=== PATIENT | female | born 1955 | race American Indian/Alaskan Native ===

== ENCOUNTER 2017-07-29 22:38 | Inpatient (IN) | payer OTHER ==
[2017-07-29] MEDS ORDERED: LIDOCAINE VISCOUS 2% PO ONE (22:50)
[2017-07-29] MEDS ORDERED: ZOFRAN IV ONE (23:00)
--- NOTE | 2017-07-29 23:02 | Emergency Department Report ---
ED Abdominal Pain HPI - General Chief Complaint: Abdominal Pain Stated Complaint: BOWEL OBSTRUCTION/ABD PAIN Time Seen by Provider: 07/29/17 22:45 Source: patient, EMS, old records reviewed Mode of arrival: Stretcher Limitations: No Limitations - History of Present Illness Initial Comments: Patient is a 62 years old female transferred from his [facility] for a partial bowel obstruction. Patient had history of diverticulitis and with ileostomy. Patient presented to the ER this morning with his abdominal pain nausea and vomiting. Dr. Van was consulted and he advised to transfer patient to [facility] for further evaluation. She stated that she is still nauseated. [facility] tried NG was no success. MD Complaint: abdominal pain - Related Data Previous Rx's Medication Instructions Recorded Last Taken Type Ferrous Sulfate [Feosol 325 MG tab] 325 mg PO TID #90 tablet 05/25/17 Unknown Rx Levofloxacin [Levaquin] 750 mg PO QDAY #2 tablet 05/25/17 Unknown Rx Metformin HCl [Fortamet ER] 1,000 mg PO BID #60 tab.er.24 05/25/17 Unknown Rx Pantoprazole [Protonix TAB] 40 mg PO DAILY #30 tablet 05/25/17 Unknown Rx oxyCODONE /ACETAMINOPHEN [Percocet 1 tab PO Q6HR PRN #30 tablet 05/25/17 Unknown Rx 5/325] Allergies Allergy/AdvReac Type Severity Reaction Status Date / Time No Known Allergies Allergy Verified 07/29/17 22:43 ED Review of Systems ROS: Stated complaint: BOWEL OBSTRUCTION/ABD PAIN Other details as noted in HPI Comment: All other systems reviewed and negative Constitutional: denies: chills, fever Respiratory: denies: cough, shortness of breath, SOB with exertion, SOB at rest , wheezing Cardiovascular: denies: chest pain Gastrointestinal: abdominal pain, nausea, vomiting. denies: diarrhea, constipation, hematemesis Genitourinary: denies: urgency ED Past Medical Hx - Past Medical History Previous Medical History?: Yes Hx Hypertension: Yes Hx Congestive Heart Failure: No Hx Diabetes: Yes Hx Deep Vein Thrombosis: No Hx Asthma: No Hx COPD: No Hx HIV: Yes Additional medical history: Diverticulitis, - Surgical History Past Surgical History?: Yes Hx Pacemaker: No Hx Internal Defibrillator: No Hx Cholecystectomy: Yes Additional Surgical History: colectomy 05/2018 - Social History Smoking Status: Never Smoker Substance Use Type: None - Medications Home Medications: Home Medications Medication Instructions Recorded Confirmed Last Taken Type Ferrous Sulfate [Feosol 325 MG tab] 325 mg PO TID #90 tablet 05/25/17 Unknown Rx Levofloxacin [Levaquin] 750 mg PO QDAY #2 tablet 05/25/17 Unknown Rx Metformin HCl [Fortamet ER] 1,000 mg PO BID #60 tab.er.24 05/25/17 Unknown Rx Pantoprazole [Protonix TAB] 40 mg PO DAILY #30 tablet 05/25/17 Unknown Rx oxyCODONE /ACETAMINOPHEN [Percocet 1 tab PO Q6HR PRN #30 tablet 05/25/17 Unknown Rx 5/325] ED Physical Exam - General Limitations: No Limitations General appearance: alert, in no apparent distress - Head Head exam: Present: atraumatic, normocephalic - Eye Eye exam: Present: normal appearance, PERRL - ENT ENT exam: Present: normal exam, mucous membranes dry - Neck Neck exam: Present: normal inspection - Respiratory Respiratory exam: Present: normal lung sounds bilaterally. Absent: wheezes, rales, rhonchi - Cardiovascular Cardiovascular Exam: Present: regular rate, normal rhythm, normal heart sounds - GI/Abdominal GI/Abdominal exam: Present: soft, distended. Absent: tenderness, guarding, rebound, rigid, hyperactive bowel sounds, hypoactive bowel sounds, organomegaly , mass, bruit, pulsatile mass, hernia - Back Exam Back exam: Present: normal inspection. Absent: CVA tenderness (R), CVA tenderness (L) - Neurological Exam Neurological exam: Present: alert, oriented X3, CN II-XII intact, normal gait - Skin Skin exam: Present: warm, normal color. Absent: dry, intact ED Course - Reevaluation(s) Reevaluation #1: 07/30/17 00:30 NG tube inserted with no complication. Minimum amount of fluids was suctioned. By mouth contrast injected through the NG tube. ED Medical Decision Making - Lab Data Labs from [facility] is as follows: White blood cells is 6.1 hemoglobin is 12.9 hematocrit is 40.1, platelet is 182, neutrophil is 44.2%, sodium is 137 , potassium 3.9, chloride 104 CO2 is 25 BUN is [address] abdomen and pelvis impression #1 postsurgical changes from colectomy there are prominent fluid filled bowel loops right hemiabdomen with mesenteric inflammation and relative caliber change. This finding are concerning for at least partial obstruction. The bowel loops are located at the periphery of the abdomen and internal hernia is not excluded. #2 finding of omental infarction in the left hemiabdomen. - Medical Decision Making Discussed with Dr. Diaz, presented the patient to him. he accepted patient to be admitted to his service. CT abdomen and pelvis with by mouth and IV contrast still pending. Critical care attestation.: If time is entered above; I have spent that time in minutes in the direct care of this critically ill patient, excluding procedure time. ED Disposition Clinical Impression: Abdominal pain, Bowel obstruction Disposition: [id number] OP ADMIT IP TO THIS HOSP Is pt being admited?: Yes Condition: Stable Instructions: Abdominal Pain (ED)
[2017-07-29] MEDS ORDERED: ZOFRAN ONE (23:07)
[2017-07-29] MEDS ORDERED: NACL 0.9% 1000 ML 1,000 ML IV ONE (23:12)
[2017-07-29] MEDS ORDERED: REGLAN ONE (23:33)
[2017-07-29] MEDS ORDERED: ATIVAN ONE (23:33)
[2017-07-29] MEDS ORDERED: LIDOCAINE VISCOUS 2% ONE (23:33)
[2017-07-30] MEDS ORDERED: ATIVAN IV ONE (00:11)
[2017-07-30] MEDS ORDERED: REGLAN IV ONE (00:11)
[2017-07-30] MEDS ORDERED: DILAUDID IV ONE (01:02)
[2017-07-30] MEDS ORDERED: MILK OF MAGNESIA PO PRN (01:07)
[2017-07-30] MEDS ORDERED: TYLENOL PO PRN (01:07)
[2017-07-30] MEDS ORDERED: DULCOLAX PR PRN (01:07)
[2017-07-30] MEDS ORDERED: D50W (25GM) Vial IV PRN (01:12)
--- NOTE | 2017-07-30 01:14 | History and Physical Report ---
History of Present Illness Date of examination: 07/30/17 Chief complaint: Abdominal pain History of present illness: 62 year old -[place] female with past medical history significant for diverticulosis status post colectomy, hypertension, diabetes mellitus type 2, sleep apnea was transferred from [facility] for the diagnosis of intestinal obstruction. Patient is complaining severely of abdominal pain that started around the epigastric area and later involved the whole abdomen, crampy , 10 out of 10, associated with nausea and vomiting. Dr. Van the surgeon was consulted and ask the patient's transfer to our hospital. CT abdomen was done and showed obstruction but no ischemia. REVIEW OF SYSTEMS: GENERAL: no weight change, no fatigue, no fever HEAD: no head ache EYES: no blurry vision, no acute visual loss EARS: no hearing loss, no discharge, no earache NOSE: no stuffiness, no sneezing, no discharge MOUTH, THROAT AND NECK: no bleeding gums, no sore throat, no swollen neck CARDIAC: no palpitations, no dyspnea on exertion, no orthopnea, no PND, no edema , no chest pain RESPIRATORY: no shortness of breath, no wheeze, no cough, no sputum, no hemoptysis, no asthma GI: As stated in the HPI. URINARY: no change in frequency, no urgency, no polyuria, no hematuria, no incontinence MUSCULOSKELETAL: no muscle weakness, no pain, no joint stiffness NEUROLOGIC: no loss of sensation/numbness, no tingling, no tremors, no weakness/ paralysis HEMATOLOGIC: no anemia, no easy bruising SKIN: no rashes ENDOCRINE: no heat/cold intolerance, no polyuria, no polydipsia, no thyroid problems, no diabetes PSYCHIATRIC: no anxiety, no depression, no suicidal ideations Past History Past Medical History: diabetes, hypertension, other (diverticulosis, sleep apnea ) Past Surgical History: bowel surgery Social history: full code. denies: smoking, alcohol abuse, prescription drug abuse, IV drug use Family history: no significant family history Medications and Allergies Allergies Allergy/AdvReac Type Severity Reaction Status Date / Time No Known Allergies Allergy Verified 07/29/17 22:43 Home Medications Medication Instructions Recorded Confirmed Last Taken Type Ferrous Sulfate [Feosol 325 MG tab] 325 mg PO TID #90 tablet 05/25/17 Unknown Rx Levofloxacin [Levaquin] 750 mg PO QDAY #2 tablet 05/25/17 Unknown Rx Metformin HCl [Fortamet ER] 1,000 mg PO BID #60 tab.er.24 05/25/17 Unknown Rx Pantoprazole [Protonix TAB] 40 mg PO DAILY #30 tablet 05/25/17 Unknown Rx oxyCODONE /ACETAMINOPHEN [Percocet 1 tab PO Q6HR PRN #30 tablet 05/25/17 Unknown Rx 5/325] Active Meds: Active Medications Sodium Chloride (Nacl 0.9% 1000 Ml) 1,000 mls @ 250 mls/hr IV ONCE ONE Stop: 07/30/17 03:11 Exam - Physical Exam Narrative exam: Not in cardiopulmonary distress. The patient is obese. Vital signs as documented. Head exam is unremarkable. No scleral icterus . Neck is without jugular venous distension, thyromegaly, or carotid bruits. Lungs are clear to auscultation. Cardiac exam reveals regular rate and Rhythm. First and second heart sounds normal. No murmurs, rubs or gallops. Abdominal exam reveals tender abdomen but no guarding or rigidity, colostomy bag in place no bleeding. Extremities are nonedematous and both femoral and pedal pulses are normal. [employer]: Alert and oriented 3. No focal weakness. Results - Labs CBC & Chem 7: 07/30/17 01:25 07/30/17 01:25 - Imaging and Cardiology CT scan - abdomen: report reviewed Assessment and Plan Assessment and plan: Intestinal obstruction - Patient is on NG tube suction - IV fluids, pain control - Dr. Van notified Hypertension - On IV hydralazine when necessary Diabetes mellitus type 2 - Sliding-scale insulin Patient doesn't want blood transfusion for jewish reasons DVT prophylaxis - SCDs because patient may need surgery. Disposition - Admit to surgical floor Advance Directives: Yes VTE prophylaxis?: Mechanical Reason for no VTE Prophylaxis: Surgical contraindication
[2017-07-30] MEDS ORDERED: D5/0.45NS 1,000 ML IV SCH (02:00)
[2017-07-30 02:11] LABS: Basophils % (Auto) 0.1 % (0.0-1.8); Mean Corpuscular HGB Conc 32 % (30-34); Mean Corpuscular Hemoglobin 28 pg (28-32); Mean Corpuscular Volume 87 fl (79-97); Platelet Count 182 K/mm3 (140-440); Red Blood Count 4.71 M/mm3 (3.65-5.03); Red Cell Distribution Width 17.8 % (13.2-15.2); White Blood Count 11.9 K/mm3 (4.5-11.0)
[2017-07-30 02:18] LABS: Alanine Aminotransferase 15 units/L (7-56); Albumin 4.3 g/dL (3.9-5); Albumin/Globulin Ratio 1.2 %; Alkaline Phosphatase 74 units/L (35-129); Anion Gap 25 mmol/L; BUN/Creatinine Ratio 14; Blood Urea Nitrogen 11 mg/dL (7-17); Calcium 9.1 mg/dL (8.4-10.2); Carbon Dioxide 19 mmol/L (22-30); Chloride 95.2 mmol/L (98-107); Glucose 262 mg/dL (65-100); Potassium 3.4 mmol/L (3.6-5.0); Sodium 136 mmol/L (137-145)
--- NOTE | 2017-07-30 03:08 | Cat Scan Report ---
FINAL REPORT PROCEDURE: CT ABDOMEN PELVIS W CON TECHNIQUE: Computerized axial tomography of the abdomen and pelvis was performed after the IV injection of iodinated nonionic contrast. HISTORY: abdominal pain COMPARISON: No prior studies are available for comparison. FINDINGS: Visualized lower thorax: No significant abnormality. Liver: Normal size and attenuation. Spleen: Normal size and attenuation. Gallbladder and biliary system: There has been a cholecystectomy.. Pancreas: Normal. Adrenals: Normal. Kidneys: There is a 5 millimeter stone in the midpole of the right kidney. There are no ureteral stones. There is no hydronephrosis. There is an 11 millimeter cyst in the left kidney.. GI tract: There has been a colectomy. There is a right lower quadrant ileostomy. There are dilated and distorted loops of small bowel in the right side of the abdomen suggesting enteritis with possible obstruction and adhesions. There is no ischemic bowel injury or perforation. Lymph nodes and mesentery: There is induration of the mesentery. There is a 3 centimeter fatty mass in the left upper quadrant of the abdomen which could be evidence of old mesenteric or omental infarct.. Vasculature: Normal. Bladder: The urinary bladder is distended.. Reproductive organs: Uterus is unremarkable.. Peritoneum: There is moderate ascites around the liver. There is no free air. There is no abscess.. Musculoskeletal structures: No significant abnormality. Other: None. IMPRESSION: There has been a cholecystectomy.. There is a 5 millimeter stone in the midpole of the right kidney. There are no ureteral stones. There is no hydronephrosis. There is an 11 millimeter cyst in the left kidney.. There has been a colectomy. There is a right lower quadrant ileostomy. There are dilated and distorted loops of small bowel in the right side of the abdomen suggesting enteritis with possible obstruction and adhesions. There is no ischemic bowel injury or perforation. There is induration of the mesentery. There is a 3 centimeter fatty mass in the left upper quadrant of the abdomen which could be evidence of old mesenteric or omental infarct.. There is moderate ascites around the liver. There is no free air. There is no abscess..
[2017-07-30] MEDS ORDERED: APRESOLINE IV PRN (03:26)
[2017-07-30] MEDS ORDERED: APRESOLINE ONE (03:27)
--- NOTE | 2017-07-30 04:41 | Emergency Department Report ---
Blank Doc - Documentation Documentation: I was asked by Dr. Bonilla to follow up with the CT results to make sure there was nothing that needed to be done as a surgical emergency. The CT results show: PROCEDURE: CT ABDOMEN PELVIS W CON TECHNIQUE: Computerized axial tomography of the abdomen and pelvis was performed after the IV injection of iodinated nonionic contrast. HISTORY: abdominal pain COMPARISON: No prior studies are available for comparison. FINDINGS: Visualized lower thorax: No significant abnormality. Liver: Normal size and attenuation. Spleen: Normal size and attenuation. Gallbladder and biliary system: There has been a cholecystectomy.. Pancreas: Normal. Adrenals: Normal. Kidneys: There is a 5 millimeter stone in the midpole of the right kidney. There are no ureteral stones. There is no hydronephrosis. There is an 11 millimeter cyst in the left kidney.. GI tract: There has been a colectomy. There is a right lower quadrant ileostomy. There are dilated and distorted loops of small bowel in the right side of the abdomen suggesting enteritis with possible obstruction and adhesions. There is no ischemic bowel injury or perforation. Lymph nodes and mesentery: There is induration of the mesentery. There is a 3 centimeter fatty mass in the left upper quadrant of the abdomen which could be evidence of old mesenteric or omental infarct.. Vasculature: Normal. Bladder: The urinary bladder is distended.. Reproductive organs: Uterus is unremarkable.. Peritoneum: There is moderate ascites around the liver. There is no free air. There is no abscess.. Musculoskeletal structures: No significant abnormality. Other: None. IMPRESSION: There has been a cholecystectomy.. There is a 5 millimeter stone in the midpole of the right kidney. There are no ureteral stones. There is no hydronephrosis. There is an 11 millimeter cyst in the left kidney.. There has been a colectomy. There is a right lower quadrant ileostomy. There are dilated and distorted loops of small bowel in the right side of the abdomen suggesting enteritis with possible obstruction and adhesions. There is no ischemic bowel injury or perforation. There is induration of the mesentery. There is a 3 centimeter fatty mass in the left upper quadrant of the abdomen which could be evidence of old mesenteric or omental infarct.. There is moderate ascites around the liver. There is no free air. There is no abscess.. Transcribed By: CO Dictated By: KIRSTEN TERAN MD Electronically Authenticated By: KIRSTEN TERAN MD Signed Date/Time: 07/29/17 7619 I spoke with the surgeon, Dr. Van, who says that the only recommendation would be a nasogastric tube if the patient is having continuous nausea and vomiting. Since the patient does not appear to have intractable vomiting, a nasogastric tube does not appear to be recommended at this time. The patient will be admitted to the hospitalist service and a consult has been placed for Dr. Van.
[2017-07-30] MEDS: DILAUDID IV PRN ×5 (05:44→23:00)
[2017-07-30] MEDS: NOVOLOG SUB-Q SCH ×3 (09:19→19:11)
[2017-07-30] MEDS: PEPCID IV SCH (09:44)
--- NOTE | 2017-07-30 09:49 | Consultation ---
History of Present Illness Consult date: 07/30/17 Reason for consult: abdominal pain Chief complaint: Abdominal pain since yesterday - History of present illness History of present illness: 62 y/o female patient, Jehova's witness, presenting 2 months after total colectomy and end ileostomy for bleeding. Patient reports she started feeling ill yesterday and pain got worse over the course of the day with no ostomy function and nausea/vomiting. She presented to an outside hospital and from there was transferred here. A CT abdomen done here is equivocal for enteritis vs partial obstruction. She reports she continues to have abdominal pain. Past History Past Medical History: diabetes, hypertension, other (diverticulosis, sleep apnea ) Past Surgical History: bowel surgery, Other (Total abdominal colectomy and end ileostomy) Social history: full code. denies: smoking, alcohol abuse, prescription drug abuse, IV drug use Family history: no significant family history Medications and Allergies Allergies Allergy/AdvReac Type Severity Reaction Status Date / Time No Known Allergies Allergy Verified 07/29/17 22:43 Home Medications Medication Instructions Recorded Confirmed Last Taken Type Ferrous Sulfate [Feosol 325 MG tab] 325 mg PO TID #90 tablet 05/25/17 Unknown Rx Levofloxacin [Levaquin] 750 mg PO QDAY #2 tablet 05/25/17 Unknown Rx Metformin HCl [Fortamet ER] 1,000 mg PO BID #60 tab.er.24 05/25/17 Unknown Rx Pantoprazole [Protonix TAB] 40 mg PO DAILY #30 tablet 05/25/17 Unknown Rx oxyCODONE /ACETAMINOPHEN [Percocet 1 tab PO Q6HR PRN #30 tablet 05/25/17 Unknown Rx 5/325] Active Meds: Active Medications Acetaminophen (Tylenol) 650 mg PO Q4H PRN PRN Reason: Pain MILD(1-3)/Fever >100.5/JAUREGUI Bisacodyl (Dulcolax) 10 mg OH QDAY PRN PRN Reason: Constipation unrelieved by MOM Dextrose (D50w (25gm) Vial) 25 gm IV PRN PRN PRN Reason: Hypoglycemia Famotidine (Pepcid) 20 mg IV BID DIMITRY Hydralazine HCl (Apresoline) 10 mg IV Q4HR PRN PRN Reason: Blood Pressure Last Admin: 07/30/17 03:36 Dose: 10 mg Hydromorphone HCl (Dilaudid) 1 mg IV Q3H PRN PRN Reason: Pain, Moderate (4-6) Last Admin: 07/30/17 05:44 Dose: 1 mg Dextrose/Sodium Chloride (D5/0.45ns) 1,000 mls @ 100 mls/hr IV DIRECT DIMITRY Last Admin: 07/30/17 07:45 Dose: 100 mls/hr Insulin Aspart (Novolog) 0 units SUB-Q ACHS DIMITRY PRN Reason: Protocol Last Admin: 07/30/17 09:19 Dose: Not Given Magnesium Hydroxide (Milk Of Magnesia) 30 ml PO Q4H PRN PRN Reason: Constipation Ondansetron HCl (Zofran) 4 mg IV Q8H PRN PRN Reason: N/V unrelieved by Reglan Review of Systems - Constitutional fever, weakness - Respiratory no cough, no cough with sputum - Gastrointestinal abdominal pain, nausea, vomiting, constipation, change in bowel habits, no BRBPR Exam Vital Signs Pulse Resp 108 H 17 07/29/17 23:19 07/29/17 23:19 - General physical appearance Positive: well developed, well nourished, moderate distress - Eyes Positive: PERRL, normal occular movement - ENT Positive: other (NGT in place) - Respiratory Positive: normal expansion, normal respiratory effort, clear to auscultation - Cardiovascular Rhythm: regular Heart Sounds: Present: S1 & S2. Absent: gallop, systolic murmur, diastolic murmur - Abdomen Abdomen: Present: soft, tender (epigastric region), bowel sounds hypoactive, other (RLQ ostomy with stool in bag). Absent: distended, rebound, rigid Results - Labs 07/30/17 01:25 07/30/17 01:25 Abnormal lab results 07/30/17 07/30/17 Range/Units 01:25 01:25 WBC 11.9 H (4.5-11.0) K/mm3 RDW 17.8 H (13.2-15.2) % Lymph % (Auto) 7.1 L (13.4-35.0) % Lymph # 0.8 L (1.2-5.4) K/mm3 Seg Neutrophils % 87.5 H (40.0-70.0) % Seg Neutrophils # 10.4 H (1.8-7.7) K/mm3 Sodium 136 L (137-145) mmol/L Potassium 3.4 L (3.6-5.0) mmol/L Chloride 95.2 L (98-107) mmol/L Carbon Dioxide 19 L (22-30) mmol/L Glucose 262 H (65-100) mg/dL Diabetes panel 07/30/17 Range/Units 01:25 Sodium 136 L (137-145) mmol/L Potassium 3.4 L (3.6-5.0) mmol/L Chloride 95.2 L (98-107) mmol/L Carbon Dioxide 19 L (22-30) mmol/L BUN 11 (7-17) mg/dL Creatinine 0.8 (0.7-1.2) mg/dL Glucose 262 H (65-100) mg/dL Calcium 9.1 (8.4-10.2) mg/dL AST 17 (5-40) units/L ALT 15 (7-56) units/L Alkaline Phosphatase 74 (35-129) units/L Total Protein 8.0 (6.3-8.2) g/dL Albumin 4.3 (3.9-5) g/dL Calcium panel 07/30/17 Range/Units 01:25 Calcium 9.1 (8.4-10.2) mg/dL Albumin 4.3 (3.9-5) g/dL Pituitary panel 07/30/17 Range/Units 01:25 Sodium 136 L (137-145) mmol/L Potassium 3.4 L (3.6-5.0) mmol/L Chloride 95.2 L (98-107) mmol/L Carbon Dioxide 19 L (22-30) mmol/L BUN 11 (7-17) mg/dL Creatinine 0.8 (0.7-1.2) mg/dL Glucose 262 H (65-100) mg/dL Calcium 9.1 (8.4-10.2) mg/dL Adrenal panel 07/30/17 Range/Units 01:25 Sodium 136 L (137-145) mmol/L Potassium 3.4 L (3.6-5.0) mmol/L Chloride 95.2 L (98-107) mmol/L Carbon Dioxide 19 L (22-30) mmol/L BUN 11 (7-17) mg/dL Creatinine 0.8 (0.7-1.2) mg/dL Glucose 262 H (65-100) mg/dL Calcium 9.1 (8.4-10.2) mg/dL Total Bilirubin 0.20 (0.1-1.2) mg/dL AST 17 (5-40) units/L ALT 15 (7-56) units/L Alkaline Phosphatase 74 (35-129) units/L Total Protein 8.0 (6.3-8.2) g/dL Albumin 4.3 (3.9-5) g/dL - Imaging CT scan - abdomen: report reviewed, image reviewed, other (Discussed with radiologist) CT scan - pelvis: report reviewed, image reviewed, other (Discussed with radiologist) Assessment and Plan Patient appears to have either a pSBO or gastroenteritis. After thorough discussion with radiologist, no clear evidence of internal hernia or any other surgical emergency apparent. This is likely pSBO due to adhesions. NGT has been placed and is now on intermittent low suction. Will wait for resolution of symptoms. I have ordered lactic acid to evaluate current hydration status. Will continue to monitor. Ostomy does appear mildly productive at this time.
--- NOTE | 2017-07-30 12:29 | Event Note ---
Date: 07/30/17 Patient seen and examined, medical records reviewed admitted with partial small bowel obstruction, surgery evaluated the patient Nothing by mouth, intermittent suction, IV fluids and supportive care Consult and recommendations noted, Continue current management Discussed with son who is at the bedside Plan of care discussed with the nurse
[2017-07-30 17:15] LABS: Hematocrit 52.5 % (30.3-42.9); Hemoglobin 16.6 gm/dl (10.1-14.3); Mean Corpuscular HGB Conc 32 % (30-34); Mean Corpuscular Hemoglobin 28 pg (28-32); Mean Corpuscular Volume 89 fl (79-97); Platelet Count 202 K/mm3 (140-440); Red Blood Count 5.92 M/mm3 (3.65-5.03); Red Cell Distribution Width 18.2 % (13.2-15.2); White Blood Count 11.3 K/mm3 (4.5-11.0)
[2017-07-30 17:31] LABS: Calcium 9.1 mg/dL (8.4-10.2); Chloride 96.5 mmol/L (98-107); Potassium 4.2 mmol/L (3.6-5.0)
[2017-07-30] MEDS ORDERED: NACL 0.9% 1000 ML 1,000 ML ONE ×3 (17:59→21:57)
[2017-07-30] MEDS ORDERED: XYLOCAINE 2% INFILTRATI ONE (17:59)
[2017-07-30] MEDS ORDERED: LEVOPHED DRIP 4 MG/NS 250 ML 4 MG/250 ML BAG IV SCH (18:00)
[2017-07-30] MEDS ORDERED: LEVAQUIN 750MG/150ML 750 MG/150 ML BAG IV SCH (18:00)
[2017-07-30] MEDS ORDERED: NACL 0.9% 1000 ML 1,000 ML IV SCH (18:00)
[2017-07-30] MEDS ORDERED: LEVOPHED DRIP 4 MG/NS 250 ML 4 MG/250 ML BAG IV ONE (18:00)
[2017-07-30] MEDS ORDERED: FLAGYL 500 MG/100 ML 500 MG/100 ML BAG IV SCH (18:00)
[2017-07-30] MEDS ORDERED: NACL 0.9% 1000 ML 1,000 ML IV ONE ×2 (18:05→18:29)
--- NOTE | 2017-07-30 18:11 | Progress Note ---
Assessment and Plan Assessment and plan: --Transfer to ICU Consult critical care, discussed with -- Septic Shock: Possible intra-abdominal sepsis IV fluids, multiple fluid boluses, Levophed, if no improvement, start vasopressin IV antibiotics Levaquin and Flagyl, requested ER physician Dr. Reza for a central line Blood and urine cultures --Small bowel obstruction/possible intra-abdominal sepsis Surgery following, nothing by mouth/NG tube/ intermittent suction Supportive care, Discussed with surgeon Dr. Rouse, possible surgery --Hypothermia; secondary to sepsis, warm blankets --Lactic acidosis /metabolic acidosis secondary to severe sepsis IV fluids, IV antibiotics, cultures --Acute renal failure; secondary to vasomotor nephropathy, prerenal azotemia Aggressive IV hydration, closely monitor renal function, avoid nephrotoxic medications Consider nephrology evaluation if needed --History of ileostomy/ostomy care --Type 2 diabetes mellitus; Accu-Chek sliding scale coverage , low-dose 70/30 insulin as needed Check hemoglobin A1c --DVT prophylaxis; no pharmacologic anticoagulation in view of pending surgery, SCDs --full CODE STATUS --Closely monitor the patient and adjust the management as needed Patient's condition, treatment plan, consults recommendations reviewed with the patient's and her son at the bedside Addressed all their questions and concerns. They verbalized understanding Critical care time 45 minutes The high probability of a clinically significant, sudden or life threatening deterioration of the [GI ,CV, renal] system(s) required my full and direct attention, intervention and personal management. The aggregate critical care time was [45 ] minutes. This time is in addition to time spent performing reported procedures but includes the following: [x] Data Review and interpretation [x] Patient assessment and monitoring of vital signs [x] Documentation, counseling [x] Medication orders and management History Interval history: Patient suddenly became hypothermic,hypotensive and tachycardic. Received IV fluids with no improvement. Patient cold clammy and diaphoretic ,in acute distress. Vitals reviewed, Transfer to ICU Start Levophed,IV antibiotics Levaquin and Flagyl already started, IV fluidsbolus Critical care consult d/w , d/w surgeon Discussed with ICU charge nurse Hospitalist Physical - Constitutional Vitals: Temp Pulse Resp BP Pulse Ox 93.8 F L 143 H 28 H 91/54 97 07/30/17 17:16 07/30/17 17:16 07/30/17 17:16 07/30/17 17:16 07/30/17 16:09 General appearance: Present: severe distress, cachectic, other (moaning) - EENT Eyes: Present: PERRL, EOM intact - Neck Neck: Present: supple, normal ROM - Respiratory Respiratory effort: normal Respiratory: bilateral: diminished, rhonchi, negative: rales, wheezing - Cardiovascular Rhythm: regular Heart Sounds: Present: S1 & S2 (Tachycardia) - Extremities Extremities: no ischemia, No edema - Abdominal General gastrointestinal: tender, distended, absent bowel sounds - Integumentary Integumentary: Present: clear, clammy (cold) - Psychiatric Psychiatric: agitated, other (confused) - Neurologic Neurologic: moves all extremities Results - Labs CBC & Chem 7: 07/30/17 16:53 07/30/17 16:53 Labs: Laboratory Last Values WBC 11.3 K/mm3 (4.5-11.0) H 07/30/17 16:53 RBC 5.92 M/mm3 (3.65-5.03) H 07/30/17 16:53 Hgb 13.0 gm/dl (10.1-14.3) 07/30/17 01:25 Hct 41.0 % (30.3-42.9) 07/30/17 01:25 MCV 89 fl (79-97) 07/30/17 16:53 MCH 28 pg (28-32) 07/30/17 16:53 MCHC 32 % (30-34) 07/30/17 16:53 RDW 18.2 % (13.2-15.2) H 07/30/17 16:53 Plt Count 202 K/mm3 (140-440) 07/30/17 16:53 Lymph % (Auto) 7.1 % (13.4-35.0) L 07/30/17 01:25 Lagrange % (Auto) 5.3 % (0.0-7.3) 07/30/17 01:25 Eos % (Auto) 0.0 % (0.0-4.3) 07/30/17 01:25 Baso % (Auto) 0.1 % (0.0-1.8) 07/30/17 01:25 Lymph # 0.8 K/mm3 (1.2-5.4) L 07/30/17 01:25 Lagrange # 0.6 K/mm3 (0.0-0.8) 07/30/17 01:25 Eos # 0.0 K/mm3 (0.0-0.4) 07/30/17 01:25 Baso # 0.0 K/mm3 (0.0-0.1) 07/30/17 01:25 Seg Neutrophils % 87.5 % (40.0-70.0) H 07/30/17 01:25 Seg Neutrophils # 10.4 K/mm3 (1.8-7.7) H 07/30/17 01:25 APTT 26.5 Sec. (24.2-36.6) 07/30/17 01:25 Sodium 139 mmol/L (137-145) 07/30/17 16:53 Potassium 4.2 mmol/L (3.6-5.0) D 07/30/17 16:53 Chloride 96.5 mmol/L (98-107) L 07/30/17 16:53 Carbon Dioxide 20 mmol/L (22-30) L 07/30/17 16:53 Anion Gap 27 mmol/L 07/30/17 16:53 BUN 19 mg/dL (7-17) H 07/30/17 16:53 Creatinine 2.3 mg/dL (0.7-1.2) H D 07/30/17 16:53 Estimated GFR 26 ml/min 07/30/17 16:53 BUN/Creatinine Ratio 8 % 07/30/17 16:53 Glucose 215 mg/dL (65-100) H 07/30/17 16:53 POC Glucose 195 (70-105) H 07/30/17 16:22 Lactic Acid 8.00 mmol/L (0.7-2.0) H* 07/30/17 16:53 Calcium 9.1 mg/dL (8.4-10.2) 07/30/17 16:53 Total Bilirubin 0.20 mg/dL (0.1-1.2) 07/30/17 01:25 AST 17 units/L (5-40) 07/30/17 01:25 ALT 15 units/L (7-56) 07/30/17 01:25 Alkaline Phosphatase 74 units/L (35-129) 07/30/17 01:25 Total Protein 8.0 g/dL (6.3-8.2) 07/30/17 01:25 Albumin 4.3 g/dL (3.9-5) 07/30/17 01:25 Albumin/Globulin Ratio 1.2 % 07/30/17 01:25
--- NOTE | 2017-07-30 18:37 | Event Note ---
Date: 07/30/17 Requested by hospitalist to place a central line. Indications hypotensive patient. The right groin was prepped and draped in the usual sterile fashion. After single puncture and using the Seldinger technique, I gained good access to the femoral vein. A triple lumen catheter was placed without difficulty. Position was verified upon withdrawing dark red blood which was nonpulsatile. The line was secured with 3-0 nylon. An antibiotic disc and a Tegaderm dressing was placed. The procedure was well tolerated.
[2017-07-30 18:53] LABS: INR 1.36 (0.87-1.13)
[2017-07-30 18:54] LABS: Partial Thromboplastin Time 26.9 Sec. (24.2-36.6)
[2017-07-30] MEDS ORDERED: Vasostrict 20 UNIT in NACL 0.9% 100 ML IV SCH (19:00)
[2017-07-30] MEDS ORDERED: AMIDATE IV ONE ×2 (19:12→19:32)
--- NOTE | 2017-07-30 19:31 | Event Note ---
Date: 07/30/17 Patient in extremis. Decision for emergent ex-lap made. I explained to immediate family members the guarded prognosis of my patient, given the physiological status she is in. I have explained the various possibilities and the very real chance of , need for bowel resection and any other intra- operative actions deemed necessary. They have agreed to have Ms. hill undergo the operation. Consent obtained from at bedside.
[2017-07-30] MEDS ORDERED: NACL 0.9% IR ONE ×2 (19:32)
[2017-07-30] MEDS ORDERED: XYLOCAINE MPF 2% ONE (19:32)
[2017-07-30] MEDS ORDERED: ZEMURON IV ONE (19:32)
[2017-07-30] MEDS ORDERED: QUELICIN ONE (19:32)
[2017-07-30] MEDS ORDERED: DILAUDID ONE ×2 (19:32→21:23)
[2017-07-30] MEDS ORDERED: LACTATED RINGERS 1,000 ML ONE ×5 (19:52→22:18)
[2017-07-30] MEDS ORDERED: ANCEF ONE (20:33)
[2017-07-30] MEDS ORDERED: NACL 0.9% 1000 ML 0 ML ONE (21:05)
[2017-07-30] MEDS ORDERED: ZOFRAN ONE (21:11)
[2017-07-30] MEDS ORDERED: VERSED IV ONE (21:23)
[2017-07-30] MEDS ORDERED: LACTATED RINGERS 1,000 ML IV SCH (22:00)
[2017-07-30] MEDS ORDERED: NEO SYNEPHRINE/NS Syringe(OR USE) IV ONE (22:00)
--- NOTE | 2017-07-30 22:09 | Post Operative Note ---
Pre-op diagnosis: ischemic bowel Post-op diagnosis: other (Ischemic and perforated bowel) Procedure: Exploratory laparotomy and resection of small bowel Anesthesia: GETA Surgeon: MOHINDER SNYDER Boiling Tub Operator: DEANNE CAROLINA Estimated blood loss: 50-100ml Pathology: list (Small bowel and cultures) Specimen disposition: to lab Condition: critical Disposition: ICU
--- NOTE | 2017-07-30 22:32 | Post Anesthesia Evaluation ---
- Post Anesthesia Evaluation Patient Participated: No Airway Patent: Yes Stable Respiratory Function: Yes Nausea/Vomiting: No Temp > 96.8F: Yes Pain Manageable: Yes Adequeate Hydration: Yes Anesthesia Complications: No Patient on Ventilator: Yes Other Comments: Transported directly to ICU
--- NOTE | 2017-07-30 22:59 | Consultation ---
History of Present Illness Consult date: 07/30/17 Requesting physician: SHANNA DIALLO Reason for consult: other (Severe Sepsis; Bowel Obstruction) History of present illness: PULMONARY/CCM CONSULT NOTE (Full dictation # [id number]) Please see dictated notes for full details Past History Past Medical History: diabetes, hypertension, other (diverticulosis, sleep apnea ) Past Surgical History: bowel surgery, Other (Total abdominal colectomy and end ileostomy) Social history: full code. denies: smoking, alcohol abuse, prescription drug abuse, IV drug use Family history: no significant family history Medications and Allergies Allergies Allergy/AdvReac Type Severity Reaction Status Date / Time No Known Allergies Allergy Verified 07/29/17 22:43 Home Medications Medication Instructions Recorded Confirmed Last Taken Type Ferrous Sulfate [Feosol 325 MG tab] 325 mg PO TID #90 tablet 05/25/17 Unknown Rx Levofloxacin [Levaquin] 750 mg PO QDAY #2 tablet 05/25/17 Unknown Rx Metformin HCl [Fortamet ER] 1,000 mg PO BID #60 tab.er.24 05/25/17 Unknown Rx Pantoprazole [Protonix TAB] 40 mg PO DAILY #30 tablet 05/25/17 Unknown Rx oxyCODONE /ACETAMINOPHEN [Percocet 1 tab PO Q6HR PRN #30 tablet 05/25/17 Unknown Rx 5/325] Active Meds: Active Medications Dextrose (D50w (25gm) Vial) 25 gm IV PRN PRN PRN Reason: Hypoglycemia Famotidine (Pepcid) 20 mg IV BID DIMITRY Last Admin: 07/30/17 09:44 Dose: 20 mg Heparin Sodium (Porcine) (Heparin) 5,000 unit SUB-Q Q8H DIMITRY Hydralazine HCl (Apresoline) 10 mg IV Q4HR PRN PRN Reason: Blood Pressure Last Admin: 07/30/17 03:36 Dose: 10 mg Hydromorphone HCl (Dilaudid) 1 mg IV Q3H PRN PRN Reason: Pain, Moderate (4-6) Last Admin: 07/30/17 13:26 Dose: 1 mg Sodium Chloride (Nacl 0.9% 1000 Ml) 1,000 mls @ 100 mls/hr IV DIRECT DIMITRY Norepinephrine (Levophed Drip 4 Mg/Ns 250 Ml) 4 mg in 250 mls @ 7.5 mls/hr IV TITR DIMITRY; 2 MCG/MIN PRN Reason: Protocol Vasopressin 20 unit/ Sodium (Chloride) 101 mls @ 9.09 mls/hr IV TITR DIMITRY; 0.03 UNITS/MIN PRN Reason: Protocol Last Admin: 07/30/17 18:59 Dose: 0.03 units/min, 9.09 mls/hr Lactated Ringer's (Lactated Ringers) 1,000 mls @ 125 mls/hr IV DIRECT DIMITRY Piperacillin Sod/Tazobactam Sod (Zosyn/Ns 2.25 Gm/50ml) 2.25 gm in 50 mls @ 100 mls/hr IV Q6HR DIMITRY Insulin Aspart (Novolog) 0 units SUB-Q ACHS DIMITRY PRN Reason: Protocol Last Admin: 07/30/17 19:11 Dose: Not Given Insulin Human Isoph/Insulin Regular (Novolin 70/30) 5 unit SUB-Q BIDDIAB DIMITRY Ondansetron HCl (Zofran) 4 mg IV Q8H PRN PRN Reason: N/V unrelieved by Good Physical Examination Vital signs: Vital Signs Pulse Resp 108 H 17 07/29/17 23:19 07/29/17 23:19 Results - Laboratory Findings CBC and BMP: 07/30/17 16:53 07/30/17 16:53 PT/INR, D-dimer PT 17.5 Sec. (12.2-14.9) H 07/30/17 18:37 INR 1.36 (0.87-1.13) H 07/30/17 18:37 Abnormal lab findings: Abnormal Labs 07/30/17 07/30/17 07/30/17 01:25 01:25 10:06 WBC 11.9 H RBC Hgb Hct RDW 17.8 H Lymph % (Auto) 7.1 L Lymph # 0.8 L Seg Neutrophils % 87.5 H Seg Neutrophils # 10.4 H PT INR Sodium 136 L Potassium 3.4 L Chloride 95.2 L Carbon Dioxide 19 L BUN Creatinine Glucose 262 H POC Glucose Lactic Acid 5.40 H* 07/30/17 07/30/17 07/30/17 12:49 16:22 16:53 WBC RBC Hgb Hct RDW Lymph % (Auto) Lymph # Seg Neutrophils % Seg Neutrophils # PT INR Sodium Potassium Chloride Carbon Dioxide BUN Creatinine Glucose POC Glucose 253 H 195 H Lactic Acid 8.00 H* 07/30/17 07/30/17 07/30/17 16:53 16:53 18:37 WBC 11.3 H RBC 5.92 H Hgb 16.6 H D Hct 52.5 H D RDW 18.2 H Lymph % (Auto) Lymph # Seg Neutrophils % Seg Neutrophils # PT 17.5 H INR 1.36 H Sodium Potassium Chloride 96.5 L Carbon Dioxide 20 L BUN 19 H Creatinine 2.3 H D Glucose 215 H POC Glucose Lactic Acid
[2017-07-30] MEDS ORDERED: ZOSYN/NS 3.375GM/50ML 3.375 GM/50 ML BAG IV SCH (23:00)
[2017-07-30] MEDS ORDERED: VERSED IV PRN (23:04)
[2017-07-30] MEDS ORDERED: ARTIFICIAL TEARS OPHTH OINT OU PRN (23:11)
[2017-07-30] MEDS ORDERED: VASELINE LIP THERAPY TP PRN (23:11)
[2017-07-30 23:14] LABS: ISTAT Base Excess -9; ISTAT HCO3 18.8; ISTAT PO2 197 (80-105); ISTAT SO2 99; ISTAT TCO2 20
[2017-07-30] MEDS ORDERED: DIPRIVAN 10 MG/ML 1,000 MG/100 ML BOTTLE IV SCH (23:45)
[2017-07-30] MEDS ORDERED: SODIUM BICARBONATE 150 MEQ in D5W 1,000 ML IV SCH (23:45)
[2017-07-30] MEDS ORDERED: fentaNYL DRIP Premix 2,000 MCG/100 ML BAG IV SCH (23:45)
--- NOTE | 2017-07-31 00:04 | XRay Report ---
FINAL REPORT PROCEDURE: Abdomen. TECHNIQUE: Portable AP supine view. HISTORY: Nasogastric tube placement. COMPARISON: No prior studies are available for comparison. FINDINGS: The bowel gas pattern is nonspecific. A nasogastric tube enters the stomach. Cholecystectomy clips are present. Midline skin von are present. The soft tissues are unremarkable. The regional skeleton appears intact. IMPRESSION: Satisfactory nasogastric tube placement.
--- NOTE | 2017-07-31 00:21 | XRay Report ---
FINAL REPORT PROCEDURE: XR CHEST 1V AP TECHNIQUE: Chest radiograph anteroposterior view. CPT 54106 HISTORY: Central Line Placement COMPARISON: 07/30/2017 FINDINGS: Heart: Normal. Mediastinum/Vessels: Normal. Lungs/Pleural space: Lungs are well-expanded. There are no infiltrates, effusions or pneumothoraces.. Bony thorax: No acute osseous abnormality. Life support devices: Endotracheal tube is in the mid trachea. There is an NG tube in the stomach. There is a right-sided central venous catheter. The tip is in the superior vena cava.. IMPRESSION: Heart size is normal. Lungs are clear. Tubes and catheters are in proper position..
[2017-07-31] MEDS ORDERED: NACL 0.9% 500 ML 500 ML ONE (00:33)
[2017-07-31] MEDS: DUONEB *Not for PRN Use IH SCH ×4 (01:59→19:36)
[2017-07-31] MEDS ORDERED: NACL 0.9% 500 ML IV SCH (02:00)
[2017-07-31] MEDS: ZOSYN/NS 2.25 GM/50ML 2.25 GM/50 ML BAG IV SCH ×4 (02:18→20:39)
[2017-07-31 05:25] LABS: ISTAT Base Excess -5; ISTAT HCO3 18.1; ISTAT PCO2 22.5 (35-45); ISTAT PH 7.514 (7.35-7.45); ISTAT PO2 115 (80-105); ISTAT SO2 99; ISTAT TCO2 19
[2017-07-31] MEDS: PEPCID IV SCH ×2 (05:33→09:50)
--- NOTE | 2017-07-31 07:02 | Consultation ---
PULMONARY CRITICAL CARE CONSULTATION CONSULTING PHYSICIAN: Dr. Devine. REASON FOR CONSULTATION: Severe sepsis, bowel obstruction. CHIEF COMPLAINT AND HISTORY OF PRESENT ILLNESS: The patient is a 62-year-old -[place] female transferred from [facility] yesterday for a partial bowel obstruction. She does have a history of diverticulitis. She has a colostomy in place, I believe. She presented with nausea and vomiting, surgeon saw her. He advised transfer of the patient to [facility] for further evaluation. She was admitted to the medical floor I believe with conservative treatments; earlier today I was called due to the patient's decompensation. She was tachycardic. She was hypoxemic. She was hypotensive. She was transferred to the Intensive Care Unit where she was volume resuscitated, ultimately Surgery was called and she was emergently taken into the Emergency Room. It seems like in the Emergency Room, the patient was taken in for an exploratory laparotomy because the patient was in extremis. Consent was given by her . The postoperative diagnosis is ischemic and perforated bowel. She comes out of the OR on the mechanical ventilator-assist control, rate of 12, tidal volume 500, PEEP of 5. When I stopped by to see her, she was still out of it, had been on sedation and obviously anesthetic agent. I do not have any history of overt aspiration. Now with regards to the patient's tobacco use/abuse history, the family had denied any tobacco use at initial presentation. This is much of the history of presentation as I have. PAST MEDICAL HISTORY: Diabetes, hypertension, diverticulosis, sleep apnea, obesity. PAST SURGICAL HISTORY: She has had bowel surgery in the past. MEDICATIONS: She was on at the time I stopped by to see her were reviewed, pertinent medications included the following: Pepcid 20 mg IV b.i.d., heparin 5000 units subq q. 8 hours, insulin via sliding scale also on 70/30 insulin. She was started on a vasopressin drip at 0.03 units per minute, Zofran 4 mg IV q. 8 hours, Zosyn 2.25 grams IV every 6 hours. ALLERGIES: No known drug allergies. DIET: Obese lady, acute weight loss or gain history is unknown. FAMILY AND SOCIAL HISTORY: Lives in the community, good family support, her was here earlier. They had denied alcohol, tobacco, or illicit drug use or abuse. Family history; otherwise, unknown. REVIEW OF SYSTEMS: Unobtainable secondary to the patient's medical and mental condition. Since she has been here no gross hematochezia or melena, no gross hematuria, no witnessed seizures. No bloody ET tube secretions. Review of systems is otherwise unobtainable or noncontributory. PHYSICAL EXAMINATION: VITAL SIGNS: At initial presentation in the Emergency Room, vital signs; the first temperature I see is 98.6 with a pulse of 108, respiratory rate of 17, blood pressure 181/104, oxygen sats were 98%, inspired oxygen concentration was not recorded. GENERAL: She is an elderly looking lady, looks her stated age, lying on the bed. Endotracheal tube in place, taped at the lips around 23 cm. Does not look like she is in any distress at this point in time. HEAD, EYES, EARS, NOSE AND THROAT: Pupils, I should mention no scleral icterus. No conjunctival erythema. No gross jugular venous distention, no thyromegaly. Grossly, no palpable lymph nodes in the supraclavicular or submandibular lymph node chains. LUNGS: Auscultation of both lung carr unremarkable. Lungs are clear bilaterally. Good bilateral breath sounds. HEART: Heart sounds 1 and 2 are heard, regular rate and rhythm at the time of my evaluation, irregular tachycardia. No rubs, no murmurs. ABDOMEN: Soft. Bowel sounds are positive, but diminished. EXTREMITIES: There is a midline surgical scar that has a clean dressing over it and also a right lower quadrant colostomy bag that has fresh looking bowel without significant bleeding of effluent. EXTREMITIES: Without overt digital clubbing, no cyanosis, no pedal edema. SKIN: Normal turgor, no tenting. No cellulitis, no rash. NEUROLOGIC: She is postop and no spontaneous movements. LABORATORY DATA: From my review are as follows: Admission white cell count 11,900 with a hemoglobin of 13.0, hematocrit of 41.0, platelet count 182. INR 1.36 today. Serum sodium was 136, potassium 3.4, chloride 95, bicarbonate 19, BUN 11, creatinine 0.8, glucose was 262. Lactic acid was 5.0 initially and up to 8.0. Liver function tests essentially within normal limits. Hemoglobin is up to 16.6 suggesting some hemoconcentration. Two sets of blood cultures were drawn, no growth to date. IMAGING: A CT of the abdomen and pelvis was done at presentation. I have reviewed the films, also reviewed the radiologist's interpretation, main finding is that there was apparently a colectomy, so she might have come with a colectomy. The initial CT did not suggest ischemic bowel or perforation. It did mention induration of the mesentery, 3 cm fatty mass in the left upper quadrant. No free air, no abscess. The long windows on that particular CT scan did not show any focal consolidation. An arterial blood gas has just been done from the OR. It shows a pH of 7.21, pCO2 of 47, pO2 of 197 and this was on assist control rate of 10, 500, tidal volumes and PEEP of 5. ASSESSMENT: 1. Acute severe sepsis. 2. Acute respiratory failure, now postop. 3. Small-bowel obstruction with ischemic bowel, status post exploratory laparotomy and resection. 4. History of hypertension. 5. Obesity. 6. History of sleep apnea. 7. Severe sepsis as mentioned. PLAN: We will increase the tidal volumes to 550, increase the set rate to 25 and keep the PEEP at 5 to try and compensate for this mostly metabolic acidosis. We will go ahead and begin in the short term a bicarbonate drip as things may get out of hand rather fast in this lady. I will run her on D5W with 3 amps of bicarbonate per liter at about 150 per hour for about a couple liters and then reduce that to 100 per hour and change IV fluids as necessary. Aspiration precautions will be maintained and ventilator-associated bundle will be addressed daily. Oxygen will be titrated to keep sats greater than or equal to 90% to 94%. Bronchodilators will be scheduled initially and then p.r.n. thereafter. We will continue broad-spectrum antibiotic therapy following cultures. Lactic acid level will be trended. A CRP level will be ordered also and trended as necessary. We will follow her liver enzymes. She will be continued on GI prophylaxis. We will also continue DVT prophylaxis. Flu and pneumonia vaccination will be addressed per protocol. Thank you very much for the consult Dr. Devine. We will follow along. We will make further recommendations as picture progresses/becomes clearer. She is critically ill on life-sustaining interventions including mechanical ventilatory support at high risk for further deterioration including . At this time, I have spent about 35-40 minutes of critical care time without overlap excluding any procedural time that may be necessary. I should mention central venous pressures will be transduced. Thank you very much for the consult. Again, 40 minutes of critical care time. JOB# [id number] ALEX/DILLON
[2017-07-31 07:16] LABS: Basophils % (Auto) 0.1 % (0.0-1.8); Eosinophils % (Auto) 0.9 % (0.0-4.3); Hematocrit 36.4 % (30.3-42.9); Hemoglobin 11.9 gm/dl (10.1-14.3); Mean Corpuscular HGB Conc 33 % (30-34); Mean Corpuscular Hemoglobin 28 pg (28-32); Mean Corpuscular Volume 86 fl (79-97); Red Blood Count 4.23 M/mm3 (3.65-5.03); Red Cell Distribution Width 17.6 % (13.2-15.2); White Blood Count 4.3 K/mm3 (4.5-11.0)
[2017-07-31 07:17] LABS: Platelet Count 95 K/mm3 (140-440)
[2017-07-31 07:29] LABS: Calcium 7.3 mg/dL (8.4-10.2); Magnesium 1.2 mg/dL (1.7-2.3); Phosphorous 1.4 mg/dL (2.5-4.5)
[2017-07-31 07:30] LABS: Chloride 103.6 mmol/L (98-107); Potassium 4.1 mmol/L (3.6-5.0)
[2017-07-31] MEDS: NOVOLOG SUB-Q SCH ×2 (07:30→12:00)
--- NOTE | 2017-07-31 07:58 | XRay Report ---
FINAL REPORT PROCEDURE: XR CHEST 1V AP TECHNIQUE: Chest radiograph anteroposterior view. CPT 94326 HISTORY: chest pain/septic shock COMPARISON: May 13, 2017 FINDINGS: Heart: Normal. Mediastinum/Vessels: Thoracic aorta is ectatic.. Lungs/Pleural space: Lungs are well-expanded. There are no infiltrates, effusions or pneumothoraces.. Bony thorax: No acute osseous abnormality. Life support devices: NG tube is in the stomach.. IMPRESSION: No acute cardiopulmonary abnormality. The NG tube is in the stomach.
[2017-07-31] MEDS ORDERED: HEPARIN SUB-Q SCH (08:00)
[2017-07-31] MEDS ORDERED: MAGNESIUM SULFATE 4GM/100ML 4 GM/100 ML BAG IV ONE (09:00)
[2017-07-31] MEDS ORDERED: SODIUM PHOSPHATE 45 MMOL in NACL 0.9% 500 ML 500 ML IV ONE (09:00)
[2017-07-31] MEDS ORDERED: KPHOS 45 MMOL in NACL 0.9% 500 ML 500 ML IV ONE ×2 (09:00→17:00)
--- NOTE | 2017-07-31 09:15 | Operative Report ---
PREOPERATIVE DIAGNOSIS: Ischemic bowel. POSTOPERATIVE DIAGNOSIS: Ischemic and perforated bowel. PROCEDURE: Exploratory laparotomy, resection of small bowel and lysis of adhesions. SURGEON: Dr. Rocky Van. COOK FAST FOOD: Dr. Archie Dutton. ESTIMATED BLOOD LOSS: Around 100 mL. URINE OUTPUT: 200 mL. SPECIMENS: 1. About 100 cm of small bowel. 2. Culture swabs. INDICATIONS FOR PROCEDURE: The patient is a 62-year-old female patient who is a [employer]. She is known to our service from a prior total abdominal colectomy for colonic bleeding. She now presents with abdominal pain for the past day and a diagnosis of ischemic bowel based on physical exam and laboratory data. We have explained the full procedure to the patient's . I obtained informed consent after informing him of the possibility and need for bowel resection as well as informed him of risks of bleeding, infection, complications from anesthesia. The family members understand the risks and decided to go ahead with the operation. All of this was documented and saved in the chart. PROCEDURE IN DETAIL: The patient was taken back to the OR where she was placed supine on the operating room table. Bilateral lower extremity compression devices were placed and a dose of perioperative antibiotics was given. The abdomen was prepped and draped as per the usual sterile fashion. At this point, a timeout was taken to verify the correct patient and the correct procedure. We began the procedure making a midline laparotomy through the skin, subcutaneous tissue and into the fascia and into the abdominal cavity. Immediately upon entry into the abdominal cavity, large amount of serosanguineous fluid was seen. This was taken for cultures. The rest of the abdomen was then explored and a point of perforation of the small bowel was immediately identified. Upon exploration, the small bowel was found to have volvulized around an adhesion band causing ischemia to a portion of the small bowel as well as perforation at the site of volvulization. This adhesive band was taken down from the spillage control. We proceeded to explore the rest of the small bowel and found that about 170 cm of small bowel remained viable while another 100 cm of small bowel found to be frankly necrotic. We proceeded to excise the necrotic portion of the bowel using CHEKO staplers and the EnSeal device to come across the mesentery. Once the small bowel has been resected, we proceeded to perform a [id number] anastomosis using a CHEKO stapler device and a TA stapler device to close the enterotomy. Once this had been done, we proceeded to suture close the mesenteric defect with 3-0 silks and after our anastomosis appeared to be good and to her satisfaction, we then proceeded to irrigate thoroughly the entire abdominal cavity. About 5-6 liters of warm saline irrigation were used until no further ____ could be identified. At this point, we ran the entirety of the bowel and ensured that it was laid in the appropriate orientation and that all mesenteric defects were closed and that the bowel appeared pink and viable. Once this was confirmed, we proceeded to close the fascia using looped PDS sutures in a running fashion. Following this, the subcutaneous was thoroughly irrigated and von were placed at the skin level with intervening mix of Telfa with iodoform. Dressings were then applied and finally a right lumen central line catheter was pulled from the right groin and pressure held for hemostasis at that site. Before closing, we did make sure that adequate hemostasis had been obtained. All sponge counts and instrument counts were completed x 2 at the end of the procedure. The patient tolerated the procedure rather very well, but was sent intubated to the ICU and is deemed to be in critical status. JOB# [id number] DONAVAN/DILLON
--- NOTE | 2017-07-31 10:06 | Consultation ---
History of Present Illness - Reason for Consult Consult date: 07/31/17 septic shock Requesting physician: MAYRA HERRERA - History of Present Illness 62-year-old female with history of HTN, DM and BARAK, well known to ID service, initially admitted 05/12-05/12/17 from [facility] where she underwent EGD and colonoscopy which were unremarkable and did not show a bleeding source. Patient left AMA. She is a [employer]'s witness and refused transfusions. Patient was re-admitted on 05/12/17 due to severe melena/profuse rectal bleeding. Intial 5.6, Hg 7.7 went to 5.5. CTA of abdomen and pelvis was negative. Showed Multiple diverticula. She underwent mesenteric and celiac arteriogram showing shock arteriopathy and numerous diverticula. She then underwent total colectomy with ileostomy on 05/13/17 for colonic hemorrhage. By 05/13/17 she started with a fever at 100.2 and then went to 101.3. Blood cx on 05/14 negative. CXR neg. She was obtunded, nonresponsive, hypotensive. She was intubated for airway protection, and transferred to the ICU. Bleeding source was presumed to be diverticular bleeding. She underwent total colectomy with ileostomy on 05/13/17 for colonic hemorrhage. Sepsis was felt to be due to severe diverticulosis with focal areas of diverticulitis per path; UA neg, Blood cx neg, CXR neg. Of note, she had a Femoral central line removed on 05/18 and tip sent for cx + Pseudomonas and Staph sp - likely colonization. Patient was treated empirically with zosyn and vancomycin then levaquin 750 mg po qday and flagyl 500 mg po q8 h totol 10 days. She was discharged home. Unfortunately, patient was readmitted on 07/30/2017 due to acute abdominal pain for 24 hours. Patient was complaining of nausea, vomiting and abdominal pain which was diffuse. Abdominal pain was 10 out of 10 in intensity. Upon admission to the emergency room, initial temperature was 97.9, leukocytosis of 11.9. Patient later became tachycardic at 140s, blood pressure dropped to 98/ 66. Lactic acid went from 5.4 -->8. Taken emergently for exploratory laparoscopy and was found to have twisted small bowel with obstruction, ischemia and perforation, underwent SB resection. Intraoperative cultures so far has been negative. Patient was initially on pressors and currently she is intubated on the vent in the ICU. Microbiology: Blood cultures: 07/30 ngtd Respiratory cultures: 07/20 ngtd Wound surg cultures: 07/30 ngrd Current Antimicrobials: Zosyn 07/31 Previous Antimicrobials: levaquin metronidazole Past History Past Medical History: diabetes, hypertension, other (diverticulosis, sleep apnea ) Past Surgical History: bowel surgery, Other (Total abdominal colectomy and end ileostomy) Social history: full code. denies: smoking, alcohol abuse, prescription drug abuse, IV drug use Family history: no significant family history Medications and Allergies Allergies Allergy/AdvReac Type Severity Reaction Status Date / Time No Known Allergies Allergy Verified 07/29/17 22:43 Home Medications Medication Instructions Recorded Confirmed Last Taken Type Ferrous Sulfate [Feosol 325 MG tab] 325 mg PO TID #90 tablet 05/25/17 Unknown Rx Levofloxacin [Levaquin] 750 mg PO QDAY #2 tablet 05/25/17 Unknown Rx Metformin HCl [Fortamet ER] 1,000 mg PO BID #60 tab.er.24 05/25/17 Unknown Rx Pantoprazole [Protonix TAB] 40 mg PO DAILY #30 tablet 05/25/17 Unknown Rx oxyCODONE /ACETAMINOPHEN [Percocet 1 tab PO Q6HR PRN #30 tablet 05/25/17 Unknown Rx 5/325] Active Meds: Active Medications Albuterol/Ipratropium (Duoneb *Not For Prn Use*) 1 ampul IH Q6HRT [facility] Last Admin: 07/31/17 09:00 Dose: Not Given Dextrose (D50w (25gm) Vial) 25 gm IV PRN PRN PRN Reason: Hypoglycemia Famotidine (Pepcid) 20 mg IV DAILY [facility] Last Admin: 07/31/17 09:50 Dose: 20 mg Heparin Sodium (Porcine) (Heparin) 5,000 unit SUB-Q Q8H [facility] Hydralazine HCl (Apresoline) 10 mg IV Q4HR PRN PRN Reason: Blood Pressure Last Admin: 07/30/17 03:36 Dose: 10 mg Hydromorphone HCl (Dilaudid) 1 mg IV Q3H PRN PRN Reason: Pain, Moderate (4-6) Last Admin: 07/30/17 13:26 Dose: 1 mg Hydrophilic Ointment (Vaseline Lip Therapy) 1 applic TP Q2H PRN PRN Reason: Dry Lips Norepinephrine (Levophed Drip 4 Mg/Ns 250 Ml) 4 mg in 250 mls @ 7.5 mls/hr IV TITR DIMITRY; 2 MCG/MIN PRN Reason: Protocol Vasopressin 20 unit/ Sodium (Chloride) 101 mls @ 9.09 mls/hr IV TITR DIMITRY; 0.03 UNITS/MIN PRN Reason: Protocol Last Admin: 07/30/17 18:59 Dose: 0.03 units/min, 9.09 mls/hr Piperacillin Sod/Tazobactam Sod (Zosyn/Ns 2.25 Gm/50ml) 2.25 gm in 50 mls @ 100 mls/hr IV Q6HR DIMITRY Last Admin: 07/31/17 02:18 Dose: 100 mls/hr Sodium Bicarbonate 150 meq/ (Dextrose) 1,150 mls @ 125 mls/hr IV DIRECT DIMITRY Last Admin: 07/31/17 01:06 Dose: 125 mls/hr Fentanyl Citrate (Fentanyl Drip Premix) 2,000 mcg in 100 mls @ 4.536 mls/hr IV TITR DIMITRY; 1 MCG/KG/HR PRN Reason: Protocol Last Admin: 07/31/17 00:26 Dose: 2 mcg/kg/hr, 9.072 mls/hr Propofol (Diprivan 10 Mg/Ml) 1,000 mg in 100 mls @ 2.722 mls/hr IV TITR DIMITRY; 5 MCG/KG/MIN PRN Reason: Protocol Magnesium Sulfate (Magnesium Sulfate 4gm/100ml) 4 gm in 100 mls @ 25 mls/hr IV ONCE ONE Stop: 07/31/17 12:59 Last Admin: 07/31/17 09:50 Dose: 25 mls/hr Potassium Phosphate 45 mmol/ (Sodium Chloride) 515 mls @ 85 mls/hr IV ONCE ONE Stop: 07/31/17 15:03 Insulin Aspart (Novolog) 0 units SUB-Q ACHS DIMITRY PRN Reason: Protocol Last Admin: 07/30/17 19:11 Dose: Not Given Insulin Human Isoph/Insulin Regular (Novolin 70/30) 5 unit SUB-Q BIDDIAB DIMITRY Last Admin: 07/31/17 08:15 Dose: 5 unit Midazolam HCl (Versed) 1 mg IV ONCE PRN PRN Reason: Sedation Multi-Ingred Cream/Lotion/Oil/Oint (Artificial Tears Ophth Oint) 1 applic OU Q4H PRN PRN Reason: Dry Eye(s) Ondansetron HCl (Zofran) 4 mg IV Q8H PRN PRN Reason: N/V unrelieved by Reglan Sodium Chloride (Nacl 0.9% 500 Ml) 10 ml IV DIRECT DIMITRY Physical Examination - Physical Exam Narrative exam: General appearance: sedated on the vent Eyes: anicteric sclerae, moist conjunctivae HENT: Atraumatic; oropharynx +ETT Neck: Trachea midline; supple, no thyromegaly or lymphadenopathy Lungs: CTA CV: tachy Abdomen: Soft,+surg wound covered with dressings +ileostomy Extremities: +peripheral edema Skin: Normal temperature, turgor and texture; no rash, ulcers or subcutaneous nodules Psych: sedatd. Neuro: sedated Lines: - Constitutional Vitals: Vital Signs Temp Pulse Resp BP Pulse Ox 99.3 F 136 H 16 91/64 98 07/31/17 08:00 07/31/17 09:10 07/31/17 09:10 07/31/17 09:10 07/31/17 07:10 Temperature -Last 24 Hours Temperature 99.3 F Temperature 99.3 F Temperature 98.9 F Temperature 97.6 F Temperature 97.3 F Temperature 93.8 F Temperature 97.5 F Results - Labs CBC & Chem 7: 07/31/17 06:00 07/31/17 06:00 Labs: Abnormal lab results 07/30/17 07/30/17 07/30/17 Range/Units 10:06 12:49 16:22 WBC (4.5-11.0) K/mm3 RBC (3.65-5.03) M/mm3 Hgb (10.1-14.3) gm/dl Hct (30.3-42.9) % RDW (13.2-15.2) % Plt Count (140-440) K/mm3 [place] % (Auto) (0.0-7.3) % Lymph # (1.2-5.4) K/mm3 PT (12.2-14.9) Sec. INR (0.87-1.13) POC ABG pH (7.35-7.45) POC ABG pCO2 (35-45) POC ABG pO2 (80-105) Chloride (98-107) mmol/L Carbon Dioxide (22-30) mmol/L BUN (7-17) mg/dL Creatinine (0.7-1.2) mg/dL Glucose (65-100) mg/dL POC Glucose 253 H 195 H (70-105) Lactic Acid 5.40 H* (0.7-2.0) mmol/L Calcium (8.4-10.2) mg/dL Phosphorus (2.5-4.5) mg/dL Magnesium (1.7-2.3) mg/dL C-Reactive Protein (0.00-1.30) mg/dL 07/30/17 07/30/17 07/30/17 Range/Units 16:53 16:53 16:53 WBC 11.3 H (4.5-11.0) K/mm3 RBC 5.92 H (3.65-5.03) M/mm3 Hgb 16.6 H D (10.1-14.3) gm/dl Hct 52.5 H D (30.3-42.9) % RDW 18.2 H (13.2-15.2) % Plt Count (140-440) K/mm3 [place] % (Auto) (0.0-7.3) % Lymph # (1.2-5.4) K/mm3 PT (12.2-14.9) Sec. INR (0.87-1.13) POC ABG pH (7.35-7.45) POC ABG pCO2 (35-45) POC ABG pO2 (80-105) Chloride 96.5 L (98-107) mmol/L Carbon Dioxide 20 L (22-30) mmol/L BUN 19 H (7-17) mg/dL Creatinine 2.3 H D (0.7-1.2) mg/dL Glucose 215 H (65-100) mg/dL POC Glucose (70-105) Lactic Acid 8.00 H* (0.7-2.0) mmol/L Calcium (8.4-10.2) mg/dL Phosphorus (2.5-4.5) mg/dL Magnesium (1.7-2.3) mg/dL C-Reactive Protein (0.00-1.30) mg/dL 07/30/17 07/30/17 07/30/17 Range/Units 16:53 18:37 23:08 WBC (4.5-11.0) K/mm3 RBC (3.65-5.03) M/mm3 Hgb (10.1-14.3) gm/dl Hct (30.3-42.9) % RDW (13.2-15.2) % Plt Count (140-440) K/mm3 [place] % (Auto) (0.0-7.3) % Lymph # (1.2-5.4) K/mm3 PT 17.5 H (12.2-14.9) Sec. INR 1.36 H (0.87-1.13) POC ABG pH 7.210 L (7.35-7.45) POC ABG pCO2 47.0 H (35-45) POC ABG pO2 197 H (80-105) Chloride (98-107) mmol/L Carbon Dioxide (22-30) mmol/L BUN (7-17) mg/dL Creatinine (0.7-1.2) mg/dL Glucose (65-100) mg/dL POC Glucose (70-105) Lactic Acid (0.7-2.0) mmol/L Calcium (8.4-10.2) mg/dL Phosphorus (2.5-4.5) mg/dL Magnesium (1.7-2.3) mg/dL C-Reactive Protein 3.80 H (0.00-1.30) mg/dL 07/31/17 07/31/17 07/31/17 Range/Units 05:19 05:21 06:00 WBC 4.3 L (4.5-11.0) K/mm3 RBC (3.65-5.03) M/mm3 Hgb (10.1-14.3) gm/dl Hct (30.3-42.9) % RDW 17.6 H (13.2-15.2) % Plt Count 95 L (140-440) K/mm3 [place] % (Auto) 9.0 H (0.0-7.3) % Lymph # 1.1 L (1.2-5.4) K/mm3 PT (12.2-14.9) Sec. INR (0.87-1.13) POC ABG pH 7.514 H (7.35-7.45) POC ABG pCO2 22.5 L (35-45) POC ABG pO2 115 H (80-105) Chloride (98-107) mmol/L Carbon Dioxide (22-30) mmol/L BUN (7-17) mg/dL Creatinine (0.7-1.2) mg/dL Glucose (65-100) mg/dL POC Glucose 156 H (70-105) Lactic Acid (0.7-2.0) mmol/L Calcium (8.4-10.2) mg/dL Phosphorus (2.5-4.5) mg/dL Magnesium (1.7-2.3) mg/dL C-Reactive Protein (0.00-1.30) mg/dL 07/31/17 07/31/17 Range/Units 06:00 06:00 WBC (4.5-11.0) K/mm3 RBC (3.65-5.03) M/mm3 Hgb (10.1-14.3) gm/dl Hct (30.3-42.9) % RDW (13.2-15.2) % Plt Count (140-440) K/mm3 [place] % (Auto) (0.0-7.3) % Lymph # (1.2-5.4) K/mm3 PT (12.2-14.9) Sec. INR (0.87-1.13) POC ABG pH (7.35-7.45) POC ABG pCO2 (35-45) POC ABG pO2 (80-105) Chloride (98-107) mmol/L Carbon Dioxide (22-30) mmol/L BUN 25 H (7-17) mg/dL Creatinine 2.5 H (0.7-1.2) mg/dL Glucose 153 H (65-100) mg/dL POC Glucose (70-105) Lactic Acid 4.50 H* (0.7-2.0) mmol/L Calcium 7.3 L D (8.4-10.2) mg/dL Phosphorus 1.40 L (2.5-4.5) mg/dL Magnesium 1.20 L (1.7-2.3) mg/dL C-Reactive Protein (0.00-1.30) mg/dL Assessment and Plan Assessment: 1) Severe Sepsis with septic shock: Present on admission, shock resolved, leukocytosis better, still tachycardia. Etiology most likely peritonitis. 2) Acute peritonitis: likely localized, from SB perforation/ischemia/ obstruction. OR cx so far negative 3) SB perforation/ischemia/obstruction: -S/P Exploratory laparotomy and resection of small bowel on 07/30 4) CINTIA - worsening 5) Thrombocytopenia - from sepsis Plan: -follow-up blood cultures -obtain procalcitonin, C-reactive protein (CRP) -continue zosyn -add fluconazole -follow-up OR cultures -monitor kidney function Thank you Dr Costello for your consultation, will follow up with you. Priyanka Arriaga MD Infectious Diseases Specialist [facility] ([facility] M [phone] O [phone]
--- NOTE | 2017-07-31 10:41 | Progress Note ---
Assessment and Plan POD 1 from ex-lap and SB resection. Continue NGT for now. She is more awake and alert today, consider extubating if possible. Kidney injury present, likely combination of sepsis and fluid loos due to ischemic bowel. Continue IV hydration aggressively and monitor urine output. Appreciate ID input in antibiotic management. Subjective Date of service: 07/31/17 Patient Reports: Positive: feels better, still having pain, pain is less Objective Vital Signs - 12hr 07/30/17 07/30/17 07/30/17 22:40 22:45 22:50 Temperature Pulse Rate 109 H 110 H 112 H Pulse Rate [ Left Dorsalis Pedis] Pulse Rate [ Posterior Bilateral Throughout] Pulse Rate [ Right Dorsalis Pedis] Pulse Rate [ Right Radial] Respiratory 10 L 10 L 10 L Rate Respiratory Rate [Posterior Bilateral Throughout] Blood Pressure 145/89 138/84 136/86 O2 Sat by Pulse 100 100 100 Oximetry 07/30/17 07/30/17 07/30/17 23:00 23:10 23:15 Temperature Pulse Rate 115 H 124 H 122 H Pulse Rate [ Left Dorsalis Pedis] Pulse Rate [ Posterior Bilateral Throughout] Pulse Rate [ Right Dorsalis Pedis] Pulse Rate [ Right Radial] Respiratory 10 L 25 H 10 L Rate Respiratory Rate [Posterior Bilateral Throughout] Blood Pressure 137/84 126/88 140/95 O2 Sat by Pulse 100 100 Oximetry 07/30/17 07/30/17 07/30/17 23:20 23:30 23:32 Temperature 97.6 F Pulse Rate 122 H 121 H Pulse Rate [ Left Dorsalis Pedis] Pulse Rate [ Posterior Bilateral Throughout] Pulse Rate [ Right Dorsalis Pedis] Pulse Rate [ Right Radial] Respiratory 25 H 25 H Rate Respiratory Rate [Posterior Bilateral Throughout] Blood Pressure 143/95 140/87 O2 Sat by Pulse Oximetry 07/30/17 07/30/17 07/31/17 23:40 23:50 00:00 Temperature Pulse Rate 122 H 123 H Pulse Rate [ Left Dorsalis Pedis] Pulse Rate [ Posterior Bilateral Throughout] Pulse Rate [ 135 H Right Dorsalis Pedis] Pulse Rate [ 135 H Right Radial] Respiratory 25 H 25 H 25 H Rate Respiratory Rate [Posterior Bilateral Throughout] Blood Pressure 136/89 125/93 O2 Sat by Pulse 99 Oximetry 07/31/17 07/31/17 07/31/17 00:01 00:10 00:20 Temperature Pulse Rate 126 H 130 H 127 H Pulse Rate [ Left Dorsalis Pedis] Pulse Rate [ Posterior Bilateral Throughout] Pulse Rate [ Right Dorsalis Pedis] Pulse Rate [ Right Radial] Respiratory 23 26 H 25 H Rate Respiratory Rate [Posterior Bilateral Throughout] Blood Pressure 110/92 124/82 133/87 O2 Sat by Pulse Oximetry 07/31/17 07/31/17 07/31/17 00:31 00:41 00:51 Temperature Pulse Rate 129 H 129 H 127 H Pulse Rate [ Left Dorsalis Pedis] Pulse Rate [ Posterior Bilateral Throughout] Pulse Rate [ Right Dorsalis Pedis] Pulse Rate [ Right Radial] Respiratory 24 24 25 H Rate Respiratory Rate [Posterior Bilateral Throughout] Blood Pressure 123/82 109/84 109/84 O2 Sat by Pulse Oximetry 07/31/17 07/31/17 07/31/17 01:00 01:11 01:21 Temperature Pulse Rate 127 H 127 H 127 H Pulse Rate [ Left Dorsalis Pedis] Pulse Rate [ Posterior Bilateral Throughout] Pulse Rate [ Right Dorsalis Pedis] Pulse Rate [ Right Radial] Respiratory 25 H 19 25 H Rate Respiratory Rate [Posterior Bilateral Throughout] Blood Pressure 116/80 116/80 116/80 O2 Sat by Pulse Oximetry 07/31/17 07/31/17 07/31/17 01:30 01:41 01:51 Temperature Pulse Rate 128 H 131 H 129 H Pulse Rate [ Left Dorsalis Pedis] Pulse Rate [ Posterior Bilateral Throughout] Pulse Rate [ Right Dorsalis Pedis] Pulse Rate [ Right Radial] Respiratory 25 H 21 25 H Rate Respiratory Rate [Posterior Bilateral Throughout] Blood Pressure 120/82 120/82 120/82 O2 Sat by Pulse Oximetry 07/31/17 07/31/17 07/31/17 02:00 02:11 02:21 Temperature Pulse Rate 132 H 131 H 131 H Pulse Rate [ Left Dorsalis Pedis] Pulse Rate [ 138 H Posterior Bilateral Throughout] Pulse Rate [ Right Dorsalis Pedis] Pulse Rate [ Right Radial] Respiratory 25 H 7 L 25 H Rate Respiratory 25 H Rate [Posterior Bilateral Throughout] Blood Pressure 120/82 124/81 124/81 O2 Sat by Pulse Oximetry 07/31/17 07/31/17 07/31/17 02:30 02:41 02:51 Temperature Pulse Rate 130 H 132 H 130 H Pulse Rate [ Left Dorsalis Pedis] Pulse Rate [ Posterior Bilateral Throughout] Pulse Rate [ Right Dorsalis Pedis] Pulse Rate [ Right Radial] Respiratory 22 22 26 H Rate Respiratory Rate [Posterior Bilateral Throughout] Blood Pressure 122/91 122/91 122/91 O2 Sat by Pulse Oximetry 07/31/17 07/31/17 07/31/17 03:00 03:11 03:21 Temperature Pulse Rate 134 H 131 H 134 H Pulse Rate [ Left Dorsalis Pedis] Pulse Rate [ Posterior Bilateral Throughout] Pulse Rate [ Right Dorsalis Pedis] Pulse Rate [ Right Radial] Respiratory 19 25 H 25 H Rate Respiratory Rate [Posterior Bilateral Throughout] Blood Pressure 141/70 141/70 141/70 O2 Sat by Pulse Oximetry 07/31/17 07/31/17 07/31/17 03:30 03:41 03:51 Temperature 98.9 F Pulse Rate 132 H 136 H 138 H Pulse Rate [ Left Dorsalis Pedis] Pulse Rate [ Posterior Bilateral Throughout] Pulse Rate [ Right Dorsalis Pedis] Pulse Rate [ Right Radial] Respiratory 17 21 25 H Rate Respiratory Rate [Posterior Bilateral Throughout] Blood Pressure 127/77 127/77 127/77 O2 Sat by Pulse Oximetry 07/31/17 07/31/17 07/31/17 04:01 04:11 04:21 Temperature Pulse Rate 135 H 136 H 136 H Pulse Rate [ Left Dorsalis Pedis] Pulse Rate [ Posterior Bilateral Throughout] Pulse Rate [ Right Dorsalis Pedis] Pulse Rate [ Right Radial] Respiratory 23 25 H 25 H Rate Respiratory Rate [Posterior Bilateral Throughout] Blood Pressure 95/66 95/66 93/68 O2 Sat by Pulse Oximetry 07/31/17 07/31/17 07/31/17 04:30 04:31 04:41 Temperature Pulse Rate 137 H 140 H 140 H Pulse Rate [ Left Dorsalis Pedis] Pulse Rate [ Posterior Bilateral Throughout] Pulse Rate [ Right Dorsalis Pedis] Pulse Rate [ Right Radial] Respiratory 25 H 25 H Rate Respiratory Rate [Posterior Bilateral Throughout] Blood Pressure 96/68 129/60 129/60 O2 Sat by Pulse 99 Oximetry 07/31/17 07/31/17 07/31/17 04:42 04:51 05:00 Temperature Pulse Rate 139 H 140 H Pulse Rate [ 139 H Left Dorsalis Pedis] Pulse Rate [ Posterior Bilateral Throughout] Pulse Rate [ Right Dorsalis Pedis] Pulse Rate [ Right Radial] Respiratory 12 25 H 25 H Rate Respiratory Rate [Posterior Bilateral Throughout] Blood Pressure 102/66 98/73 O2 Sat by Pulse 98 Oximetry 07/31/17 07/31/17 07/31/17 05:11 05:21 05:30 Temperature Pulse Rate 139 H 140 H 141 H Pulse Rate [ Left Dorsalis Pedis] Pulse Rate [ Posterior Bilateral Throughout] Pulse Rate [ Right Dorsalis Pedis] Pulse Rate [ Right Radial] Respiratory 25 H 24 13 Rate Respiratory Rate [Posterior Bilateral Throughout] Blood Pressure 98/73 107/68 118/76 O2 Sat by Pulse Oximetry 07/31/17 07/31/17 07/31/17 05:41 05:51 06:00 Temperature Pulse Rate 141 H 140 H 137 H Pulse Rate [ Left Dorsalis Pedis] Pulse Rate [ Posterior Bilateral Throughout] Pulse Rate [ Right Dorsalis Pedis] Pulse Rate [ Right Radial] Respiratory 9 L 24 17 Rate Respiratory Rate [Posterior Bilateral Throughout] Blood Pressure 107/68 111/66 103/61 O2 Sat by Pulse Oximetry 07/31/17 07/31/17 07/31/17 06:11 06:21 06:30 Temperature Pulse Rate 139 H 141 H 142 H Pulse Rate [ Left Dorsalis Pedis] Pulse Rate [ Posterior Bilateral Throughout] Pulse Rate [ Right Dorsalis Pedis] Pulse Rate [ Right Radial] Respiratory 15 18 12 Rate Respiratory Rate [Posterior Bilateral Throughout] Blood Pressure 118/76 101/67 106/57 O2 Sat by Pulse Oximetry 07/31/17 07/31/17 07/31/17 06:41 06:51 07:00 Temperature Pulse Rate 142 H 140 H 143 H Pulse Rate [ Left Dorsalis Pedis] Pulse Rate [ Posterior Bilateral Throughout] Pulse Rate [ Right Dorsalis Pedis] Pulse Rate [ Right Radial] Respiratory 18 18 18 Rate Respiratory Rate [Posterior Bilateral Throughout] Blood Pressure 106/57 121/67 95/74 O2 Sat by Pulse Oximetry 07/31/17 07/31/17 07/31/17 07:10 07:11 07:21 Temperature Pulse Rate 144 H 144 H Pulse Rate [ Left Dorsalis Pedis] Pulse Rate [ Posterior Bilateral Throughout] Pulse Rate [ Right Dorsalis Pedis] Pulse Rate [ Right Radial] Respiratory 18 18 18 Rate Respiratory Rate [Posterior Bilateral Throughout] Blood Pressure 95/74 91/64 O2 Sat by Pulse 98 Oximetry 07/31/17 07/31/1707/31/17 07:30 07:41 07:51 Temperature Pulse Rate 142 H 144 H 151 H Pulse Rate [ Left Dorsalis Pedis] Pulse Rate [ Posterior Bilateral Throughout] Pulse Rate [ Right Dorsalis Pedis] Pulse Rate [ Right Radial] Respiratory 17 11 L 16 Rate Respiratory Rate [Posterior Bilateral Throughout] Blood Pressure 95/62 95/62 111/79 O2 Sat by Pulse Oximetry 07/31/17 07/31/17 07/31/17 08:00 08:01 08:11 Temperature 99.3 F Pulse Rate 141 H 148 H 143 H Pulse Rate [ Left Dorsalis Pedis] Pulse Rate [ Posterior Bilateral Throughout] Pulse Rate [ Right Dorsalis Pedis] Pulse Rate [ Right Radial] Respiratory 16 18 Rate Respiratory Rate [Posterior Bilateral Throughout] Blood Pressure 95/64 94/70 94/70 O2 Sat by Pulse Oximetry 07/31/17 07/31/17 07/31/17 08:20 08:30 08:40 Temperature Pulse Rate 140 H 140 H 142 H Pulse Rate [ Left Dorsalis Pedis] Pulse Rate [ Posterior Bilateral Throughout] Pulse Rate [ Right Dorsalis Pedis] Pulse Rate [ Right Radial] Respiratory 18 18 13 Rate Respiratory Rate [Posterior Bilateral Throughout] Blood Pressure 95/64 95/64 O2 Sat by Pulse Oximetry 07/31/17 07/31/17 07/31/17 08:50 09:00 09:10 Temperature Pulse Rate 141 H 137 H 136 H Pulse Rate [ Left Dorsalis Pedis] Pulse Rate [ Posterior Bilateral Throughout] Pulse Rate [ Right Dorsalis Pedis] Pulse Rate [ Right Radial] Respiratory 18 15 16 Rate Respiratory Rate [Posterior Bilateral Throughout] Blood Pressure 90/66 91/64 91/64 O2 Sat by Pulse Oximetry 07/31/17 07/31/17 07/31/17 09:20 09:30 09:40 Temperature Pulse Rate 137 H 135 H 137 H Pulse Rate [ Left Dorsalis Pedis] Pulse Rate [ Posterior Bilateral Throughout] Pulse Rate [ Right Dorsalis Pedis] Pulse Rate [ Right Radial] Respiratory 18 17 18 Rate Respiratory Rate [Posterior Bilateral Throughout] Blood Pressure 92/68 96/71 96/71 O2 Sat by Pulse Oximetry 07/31/17 07/31/17 07/31/17 09:50 10:00 10:10 Temperature Pulse Rate 139 H 137 H 136 H Pulse Rate [ Left Dorsalis Pedis] Pulse Rate [ Posterior Bilateral Throughout] Pulse Rate [ Right Dorsalis Pedis] Pulse Rate [ Right Radial] Respiratory 18 18 18 Rate Respiratory Rate [Posterior Bilateral Throughout] Blood Pressure 93/64 88/64 88/64 O2 Sat by Pulse Oximetry 07/31/17 07/31/17 10:15 10:20 Temperature Pulse Rate 133 H 134 H Pulse Rate [ Left Dorsalis Pedis] Pulse Rate [ Posterior Bilateral Throughout] Pulse Rate [ Right Dorsalis Pedis] Pulse Rate [ Right Radial] Respiratory 18 Rate Respiratory Rate [Posterior Bilateral Throughout] Blood Pressure 95/68 O2 Sat by Pulse Oximetry - General physical appearance moderate distress, moderate pain - Eyes PERRL - ENT other (NGT in place, ET tube in place) - Respiratory normal expansion, normal respiratory effort, clear to auscultation - Abdomen soft, tender, bowel sounds hypoactive, distended, not guarding, not rigid - Labs 07/31/17 06:00 07/31/17 06:00 Diabetes panel 07/30/17 07/31/17 Range/Units 16:53 06:00 Sodium 139 141 (137-145) mmol/L Potassium 4.2 D 4.1 (3.6-5.0) mmol/L Chloride 96.5 L 103.6 (98-107) mmol/L Carbon Dioxide 20 L 22 (22-30) mmol/L BUN 19 H 25 H (7-17) mg/dL Creatinine 2.3 H D 2.5 H (0.7-1.2) mg/dL Glucose 215 H 153 H (65-100) mg/dL Calcium 9.1 7.3 L D (8.4-10.2) mg/dL Calcium panel 07/30/17 07/31/17 Range/Units 16:53 06:00 Calcium 9.1 7.3 L D (8.4-10.2) mg/dL Phosphorus 1.40 L (2.5-4.5) mg/dL Pituitary panel 07/30/17 07/31/17 Range/Units 16:53 06:00 Sodium 139 141 (137-145) mmol/L Potassium 4.2 D 4.1 (3.6-5.0) mmol/L Chloride 96.5 L 103.6 (98-107) mmol/L Carbon Dioxide 20 L 22 (22-30) mmol/L BUN 19 H 25 H (7-17) mg/dL Creatinine 2.3 H D 2.5 H (0.7-1.2) mg/dL Glucose 215 H 153 H (65-100) mg/dL Calcium 9.1 7.3 L D (8.4-10.2) mg/dL Adrenal panel 07/30/17 07/31/17 Range/Units 16:53 06:00 Sodium 139 141 (137-145) mmol/L Potassium 4.2 D 4.1 (3.6-5.0) mmol/L Chloride 96.5 L 103.6 (98-107) mmol/L Carbon Dioxide 20 L 22 (22-30) mmol/L BUN 19 H 25 H (7-17) mg/dL Creatinine 2.3 H D 2.5 H (0.7-1.2) mg/dL Glucose 215 H 153 H (65-100) mg/dL Calcium 9.1 7.3 L D (8.4-10.2) mg/dL
--- NOTE | 2017-07-31 10:58 | Progress Note ---
Assessment and Plan Acute Hypoxemic Respiratory Failure on MVS Severe Sepsis Syndrome SBO with Ischemic Bowel s/p Ex-lap and bowel resection CINTIA Obesity Hypophosphatemia Hypomagnesemia Hypothermia Lactic acidosis /metabolic acidosis History of ileostomy/ostomy care Type 2 diabetes mellitus full CODE STATUS - trial of extubation if passes SBT - continue aspiration / address VAP bundle in short term - continue bronchodilators and pulmonary toilet in short term - volume resuscitation; trend CVP's and fluid challenge - nephrology consult for CINTIA (Likely ATN/Sepsis/IVVD related) - get urine lytes and calculate FENA - begin empiric AB's and consult ID - continue glycemic control with SSI (target BG <180 mg/dl) - wean oxygen for sats >/= 94% - post-op management per surgery - will deploy BIPA popst extubation as 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 - continue GI & VTE prophylaxis - Continue flu & pneumovax per protocol....care plan discussed with patient and family at length ...she is critically ill on life sustaining interventions including MVS and at high risk for further deterioration including ....38' CCT Subjective Date of service: 07/31/17 Principal diagnosis: Severe Sepsis; Ischemic Bowel; Acute Resp Failure on MVS Interval history: Patient is seen today for: Severe Sepsis; Ischemic Bowel; Acute Resp Failure on MVS Seen and examined at bedside; 24hour events reviewed; nursing and respiratory care staff consulted; no adverse overnight events reported to me; remains on MVS ; doing better today; tolerating weaning trials well; no emesis or overt aspiration; pain well controlled; no N/V/F/C' remains with tachycardia; weaning off vasopressors; serum creatinine now significantly elevated but making urine; no gross bleeding overnight and no high grade fevers Objective Vital Signs - 12hr 07/30/17 07/30/17 07/30/17 23:00 23:10 23:15 Temperature Pulse Rate 115 H 124 H 122 H Pulse Rate [ Left Dorsalis Pedis] Pulse Rate [ Posterior Bilateral Throughout] Pulse Rate [ Right Dorsalis Pedis] Pulse Rate [ Right Radial] Respiratory 10 L 25 H 10 L Rate Respiratory Rate [Posterior Bilateral Throughout] Blood Pressure 137/84 126/88 140/95 O2 Sat by Pulse 100 100 Oximetry 07/30/17 07/30/17 07/30/17 23:20 23:30 23:32 Temperature 97.6 F Pulse Rate 122 H 121 H Pulse Rate [ Left Dorsalis Pedis] Pulse Rate [ Posterior Bilateral Throughout] Pulse Rate [ Right Dorsalis Pedis] Pulse Rate [ Right Radial] Respiratory 25 H 25 H Rate Respiratory Rate [Posterior Bilateral Throughout] Blood Pressure 143/95 140/87 O2 Sat by Pulse Oximetry 07/30/17 07/30/17 07/31/17 23:40 23:50 00:00 Temperature Pulse Rate 122 H 123 H Pulse Rate [ Left Dorsalis Pedis] Pulse Rate [ Posterior Bilateral Throughout] Pulse Rate [ 135 H Right Dorsalis Pedis] Pulse Rate [ 135 H Right Radial] Respiratory 25 H 25 H 25 H Rate Respiratory Rate [Posterior Bilateral Throughout] Blood Pressure 136/89 125/93 O2 Sat by Pulse 99 Oximetry 07/31/17 07/31/17 07/31/17 00:01 00:10 00:20 Temperature Pulse Rate 126 H 130 H 127 H Pulse Rate [ Left Dorsalis Pedis] Pulse Rate [ Posterior Bilateral Throughout] Pulse Rate [ Right Dorsalis Pedis] Pulse Rate [ Right Radial] Respiratory 23 26 H 25 H Rate Respiratory Rate [Posterior Bilateral Throughout] Blood Pressure 110/92 124/82 133/87 O2 Sat by Pulse Oximetry 07/31/17 07/31/17 07/31/17 00:31 00:41 00:51 Temperature Pulse Rate 129 H 129 H 127 H Pulse Rate [ Left Dorsalis Pedis] Pulse Rate [ Posterior Bilateral Throughout] Pulse Rate [ Right Dorsalis Pedis] Pulse Rate [ Right Radial] Respiratory 24 24 25 H Rate Respiratory Rate [Posterior Bilateral Throughout] Blood Pressure 123/82 109/84 109/84 O2 Sat by Pulse Oximetry 07/31/17 07/31/17 07/31/17 01:00 01:11 01:21 Temperature Pulse Rate 127 H 127 H 127 H Pulse Rate [ Left Dorsalis Pedis] Pulse Rate [ Posterior Bilateral Throughout] Pulse Rate [ Right Dorsalis Pedis] Pulse Rate [ Right Radial] Respiratory 25 H 19 25 H Rate Respiratory Rate [Posterior Bilateral Throughout] Blood Pressure 116/80 116/80 116/80 O2 Sat by Pulse Oximetry 07/31/17 07/31/17 07/31/17 01:30 01:41 01:51 Temperature Pulse Rate 128 H 131 H 129 H Pulse Rate [ Left Dorsalis Pedis] Pulse Rate [ Posterior Bilateral Throughout] Pulse Rate [ Right Dorsalis Pedis] Pulse Rate [ Right Radial] Respiratory 25 H 21 25 H Rate Respiratory Rate [Posterior Bilateral Throughout] Blood Pressure 120/82 120/82 120/82 O2 Sat by Pulse Oximetry 07/31/17 07/31/17 07/31/17 02:00 02:11 02:21 Temperature Pulse Rate 132 H 131 H 131 H Pulse Rate [ Left Dorsalis Pedis] Pulse Rate [ 138 H Posterior Bilateral Throughout] Pulse Rate [ Right Dorsalis Pedis] Pulse Rate [ Right Radial] Respiratory 25 H 7 L 25 H Rate Respiratory 25 H Rate [Posterior Bilateral Throughout] Blood Pressure 120/82 124/81 124/81 O2 Sat by Pulse Oximetry 07/31/17 07/31/17 07/31/17 02:30 02:41 02:51 Temperature Pulse Rate 130 H 132 H 130 H Pulse Rate [ Left Dorsalis Pedis] Pulse Rate [ Posterior Bilateral Throughout] Pulse Rate [ Right Dorsalis Pedis] Pulse Rate [ Right Radial] Respiratory 22 22 26 H Rate Respiratory Rate [Posterior Bilateral Throughout] Blood Pressure 122/91 122/91 122/91 O2 Sat by Pulse Oximetry 07/31/17 07/31/17 07/31/17 03:00 03:11 03:21 Temperature Pulse Rate 134 H 131 H 134 H Pulse Rate [ Left Dorsalis Pedis] Pulse Rate [ Posterior Bilateral Throughout] Pulse Rate [ Right Dorsalis Pedis] Pulse Rate [ Right Radial] Respiratory 19 25 H 25 H Rate Respiratory Rate [Posterior Bilateral Throughout] Blood Pressure 141/70 141/70 141/70 O2 Sat by Pulse Oximetry 07/31/17 07/31/17 07/31/17 03:30 03:41 03:51 Temperature 98.9 F Pulse Rate 132 H 136 H 138 H Pulse Rate [ Left Dorsalis Pedis] Pulse Rate [ Posterior Bilateral Throughout] Pulse Rate [ Right Dorsalis Pedis] Pulse Rate [ Right Radial] Respiratory 17 21 25 H Rate Respiratory Rate [Posterior Bilateral Throughout] Blood Pressure 127/77 127/77 127/77 O2 Sat by Pulse Oximetry 07/31/17 07/31/17 07/31/17 04:01 04:11 04:21 Temperature Pulse Rate 135 H 136 H 136 H Pulse Rate [ Left Dorsalis Pedis] Pulse Rate [ Posterior Bilateral Throughout] Pulse Rate [ Right Dorsalis Pedis] Pulse Rate [ Right Radial] Respiratory 23 25 H 25 H Rate Respiratory Rate [Posterior Bilateral Throughout] Blood Pressure 95/66 95/66 93/68 O2 Sat by Pulse Oximetry 07/31/17 07/31/17 07/31/17 04:30 04:31 04:41 Temperature Pulse Rate 137 H 140 H 140 H Pulse Rate [ Left Dorsalis Pedis] Pulse Rate [ Posterior Bilateral Throughout] Pulse Rate [ Right Dorsalis Pedis] Pulse Rate [ Right Radial] Respiratory 25 H 25 H Rate Respiratory Rate [Posterior Bilateral Throughout] Blood Pressure 96/68 129/60 129/60 O2 Sat by Pulse 99 Oximetry 07/31/17 07/31/17 07/31/17 04:42 04:51 05:00 Temperature Pulse Rate 139 H 140 H Pulse Rate [ 139 H Left Dorsalis Pedis] Pulse Rate [ Posterior Bilateral Throughout] Pulse Rate [ Right Dorsalis Pedis] Pulse Rate [ Right Radial] Respiratory 12 25 H 25 H Rate Respiratory Rate [Posterior Bilateral Throughout] Blood Pressure 102/66 98/73 O2 Sat by Pulse 98 Oximetry 07/31/17 07/31/17 07/31/17 05:11 05:21 05:30 Temperature Pulse Rate 139 H 140 H 141 H Pulse Rate [ Left Dorsalis Pedis] Pulse Rate [ Posterior Bilateral Throughout] Pulse Rate [ Right Dorsalis Pedis] Pulse Rate [ Right Radial] Respiratory 25 H 24 13 Rate Respiratory Rate [Posterior Bilateral Throughout] Blood Pressure 98/73 107/68 118/76 O2 Sat by Pulse Oximetry 07/31/17 07/31/17 07/31/17 05:41 05:51 06:00 Temperature Pulse Rate 141 H 140 H 137 H Pulse Rate [ Left Dorsalis Pedis] Pulse Rate [ Posterior Bilateral Throughout] Pulse Rate [ Right Dorsalis Pedis] Pulse Rate [ Right Radial] Respiratory 9 L 24 17 Rate Respiratory Rate [Posterior Bilateral Throughout] Blood Pressure 107/68 111/66 103/61 O2 Sat by Pulse Oximetry 07/31/17 07/31/17 07/31/17 06:11 06:21 06:30 Temperature Pulse Rate 139 H 141 H 142 H Pulse Rate [ Left Dorsalis Pedis] Pulse Rate [ Posterior Bilateral Throughout] Pulse Rate [ Right Dorsalis Pedis] Pulse Rate [ Right Radial] Respiratory 15 18 12 Rate Respiratory Rate [Posterior Bilateral Throughout] Blood Pressure 118/76 101/67 106/57 O2 Sat by Pulse Oximetry 07/31/17 07/31/17 07/31/17 06:41 06:51 07:00 Temperature Pulse Rate 142 H 140 H 143 H Pulse Rate [ Left Dorsalis Pedis] Pulse Rate [ Posterior Bilateral Throughout] Pulse Rate [ Right Dorsalis Pedis] Pulse Rate [ Right Radial] Respiratory 18 18 18 Rate Respiratory Rate [Posterior Bilateral Throughout] Blood Pressure 106/57 121/67 95/74 O2 Sat by Pulse Oximetry 07/31/17 07/31/17 07/31/17 07:10 07:11 07:21 Temperature Pulse Rate 144 H 144 H Pulse Rate [ Left Dorsalis Pedis] Pulse Rate [ Posterior Bilateral Throughout] Pulse Rate [ Right Dorsalis Pedis] Pulse Rate [ Right Radial] Respiratory 18 18 18 Rate Respiratory Rate [Posterior Bilateral Throughout] Blood Pressure 95/74 91/64 O2 Sat by Pulse 98 Oximetry 07/31/17 07/31/17 07/31/17 07:30 07:41 07:51 Temperature Pulse Rate 142 H 144 H 151 H Pulse Rate [ Left Dorsalis Pedis] Pulse Rate [ Posterior Bilateral Throughout] Pulse Rate [ Right Dorsalis Pedis] Pulse Rate [ Right Radial] Respiratory 17 11 L 16 Rate Respiratory Rate [Posterior Bilateral Throughout] Blood Pressure 95/62 95/62 111/79 O2 Sat by Pulse Oximetry 07/31/17 07/31/17 07/31/17 08:00 08:01 08:11 Temperature 99.3 F Pulse Rate 141 H 148 H 143 H Pulse Rate [ Left Dorsalis Pedis] Pulse Rate [ Posterior Bilateral Throughout] Pulse Rate [ Right Dorsalis Pedis] Pulse Rate [ Right Radial] Respiratory 16 18 Rate Respiratory Rate [Posterior Bilateral Throughout] Blood Pressure 95/64 94/70 94/70 O2 Sat by Pulse Oximetry 07/31/17 07/31/17 07/31/17 08:20 08:30 08:40 Temperature Pulse Rate 140 H 140 H 142 H Pulse Rate [ Left Dorsalis Pedis] Pulse Rate [ Posterior Bilateral Throughout] Pulse Rate [ Right Dorsalis Pedis] Pulse Rate [ Right Radial] Respiratory 18 18 13 Rate Respiratory Rate [Posterior Bilateral Throughout] Blood Pressure 95/64 95/64 O2 Sat by Pulse Oximetry 07/31/17 07/31/17 07/31/17 08:50 09:00 09:10 Temperature Pulse Rate 141 H 137 H 136 H Pulse Rate [ Left Dorsalis Pedis] Pulse Rate [ Posterior Bilateral Throughout] Pulse Rate [ Right Dorsalis Pedis] Pulse Rate [ Right Radial] Respiratory 18 15 16 Rate Respiratory Rate [Posterior Bilateral Throughout] Blood Pressure 90/66 91/64 91/64 O2 Sat by Pulse Oximetry 07/31/17 07/31/17 07/31/17 09:20 09:30 09:40 Temperature Pulse Rate 137 H 135 H 137 H Pulse Rate [ Left Dorsalis Pedis] Pulse Rate [ Posterior Bilateral Throughout] Pulse Rate [ Right Dorsalis Pedis] Pulse Rate [ Right Radial] Respiratory 18 17 18 Rate Respiratory Rate [Posterior Bilateral Throughout] Blood Pressure 92/68 96/71 96/71 O2 Sat by Pulse Oximetry 07/31/17 07/31/17 07/31/17 09:50 10:00 10:10 Temperature Pulse Rate 139 H 137 H 136 H Pulse Rate [ Left Dorsalis Pedis] Pulse Rate [ Posterior Bilateral Throughout] Pulse Rate [ Right Dorsalis Pedis] Pulse Rate [ Right Radial] Respiratory 18 18 18 Rate Respiratory Rate [Posterior Bilateral Throughout] Blood Pressure 93/64 88/64 88/64 O2 Sat by Pulse Oximetry 07/31/17 07/31/17 10:15 10:20 Temperature Pulse Rate 133 H 134 H Pulse Rate [ Left Dorsalis Pedis] Pulse Rate [ Posterior Bilateral Throughout] Pulse Rate [ Right Dorsalis Pedis] Pulse Rate [ Right Radial] Respiratory 18 Rate Respiratory Rate [Posterior Bilateral Throughout] Blood Pressure 95/68 O2 Sat by Pulse Oximetry Constitutional: alert, appears uncomfortable Eyes: non-icteric ENT: oropharynx moist, other (ETT in place) Neck: supple, no lymphadenopathy, no JVD, other (No Thyromegaly; Right IJ line) Effort: mildly labored Ascultation: Bilateral: diminished breath sounds (bases), rhonchi Percussion: Bilateral: not dull Cardiovascular: regular rate and rhythm, other (no rubs/murmurs) Gastrointestinal: hypoactive bowel sounds, soft, tender (mild), other (distended ; no palpable HSM) Integumentary: normal Extremities: no cyanosis, no edema, pulses normal, no ischemia or petechiae Neurologic: normal mental status, non-focal exam, pupils equal and round, motor strength normal and Psychiatric: mood appropriate, affect normal CBC and BMP: 08/02/17 04:40 08/02/17 04:40 ABG, PT/INR, D-dimer: ABG POC ABG pH 7.514 (7.35-7.45) H 07/31/17 05:21 POC ABG pCO2 22.5 (35-45) L 07/31/17 05:21 POC ABG pO2 115 (80-105) H 07/31/17 05:21 POC ABG HCO3 18.1 07/31/17 05:21 POC ABG Total CO2 19 07/31/17 05:21 POC ABG O2 Sat 99 07/31/17 05:21 PT/INR, D-dimer PT 17.5 Sec. (12.2-14.9) H 07/30/17 18:37 INR 1.36 (0.87-1.13) H 07/30/17 18:37 Abnormal lab findings: Abnormal Labs 07/30/17 07/30/17 07/30/17 01:25 01:25 10:06 WBC 11.9 H RBC Hgb Hct RDW 17.8 H Plt Count Lymph % (Auto) 7.1 L [place] % (Auto) Lymph # 0.8 L Seg Neutrophils % 87.5 H Seg Neutrophils # 10.4 H PT INR POC ABG pH POC ABG pCO2 POC ABG pO2 Sodium 136 L Potassium 3.4 L Chloride 95.2 L Carbon Dioxide 19 L BUN Creatinine Glucose 262 H POC Glucose Lactic Acid 5.40 H* Calcium Phosphorus Magnesium C-Reactive Protein 07/30/17 07/30/17 07/30/17 12:49 16:22 16:53 WBC RBC Hgb Hct RDW Plt Count Lymph % (Auto) [place] % (Auto) Lymph # Seg Neutrophils % Seg Neutrophils # PT INR POC ABG pH POC ABG pCO2 POC ABG pO2 Sodium Potassium Chloride Carbon Dioxide BUN Creatinine Glucose POC Glucose 253 H 195 H Lactic Acid 8.00 H* Calcium Phosphorus Magnesium C-Reactive Protein 07/30/17 07/30/17 07/30/17 16:53 16:53 16:53 WBC 11.3 H RBC 5.92 H Hgb 16.6 H D Hct 52.5 H D RDW 18.2 H Plt Count Lymph % (Auto) [place] % (Auto) Lymph # Seg Neutrophils % Seg Neutrophils # PT INR POC ABG pH POC ABG pCO2 POC ABG pO2 Sodium Potassium Chloride 96.5 L Carbon Dioxide 20 L BUN 19 H Creatinine 2.3 H D Glucose 215 H POC Glucose Lactic Acid Calcium Phosphorus Magnesium C-Reactive Protein 3.80 H 07/30/17 07/30/17 07/31/17 18:37 23:08 05:19 WBC RBC Hgb Hct RDW Plt Count Lymph % (Auto) [place] % (Auto) Lymph # Seg Neutrophils % Seg Neutrophils # PT 17.5 H INR 1.36 H POC ABG pH 7.210 L POC ABG pCO2 47.0 H POC ABG pO2 197 H Sodium Potassium Chloride Carbon Dioxide BUN Creatinine Glucose POC Glucose 156 H Lactic Acid Calcium Phosphorus Magnesium C-Reactive Protein 07/31/17 07/31/17 07/31/17 05:21 06:00 06:00 WBC 4.3 L RBC Hgb Hct RDW 17.6 H Plt Count 95 L Lymph % (Auto) [place] % (Auto) 9.0 H Lymph # 1.1 L Seg Neutrophils % Seg Neutrophils # PT INR POC ABG pH 7.514 H POC ABG pCO2 22.5 L POC ABG pO2 115 H Sodium Potassium Chloride Carbon Dioxide BUN 25 H Creatinine 2.5 H Glucose 153 H POC Glucose Lactic Acid Calcium 7.3 L D Phosphorus 1.40 L Magnesium 1.20 L C-Reactive Protein 07/31/17 06:00 WBC RBC Hgb Hct RDW Plt Count Lymph % (Auto) [place] % (Auto) Lymph # Seg Neutrophils % Seg Neutrophils # PT INR POC ABG pH POC ABG pCO2 POC ABG pO2 Sodium Potassium Chloride Carbon Dioxide BUN Creatinine Glucose POC Glucose Lactic Acid 4.50 H* Calcium Phosphorus Magnesium C-Reactive Protein Chest x-ray: image reviewed (RIJ tip in right atrium; no new infiltrate) Allied health notes reviewed: RT
[2017-07-31] MEDS: DIFLUCAN 200 MG/100 ML BAG IV SCH (11:06)
[2017-07-31] MEDS ORDERED: NACL 0.9% 250ML 250 ML IV ONE (11:22)
[2017-07-31] MEDS: NACL 0.9% 1000 ML 1,000 ML IV SCH ×2 (12:19→17:34)
--- NOTE | 2017-07-31 12:50 | Progress Note ---
Hospitalist Physical - Constitutional Vitals: Temp Pulse Resp BP Pulse Ox 99.3 F 131 H 19 114/74 100 07/31/17 08:00 07/31/17 12:30 07/31/17 12:30 07/31/17 12:30 07/31/17 12:30 General appearance: Present: severe distress, cachectic, other (moaning) Results - Labs CBC & Chem 7: 07/31/17 06:00 07/31/17 06:00 Labs: Laboratory Last Values WBC 4.3 K/mm3 (4.5-11.0) L 07/31/17 06:00 RBC 4.23 M/mm3 (3.65-5.03) 07/31/17 06:00 Hgb 11.9 gm/dl (10.1-14.3) D 07/31/17 06:00 Hct 36.4 % (30.3-42.9) D 07/31/17 06:00 MCV 86 fl (79-97) 07/31/17 06:00 MCH 28 pg (28-32) 07/31/17 06:00 MCHC 33 % (30-34) 07/31/17 06:00 RDW 17.6 % (13.2-15.2) H 07/31/17 06:00 Plt Count 95 K/mm3 (140-440) L 07/31/17 06:00 Lymph % (Auto) 25.7 % (13.4-35.0) 07/31/17 06:00 [place] % (Auto) 9.0 % (0.0-7.3) H 07/31/17 06:00 Eos % (Auto) 0.9 % (0.0-4.3) 07/31/17 06:00 Baso % (Auto) 0.1 % (0.0-1.8) 07/31/17 06:00 Lymph # 1.1 K/mm3 (1.2-5.4) L 07/31/17 06:00 [place] # 0.4 K/mm3 (0.0-0.8) 07/31/17 06:00 Eos # 0.0 K/mm3 (0.0-0.4) 07/31/17 06:00 Baso # 0.0 K/mm3 (0.0-0.1) 07/31/17 06:00 Seg Neutrophils % 64.3 % (40.0-70.0) 07/31/17 06:00 Seg Neutrophils # 2.8 K/mm3 (1.8-7.7) 07/31/17 06:00 PT 17.5 Sec. (12.2-14.9) H 07/30/17 18:37 INR 1.36 (0.87-1.13) H 07/30/17 18:37 APTT 26.9 Sec. (24.2-36.6) 07/30/17 18:37 POC ABG pH 7.514 (7.35-7.45) H 07/31/17 05:21 POC ABG pCO2 22.5 (35-45) L 07/31/17 05:21 POC ABG pO2 115 (80-105) H 07/31/17 05:21 POC ABG HCO3 18.1 07/31/17 05:21 POC ABG Total CO2 19 07/31/17 05:21 POC ABG O2 Sat 99 07/31/17 05:21 POC ABG Base Excess -5 07/31/17 05:21 FiO2 35 % 07/31/17 05:21 Sodium 141 mmol/L (137-145) 07/31/17 06:00 Potassium 4.1 mmol/L (3.6-5.0) 07/31/17 06:00 Chloride 103.6 mmol/L (98-107) 07/31/17 06:00 Carbon Dioxide 22 mmol/L (22-30) 07/31/17 06:00 Anion Gap 20 mmol/L 07/31/17 06:00 BUN 25 mg/dL (7-17) H 07/31/17 06:00 Creatinine 2.5 mg/dL (0.7-1.2) H 07/31/17 06:00 Estimated GFR 24 ml/min 07/31/17 06:00 BUN/Creatinine Ratio 10 % 07/31/17 06:00 Glucose 153 mg/dL (65-100) H 07/31/17 06:00 POC Glucose 156 (70-105) H 07/31/17 05:19 Lactic Acid 4.50 mmol/L (0.7-2.0) H* 07/31/17 06:00 Calcium 7.3 mg/dL (8.4-10.2) L D 07/31/17 06:00 Phosphorus 1.40 mg/dL (2.5-4.5) L 07/31/17 06:00 Magnesium 1.20 mg/dL (1.7-2.3) L 07/31/17 06:00 Total Bilirubin 0.20 mg/dL (0.1-1.2) 07/30/17 01:25 AST 17 units/L (5-40) 07/30/17 01:25 ALT 15 units/L (7-56) 07/30/17 01:25 Alkaline Phosphatase 74 units/L (35-129) 07/30/17 01:25 C-Reactive Protein 3.80 mg/dL (0.00-1.30) H 07/30/17 16:53 Total Protein 8.0 g/dL (6.3-8.2) 07/30/17 01:25 Albumin 4.3 g/dL (3.9-5) 07/30/17 01:25 Albumin/Globulin Ratio 1.2 % 07/30/17 01:25
--- NOTE | 2017-07-31 12:54 | Progress Note ---
Assessment and Plan Assessment and plan: --Small bowel ischemia and perforation/s/p exploratory laparotomy and small bowel resection Continue postop care, surgery following --Hypophosphatemia; replace per protocol and monitor levels --Hypomagnesemia; replace per protocol monitor levels --Acute respiratory failure, requiring intubation on ventilatory support Pulmonary following, wean as tolerated and extubate --Acute renal failure; worsening renal function secondary to vasomotor nephropathy, prerenal azotemia Aggressive IV hydration, closely monitor renal function, avoid nephrotoxic medications, Neurology consulted -- Septic Shock: Resolved, continue supportive care, IV antibiotics --Small bowel obstruction at the time of admission Status post small bowel resection , Dr. Rouse following --Hypothermia; secondary to sepsis, resolved --Lactic acidosis /metabolic acidosis secondary to severe sepsis Trending down IV fluids, IV antibiotics, cultures --History of ileostomy/ostomy care --Type 2 diabetes mellitus; Accu-Chek sliding scale coverage , low-dose 70/30 insulin as needed Check hemoglobin A1c --DVT prophylaxis; no pharmacologic anticoagulation in view of recent surgery, SCDs --full CODE STATUS --Closely monitor the patient and adjust the management as needed Patient's condition, treatment plan,reviewed with the patient's at the bedside Addressed all their questions and concerns. They verbalized understanding Critical care time33 minutes The high probability of a clinically significant, sudden or life threatening deterioration of the [GI ,CV, renal] system(s) required my full and direct attention, intervention and personal management. The aggregate critical care time was [33 ] minutes. This time is in addition to time spent performing reported procedures but includes the following: [x] Data Review and interpretation [x] Patient assessment and monitoring of vital signs [x] Documentation, counseling [x] Medication orders and management History Interval history: Patient seen and examined, medical records reviewed Patient underwent exploratory laparotomy and small bowel resection last night Intubated on ventilatory support Alert responding appropriately Vital Signs reviewed Hospitalist Physical - Constitutional Vitals: Temp Pulse Resp BP Pulse Ox 99.3 F 131 H 19 114/74 100 07/31/17 08:00 07/31/17 12:30 07/31/17 12:30 07/31/17 12:30 07/31/17 12:30 General appearance: Present: no acute distress, well-nourished, other ( intubated on ventilatory support) - EENT Eyes: Present: PERRL, EOM intact - Neck Neck: Present: supple, normal ROM, other (ET tube in place) - Respiratory Respiratory effort: normal Respiratory: bilateral: diminished, negative: rales, rhonchi, wheezing - Cardiovascular Rhythm: regular Heart Sounds: Present: S1 & S2 - Extremities Extremities: no ischemia, No edema - Abdominal General gastrointestinal: soft, tender (on palpation), non-distended, absent bowel sounds - Integumentary Integumentary: Present: clear, warm - Psychiatric Psychiatric: appropriate mood/affect, other (sedated) - Neurologic Neurologic: moves all extremities Results - Labs CBC & Chem 7: 07/31/17 06:00 07/31/17 06:00 Labs: Laboratory Last Values WBC 4.3 K/mm3 (4.5-11.0) L 07/31/17 06:00 RBC 4.23 M/mm3 (3.65-5.03) 07/31/17 06:00 Hgb 11.9 gm/dl (10.1-14.3) D 07/31/17 06:00 Hct 36.4 % (30.3-42.9) D 07/31/17 06:00 MCV 86 fl (79-97) 07/31/17 06:00 MCH 28 pg (28-32) 07/31/17 06:00 MCHC 33 % (30-34) 07/31/17 06:00 RDW 17.6 % (13.2-15.2) H 07/31/17 06:00 Plt Count 95 K/mm3 (140-440) L 07/31/17 06:00 Lymph % (Auto) 25.7 % (13.4-35.0) 07/31/17 06:00 [place] % (Auto) 9.0 % (0.0-7.3) H 07/31/17 06:00 Eos % (Auto) 0.9 % (0.0-4.3) 07/31/17 06:00 Baso % (Auto) 0.1 % (0.0-1.8) 07/31/17 06:00 Lymph # 1.1 K/mm3 (1.2-5.4) L 07/31/17 06:00 [place] # 0.4 K/mm3 (0.0-0.8) 07/31/17 06:00 Eos # 0.0 K/mm3 (0.0-0.4) 07/31/17 06:00 Baso # 0.0 K/mm3 (0.0-0.1) 07/31/17 06:00 Seg Neutrophils % 64.3 % (40.0-70.0) 07/31/17 06:00 Seg Neutrophils # 2.8 K/mm3 (1.8-7.7) 07/31/17 06:00 PT 17.5 Sec. (12.2-14.9) H 07/30/17 18:37 INR 1.36 (0.87-1.13) H 07/30/17 18:37 APTT 26.9 Sec. (24.2-36.6) 07/30/17 18:37 POC ABG pH 7.514 (7.35-7.45) H 07/31/17 05:21 POC ABG pCO2 22.5 (35-45) L 07/31/17 05:21 POC ABG pO2 115 (80-105) H 07/31/17 05:21 POC ABG HCO3 18.1 07/31/17 05:21 POC ABG Total CO2 19 07/31/17 05:21 POC ABG O2 Sat 99 07/31/17 05:21 POC ABG Base Excess -5 07/31/17 05:21 FiO2 35 % 07/31/17 05:21 Sodium 141 mmol/L (137-145) 07/31/17 06:00 Potassium 4.1 mmol/L (3.6-5.0) 07/31/17 06:00 Chloride 103.6 mmol/L (98-107) 07/31/17 06:00 Carbon Dioxide 22 mmol/L (22-30) 07/31/17 06:00 Anion Gap 20 mmol/L 07/31/17 06:00 BUN 25 mg/dL (7-17) H 07/31/17 06:00 Creatinine 2.5 mg/dL (0.7-1.2) H 07/31/17 06:00 Estimated GFR 24 ml/min 07/31/17 06:00 BUN/Creatinine Ratio 10 % 07/31/17 06:00 Glucose 153 mg/dL (65-100) H 07/31/17 06:00 POC Glucose 156 (70-105) H 07/31/17 05:19 Lactic Acid 4.50 mmol/L (0.7-2.0) H* 07/31/17 06:00 Calcium 7.3 mg/dL (8.4-10.2) L D 07/31/17 06:00 Phosphorus 1.40 mg/dL (2.5-4.5) L 07/31/17 06:00 Magnesium 1.20 mg/dL (1.7-2.3) L 07/31/17 06:00 Total Bilirubin 0.20 mg/dL (0.1-1.2) 07/30/17 01:25 AST 17 units/L (5-40) 07/30/17 01:25 ALT 15 units/L (7-56) 07/30/17 01:25 Alkaline Phosphatase 74 units/L (35-129) 07/30/17 01:25 C-Reactive Protein 3.80 mg/dL (0.00-1.30) H 07/30/17 16:53 Total Protein 8.0 g/dL (6.3-8.2) 07/30/17 01:25 Albumin 4.3 g/dL (3.9-5) 07/30/17 01:25 Albumin/Globulin Ratio 1.2 % 07/30/17 01:25
[2017-07-31 13:29] LABS: ISTAT Base Excess 2; ISTAT HCO3 24.9; ISTAT PCO2 31.6 (35-45); ISTAT PH 7.506 (7.35-7.45); ISTAT PO2 115 (80-105); ISTAT SO2 99; ISTAT TCO2 26
[2017-07-31] MEDS: DILAUDID IV PRN ×2 (13:43→21:52)
--- NOTE | 2017-07-31 13:45 | Consultation ---
History of Present Illness - Reason for Consult Consult date: 07/31/17 acute renal failure - History of Present Illness The patient is a 62 year old AAF with past medical history significant for Diverticulosis, status post colectomy and ostomy, Hypertension, Diabetes mellitus type 2 and Sleep apnea was transferred from [facility] for the further management of Intestinal obstruction. Patient had severe abdominal pain that started around the epigastric area and later involved the whole abdomen and associated with nausea and vomiting. Patient underwent Exploratory laparotomy and resection of small bowel on . Her initial creatinine was 0.8, but increased to 2.3 and remains around 2.5. Patient was extubated today. Per son she underwent total Colectomy about 2 months ago. Past History Past Medical History: diabetes, hypertension, other (diverticulosis, sleep apnea ) Past Surgical History: bowel surgery, Other (Total abdominal colectomy and end ileostomy) Social history: full code. denies: smoking, alcohol abuse, prescription drug abuse, IV drug use Family history: no significant family history Medications and Allergies Allergies Allergy/AdvReac Type Severity Reaction Status Date / Time No Known Allergies Allergy Verified 07/29/17 22:43 Home Medications Medication Instructions Recorded Confirmed Last Taken Type Ferrous Sulfate [Feosol 325 MG tab] 325 mg PO TID #90 tablet 05/25/17 Unknown Rx Levofloxacin [Levaquin] 750 mg PO QDAY #2 tablet 05/25/17 Unknown Rx Metformin HCl [Fortamet ER] 1,000 mg PO BID #60 tab.er.24 05/25/17 Unknown Rx Pantoprazole [Protonix TAB] 40 mg PO DAILY #30 tablet 05/25/17 Unknown Rx oxyCODONE /ACETAMINOPHEN [Percocet 1 tab PO Q6HR PRN #30 tablet 05/25/17 Unknown Rx 5/325] Active Meds: Active Medications Albuterol/Ipratropium (Duoneb *Not For Prn Use*) 1 ampul IH Q6HRT [facility] Last Admin: 07/31/17 09:00 Dose: Not Given Dextrose (D50w (25gm) Vial) 25 gm IV PRN PRN PRN Reason: Hypoglycemia Famotidine (Pepcid) 20 mg IV DAILY [facility] Last Admin: 07/31/17 09:50 Dose: 20 mg Hydralazine HCl (Apresoline) 10 mg IV Q4HR PRN PRN Reason: Blood Pressure Last Admin: 07/30/17 03:36 Dose: 10 mg Hydromorphone HCl (Dilaudid) 1 mg IV Q3H PRN PRN Reason: Pain, Moderate (4-6) Last Admin: 07/31/17 13:43 Dose: 1 mg Hydrophilic Ointment (Vaseline Lip Therapy) 1 applic TP Q2H PRN PRN Reason: Dry Lips Norepinephrine (Levophed Drip 4 Mg/Ns 250 Ml) 4 mg in 250 mls @ 7.5 mls/hr IV TITR DIMITRY; 2 MCG/MIN PRN Reason: Protocol Vasopressin 20 unit/ Sodium (Chloride) 101 mls @ 9.09 mls/hr IV TITR DIMITRY; 0.03 UNITS/MIN PRN Reason: Protocol Last Admin: 07/30/17 18:59 Dose: 0.03 units/min, 9.09 mls/hr Piperacillin Sod/Tazobactam Sod (Zosyn/Ns 2.25 Gm/50ml) 2.25 gm in 50 mls @ 100 mls/hr IV Q6HR DIMITRY Last Admin: 07/31/17 12:33 Dose: 100 mls/hr Fentanyl Citrate (Fentanyl Drip Premix) 2,000 mcg in 100 mls @ 4.536 mls/hr IV TITR DIMITRY; 1 MCG/KG/HR PRN Reason: Protocol Last Titration: 07/31/17 11:30 Dose: Infused Propofol (Diprivan 10 Mg/Ml) 1,000 mg in 100 mls @ 2.722 mls/hr IV TITR DIMITRY; 5 MCG/KG/MIN PRN Reason: Protocol Potassium Phosphate 45 mmol/ (Sodium Chloride) 515 mls @ 85 mls/hr IV ONCE ONE Stop: 07/31/17 15:03 Fluconazole (Diflucan) 200 mg in 100 mls @ 100 mls/hr IV Q24HR DIMITRY PRN Reason: Protocol Last Admin: 07/31/17 11:06 Dose: 100 mls/hr Sodium Chloride (Nacl 0.9% 1000 Ml) 1,000 mls @ 100 mls/hr IV DIRECT DIMITRY Last Admin: 07/31/17 12:19 Dose: 100 mls/hr Insulin Aspart (Novolog) 0 units SUB-Q ACHS DIMITRY PRN Reason: Protocol Last Admin: 07/31/17 12:00 Dose: Not Given Insulin Human Isoph/Insulin Regular (Novolin 70/30) 5 unit SUB-Q BIDDIAB DIMITRY Last Admin: 07/31/17 08:15 Dose: 5 unit Midazolam HCl (Versed) 1 mg IV ONCE PRN PRN Reason: Sedation Multi-Ingred Cream/Lotion/Oil/Oint (Artificial Tears Ophth Oint) 1 applic OU Q4H PRN PRN Reason: Dry Eye(s) Ondansetron HCl (Zofran) 4 mg IV Q8H PRN PRN Reason: N/V unrelieved by Reglan Sodium Chloride (Nacl 0.9% 500 Ml) 10 ml IV DIRECT DIMITRY Review of Systems ROS unobtainable: due to mental status Exam - Vital Signs Vital signs: Vital Signs Pulse Resp 108 H 17 07/29/17 23:19 07/29/17 23:19 - General Appearance General appearance: well-developed, well-nourished, appears stated age, other ( somnolent, no distress) EENT: ATNC, PERRL Neck: Present: neck supple, trachea midline Respiratory: Clear to Ascultation Heart: regular, tachycardia, S1S2 Gastrointestinal: Present: other (ostomy and dressing noted) Integumentary: no rash Neurologic: other (able to move extremities) Musculoskeletal: Present: other (no edema) Results - Lab Results 07/31/17 06:00 07/31/17 06:00 Most recent lab results Calcium 7.3 mg/dL (8.4-10.2) L D 07/31/17 06:00 Phosphorus 1.40 mg/dL (2.5-4.5) L 07/31/17 06:00 Magnesium 1.20 mg/dL (1.7-2.3) L 07/31/17 06:00 - Image Kidney/bladder ultrasound: pending Assessment and Plan 1. Acute kidney injury: CINTIA is hemodynamically mediated in the setting of volume depletion and hypotension. Creatinine level remain stable. Continue IV fluids. Monitor renal function. Renal US and Urine studies. 2. Multiple electrolyte abnormalities: Replete lytes. 3. Hypotension: Off pressors. Monitor BP. 4. SBO: S/p Ex-lap.
[2017-07-31 17:05] LABS: Bacteria,Urine 2+ /HPF (Negative); Bilirubin,Urine NEG (Negative); Blood,Urine LG (Negative); Ketones,Urine NEG (Negative); Leukocyte Esterase,Urine SM (Negative); Mucus,Urine FEW /HPF; Nitrite,Urine NEG (Negative); Protein,Urine <15 mg/dL mg/dL (Negative); Urobilinogen,Urine < 2.0 mg/dL (<2.0)
[2017-07-31] MEDS: ZOFRAN IV PRN (21:52)
--- NOTE | 2017-08-01 00:01 | Ultrasound Report ---
FINAL REPORT EXAM: US RENAL BILAT HISTORY: Acute renal failure. TECHNIQUE: Ultrasound of the kidneys PRIORS: CT a/P 07/30/2017 FINDINGS: Examination the kidneys demonstrates both to be normal in size and have normal cortical echogenicity and thickness. The right and left kidneys measure 9.7 cm and 12.1 cm in craniocaudal length, respectively. No evidence for calculi, hydronephrosis, or solid mass is seen in either kidney. There are bilateral anechoic simple renal cysts measuring 2.4 x 1.7 cm on the right and 1.9 x 1.8 cm on the left. These are also seen on prior CT. The urinary bladder is not visualized due to overlying bandaging in place in the region of imaging. IMPRESSION: Bilateral anechoic simple renal cysts, also seen on prior CT.
[2017-08-01] MEDS: DUONEB *Not for PRN Use IH SCH ×4 (01:12→19:48)
[2017-08-01] MEDS: NOVOLOG SUB-Q SCH ×5 (01:34→17:56)
[2017-08-01] MEDS: ZOSYN/NS 2.25 GM/50ML 2.25 GM/50 ML BAG IV SCH ×4 (01:38→17:40)
--- NOTE | 2017-08-01 02:42 | XRay Report ---
FINAL REPORT PROCEDURE: XR CHEST 1V AP TECHNIQUE: Chest radiograph anteroposterior view. CPT 80202 HISTORY: follow up respiratory failure COMPARISON: 07/1917 FINDINGS: Heart: Normal. Mediastinum/Vessels: The thoracic aorta is ectatic.. Lungs/Pleural space: Lungs are expanded. There are infiltrates at the left lung base. There are no effusions or pneumothoraces. Bony thorax: No acute osseous abnormality. Life support devices: There is an NG tube in the stomach. There is a right-sided central venous catheter. Tip is in the right atrium of the heart.. The endotracheal tube has been removed. IMPRESSION: There are infiltrates at the left lung base. There are no effusions or pneumothoraces. There is an NG tube in the stomach. There is a right-sided central venous catheter. Tip is in the right atrium of the heart.. The endotracheal tube has been removed. .
[2017-08-01] MEDS: NACL 0.9% 1000 ML 1,000 ML IV SCH ×2 (03:42→14:12)
[2017-08-01 05:35] LABS: Calcium 7.6 mg/dL (8.4-10.2); Chloride 105.1 mmol/L (98-107); Magnesium 2.3 mg/dL (1.7-2.3); Phosphorous 4.8 mg/dL (2.5-4.5); Potassium 4.5 mmol/L (3.6-5.0)
[2017-08-01] MEDS: DILAUDID IV PRN ×3 (07:27→20:21)
[2017-08-01] MEDS ORDERED: XANAX PO PRN (08:22)
--- NOTE | 2017-08-01 08:22 | Progress Note ---
Assessment and Plan 1. Acute kidney injury: CINTIA is hemodynamically mediated in the setting of volume depletion, hypotension and IV contrast. Creatinine level is improving. Continue IV fluids. Monitor renal function. 2. Multiple electrolyte abnormalities: Improving. 3. Hypotension: Off pressors. Monitor BP. 4. SBO: S/p Ex-lap. D/w her daughter-in law at the bedside. Subjective Date of service: 08/01/17 Principal diagnosis: Severe Sepsis; Ischemic Bowel; Acute Resp Failure on MVS Interval history: Patient was seen and examined at the bedside. Objective - Vital Signs Vital signs: Vital Signs - 12hr 07/31/17 07/31/17 07/31/17 20:30 20:40 20:50 Temperature Pulse Rate 126 H 128 H 127 H Pulse Rate [ From Monitor] Respiratory 26 H 25 H 26 H Rate Blood Pressure 117/72 117/72 114/70 O2 Sat by Pulse 100 100 100 Oximetry 07/31/17 07/31/17 07/31/17 21:00 21:10 21:20 Temperature Pulse Rate 129 H 128 H 128 H Pulse Rate [ From Monitor] Respiratory 24 24 20 Rate Blood Pressure 111/70 111/70 120/73 O2 Sat by Pulse 100 99 100 Oximetry 07/31/17 07/31/17 07/31/17 21:30 21:40 21:50 Temperature Pulse Rate 127 H 126 H 128 H Pulse Rate [ From Monitor] Respiratory 22 24 14 Rate Blood Pressure 125/75 125/75 121/72 O2 Sat by Pulse 100 100 100 Oximetry 07/31/17 07/31/17 07/31/17 22:00 22:10 22:20 Temperature Pulse Rate 123 H 129 H 131 H Pulse Rate [ From Monitor] Respiratory 23 22 23 Rate Blood Pressure 107/65 107/65 118/70 O2 Sat by Pulse 100 99 99 Oximetry 07/31/17 07/31/17 07/31/17 22:30 22:40 22:50 Temperature Pulse Rate 132 H 134 H 133 H Pulse Rate [ From Monitor] Respiratory 22 22 22 Rate Blood Pressure 113/63 113/63 114/68 O2 Sat by Pulse 99 99 99 Oximetry 07/31/17 07/31/17 07/31/17 23:00 23:10 23:20 Temperature Pulse Rate 137 H 132 H 131 H Pulse Rate [ From Monitor] Respiratory 19 21 22 Rate Blood Pressure 113/68 113/68 104/63 O2 Sat by Pulse 100 99 100 Oximetry 07/31/17 07/31/17 07/31/17 23:26 23:30 23:35 Temperature Pulse Rate 132 H 133 H Pulse Rate [ 133 H From Monitor] Respiratory 22 21 22 Rate Blood Pressure 104/63 114/67 O2 Sat by Pulse 100 99 99 Oximetry 07/31/17 07/31/17 07/31/17 23:40 23:41 23:50 Temperature 98.8 F Pulse Rate 133 H 134 H Pulse Rate [ From Monitor] Respiratory 22 19 Rate Blood Pressure 114/67 110/64 O2 Sat by Pulse 99 99 Oximetry 07/31/17 08/01/17 08/01/17 23:58 00:00 00:10 Temperature Pulse Rate 135 H 131 H 132 H Pulse Rate [ From Monitor] Respiratory 19 19 20 Rate Blood Pressure 110/64 111/72 111/72 O2 Sat by Pulse 99 99 98 Oximetry 08/01/17 08/01/17 08/01/17 00:20 00:30 00:40 Temperature Pulse Rate 128 H 127 H 128 H Pulse Rate [ From Monitor] Respiratory 21 19 20 Rate Blood Pressure 104/67 107/71 104/67 O2 Sat by Pulse 99 98 99 Oximetry 08/01/17 08/01/17 08/01/17 00:50 01:00 01:10 Temperature Pulse Rate 128 H 126 H 126 H Pulse Rate [ From Monitor] Respiratory 21 19 20 Rate Blood Pressure 109/72 106/73 106/73 O2 Sat by Pulse 100 99 100 Oximetry 08/01/17 08/01/17 08/01/17 01:20 01:30 01:40 Temperature Pulse Rate 125 H 125 H 126 H Pulse Rate [ From Monitor] Respiratory 21 21 19 Rate Blood Pressure 104/74 109/73 109/73 O2 Sat by Pulse 98 100 100 Oximetry 08/01/17 08/01/17 08/01/17 01:50 02:00 02:10 Temperature Pulse Rate 127 H 126 H 124 H Pulse Rate [ From Monitor] Respiratory 14 19 23 Rate Blood Pressure 125/71 107/67 107/67 O2 Sat by Pulse 100 99 100 Oximetry 08/01/17 08/01/17 08/01/17 02:20 02:30 02:40 Temperature Pulse Rate 126 H 127 H 127 H Pulse Rate [ From Monitor] Respiratory 23 23 23 Rate Blood Pressure 107/64 106/66 106/66 O2 Sat by Pulse 100 99 100 Oximetry 08/01/17 08/01/17 08/01/17 02:50 03:00 03:10 Temperature Pulse Rate 126 H 127 H 126 H Pulse Rate [ From Monitor] Respiratory 23 22 23 Rate Blood Pressure 108/66 120/62 120/62 O2 Sat by Pulse 99 99 99 Oximetry 08/01/17 08/01/17 08/01/17 03:20 03:30 03:40 Temperature Pulse Rate 128 H 130 H 127 H Pulse Rate [ From Monitor] Respiratory 22 24 22 Rate Blood Pressure 120/73 111/71 111/71 O2 Sat by Pulse 100 100 100 Oximetry 08/01/17 08/01/17 08/01/17 03:41 03:50 04:00 Temperature 97.8 F Pulse Rate 126 H 125 H Pulse Rate [ 131 H From Monitor] Respiratory 21 23 Rate Blood Pressure 107/69 110/68 O2 Sat by Pulse 99 100 Oximetry 08/01/17 08/01/17 08/01/17 04:10 04:20 04:30 Temperature Pulse Rate 126 H 125 H 126 H Pulse Rate [ From Monitor] Respiratory 20 19 18 Rate Blood Pressure 110/68 117/72 104/60 O2 Sat by Pulse 100 100 100 Oximetry 08/01/17 08/01/17 08/01/17 04:40 04:50 05:00 Temperature Pulse Rate 127 H 128 H 127 H Pulse Rate [ From Monitor] Respiratory 22 21 21 Rate Blood Pressure 104/60 98/57 99/57 O2 Sat by Pulse 100 100 100 Oximetry 08/01/17 08/01/17 08/01/17 05:10 05:20 05:30 Temperature Pulse Rate 128 H 133 H 131 H Pulse Rate [ From Monitor] Respiratory 22 21 23 Rate Blood Pressure 99/57 117/73 112/58 O2 Sat by Pulse 100 100 100 Oximetry 08/01/17 08/01/17 08/01/17 05:40 05:50 06:00 Temperature Pulse Rate 130 H 131 H 131 H Pulse Rate [ From Monitor] Respiratory 22 22 17 Rate Blood Pressure 112/58 105/57 104/62 O2 Sat by Pulse 100 100 100 Oximetry - General Appearance General appearance: well-developed, well-nourished, appears stated age, other ( no distress, NG tube ) EENT: ATNC, PERRL, hearing intact Neck: supple Respiratory: Present: Clear to Ascultation Cardiology: regular, tachycardia, S1S2 Gastrointestinal: other (ostomy and dressing noted) Integumentary: no rash Neurologic: no focal deficit, no asterixis Musculoskeletal: other (no LE edema) Psychiatric: cooperative - Lab 08/01/17 13:54 08/01/17 04:25 Most recent lab results Calcium 7.6 mg/dL (8.4-10.2) L 08/01/17 04:25 Phosphorus 4.80 mg/dL (2.5-4.5) H D 08/01/17 04:25 Magnesium 2.30 mg/dL (1.7-2.3) 08/01/17 04:25 Urine Creatinine 99.8 mg/dL (0.1-20.0) H 07/31/17 15:18 Urine Sodium 76 mmol/L 07/31/17 15:18
[2017-08-01] MEDS ORDERED: NACL 0.9% 250ML 250 ML IV ONE (09:30)
[2017-08-01] MEDS: DIFLUCAN 200 MG/100 ML BAG IV SCH (10:37)
[2017-08-01] MEDS: PEPCID IV SCH (10:38)
--- NOTE | 2017-08-01 10:55 | Progress Note ---
Assessment and Plan Assessment: 1) Severe Sepsis with septic shock: better. Etiology most likely peritonitis. CRP=3.8 2) Acute peritonitis: likely localized, from SB perforation/ischemia/ obstruction. OR cx so far negative 3) SB perforation/ischemia/obstruction: -S/P Exploratory laparotomy and resection of small bowel on 07/30 4) CINTIA - better 5) Thrombocytopenia - from sepsis - worsening Plan: -follow-up blood cultures -follow-up procalcitonin -continue zosyn and fluconazole - day 2 of 10 -follow-up OR cultures -monitor platelets Thank you Dr Costello for your consultation, will follow up with you. Priyanka Arriaga MD Infectious Diseases Specialist [facility] ([facility]) M [phone] O [phone] Subjective Date of service: 08/01/17 Principal diagnosis: Severe Sepsis; Ischemic Bowel; Acute Resp Failure on MVS Interval history: Feels better, extubated, off pressors, talking, no fever. Microbiology: Blood cultures: 07/30 ngtd Respiratory cultures: 07/20 ngtd Wound surg cultures: 07/30 ngrd Current Antimicrobials: Zosyn 07/31 fluconazole 07/31 Previous Antimicrobials: levaquin metronidazole Objective - Exam Narrative Exam: General appearance: sedated on the vent Eyes: anicteric sclerae, moist conjunctivae HENT: Atraumatic; oropharynx +ETT Neck: Trachea midline; supple, no thyromegaly or lymphadenopathy Lungs: CTA CV: rrr Abdomen: Soft,+surg wound covered with dressings +ileostomy Extremities: +peripheral edema Skin: Normal temperature, turgor and texture; no rash, ulcers or subcutaneous nodules Psych: alert talking. Neuro: sedated Lines: - Constitutional Vitals: Vital Signs Temp Pulse Resp BP Pulse Ox 97.6 F 126 H 21 103/63 99 08/01/17 08:00 08/01/17 08:50 08/01/17 08:50 08/01/17 08:50 08/01/17 08:50 Temperature -Last 24 Hours Temperature 97.6 F Temperature 97.8 F Temperature 98.8 F Temperature 98.2 F Temperature 98.6 F Temperature 99.8 F - Labs CBC & Chem 7: 07/31/17 06:00 08/01/17 04:25 Labs: Abnormal lab results 11/07/31/17 07/31/17 Range/Units 13:26 15:18 15:18 POC ABG pH 7.506 H (7.35-7.45) POC ABG pCO2 31.6 L (35-45) POC ABG pO2 115 H (80-105) BUN (7-17) mg/dL Creatinine (0.7-1.2) mg/dL Glucose (65-100) mg/dL POC Glucose (70-105) Calcium (8.4-10.2) mg/dL Phosphorus (2.5-4.5) mg/dL Urine WBC (Auto) 21.0 H (0.0-6.0) /HPF Urine Creatinine 99.8 H (0.1-20.0) mg/dL 07/31/17 08/01/17 08/01/17 Range/Units 17:21 00:16 04:25 POC ABG pH (7.35-7.45) POC ABG pCO2 (35-45) POC ABG pO2 (80-105) BUN 21 H (7-17) mg/dL Creatinine 1.7 H (0.7-1.2) mg/dL Glucose 110 H (65-100) mg/dL POC Glucose 121 H 118 H (70-105) Calcium 7.6 L (8.4-10.2) mg/dL Phosphorus 4.80 H D (2.5-4.5) mg/dL Urine WBC (Auto) (0.0-6.0) /HPF Urine Creatinine (0.1-20.0) mg/dL
[2017-08-01 14:27] LABS: Hematocrit 29.4 % (30.3-42.9); Hemoglobin 9.5 gm/dl (10.1-14.3); Mean Corpuscular HGB Conc 32 % (30-34); Mean Corpuscular Hemoglobin 28 pg (28-32); Mean Corpuscular Volume 86 fl (79-97); Red Cell Distribution Width 18.4 % (13.2-15.2); White Blood Count 10.2 K/mm3 (4.5-11.0)
--- NOTE | 2017-08-01 14:28 | Progress Note ---
Assessment and Plan Assessment and plan: --Small bowel ischemia and perforation/s/p exploratory laparotomy and small bowel resection Continue postop care, nothing by mouth , IV fluids , pain management surgery following --Hypophosphatemia; corrected --Hypomagnesemia; corrected --Acute respiratory failure, requiring intubation s/p extubation Saturating well on nasal cannula oxygen --Acute renal failure; secondary to vasomotor nephropathy, prerenal azotemia gradually improving, renal ultrasound findings reviewed, Nephrology input appreciated -- Septic Shock: Resolved, IV antibiotics --Hypothermia; secondary to sepsis, resolved --Lactic acidosis /metabolic acidosis secondary to severe sepsis Trending down IV fluids, IV antibiotics, cultures --History of ileostomy/ostomy care; copious amount of bile in the pouch --Type 2 diabetes mellitus; Accu-Chek sliding scale coverage , low-dose 70/30 insulin as needed Check hemoglobin A1c. 12.9 --DVT prophylaxis; no pharmacologic anticoagulation in view of recent surgery, SCDs --full CODE STATUS --Closely monitor the patient and adjust the management as needed Patient's condition, treatment plan,reviewed with the patient's at the bedside Addressed all their questions and concerns. They verbalized understanding Critical care time31 minutes The high probability of a clinically significant, sudden or life threatening deterioration of the [GI ,CV, renal] system(s) required my full and direct attention, intervention and personal management. The aggregate critical care time was [31 ] minutes. This time is in addition to time spent performing reported procedures but includes the following: [x] Data Review and interpretation [x] Patient assessment and monitoring of vital signs [x] Documentation, counseling [x] Medication orders and management Plan of care reviewed with the nurse and the daughter at the bedside Consults and recommendations noted and appreciated History Interval history: patient seen and examined Medical records reviewed, and new events reported by the nursing staff Feels slightly better, but remains tachycardic Heart rate ranging in the 120s Responding to simple questions Hospitalist Physical - Constitutional Vitals: Temp Pulse Resp BP Pulse Ox 99.1 F 121 H 21 116/65 100 08/01/17 12:00 08/01/17 12:00 08/01/17 12:00 08/01/17 12:00 08/01/17 12:00 General appearance: Present: no acute distress, well-nourished, other (lethargic ) - EENT Eyes: Present: PERRL, EOM intact - Neck Neck: Present: supple, normal ROM - Respiratory Respiratory effort: normal Respiratory: bilateral: diminished, rhonchi, negative: rales, wheezing - Cardiovascular Rhythm: regular Heart Sounds: Present: S1 & S2 (tachycardia) - Extremities Extremities: no ischemia, No edema - Abdominal General gastrointestinal: soft, non-tender, non-distended, absent bowel sounds, other (surgical dressing in place) - Integumentary Integumentary: Present: clear, warm - Psychiatric Psychiatric: other (Lethergic, easily awakens and responds appropriately) - Neurologic Neurologic: moves all extremities Results - Labs CBC & Chem 7: 08/01/17 13:54 08/01/17 04:25 Labs: Laboratory Last Values WBC 4.3 K/mm3 (4.5-11.0) L 07/31/17 06:00 RBC 4.23 M/mm3 (3.65-5.03) 07/31/17 06:00 Hgb 11.9 gm/dl (10.1-14.3) D 07/31/17 06:00 Hct 36.4 % (30.3-42.9) D 07/31/17 06:00 MCV 86 fl (79-97) 07/31/17 06:00 MCH 28 pg (28-32) 07/31/17 06:00 MCHC 33 % (30-34) 07/31/17 06:00 RDW 17.6 % (13.2-15.2) H 07/31/17 06:00 Plt Count 95 K/mm3 (140-440) L 07/31/17 06:00 Lymph % (Auto) 25.7 % (13.4-35.0) 07/31/17 06:00 Moca % (Auto) 9.0 % (0.0-7.3) H 07/31/17 06:00 Eos % (Auto) 0.9 % (0.0-4.3) 07/31/17 06:00 Baso % (Auto) 0.1 % (0.0-1.8) 07/31/17 06:00 Lymph # 1.1 K/mm3 (1.2-5.4) L 07/31/17 06:00 Moca # 0.4 K/mm3 (0.0-0.8) 07/31/17 06:00 Eos # 0.0 K/mm3 (0.0-0.4) 07/31/17 06:00 Baso # 0.0 K/mm3 (0.0-0.1) 07/31/17 06:00 Seg Neutrophils % 64.3 % (40.0-70.0) 07/31/17 06:00 Seg Neutrophils # 2.8 K/mm3 (1.8-7.7) 07/31/17 06:00 PT 17.5 Sec. (12.2-14.9) H 07/30/17 18:37 INR 1.36 (0.87-1.13) H 07/30/17 18:37 APTT 26.9 Sec. (24.2-36.6) 07/30/17 18:37 POC ABG pH 7.506 (7.35-7.45) H 07/31/17 13:26 POC ABG pCO2 31.6 (35-45) L 07/31/17 13:26 POC ABG pO2 115 (80-105) H 07/31/17 13:26 POC ABG HCO3 24.9 07/31/17 13:26 POC ABG Total CO2 26 07/31/17 13:26 POC ABG O2 Sat 99 07/31/17 13:26 POC ABG Base Excess 2 07/31/17 13:26 FiO2 28 % 07/31/17 13:26 Sodium 142 mmol/L (137-145) 08/01/17 04:25 Potassium 4.5 mmol/L (3.6-5.0) 08/01/17 04:25 Chloride 105.1 mmol/L (98-107) 08/01/17 04:25 Carbon Dioxide 25 mmol/L (22-30) 08/01/17 04:25 Anion Gap 16 mmol/L 08/01/17 04:25 BUN 21 mg/dL (7-17) H 08/01/17 04:25 Creatinine 1.7 mg/dL (0.7-1.2) H 08/01/17 04:25 Estimated GFR 37 ml/min 08/01/17 04:25 BUN/Creatinine Ratio 12 % 08/01/17 04:25 Glucose 110 mg/dL (65-100) H 08/01/17 04:25 POC Glucose 118 (70-105) H 08/01/17 00:16 Lactic Acid 1.50 mmol/L (0.7-2.0) 08/01/17 04:00 Calcium 7.6 mg/dL (8.4-10.2) L 08/01/17 04:25 Phosphorus 4.80 mg/dL (2.5-4.5) H D 08/01/17 04:25 Magnesium 2.30 mg/dL (1.7-2.3) 08/01/17 04:25 Total Bilirubin 0.20 mg/dL (0.1-1.2) 07/30/17 01:25 AST 17 units/L (5-40) 07/30/17 01:25 ALT 15 units/L (7-56) 07/30/17 01:25 Alkaline Phosphatase 74 units/L (35-129) 07/30/17 01:25 C-Reactive Protein 3.80 mg/dL (0.00-1.30) H 07/30/17 16:53 Total Protein 8.0 g/dL (6.3-8.2) 07/30/17 01:25 Albumin 4.3 g/dL (3.9-5) 07/30/17 01:25 Albumin/Globulin Ratio 1.2 % 07/30/17 01:25 Urine Color Yellow (Yellow) 07/31/17 15:18 Urine Turbidity Clear (Clear) 07/31/17 15:18 Urine pH 5.0 (5.0-7.0) 07/31/17 15:18 Ur Specific [place] 1.018 (1.003-1.030) 07/31/17 15:18 Urine Protein <15 mg/dl mg/dL (Negative) 07/31/17 15:18 Urine Glucose (UA) 50 mg/dL (Negative) 07/31/17 15:18 Urine Ketones Neg mg/dL (Negative) 07/31/17 15:18 Urine Blood Lg (Negative) 07/31/17 15:18 Urine Nitrite Neg (Negative) 07/31/17 15:18 Urine Bilirubin Neg (Negative) 07/31/17 15:18 Urine Urobilinogen < 2.0 mg/dL (<2.0) 07/31/17 15:18 Ur Leukocyte Esterase Sm (Negative) 07/31/17 15:18 Urine WBC (Auto) 21.0 /HPF (0.0-6.0) H 07/31/17 15:18 Urine RBC (Auto) 17.0 /HPF (0.0-6.0) 07/31/17 15:18 Urine Bacteria (Auto) 2+ /HPF (Negative) 07/31/17 15:18 Amorphous Crystals Few 07/31/17 15:18 Urine Mucus Few /HPF 07/31/17 15:18 Urine Creatinine 99.8 mg/dL (0.1-20.0) H 07/31/17 15:18 Urine Sodium 76 mmol/L 07/31/17 15:18
[2017-08-01 14:29] LABS: Platelet Count 86 K/mm3 (140-440)
--- NOTE | 2017-08-01 14:37 | Progress Note ---
Assessment and Plan s/p segmental SB resection with ileosotomy OOB and ambulate-will consult PT await better BS and less distention prior to removing NGT Subjective Date of service: 08/01/17 Patient Reports: Positive: no new complaints, still having pain, other (family at bedside) Objective Vital Signs - 12hr 08/01/17 08/01/17 08/01/17 02:40 02:50 03:00 Temperature Pulse Rate 127 H 126 H 127 H Pulse Rate [ From Monitor] Respiratory 23 23 22 Rate Blood Pressure 106/66 108/66 120/62 O2 Sat by Pulse 100 99 99 Oximetry 08/01/17 08/01/17 08/01/17 03:10 03:20 03:30 Temperature Pulse Rate 126 H 128 H 130 H Pulse Rate [ From Monitor] Respiratory 23 22 24 Rate Blood Pressure 120/62 120/73 111/71 O2 Sat by Pulse 99 100 100 Oximetry 08/01/17 08/01/17 08/01/17 03:40 03:41 03:50 Temperature 97.8 F Pulse Rate 127 H 126 H Pulse Rate [ From Monitor] Respiratory 22 21 Rate Blood Pressure 111/71 107/69 O2 Sat by Pulse 100 99 Oximetry 08/01/17 08/01/17 08/01/17 04:00 04:10 04:20 Temperature Pulse Rate 125 H 126 H 125 H Pulse Rate [ 131 H From Monitor] Respiratory 23 20 19 Rate Blood Pressure 110/68 110/68 117/72 O2 Sat by Pulse 100 100 100 Oximetry 08/01/17 08/01/17 08/01/17 04:30 04:40 04:50 Temperature Pulse Rate 126 H 127 H 128 H Pulse Rate [ From Monitor] Respiratory 18 22 21 Rate Blood Pressure 104/60 104/60 98/57 O2 Sat by Pulse 100 100 100 Oximetry 08/01/17 08/01/17 08/01/17 05:00 05:10 05:20 Temperature Pulse Rate 127 H 128 H 133 H Pulse Rate [ From Monitor] Respiratory 21 22 21 Rate Blood Pressure 99/57 99/57 117/73 O2 Sat by Pulse 100 100 100 Oximetry 08/01/17 08/01/17 08/01/17 05:30 05:40 05:50 Temperature Pulse Rate 131 H 130 H 131 H Pulse Rate [ From Monitor] Respiratory 23 22 22 Rate Blood Pressure 112/58 112/58 105/57 O2 Sat by Pulse 100 100 100 Oximetry 08/01/17 08/01/17 08/01/17 06:00 07:00 07:10 Temperature Pulse Rate 131 H 128 H 130 H Pulse Rate [ From Monitor] Respiratory 17 24 22 Rate Blood Pressure 104/62 101/56 101/56 O2 Sat by Pulse 100 100 100 Oximetry 08/01/17 08/01/17 08/01/17 07:20 07:30 07:40 Temperature Pulse Rate 128 H 127 H 127 H Pulse Rate [ From Monitor] Respiratory 23 18 22 Rate Blood Pressure 103/62 98/63 98/63 O2 Sat by Pulse 99 100 100 Oximetry 08/01/17 08/01/17 08/01/17 07:50 08:00 08:10 Temperature 97.6 F Pulse Rate 127 H 128 H 129 H Pulse Rate [ From Monitor] Respiratory 21 24 24 Rate Blood Pressure 104/62 102/60 102/60 O2 Sat by Pulse 100 100 99 Oximetry 08/01/17 08/01/17 08/01/17 08:20 08:30 08:40 Temperature Pulse Rate 128 H 130 H 127 H Pulse Rate [ From Monitor] Respiratory 22 23 23 Rate Blood Pressure 97/62 110/59 110/59 O2 Sat by Pulse 100 99 99 Oximetry 08/01/17 08/01/17 08/01/17 08:50 09:00 09:10 Temperature Pulse Rate 126 H 126 H 125 H Pulse Rate [ From Monitor] Respiratory 21 19 21 Rate Blood Pressure 103/63 110/62 110/62 O2 Sat by Pulse 99 100 99 Oximetry 08/01/17 08/01/17 08/01/17 09:20 09:30 09:40 Temperature Pulse Rate 126 H 126 H 122 H Pulse Rate [ From Monitor] Respiratory 22 13 21 Rate Blood Pressure 114/68 114/68 105/62 O2 Sat by Pulse 97 98 99 Oximetry 08/01/17 08/01/17 08/01/17 09:50 10:00 10:10 Temperature Pulse Rate 120 H 119 H 122 H Pulse Rate [ From Monitor] Respiratory 18 17 22 Rate Blood Pressure 103/58 103/58 110/65 O2 Sat by Pulse 99 98 98 Oximetry 08/01/17 08/01/17 08/01/17 10:20 10:30 10:40 Temperature Pulse Rate 123 H 122 H 124 H Pulse Rate [ From Monitor] Respiratory 22 23 22 Rate Blood Pressure 114/62 112/65 112/65 O2 Sat by Pulse 99 100 100 Oximetry 08/01/17 08/01/17 08/01/17 10:50 11:00 11:10 Temperature Pulse Rate 121 H 121 H 122 H Pulse Rate [ From Monitor] Respiratory 23 21 20 Rate Blood Pressure 112/65 116/65 116/65 O2 Sat by Pulse 100 100 100 Oximetry 08/01/17 08/01/17 08/01/17 11:20 11:30 11:40 Temperature Pulse Rate 120 H 120 H 119 H Pulse Rate [ From Monitor] Respiratory 21 22 23 Rate Blood Pressure 116/65 116/65 116/65 O2 Sat by Pulse 100 100 100 Oximetry 08/01/17 08/01/17 11:50 12:00 Temperature 99.1 F Pulse Rate 119 H 121 H Pulse Rate [ From Monitor] Respiratory 21 21 Rate Blood Pressure 116/65 116/65 O2 Sat by Pulse 100 100 Oximetry - General physical appearance no distress, moderate pain - Abdomen soft, other (minimally distended; hypoactive BS; incision clean with naseem in place; ileosotomy functioning) - Labs 08/01/17 13:54 08/01/17 04:25 Diabetes panel 08/01/17 Range/Units 04:25 Sodium 142 (137-145) mmol/L Potassium 4.5 (3.6-5.0) mmol/L Chloride 105.1 (98-107) mmol/L Carbon Dioxide 25 (22-30) mmol/L BUN 21 H (7-17) mg/dL Creatinine 1.7 H (0.7-1.2) mg/dL Glucose 110 H (65-100) mg/dL Calcium 7.6 L (8.4-10.2) mg/dL Calcium panel 08/01/17 Range/Units 04:25 Calcium 7.6 L (8.4-10.2) mg/dL Phosphorus 4.80 H D (2.5-4.5) mg/dL Pituitary panel 08/01/17 Range/Units 04:25 Sodium 142 (137-145) mmol/L Potassium 4.5 (3.6-5.0) mmol/L Chloride 105.1 (98-107) mmol/L Carbon Dioxide 25 (22-30) mmol/L BUN 21 H (7-17) mg/dL Creatinine 1.7 H (0.7-1.2) mg/dL Glucose 110 H (65-100) mg/dL Calcium 7.6 L (8.4-10.2) mg/dL Adrenal panel 08/01/17 Range/Units 04:25 Sodium 142 (137-145) mmol/L Potassium 4.5 (3.6-5.0) mmol/L Chloride 105.1 (98-107) mmol/L Carbon Dioxide 25 (22-30) mmol/L BUN 21 H (7-17) mg/dL Creatinine 1.7 H (0.7-1.2) mg/dL Glucose 110 H (65-100) mg/dL Calcium 7.6 L (8.4-10.2) mg/dL
--- NOTE | 2017-08-01 15:23 | Progress Note ---
Assessment and Plan --Small bowel ischemia and perforation/s/p exploratory laparotomy and small bowel resection Continue postop care, surgery following --Acute respiratory failure, s/p extubation --Acute renal failure; worsening renal function secondary to vasomotor nephropathy, prerenal azotemia Aggressive IV hydration, closely monitor renal function, avoid nephrotoxic medications -- Septic Shock: Resolving, continue supportive care, IV antibiotics --Small bowel obstruction at the time of admission Status post small bowel resection --Lactic acidosis /metabolic acidosis secondary to severe sepsis Trending down IV fluids, IV antibiotics, cultures --History of ileostomy/ostomy care --Type 2 diabetes mellitus; Accu-Chek sliding scale coverage , low-dose 70/30 insulin as needed Check hemoglobin A1c --DVT prophylaxis --full CODE STATUS --Closely monitor the patient and adjust the management as needed Patient's condition, treatment plan,reviewed with the patient's son at the bedside Addressed all their questions and concerns. They verbalized understanding Subjective Date of service: 08/01/17 Principal diagnosis: Severe Sepsis; Ischemic Bowel; Acute Resp Failure on MVS Interval history: On going tachycardia and pain. Seen and examined. Son at the bedside. Vitals, labs, medications, chart reviewed. discussed in interdisciplinary rounds Objective - Exam Narrative Exam: General appearance: awake, alert, oriented x3 Somnolent, just recieved a dose of a narcotic for pain Eyes: anicteric sclerae, moist conjunctivae HENT: Atraumatic; oropharynx +ETT Neck: Trachea midline; supple, no thyromegaly or lymphadenopathy Lungs: Decreased AE bilaterally, poor effort CV: Tachycardia, S1, S2, no murmurs Abdomen: Soft,+surg wound covered with dressings +ileostomy Extremities: +peripheral edema Skin: Normal temperature, turgor and texture; no rash, ulcers or subcutaneous nodules Psych: alert talking. Neuro: Non focal, moves all extremities Lines: Vital Signs - 12hr 08/01/17 08/01/17 08/01/17 03:30 03:40 03:41 Temperature 97.8 F Pulse Rate 130 H 127 H Pulse Rate [ From Monitor] Respiratory 24 22 Rate Blood Pressure 111/71 111/71 O2 Sat by Pulse 100 100 Oximetry 08/01/17 08/01/17 08/01/17 03:50 04:00 04:10 Temperature Pulse Rate 126 H 125 H 126 H Pulse Rate [ 131 H From Monitor] Respiratory 21 23 20 Rate Blood Pressure 107/69 110/68 110/68 O2 Sat by Pulse 99 100 100 Oximetry 08/01/17 08/01/17 08/01/17 04:20 04:30 04:40 Temperature Pulse Rate 125 H 126 H 127 H Pulse Rate [ From Monitor] Respiratory 19 18 22 Rate Blood Pressure 117/72 104/60 104/60 O2 Sat by Pulse 100 100 100 Oximetry 08/01/17 08/01/17 08/01/17 04:50 05:00 05:10 Temperature Pulse Rate 128 H 127 H 128 H Pulse Rate [ From Monitor] Respiratory 21 21 22 Rate Blood Pressure 98/57 99/57 99/57 O2 Sat by Pulse 100 100 100 Oximetry 08/01/17 08/01/17 08/01/17 05:20 05:30 05:40 Temperature Pulse Rate 133 H 131 H 130 H Pulse Rate [ From Monitor] Respiratory 21 23 22 Rate Blood Pressure 117/73 112/58 112/58 O2 Sat by Pulse 100 100 100 Oximetry 08/01/17 08/01/17 08/01/17 05:50 06:00 07:00 Temperature Pulse Rate 131 H 131 H 128 H Pulse Rate [ From Monitor] Respiratory 22 17 24 Rate Blood Pressure 105/57 104/62 101/56 O2 Sat by Pulse 100 100 100 Oximetry 08/01/17 08/01/17 08/01/17 07:10 07:20 07:30 Temperature Pulse Rate 130 H 128 H 127 H Pulse Rate [ From Monitor] Respiratory 22 23 18 Rate Blood Pressure 101/56 103/62 98/63 O2 Sat by Pulse 100 99 100 Oximetry 08/01/17 08/01/17 08/01/17 07:40 07:50 08:00 Temperature 97.6 F Pulse Rate 127 H 127 H 128 H Pulse Rate [ From Monitor] Respiratory 22 21 24 Rate Blood Pressure 98/63 104/62 102/60 O2 Sat by Pulse 100 100 100 Oximetry 08/01/17 08/01/17 08/01/17 08:10 08:20 08:30 Temperature Pulse Rate 129 H 128 H 130 H Pulse Rate [ From Monitor] Respiratory 24 22 23 Rate Blood Pressure 102/60 97/62 110/59 O2 Sat by Pulse 99 100 99 Oximetry 08/01/17 08/01/17 08/01/17 08:40 08:50 09:00 Temperature Pulse Rate 127 H 126 H 126 H Pulse Rate [ From Monitor] Respiratory 23 21 19 Rate Blood Pressure 110/59 103/63 110/62 O2 Sat by Pulse 99 99 100 Oximetry 08/01/17 08/01/17 08/01/17 09:10 09:20 09:30 Temperature Pulse Rate 125 H 126 H 126 H Pulse Rate [ From Monitor] Respiratory 21 22 13 Rate Blood Pressure 110/62 114/68 114/68 O2 Sat by Pulse 99 97 98 Oximetry 08/01/17 08/01/17 08/01/17 09:40 09:50 10:00 Temperature Pulse Rate 122 H 120 H 119 H Pulse Rate [ From Monitor] Respiratory 21 18 17 Rate Blood Pressure 105/62 103/58 103/58 O2 Sat by Pulse 99 99 98 Oximetry 08/01/17 08/01/17 08/01/17 10:10 10:20 10:30 Temperature Pulse Rate 122 H 123 H 122 H Pulse Rate [ From Monitor] Respiratory 22 22 23 Rate Blood Pressure 110/65 114/62 112/65 O2 Sat by Pulse 98 99 100 Oximetry 08/01/17 08/01/17 08/01/17 10:40 10:50 11:00 Temperature Pulse Rate 124 H 121 H 121 H Pulse Rate [ From Monitor] Respiratory 22 23 21 Rate Blood Pressure 112/65 112/65 116/65 O2 Sat by Pulse 100 100 100 Oximetry 08/01/17 08/01/17 08/01/17 11:10 11:20 11:30 Temperature Pulse Rate 122 H 120 H 120 H Pulse Rate [ From Monitor] Respiratory 20 21 22 Rate Blood Pressure 116/65 116/65 116/65 O2 Sat by Pulse 100 100 100 Oximetry 08/01/17 08/01/17 08/01/17 11:40 11:50 12:00 Temperature 99.1 F Pulse Rate 119 H 119 H 121 H Pulse Rate [ From Monitor] Respiratory 23 21 21 Rate Blood Pressure 116/65 116/65 116/65 O2 Sat by Pulse 100 100 100 Oximetry CBC and BMP: 08/01/17 13:54 08/01/17 04:25 ABG, PT/INR, D-dimer: ABG POC ABG pH 7.506 (7.35-7.45) H 07/31/17 13:26 POC ABG pCO2 31.6 (35-45) L 07/31/17 13:26 POC ABG pO2 115 (80-105) H 07/31/17 13:26 POC ABG HCO3 24.9 07/31/17 13:26 POC ABG Total CO2 26 07/31/17 13:26 POC ABG O2 Sat 99 07/31/17 13:26 PT/INR, D-dimer PT 17.5 Sec. (12.2-14.9) H 07/30/17 18:37 INR 1.36 (0.87-1.13) H 07/30/17 18:37 Abnormal lab findings: Abnormal Labs 07/30/17 07/30/17 07/30/17 01:25 01:25 10:06 WBC 11.9 H RBC Hgb Hct RDW 17.8 H Plt Count Lymph % (Auto) 7.1 L Dyer % (Auto) Lymph # 0.8 L Seg Neutrophils % 87.5 H Seg Neutrophils # 10.4 H PT INR POC ABG pH POC ABG pCO2 POC ABG pO2 Sodium 136 L Potassium 3.4 L Chloride 95.2 L Carbon Dioxide 19 L BUN Creatinine Glucose 262 H POC Glucose Lactic Acid 5.40 H* Calcium Phosphorus Magnesium C-Reactive Protein Urine WBC (Auto) Urine Creatinine 07/30/17 07/30/17 07/30/17 12:49 16:22 16:53 WBC RBC Hgb Hct RDW Plt Count Lymph % (Auto) [place]yer % (Auto) Lymph # Seg Neutrophils % Seg Neutrophils # PT INR POC ABG pH POC ABG pCO2 POC ABG pO2 Sodium Potassium Chloride Carbon Dioxide BUN Creatinine Glucose POC Glucose 253 H 195 H Lactic Acid 8.00 H* Calcium Phosphorus Magnesium C-Reactive Protein Urine WBC (Auto) Urine Creatinine 07/30/17 07/30/17 07/30/17 16:53 16:53 16:53 WBC 11.3 H RBC 5.92 H Hgb 16.6 H D Hct 52.5 H D RDW 18.2 H Plt Count Lymph % (Auto) Dyer % (Auto) Lymph # Seg Neutrophils % Seg Neutrophils # PT INR POC ABG pH POC ABG pCO2 POC ABG pO2 Sodium Potassium Chloride 96.5 L Carbon Dioxide 20 L BUN 19 H Creatinine 2.3 H D Glucose 215 H POC Glucose Lactic Acid Calcium Phosphorus Magnesium C-Reactive Protein 3.80 H Urine WBC (Auto) Urine Creatinine 07/30/17 07/30/17 07/31/17 18:37 23:08 05:19 WBC RBC Hgb Hct RDW Plt Count Lymph % (Auto) Dyer % (Auto) Lymph # Seg Neutrophils % Seg Neutrophils # PT 17.5 H INR 1.36 H POC ABG pH 7.210 L POC ABG pCO2 47.0 H POC ABG pO2 197 H Sodium Potassium Chloride Carbon Dioxide BUN Creatinine Glucose POC Glucose 156 H Lactic Acid Calcium Phosphorus Magnesium C-Reactive Protein Urine WBC (Auto) Urine Creatinine 07/31/17 07/31/17 07/31/17 05:21 06:00 06:00 WBC 4.3 L RBC Hgb Hct RDW 17.6 H Plt Count 95 L Lymph % (Auto) Dyer % (Auto) 9.0 H Lymph # 1.1 L Seg Neutrophils % Seg Neutrophils # PT INR POC ABG pH 7.514 H POC ABG pCO2 22.5 L POC ABG pO2 115 H Sodium Potassium Chloride Carbon Dioxide BUN 25 H Creatinine 2.5 H Glucose 153 H POC Glucose Lactic Acid Calcium 7.3 L D Phosphorus 1.40 L Magnesium 1.20 L C-Reactive Protein Urine WBC (Auto) Urine Creatinine 07/31/17 07/31/17 07/31/17 06:00 13:26 15:18 WBC RBC Hgb Hct RDW Plt Count Lymph % (Auto) [place]yer % (Auto) Lymph # Seg Neutrophils % Seg Neutrophils # PT INR POC ABG pH 7.506 H POC ABG pCO2 31.6 L POC ABG pO2 115 H Sodium Potassium Chloride Carbon Dioxide BUN Creatinine Glucose POC Glucose Lactic Acid 4.50 H* Calcium Phosphorus Magnesium C-Reactive Protein Urine WBC (Auto) 21.0 H Urine Creatinine 07/31/17 07/31/17 08/01/17 15:18 17:21 00:16 WBC RBC Hgb Hct RDW Plt Count Lymph % (Auto) [place] % (Auto) Lymph # Seg Neutrophils % Seg Neutrophils # PT INR POC ABG pH POC ABG pCO2 POC ABG pO2 Sodium Potassium Chloride Carbon Dioxide BUN Creatinine Glucose POC Glucose 121 H 118 H Lactic Acid Calcium Phosphorus Magnesium C-Reactive Protein Urine WBC (Auto) Urine Creatinine 99.8 H 08/01/17 08/01/17 04:25 13:54 WBC RBC 3.40 L Hgb 9.5 L Hct 29.4 L D RDW 18.4 H Plt Count 86 L Lymph % (Auto) [place]yer % (Auto) Lymph # Seg Neutrophils % Seg Neutrophils # PT INR POC ABG pH POC ABG pCO2 POC ABG pO2 Sodium Potassium Chloride Carbon Dioxide BUN 21 H Creatinine 1.7 H Glucose 110 H POC Glucose Lactic Acid Calcium 7.6 L Phosphorus 4.80 H D Magnesium C-Reactive Protein Urine WBC (Auto) Urine Creatinine
[2017-08-01] MEDS: ZOFRAN IV PRN (20:22)
[2017-08-02] MEDS: ZOSYN/NS 2.25 GM/50ML 2.25 GM/50 ML BAG IV SCH ×3 (00:05→11:39)
[2017-08-02] MEDS: DILAUDID IV PRN ×5 (00:05→18:34)
[2017-08-02] MEDS: NACL 0.9% 1000 ML 1,000 ML IV SCH ×2 (00:12→21:54)
[2017-08-02] MEDS: DUONEB *Not for PRN Use IH SCH ×4 (02:23→20:33)
[2017-08-02] MEDS: ZOFRAN IV PRN ×2 (05:07→12:42)
[2017-08-02 05:35] LABS: Hematocrit 24.6 % (30.3-42.9); Hemoglobin 7.9 gm/dl (10.1-14.3); Mean Corpuscular HGB Conc 32 % (30-34); Mean Corpuscular Hemoglobin 28 pg (28-32); Mean Corpuscular Volume 87 fl (79-97); Red Blood Count 2.83 M/mm3 (3.65-5.03); Red Cell Distribution Width 18.1 % (13.2-15.2); White Blood Count 10.4 K/mm3 (4.5-11.0)
[2017-08-02 05:48] LABS: Anion Gap 15 mmol/L; BUN/Creatinine Ratio 14; Blood Urea Nitrogen 14 mg/dL (7-17); Calcium 8.1 mg/dL (8.4-10.2); Carbon Dioxide 25 mmol/L (22-30); Chloride 107.8 mmol/L (98-107); Glucose 84 mg/dL (65-100); Potassium 3.9 mmol/L (3.6-5.0); Sodium 144 mmol/L (137-145)
[2017-08-02 05:49] LABS: Platelet Count 91 K/mm3 (140-440)
[2017-08-02] MEDS: NOVOLOG SUB-Q SCH ×4 (07:11→18:20)
--- NOTE | 2017-08-02 07:28 | XRay Report ---
AP CHEST: HISTORY: Followup respiratory failure The nasogastric tube and right venous catheter unchanged. Hazy opacity at the left lung base has essentially resolved since yesterday's exam. The right lung remains generally clear. Heart size is stable at the upper limits of normal. No new acute process. IMPRESSION: Mild improvement in the left lower lobe opacity.
--- NOTE | 2017-08-02 07:59 | Progress Note ---
Assessment and Plan 1. Acute kidney injury: CINTIA is hemodynamically mediated in the setting of volume depletion, hypotension and IV contrast. Creatinine level continue to improve. Continue IV fluids. Monitor renal function. 2. Multiple electrolyte abnormalities: Replete Phos. 3. Hypotension: Off pressors. Monitor BP. 4. SBO: S/p Ex-lap. Subjective Date of service: 08/02/17 Principal diagnosis: Severe Sepsis; Ischemic Bowel; Acute Resp Failure on MVS Interval history: Patient was seen and examined at the bedside. She is doing ok. Objective - Vital Signs Vital signs: Vital Signs - 12hr 08/01/17 08/01/17 08/01/17 20:00 20:10 20:20 Temperature 99.0 F Pulse Rate 124 H 129 H 123 H Pulse Rate [ 110 H From Monitor] Pulse Rate [ Posterior Bilateral Throughout] Respiratory 16 19 22 Rate Respiratory Rate [Abdomen] Respiratory Rate [Posterior Bilateral Throughout] Blood Pressure 121/73 121/73 121/73 O2 Sat by Pulse 100 100 100 Oximetry 08/01/17 08/01/17 08/01/17 20:30 20:40 22:00 Temperature Pulse Rate 124 H 124 H Pulse Rate [ From Monitor] Pulse Rate [ Posterior Bilateral Throughout] Respiratory 16 14 Rate Respiratory 16 Rate [Abdomen] Respiratory Rate [Posterior Bilateral Throughout] Blood Pressure 121/73 121/73 O2 Sat by Pulse 100 100 Oximetry 08/01/17 08/01/17 08/01/17 22:20 22:30 22:40 Temperature Pulse Rate 123 H 122 H 122 H Pulse Rate [ From Monitor] Pulse Rate [ Posterior Bilateral Throughout] Respiratory 19 19 18 Rate Respiratory Rate [Abdomen] Respiratory Rate [Posterior Bilateral Throughout] Blood Pressure 126/67 126/67 126/67 O2 Sat by Pulse 99 100 100 Oximetry 08/01/17 08/01/17 08/01/17 22:50 23:00 23:10 Temperature Pulse Rate 122 H 121 H 123 H Pulse Rate [ From Monitor] Pulse Rate [ Posterior Bilateral Throughout] Respiratory 19 21 20 Rate Respiratory Rate [Abdomen] Respiratory Rate [Posterior Bilateral Throughout] Blood Pressure 126/67 111/67 111/67 O2 Sat by Pulse 100 100 Oximetry 08/01/17 08/01/17 08/01/17 23:20 23:30 23:40 Temperature Pulse Rate 121 H 122 H 120 H Pulse Rate [ From Monitor] Pulse Rate [ Posterior Bilateral Throughout] Respiratory 18 15 19 Rate Respiratory Rate [Abdomen] Respiratory Rate [Posterior Bilateral Throughout] Blood Pressure 111/67 111/67 111/67 O2 Sat by Pulse 100 100 100 Oximetry 08/01/17 08/02/17 08/02/17 23:50 00:00 00:10 Temperature 97.8 F Pulse Rate 120 H 120 H 121 H Pulse Rate [ 112 H From Monitor] Pulse Rate [ Posterior Bilateral Throughout] Respiratory 20 16 17 Rate Respiratory Rate [Abdomen] Respiratory Rate [Posterior Bilateral Throughout] Blood Pressure 111/67 125/77 125/77 O2 Sat by Pulse 100 100 100 Oximetry 08/02/17 08/02/17 08/02/17 00:20 00:30 00:40 Temperature Pulse Rate 119 H 117 H 115 H Pulse Rate [ From Monitor] Pulse Rate [ Posterior Bilateral Throughout] Respiratory 20 20 19 Rate Respiratory Rate [Abdomen] Respiratory Rate [Posterior Bilateral Throughout] Blood Pressure 125/77 125/77 125/77 O2 Sat by Pulse 98 99 99 Oximetry 08/02/17 08/02/17 08/02/17 00:50 01:00 01:10 Temperature Pulse Rate 116 H 111 H 117 H Pulse Rate [ From Monitor] Pulse Rate [ Posterior Bilateral Throughout] Respiratory 21 18 24 Rate Respiratory Rate [Abdomen] Respiratory Rate [Posterior Bilateral Throughout] Blood Pressure 125/77 118/65 118/65 O2 Sat by Pulse 98 97 96 Oximetry 08/02/17 08/02/17 08/02/17 01:20 01:30 01:40 Temperature Pulse Rate 115 H 116 H 116 H Pulse Rate [ From Monitor] Pulse Rate [ Posterior Bilateral Throughout] Respiratory 22 23 20 Rate Respiratory Rate [Abdomen] Respiratory Rate [Posterior Bilateral Throughout] Blood Pressure 118/65 118/65 118/65 O2 Sat by Pulse 96 98 98 Oximetry 08/02/17 08/02/17 08/02/17 01:50 02:00 02:10 Temperature Pulse Rate 113 H 117 H 126 H Pulse Rate [ From Monitor] Pulse Rate [ Posterior Bilateral Throughout] Respiratory 21 11 L 23 Rate Respiratory Rate [Abdomen] Respiratory Rate [Posterior Bilateral Throughout] Blood Pressure 118/65 119/71 119/71 O2 Sat by Pulse 98 98 94 Oximetry 08/02/17 08/02/17 08/02/17 02:20 02:23 02:30 Temperature Pulse Rate 118 H 119 H Pulse Rate [ From Monitor] Pulse Rate [ 117 H Posterior Bilateral Throughout] Respiratory 19 22 Rate Respiratory Rate [Abdomen] Respiratory 20 Rate [Posterior Bilateral Throughout] Blood Pressure 119/71 119/71 O2 Sat by Pulse 97 100 Oximetry 08/02/17 08/02/17 08/02/17 02:32 02:40 02:50 Temperature Pulse Rate 122 H 122 H Pulse Rate [ From Monitor] Pulse Rate [ 118 H Posterior Bilateral Throughout] Respiratory 22 20 Rate Respiratory Rate [Abdomen] Respiratory 20 Rate [Posterior Bilateral Throughout] Blood Pressure 119/71 119/71 O2 Sat by Pulse 98 99 Oximetry 08/02/17 08/02/17 08/02/17 03:00 03:10 03:20 Temperature Pulse Rate 121 H 119 H 119 H Pulse Rate [ From Monitor] Pulse Rate [ Posterior Bilateral Throughout] Respiratory 19 21 22 Rate Respiratory Rate [Abdomen] Respiratory Rate [Posterior Bilateral Throughout] Blood Pressure 120/71 120/71 120/71 O2 Sat by Pulse 99 99 Oximetry 08/02/17 08/02/17 08/02/17 03:30 03:40 03:50 Temperature Pulse Rate 119 H 121 H 120 H Pulse Rate [ From Monitor] Pulse Rate [ Posterior Bilateral Throughout] Respiratory 20 22 14 Rate Respiratory Rate [Abdomen] Respiratory Rate [Posterior Bilateral Throughout] Blood Pressure 120/71 120/71 120/71 O2 Sat by Pulse 99 100 100 Oximetry 08/02/17 08/02/17 08/02/17 04:00 04:10 04:20 Temperature 97.8 F Pulse Rate 121 H 118 H 119 H Pulse Rate [ 126 H From Monitor] Pulse Rate [ Posterior Bilateral Throughout] Respiratory 18 18 14 Rate Respiratory Rate [Abdomen] Respiratory Rate [Posterior Bilateral Throughout] Blood Pressure 120/71 120/71 120/71 O2 Sat by Pulse 80 L 100 100 Oximetry 08/02/17 08/02/17 08/02/17 04:30 04:40 04:50 Temperature Pulse Rate 116 H 114 H Pulse Rate [ From Monitor] Pulse Rate [ Posterior Bilateral Throughout] Respiratory 13 21 Rate Respiratory Rate [Abdomen] Respiratory Rate [Posterior Bilateral Throughout] Blood Pressure 120/71 120/71 141/86 O2 Sat by Pulse 99 98 98 Oximetry 08/02/17 08/02/17 08/02/17 05:00 05:10 05:20 Temperature Pulse Rate 111 H 112 H 116 H Pulse Rate [ From Monitor] Pulse Rate [ Posterior Bilateral Throughout] Respiratory 15 18 18 Rate Respiratory Rate [Abdomen] Respiratory Rate [Posterior Bilateral Throughout] Blood Pressure 130/77 130/77 130/77 O2 Sat by Pulse 99 98 97 Oximetry 08/02/17 08/02/17 08/02/17 05:30 05:40 05:50 Temperature Pulse Rate 119 H 119 H 116 H Pulse Rate [ From Monitor] Pulse Rate [ Posterior Bilateral Throughout] Respiratory 22 23 22 Rate Respiratory Rate [Abdomen] Respiratory Rate [Posterior Bilateral Throughout] Blood Pressure 130/77 130/77 O2 Sat by Pulse 96 96 97 Oximetry 08/02/17 08/02/17 08/02/17 06:00 06:10 06:20 Temperature Pulse Rate 114 H 114 H 112 H Pulse Rate [ From Monitor] Pulse Rate [ Posterior Bilateral Throughout] Respiratory 20 19 19 Rate Respiratory Rate [Abdomen] Respiratory Rate [Posterior Bilateral Throughout] Blood Pressure 111/64 111/64 111/64 O2 Sat by Pulse 97 97 98 Oximetry 08/02/17 08/02/17 08/02/17 06:30 07:00 07:10 Temperature Pulse Rate 111 H 118 H 115 H Pulse Rate [ From Monitor] Pulse Rate [ Posterior Bilateral Throughout] Respiratory 20 13 21 Rate Respiratory Rate [Abdomen] Respiratory Rate [Posterior Bilateral Throughout] Blood Pressure 111/64 111/64 123/74 O2 Sat by Pulse 99 97 99 Oximetry 08/02/17 07:20 Temperature Pulse Rate 112 H Pulse Rate [ From Monitor] Pulse Rate [ Posterior Bilateral Throughout] Respiratory 21 Rate Respiratory Rate [Abdomen] Respiratory Rate [Posterior Bilateral Throughout] Blood Pressure 123/74 O2 Sat by Pulse 99 Oximetry - General Appearance General appearance: well-developed, well-nourished, appears stated age, other ( no distress) EENT: ATNC, PERRL, hearing intact Neck: supple Respiratory: Present: Clear to Ascultation Cardiology: regular, tachycardia, S1S2 Gastrointestinal: normoactive bowel sounds, other (ostomy noted) Integumentary: no rash, warm and dry Neurologic: other (able to move extremities) Musculoskeletal: other (no edema) Psychiatric: mood/affect appropriate - Lab 08/02/17 04:40 08/02/17 04:40 Most recent lab results Calcium 8.1 mg/dL (8.4-10.2) L 08/02/17 04:40 Phosphorus 2.30 mg/dL (2.5-4.5) L D 08/02/17 04:40 Magnesium 2.00 mg/dL (1.7-2.3) 08/02/17 04:40 Urine Creatinine 99.8 mg/dL (0.1-20.0) H 07/31/17 15:18 Urine Sodium 76 mmol/L 07/31/17 15:18
--- NOTE | 2017-08-02 08:42 | Progress Note ---
Assessment and Plan Assessment and plan: --Acute blood loss anemia: Patient is Jehovah witness, no blood/blood products consider procrit, Hemat consult, d/w dr Silva. -- Thrombocytopenia : hemat consulted. --Small bowel ischemia and perforation/s/p exploratory laparotomy and small bowel resection postop care, nothing by mouth , IV fluids , pain management surgery following --Hypophosphatemia; mild, closely monitor --Hypomagnesemia; corrected --Acute respiratory failure, s/p extubation, stable on nasal cannula oxygen --Acute renal failure; secondary to vasomotor nephropathy, resolved -- Septic Shock: Resolved, IV fluids --Hypothermia; secondary to sepsis, resolved --Lactic acidosis /metabolic acidosis improved --History of ileostomy/ostomy care; stable --Type 2 diabetes mellitus; Accu-Chek sliding scale coverage , low-dose 70/30 insulin as needed Check hemoglobin A1c. 12.9 --DVT prophylaxis; no pharmacologic anticoagulation in view of recent surgery, thrombocytopenia, anemia, use SCDs --full CODE STATUS --Closely monitor the patient and adjust the management as needed Plan of care reviewed with the family member at the bedside Critical care time31 minutes The high probability of a clinically significant, sudden or life threatening deterioration of the [GI ,CV,hemat, renal] system(s) required my full and direct attention, intervention and personal management. The aggregate critical care time was [31 ] minutes. This time is in addition to time spent performing reported procedures but includes the following: [x] Data Review and interpretation [x] Patient assessment and monitoring of vital signs [x] Documentation, counseling [x] Medication orders and management History Interval history: Patient seen and examined, records reviewed Significant drop in H&H and platelets Patient is Jehovah witness, no blood or blood products Will consult hematology Patient feels slightly better, asking for some Tea Nothing by mouth status .NG tube in place Hospitalist Physical - Constitutional Vitals: Temp Pulse Resp BP Pulse Ox 97.8 F 112 H 21 123/74 99 08/02/17 04:00 08/02/17 07:20 08/02/17 07:20 08/02/17 07:20 08/02/17 07:20 General appearance: Present: no acute distress, well-nourished - EENT Eyes: Present: PERRL, EOM intact - Neck Neck: Present: supple, normal ROM - Respiratory Respiratory effort: normal Respiratory: bilateral: diminished, rhonchi, negative: rales, wheezing - Cardiovascular Rhythm: regular Heart Sounds: Present: S1 & S2 - Extremities Extremities: no ischemia, No edema - Abdominal General gastrointestinal: soft, non-tender, non-distended, absent bowel sounds, other (ileostomy in place) - Integumentary Integumentary: Present: clear, warm - Psychiatric Psychiatric: appropriate mood/affect, cooperative - Neurologic Neurologic: moves all extremities Results - Labs CBC & Chem 7: 08/02/17 04:40 08/02/17 04:40 Labs: Laboratory Last Values WBC 10.4 K/mm3 (4.5-11.0) 08/02/17 04:40 RBC 2.83 M/mm3 (3.65-5.03) L 08/02/17 04:40 Hgb 7.9 gm/dl (10.1-14.3) L 08/02/17 04:40 Hct 24.6 % (30.3-42.9) L 08/02/17 04:40 MCV 87 fl (79-97) 08/02/17 04:40 MCH 28 pg (28-32) 08/02/17 04:40 MCHC 32 % (30-34) 08/02/17 04:40 RDW 18.1 % (13.2-15.2) H 08/02/17 04:40 Plt Count 91 K/mm3 (140-440) L 08/02/17 04:40 Lymph % (Auto) 25.7 % (13.4-35.0) 07/31/17 06:00 Mckenzie % (Auto) 9.0 % (0.0-7.3) H 07/31/17 06:00 Eos % (Auto) 0.9 % (0.0-4.3) 07/31/17 06:00 Baso % (Auto) 0.1 % (0.0-1.8) 07/31/17 06:00 Lymph # 1.1 K/mm3 (1.2-5.4) L 07/31/17 06:00 Mckenzie # 0.4 K/mm3 (0.0-0.8) 07/31/17 06:00 Eos # 0.0 K/mm3 (0.0-0.4) 07/31/17 06:00 Baso # 0.0 K/mm3 (0.0-0.1) 07/31/17 06:00 Seg Neutrophils % 64.3 % (40.0-70.0) 07/31/17 06:00 Seg Neutrophils # 2.8 K/mm3 (1.8-7.7) 07/31/17 06:00 PT 17.5 Sec. (12.2-14.9) H 07/30/17 18:37 INR 1.36 (0.87-1.13) H 07/30/17 18:37 APTT 26.9 Sec. (24.2-36.6) 07/30/17 18:37 POC ABG pH 7.506 (7.35-7.45) H 07/31/17 13:26 POC ABG pCO2 31.6 (35-45) L 07/31/17 13:26 POC ABG pO2 115 (80-105) H 07/31/17 13:26 POC ABG HCO3 24.9 07/31/17 13:26 POC ABG Total CO2 26 07/31/17 13:26 POC ABG O2 Sat 99 07/31/17 13:26 POC ABG Base Excess 2 07/31/17 13:26 FiO2 28 % 07/31/17 13:26 Sodium 144 mmol/L (137-145) 08/02/17 04:40 Potassium 3.9 mmol/L (3.6-5.0) 08/02/17 04:40 Chloride 107.8 mmol/L (98-107) H 08/02/17 04:40 Carbon Dioxide 25 mmol/L (22-30) 08/02/17 04:40 Anion Gap 15 mmol/L 08/02/17 04:40 BUN 14 mg/dL (7-17) 08/02/17 04:40 Creatinine 1.0 mg/dL (0.7-1.2) 08/02/17 04:40 Estimated GFR > 60 ml/min 08/02/17 04:40 BUN/Creatinine Ratio 14 % 08/02/17 04:40 Glucose 84 mg/dL (65-100) 08/02/17 04:40 POC Glucose 98 (70-105) 08/02/17 05:04 Lactic Acid 1.50 mmol/L (0.7-2.0) 08/01/17 04:00 Calcium 8.1 mg/dL (8.4-10.2) L 08/02/17 04:40 Phosphorus 2.30 mg/dL (2.5-4.5) L D 08/02/17 04:40 Magnesium 2.00 mg/dL (1.7-2.3) 08/02/17 04:40 Total Bilirubin 0.20 mg/dL (0.1-1.2) 07/30/17 01:25 AST 17 units/L (5-40) 07/30/17 01:25 ALT 15 units/L (7-56) 07/30/17 01:25 Alkaline Phosphatase 74 units/L (35-129) 07/30/17 01:25 C-Reactive Protein 3.80 mg/dL (0.00-1.30) H 07/30/17 16:53 Total Protein 8.0 g/dL (6.3-8.2) 07/30/17 01:25 Albumin 4.3 g/dL (3.9-5) 07/30/17 01:25 Albumin/Globulin Ratio 1.2 % 07/30/17 01:25 Urine Color Yellow (Yellow) 07/31/17 15:18 Urine Turbidity Clear (Clear) 07/31/17 15:18 Urine pH 5.0 (5.0-7.0) 07/31/17 15:18 Ur Specific [place] 1.018 (1.003-1.030) 07/31/17 15:18 Urine Protein <15 mg/dl mg/dL (Negative) 07/31/17 15:18 Urine Glucose (UA) 50 mg/dL (Negative) 07/31/17 15:18 Urine Ketones Neg mg/dL (Negative) 07/31/17 15:18 Urine Blood Lg (Negative) 07/31/17 15:18 Urine Nitrite Neg (Negative) 07/31/17 15:18 Urine Bilirubin Neg (Negative) 07/31/17 15:18 Urine Urobilinogen < 2.0 mg/dL (<2.0) 07/31/17 15:18 Ur Leukocyte Esterase Sm (Negative) 07/31/17 15:18 Urine WBC (Auto) 21.0 /HPF (0.0-6.0) H 07/31/17 15:18 Urine RBC (Auto) 17.0 /HPF (0.0-6.0) 07/31/17 15:18 Urine Bacteria (Auto) 2+ /HPF (Negative) 07/31/17 15:18 Amorphous Crystals Few 07/31/17 15:18 Urine Mucus Few /HPF 07/31/17 15:18 Urine Creatinine 99.8 mg/dL (0.1-20.0) H 07/31/17 15:18 Urine Sodium 76 mmol/L 07/31/17 15:18
[2017-08-02] MEDS: PEPCID IV SCH ×2 (09:29→21:47)
[2017-08-02] MEDS: DIFLUCAN 200 MG/100 ML BAG IV SCH (09:30)
--- NOTE | 2017-08-02 09:32 | Hem/Onc Progress Note ---
Subjective Date of service: 08/02/17 Interval history: Full note to be dictated. Discussed with Dr. Silke Nayak. We will give her Procrit, iron infusion, B12 and monitor counts. Discussed with patient and family. Objective - Constitutional Vitals: Last Vital Signs Temp 98.1 F 08/02/17 08:00 Pulse 111 H 08/02/17 09:30 Resp 18 08/02/17 09:30 BP 134/81 08/02/17 09:00 Pulse Ox 100 08/02/17 09:20 - Labs Lab Results: Laboratory Results - last 24 hr 07/31/17 08/01/17 08/01/17 12:22 12:02 13:54 WBC 10.2 RBC 3.40 L Hgb 9.5 L Hct 29.4 L D MCV 86 MCH 28 MCHC 32 RDW 18.4 H Plt Count 86 L Sodium Potassium Chloride Carbon Dioxide Anion Gap BUN Creatinine Estimated GFR BUN/Creatinine Ratio Glucose POC Glucose 153 H 124 H Calcium Phosphorus Magnesium 08/01/17 08/02/17 08/02/17 17:32 00:11 04:40 WBC 10.4 RBC 2.83 L Hgb 7.9 L Hct 24.6 L MCV 87 MCH 28 MCHC 32 RDW 18.1 H Plt Count 91 L Sodium Potassium Chloride Carbon Dioxide Anion Gap BUN Creatinine Estimated GFR BUN/Creatinine Ratio Glucose POC Glucose 103 96 Calcium Phosphorus Magnesium 08/02/17 08/02/17 04:40 05:04 WBC RBC Hgb Hct MCV MCH MCHC RDW Plt Count Sodium 144 Potassium 3.9 Chloride 107.8 H Carbon Dioxide 25 Anion Gap 15 BUN 14 Creatinine 1.0 Estimated GFR > 60 BUN/Creatinine Ratio 14 Glucose 84 POC Glucose 98 Calcium 8.1 L Phosphorus 2.30 L D Magnesium 2.00
--- NOTE | 2017-08-02 09:57 | Progress Note ---
Assessment and Plan Assessment: 1) Severe Sepsis with septic shock: resolved. Etiology most likely peritonitis. CRP=3.8 2) Acute peritonitis: likely localized, from SB perforation/ischemia/ obstruction. OR cx so far negative 3) SB perforation/ischemia/obstruction: -S/P Exploratory laparotomy and resection of small bowel on 07/30 4) CINTIA - resolved 5) Thrombocytopenia - from sepsis - worsening Plan: -follow-up procalcitonin -continue zosyn and fluconazole - day 3 of 10 -follow-up OR cultures -monitor platelets - if continues to drop will change zosyn -remove mccord I will be rounding tomorrow Thank you Dr Costello for your consultation, will follow up with you. Priyanka Arriaga MD Infectious Diseases Specialist [facility] ([facility]) M [phone] O [phone] Subjective Date of service: 08/02/17 Principal diagnosis: Severe Sepsis; Ischemic Bowel; Acute Resp Failure on MVS Interval history: Feels better, extubated, talking, no fever. Microbiology: Blood cultures: 07/30 ngtd Respiratory cultures: 07/20 ngtd Wound surg cultures: 07/30 ngrd Current Antimicrobials: Zosyn 07/31 fluconazole 07/31 Previous Antimicrobials: levaquin metronidazole Objective - Exam Narrative Exam: General appearance: alert on NC O2 in NAD Eyes: anicteric sclerae, moist conjunctivae HENT: Atraumatic; oropharynx +NGT Neck: Trachea midline; supple, no thyromegaly or lymphadenopathy Lungs: CTA CV: rrr Abdomen: Soft,+surg wound covered with dressings +ileostomy Extremities: +peripheral edema Skin: Normal temperature, turgor and texture; no rash, ulcers or subcutaneous nodules Psych: alert talking. Neuro: sedated Lines: R IJ TLC, Mccord - Constitutional Vitals: Vital Signs Temp Pulse Resp BP Pulse Ox 98.1 F 111 H 18 134/81 100 08/02/17 08:00 08/02/17 09:30 08/02/17 09:30 08/02/17 09:00 08/02/17 09:20 Temperature -Last 24 Hours Temperature 98.1 F Temperature 97.8 F Temperature 97.8 F Temperature 99.0 F Temperature 98.6 F Temperature 99.1 F - Labs CBC & Chem 7: 08/02/17 04:40 08/02/17 04:40 Labs: Abnormal lab results 07/31/17 08/01/17 08/01/17 Range/Units 12:22 12:02 13:54 RBC 3.40 L (3.65-5.03) M/mm3 Hgb 9.5 L (10.1-14.3) gm/dl Hct 29.4 L D (30.3-42.9) % RDW 18.4 H (13.2-15.2) % Plt Count 86 L (140-440) K/mm3 Chloride (98-107) mmol/L POC Glucose 153 H 124 H (70-105) Calcium (8.4-10.2) mg/dL Phosphorus (2.5-4.5) mg/dL 08/02/17 08/02/17 Range/Units 04:40 04:40 RBC 2.83 L (3.65-5.03) M/mm3 Hgb 7.9 L (10.1-14.3) gm/dl Hct 24.6 L (30.3-42.9) % RDW 18.1 H (13.2-15.2) % Plt Count 91 L (140-440) K/mm3 Chloride 107.8 H (98-107) mmol/L POC Glucose (70-105) Calcium 8.1 L (8.4-10.2) mg/dL Phosphorus 2.30 L D (2.5-4.5) mg/dL
[2017-08-02] MEDS ORDERED: KPHOS 30 MMOL in NACL 0.9% 500 ML 500 ML IV ONE (10:00)
[2017-08-02] MEDS ORDERED: VITAMIN B-12 SUB-Q ONE (10:00)
[2017-08-02] MEDS ORDERED: FERRLECIT 125 MG in NACL 0.9% 100 ML IV ONE (11:00)
--- NOTE | 2017-08-02 12:18 | Progress Note ---
Assessment and Plan Acute Hypoxemic Respiratory Failure on MVS Severe Sepsis Syndrome SBO with Ischemic Bowel s/p Ex-lap and bowel resection CINTIA Obesity BARAK Hypophosphatemia Hypomagnesemia Hypothermia Lactic acidosis /metabolic acidosis History of ileostomy/ostomy care Type 2 diabetes mellitus full CODE STATUS (Explained the importance of compliance with medical care and the risk of refusing blood draws especially in the setting of possible delirium) - encouraged qhs BIPAP use especially with her history of untreated BARAK - continue aspiration precautions - continue bronchodilators and pulmonary toilet in short term - continue volume resuscitation - azotemia per nephrology (Improved) - anemia noted; likely significant hemodilutional element; but also CINTIA related (normocytic) - to receive procrit (she is bloodless medicine patient) - continue and complete AB's per ID recs - continue glycemic control with SSI (target BG <180 mg/dl) - continue to wean oxygen for sats >/= 94% - deploy incentive spirometry - post-op management per surgery - continue GI & VTE prophylaxis ....care plan discussed with patient and family at length ...she is improved; will watch in ICU overnight and tentatively transfer in am ....32' CCT Subjective Date of service: 08/02/17 Principal diagnosis: Severe Sepsis; Ischemic Bowel; Acute Resp Failure on MVS Interval history: Patient is seen today for: Severe Sepsis; Ischemic Bowel; Acute Resp Failure on MVS Seen and examined at bedside; 24hour events reviewed; nursing and respiratory care staff consulted; no adverse overnight events reported to me; remains with tachycardia but improved; apparently refusing BIPAP and blood draws earlier; complains of generalized pain; No N/V/F/C Objective Vital Signs - 12hr 08/02/17 08/02/17 08/02/17 00:20 00:30 00:40 Temperature Pulse Rate 119 H 117 H 115 H Pulse Rate [ From Monitor] Pulse Rate [ Posterior Bilateral Throughout] Respiratory 20 20 19 Rate Respiratory Rate [Posterior Bilateral Throughout] Blood Pressure 125/77 125/77 125/77 O2 Sat by Pulse 98 99 99 Oximetry 08/02/17 08/02/17 08/02/17 00:50 01:00 01:10 Temperature Pulse Rate 116 H 111 H 117 H Pulse Rate [ From Monitor] Pulse Rate [ Posterior Bilateral Throughout] Respiratory 21 18 24 Rate Respiratory Rate [Posterior Bilateral Throughout] Blood Pressure 125/77 118/65 118/65 O2 Sat by Pulse 98 97 96 Oximetry 08/02/17 08/02/17 08/02/17 01:20 01:30 01:40 Temperature Pulse Rate 115 H 116 H 116 H Pulse Rate [ From Monitor] Pulse Rate [ Posterior Bilateral Throughout] Respiratory 22 23 20 Rate Respiratory Rate [Posterior Bilateral Throughout] Blood Pressure 118/65 118/65 118/65 O2 Sat by Pulse 96 98 98 Oximetry 08/02/17 08/02/17 08/02/17 01:50 02:00 02:10 Temperature Pulse Rate 113 H 117 H 126 H Pulse Rate [ From Monitor] Pulse Rate [ Posterior Bilateral Throughout] Respiratory 21 11 L 23 Rate Respiratory Rate [Posterior Bilateral Throughout] Blood Pressure 118/65 119/71 119/71 O2 Sat by Pulse 98 98 94 Oximetry 08/02/17 08/02/17 08/02/17 02:20 02:23 02:30 Temperature Pulse Rate 118 H 119 H Pulse Rate [ From Monitor] Pulse Rate [ 117 H Posterior Bilateral Throughout] Respiratory 19 22 Rate Respiratory 20 Rate [Posterior Bilateral Throughout] Blood Pressure 119/71 119/71 O2 Sat by Pulse 97 100 Oximetry 08/02/17 08/02/17 08/02/17 02:32 02:40 02:50 Temperature Pulse Rate 122 H 122 H Pulse Rate [ From Monitor] Pulse Rate [ 118 H Posterior Bilateral Throughout] Respiratory 22 20 Rate Respiratory 20 Rate [Posterior Bilateral Throughout] Blood Pressure 119/71 119/71 O2 Sat by Pulse 98 99 Oximetry 08/02/17 08/02/17 08/02/17 03:00 03:10 03:20 Temperature Pulse Rate 121 H 119 H 119 H Pulse Rate [ From Monitor] Pulse Rate [ Posterior Bilateral Throughout] Respiratory 19 21 22 Rate Respiratory Rate [Posterior Bilateral Throughout] Blood Pressure 120/71 120/71 120/71 O2 Sat by Pulse 99 99 Oximetry 08/02/17 08/02/17 08/02/17 03:30 03:40 03:50 Temperature Pulse Rate 119 H 121 H 120 H Pulse Rate [ From Monitor] Pulse Rate [ Posterior Bilateral Throughout] Respiratory 20 22 14 Rate Respiratory Rate [Posterior Bilateral Throughout] Blood Pressure 120/71 120/71 120/71 O2 Sat by Pulse 99 100 100 Oximetry 08/02/17 08/02/17 08/02/17 04:00 04:10 04:20 Temperature 97.8 F Pulse Rate 121 H 118 H 119 H Pulse Rate [ 126 H From Monitor] Pulse Rate [ Posterior Bilateral Throughout] Respiratory 18 18 14 Rate Respiratory Rate [Posterior Bilateral Throughout] Blood Pressure 120/71 120/71 120/71 O2 Sat by Pulse 80 L 100 100 Oximetry 08/02/17 08/02/17 08/02/17 04:30 04:40 04:50 Temperature Pulse Rate 116 H 114 H Pulse Rate [ From Monitor] Pulse Rate [ Posterior Bilateral Throughout] Respiratory 13 21 Rate Respiratory Rate [Posterior Bilateral Throughout] Blood Pressure 120/71 120/71 141/86 O2 Sat by Pulse 99 98 98 Oximetry 08/02/17 08/02/17 08/02/17 05:00 05:10 05:20 Temperature Pulse Rate 111 H 112 H 116 H Pulse Rate [ From Monitor] Pulse Rate [ Posterior Bilateral Throughout] Respiratory 15 18 18 Rate Respiratory Rate [Posterior Bilateral Throughout] Blood Pressure 130/77 130/77 130/77 O2 Sat by Pulse 99 98 97 Oximetry 08/02/17 08/02/17 08/02/17 05:30 05:40 05:50 Temperature Pulse Rate 119 H 119 H 116 H Pulse Rate [ From Monitor] Pulse Rate [ Posterior Bilateral Throughout] Respiratory 22 23 22 Rate Respiratory Rate [Posterior Bilateral Throughout] Blood Pressure 130/77 130/77 O2 Sat by Pulse 96 96 97 Oximetry 08/02/17 08/02/17 08/02/17 06:00 06:10 06:20 Temperature Pulse Rate 114 H 114 H 112 H Pulse Rate [ From Monitor] Pulse Rate [ Posterior Bilateral Throughout] Respiratory 20 19 19 Rate Respiratory Rate [Posterior Bilateral Throughout] Blood Pressure 111/64 111/64 111/64 O2 Sat by Pulse 97 97 98 Oximetry 08/02/17 08/02/17 08/02/17 06:30 07:00 07:10 Temperature Pulse Rate 111 H 118 H 115 H Pulse Rate [ From Monitor] Pulse Rate [ Posterior Bilateral Throughout] Respiratory 20 13 21 Rate Respiratory Rate [Posterior Bilateral Throughout] Blood Pressure 111/64 111/64 123/74 O2 Sat by Pulse 99 97 99 Oximetry 08/02/17 08/02/17 08/02/17 07:20 07:30 07:40 Temperature Pulse Rate 112 H 114 H 109 H Pulse Rate [ From Monitor] Pulse Rate [ Posterior Bilateral Throughout] Respiratory 21 21 17 Rate Respiratory Rate [Posterior Bilateral Throughout] Blood Pressure 123/74 123/74 123/74 O2 Sat by Pulse 99 100 99 Oximetry 08/02/17 08/02/17 08/02/17 07:50 08:00 08:10 Temperature 98.1 F Pulse Rate 114 H 117 H 116 H Pulse Rate [ From Monitor] Pulse Rate [ Posterior Bilateral Throughout] Respiratory 21 22 21 Rate Respiratory Rate [Posterior Bilateral Throughout] Blood Pressure 123/74 116/70 116/70 O2 Sat by Pulse 100 98 98 Oximetry 08/02/17 08/02/17 08/02/17 08:20 08:30 08:40 Temperature Pulse Rate 117 H 117 H 115 H Pulse Rate [ From Monitor] Pulse Rate [ Posterior Bilateral Throughout] Respiratory 20 16 22 Rate Respiratory Rate [Posterior Bilateral Throughout] Blood Pressure 116/70 116/70 116/70 O2 Sat by Pulse 97 98 99 Oximetry 08/02/17 08/02/17 08/02/17 08:50 09:00 09:10 Temperature Pulse Rate 114 H 111 H 114 H Pulse Rate [ From Monitor] Pulse Rate [ Posterior Bilateral Throughout] Respiratory 21 17 16 Rate Respiratory Rate [Posterior Bilateral Throughout] Blood Pressure 116/70 134/81 134/81 O2 Sat by Pulse 97 99 100 Oximetry 08/02/17 08/02/17 08/02/17 09:20 09:21 09:30 Temperature Pulse Rate 116 H 114 H Pulse Rate [ From Monitor] Pulse Rate [ 108 H 111 H Posterior Bilateral Throughout] Respiratory 19 19 Rate Respiratory 12 18 Rate [Posterior Bilateral Throughout] Blood Pressure 134/81 134/81 O2 Sat by Pulse 100 99 Oximetry 08/02/17 08/02/17 08/02/17 09:40 09:50 10:00 Temperature Pulse Rate 116 H 115 H 115 H Pulse Rate [ From Monitor] Pulse Rate [ Posterior Bilateral Throughout] Respiratory 19 21 14 Rate Respiratory Rate [Posterior Bilateral Throughout] Blood Pressure 134/81 134/81 118/77 O2 Sat by Pulse 99 99 99 Oximetry 08/02/17 08/02/17 08/02/17 10:10 10:20 10:30 Temperature Pulse Rate 114 H 113 H 117 H Pulse Rate [ From Monitor] Pulse Rate [ Posterior Bilateral Throughout] Respiratory 20 37 H 22 Rate Respiratory Rate [Posterior Bilateral Throughout] Blood Pressure 118/77 118/77 118/77 O2 Sat by Pulse 99 99 99 Oximetry 1108/02/17 08/02/17 10:40 10:50 11:00 Temperature Pulse Rate 113 H 115 H 112 H Pulse Rate [ From Monitor] Pulse Rate [ Posterior Bilateral Throughout] Respiratory 22 19 24 Rate Respiratory Rate [Posterior Bilateral Throughout] Blood Pressure 118/77 118/77 129/77 O2 Sat by Pulse 100 100 Oximetry 08/02/17 08/02/17 08/02/17 11:10 11:20 11:30 Temperature Pulse Rate 109 H 110 H 111 H Pulse Rate [ From Monitor] Pulse Rate [ Posterior Bilateral Throughout] Respiratory 35 H 20 15 Rate Respiratory Rate [Posterior Bilateral Throughout] Blood Pressure 129/77 129/77 129/77 O2 Sat by Pulse 99 100 100 Oximetry 08/02/17 08/02/17 11:40 11:55 Temperature 98.2 F Pulse Rate 111 H Pulse Rate [ From Monitor] Pulse Rate [ Posterior Bilateral Throughout] Respiratory 15 Rate Respiratory Rate [Posterior Bilateral Throughout] Blood Pressure 129/77 O2 Sat by Pulse 99 Oximetry Constitutional: lethargic, appears uncomfortable Eyes: non-icteric ENT: oropharynx moist, other (ETT in place) Neck: supple, no lymphadenopathy, no JVD, other (No Thyromegaly; Right IJ line) Effort: mildly labored Ascultation: Bilateral: clear, diminished breath sounds (bases) Percussion: Bilateral: not dull Cardiovascular: regular rate and rhythm, other (no rubs/murmurs) Gastrointestinal: hypoactive bowel sounds, soft, tender (mild), other (distended ; no palpable HSM) Integumentary: normal Extremities: no cyanosis, no edema, pulses normal, no ischemia or petechiae Neurologic: normal mental status, non-focal exam, pupils equal and round, motor strength normal and Psychiatric: depressed CBC and BMP: 08/02/17 04:40 08/02/17 04:40 ABG, PT/INR, D-dimer: ABG POC ABG pH 7.506 (7.35-7.45) H 07/31/17 13:26 POC ABG pCO2 31.6 (35-45) L 07/31/17 13:26 POC ABG pO2 115 (80-105) H 07/31/17 13:26 POC ABG HCO3 24.9 07/31/17 13:26 POC ABG Total CO2 26 07/31/17 13:26 POC ABG O2 Sat 99 07/31/17 13:26 PT/INR, D-dimer PT 17.5 Sec. (12.2-14.9) H 07/30/17 18:37 INR 1.36 (0.87-1.13) H 07/30/17 18:37 Abnormal lab findings: Abnormal Labs 07/30/17 07/30/17 07/30/17 01:25 01:25 10:06 WBC 11.9 H RBC Hgb Hct RDW 17.8 H Plt Count Lymph % (Auto) 7.1 L [place] % (Auto) Lymph # 0.8 L Seg Neutrophils % 87.5 H Seg Neutrophils # 10.4 H PT INR POC ABG pH POC ABG pCO2 POC ABG pO2 Sodium 136 L Potassium 3.4 L Chloride 95.2 L Carbon Dioxide 19 L BUN Creatinine Glucose 262 H POC Glucose Lactic Acid 5.40 H* Calcium Phosphorus Magnesium C-Reactive Protein Urine WBC (Auto) Urine Creatinine 07/30/17 07/30/17 07/30/17 12:49 16:22 16:53 WBC RBC Hgb Hct RDW Plt Count Lymph % (Auto) [place] % (Auto) Lymph # Seg Neutrophils % Seg Neutrophils # PT INR POC ABG pH POC ABG pCO2 POC ABG pO2 Sodium Potassium Chloride Carbon Dioxide BUN Creatinine Glucose POC Glucose 253 H 195 H Lactic Acid 8.00 H* Calcium Phosphorus Magnesium C-Reactive Protein Urine WBC (Auto) Urine Creatinine 07/30/17 07/30/17 07/30/17 16:53 16:53 16:53 WBC 11.3 H RBC 5.92 H Hgb 16.6 H D Hct 52.5 H D RDW 18.2 H Plt Count Lymph % (Auto) [place] % (Auto) Lymph # Seg Neutrophils % Seg Neutrophils # PT INR POC ABG pH POC ABG pCO2 POC ABG pO2 Sodium Potassium Chloride 96.5 L Carbon Dioxide 20 L BUN 19 H Creatinine 2.3 H D Glucose 215 H POC Glucose Lactic Acid Calcium Phosphorus Magnesium C-Reactive Protein 3.80 H Urine WBC (Auto) Urine Creatinine 07/30/17 07/30/17 07/31/17 18:37 23:08 05:19 WBC RBC Hgb Hct RDW Plt Count Lymph % (Auto) [place] % (Auto) Lymph # Seg Neutrophils % Seg Neutrophils # PT 17.5 H INR 1.36 H POC ABG pH 7.210 L POC ABG pCO2 47.0 H POC ABG pO2 197 H Sodium Potassium Chloride Carbon Dioxide BUN Creatinine Glucose POC Glucose 156 H Lactic Acid Calcium Phosphorus Magnesium C-Reactive Protein Urine WBC (Auto) Urine Creatinine 07/31/17 07/31/17 07/31/17 05:21 06:00 06:00 WBC 4.3 L RBC Hgb Hct RDW 17.6 H Plt Count 95 L Lymph % (Auto) [place] % (Auto) 9.0 H Lymph # 1.1 L Seg Neutrophils % Seg Neutrophils # PT INR POC ABG pH 7.514 H POC ABG pCO2 22.5 L POC ABG pO2 115 H Sodium Potassium Chloride Carbon Dioxide BUN 25 H Creatinine 2.5 H Glucose 153 H POC Glucose Lactic Acid Calcium 7.3 L D Phosphorus 1.40 L Magnesium 1.20 L C-Reactive Protein Urine WBC (Auto) Urine Creatinine 07/31/17 07/31/17 07/31/17 06:00 12:22 13:26 WBC RBC Hgb Hct RDW Plt Count Lymph % (Auto) [place] % (Auto) Lymph # Seg Neutrophils % Seg Neutrophils # PT INR POC ABG pH 7.506 H POC ABG pCO2 31.6 L POC ABG pO2 115 H Sodium Potassium Chloride Carbon Dioxide BUN Creatinine Glucose POC Glucose 153 H Lactic Acid 4.50 H* Calcium Phosphorus Magnesium C-Reactive Protein Urine WBC (Auto) Urine Creatinine 07/31/17 07/31/17 07/31/17 15:18 15:18 17:21 WBC RBC Hgb Hct RDW Plt Count Lymph % (Auto) [place] % (Auto) Lymph # Seg Neutrophils % Seg Neutrophils # PT INR POC ABG pH POC ABG pCO2 POC ABG pO2 Sodium Potassium Chloride Carbon Dioxide BUN Creatinine Glucose POC Glucose 121 H Lactic Acid Calcium Phosphorus Magnesium C-Reactive Protein Urine WBC (Auto) 21.0 H Urine Creatinine 99.8 H 08/01/17 08/01/17 08/01/17 00:16 04:25 12:02 WBC RBC Hgb Hct RDW Plt Count Lymph % (Auto) [place] % (Auto) Lymph # Seg Neutrophils % Seg Neutrophils # PT INR POC ABG pH POC ABG pCO2 POC ABG pO2 Sodium Potassium Chloride Carbon Dioxide BUN 21 H Creatinine 1.7 H Glucose 110 H POC Glucose 118 H 124 H Lactic Acid Calcium 7.6 L Phosphorus 4.80 H D Magnesium C-Reactive Protein Urine WBC (Auto) Urine Creatinine 08/01/17 08/02/17 08/02/17 13:54 04:40 04:40 WBC RBC 3.40 L 2.83 L Hgb 9.5 L 7.9 L Hct 29.4 L D 24.6 L RDW 18.4 H 18.1 H Plt Count 86 L 91 L Lymph % (Auto) [place] % (Auto) Lymph # Seg Neutrophils % Seg Neutrophils # PT INR POC ABG pH POC ABG pCO2 POC ABG pO2 Sodium Potassium Chloride 107.8 H Carbon Dioxide BUN Creatinine Glucose POC Glucose Lactic Acid Calcium 8.1 L Phosphorus 2.30 L D Magnesium C-Reactive Protein Urine WBC (Auto) Urine Creatinine Chest x-ray: image reviewed (persistent LLL infitrate vs atelectasis) Allied health notes reviewed: RT
--- NOTE | 2017-08-02 12:24 | Consultation ---
REFERRING PHYSICIAN: Dr. Alanna Devine. REASON FOR CONSULTATION: Anemia and thrombocytopenia. HISTORY OF PRESENT ILLNESS: The patient is a 62-year-old female with hypertension and diabetes, who in May was admitted with melena and profuse rectal bleeding. Her hemoglobin did go down to 5.58. She is [facility], thus did not get any blood transfusion but was treated with Procrit and iron and B12. She did have improvement in her hemoglobin and also ended up undergoing colectomy and ileostomy on 05/13/2017 for colonic hemorrhage. She did have severe diverticulosis with focal areas of diverticulitis at that time. She also had a blood culture then positive for Pseudomonas and staph, was treated empirically then with Zosyn and vancomycin and then Levaquin and Flagyl as outpatient. She unfortunately presented now again on 07/30/2017 with abdominal pain and dropped blood pressure with rise in lactic acid from 5.4 to 8, which led to emergent exploratory laparotomy and was found to have a twisted small bowel with obstruction and perforation. Perforation seemed to be contained. She during her hospital course, her hemoglobin when she came in was 13.3 but went up to 16 but that was in face of dehydration with rise in her creatinine to 2.3. She, however, after her surgery now has dropped her hemoglobin now to 7.9 today from 9.5 yesterday. Her platelet count, which was normal when she came to the hospital had dropped all the way down yesterday to 86, today it is 91. Other pertinent labs did show her PT/INR on 07/30/2017 to be 1.36, PTT 26.9. Chemistry showed rise in creatinine, which has come down. PHYSICAL EXAMINATION: GENERAL: The patient is now awake. NG in place. CHEST: Clear. CARDIOVASCULAR: Regular rate and rhythm. ABDOMEN: Has ileostomy with dark stool. EXTREMITIES: Has SCDs. ASSESSMENT: 1. Anemia, progressive in face of recent surgery. 2. Recent history of gastrointestinal bleeding. 3. ? Sepsis, although cultures negative. RECOMMENDATIONS AND PLAN: At this time, the patient has anemia. We will go ahead and give her Procrit and iron and B12 to optimize blood production. Platelets are low, which could be from the recent event. To my knowledge, she has not had any heparin product. We will monitor. round. We will check her liver function and coags also. We will closely monitor. Thank you. JOB# [id number] MITCHEL/DILLON
--- NOTE | 2017-08-02 14:34 | Progress Note ---
Assessment and Plan s/p small bowel resection. remove ngt. start packing wound with iodoform daily. continue supportive care Subjective Date of service: 08/02/17 Patient Reports: Positive: feels better, pain is less, afebrile, other (pt extubated) Objective Vital Signs - 12hr 08/02/17 08/02/17 08/02/17 02:30 02:32 02:40 Temperature Pulse Rate 119 H 122 H Pulse Rate [ From Monitor] Pulse Rate [ 118 H Posterior Bilateral Throughout] Respiratory 22 22 Rate Respiratory 20 Rate [Posterior Bilateral Throughout] Blood Pressure 119/71 119/71 O2 Sat by Pulse 100 98 Oximetry 08/02/17 08/02/17 08/02/17 02:50 03:00 03:10 Temperature Pulse Rate 122 H 121 H 119 H Pulse Rate [ From Monitor] Pulse Rate [ Posterior Bilateral Throughout] Respiratory 20 19 21 Rate Respiratory Rate [Posterior Bilateral Throughout] Blood Pressure 119/71 120/71 120/71 O2 Sat by Pulse 99 99 Oximetry 08/02/17 08/02/17 08/02/17 03:20 03:30 03:40 Temperature Pulse Rate 119 H 119 H 121 H Pulse Rate [ From Monitor] Pulse Rate [ Posterior Bilateral Throughout] Respiratory 22 20 22 Rate Respiratory Rate [Posterior Bilateral Throughout] Blood Pressure 120/71 120/71 120/71 O2 Sat by Pulse 99 99 100 Oximetry 08/02/17 08/02/17 08/02/17 03:50 04:00 04:10 Temperature 97.8 F Pulse Rate 120 H 121 H 118 H Pulse Rate [ 126 H From Monitor] Pulse Rate [ Posterior Bilateral Throughout] Respiratory 14 18 18 Rate Respiratory Rate [Posterior Bilateral Throughout] Blood Pressure 120/71 120/71 120/71 O2 Sat by Pulse 100 80 L 100 Oximetry 08/02/17 08/02/17 08/02/17 04:20 04:30 04:40 Temperature Pulse Rate 119 H 116 H Pulse Rate [ From Monitor] Pulse Rate [ Posterior Bilateral Throughout] Respiratory 14 13 Rate Respiratory Rate [Posterior Bilateral Throughout] Blood Pressure 120/71 120/71 120/71 O2 Sat by Pulse 100 99 98 Oximetry 08/02/17 08/02/17 08/02/17 04:50 05:00 05:10 Temperature Pulse Rate 114 H 111 H 112 H Pulse Rate [ From Monitor] Pulse Rate [ Posterior Bilateral Throughout] Respiratory 21 15 18 Rate Respiratory Rate [Posterior Bilateral Throughout] Blood Pressure 141/86 130/77 130/77 O2 Sat by Pulse 98 99 98 Oximetry 08/02/17 08/02/17 08/02/17 05:20 05:30 05:40 Temperature Pulse Rate 116 H 119 H 119 H Pulse Rate [ From Monitor] Pulse Rate [ Posterior Bilateral Throughout] Respiratory 18 22 23 Rate Respiratory Rate [Posterior Bilateral Throughout] Blood Pressure 130/77 130/77 O2 Sat by Pulse 97 96 96 Oximetry 08/02/17 08/02/17 08/02/17 05:50 06:00 06:10 Temperature Pulse Rate 116 H 114 H 114 H Pulse Rate [ From Monitor] Pulse Rate [ Posterior Bilateral Throughout] Respiratory 22 20 19 Rate Respiratory Rate [Posterior Bilateral Throughout] Blood Pressure 130/77 111/64 111/64 O2 Sat by Pulse 97 97 97 Oximetry 08/02/17 08/02/17 08/02/17 06:20 06:30 07:00 Temperature Pulse Rate 112 H 111 H 118 H Pulse Rate [ From Monitor] Pulse Rate [ Posterior Bilateral Throughout] Respiratory 19 20 13 Rate Respiratory Rate [Posterior Bilateral Throughout] Blood Pressure 111/64 111/64 111/64 O2 Sat by Pulse 98 99 97 Oximetry 08/02/17 08/02/17 08/02/17 07:10 07:20 07:30 Temperature Pulse Rate 115 H 112 H 114 H Pulse Rate [ From Monitor] Pulse Rate [ Posterior Bilateral Throughout] Respiratory 21 21 21 Rate Respiratory Rate [Posterior Bilateral Throughout] Blood Pressure 123/74 123/74 123/74 O2 Sat by Pulse 99 99 100 Oximetry 08/02/17 08/02/17 08/02/17 07:40 07:50 08:00 Temperature 98.1 F Pulse Rate 109 H 114 H 117 H Pulse Rate [ From Monitor] Pulse Rate [ Posterior Bilateral Throughout] Respiratory 17 21 22 Rate Respiratory Rate [Posterior Bilateral Throughout] Blood Pressure 123/74 123/74 116/70 O2 Sat by Pulse 99 100 98 Oximetry 08/02/17 08/02/17 08/02/17 08:10 08:20 08:30 Temperature Pulse Rate 116 H 117 H 117 H Pulse Rate [ From Monitor] Pulse Rate [ Posterior Bilateral Throughout] Respiratory 21 20 16 Rate Respiratory Rate [Posterior Bilateral Throughout] Blood Pressure 116/70 116/70 116/70 O2 Sat by Pulse 98 97 98 Oximetry 08/02/17 08/02/17 08/02/17 08:40 08:50 09:00 Temperature Pulse Rate 115 H 114 H 111 H Pulse Rate [ From Monitor] Pulse Rate [ Posterior Bilateral Throughout] Respiratory 22 21 17 Rate Respiratory Rate [Posterior Bilateral Throughout] Blood Pressure 116/70 116/70 134/81 O2 Sat by Pulse 99 97 99 Oximetry 08/02/17 08/02/17 08/02/17 09:10 09:20 09:21 Temperature Pulse Rate 114 H 116 H Pulse Rate [ From Monitor] Pulse Rate [ 108 H Posterior Bilateral Throughout] Respiratory 16 19 Rate Respiratory 12 Rate [Posterior Bilateral Throughout] Blood Pressure 134/81 134/81 O2 Sat by Pulse 100 100 Oximetry 08/02/17 08/02/17 08/02/17 09:30 09:40 09:50 Temperature Pulse Rate 114 H 116 H 115 H Pulse Rate [ From Monitor] Pulse Rate [ 111 H Posterior Bilateral Throughout] Respiratory 19 19 21 Rate Respiratory 18 Rate [Posterior Bilateral Throughout] Blood Pressure 134/81 134/81 134/81 O2 Sat by Pulse 99 99 99 Oximetry 08/02/17 08/02/17 08/02/17 10:00 10:10 10:20 Temperature Pulse Rate 115 H 114 H 113 H Pulse Rate [ From Monitor] Pulse Rate [ Posterior Bilateral Throughout] Respiratory 14 20 37 H Rate Respiratory Rate [Posterior Bilateral Throughout] Blood Pressure 118/77 118/77 118/77 O2 Sat by Pulse 99 99 99 Oximetry 08/02/17 08/02/17 08/02/17 10:30 10:40 10:50 Temperature Pulse Rate 117 H 113 H 115 H Pulse Rate [ From Monitor] Pulse Rate [ Posterior Bilateral Throughout] Respiratory 22 22 19 Rate Respiratory Rate [Posterior Bilateral Throughout] Blood Pressure 118/77 118/77 118/77 O2 Sat by Pulse 99 100 100 Oximetry 08/02/17 08/02/17 08/02/17 11:00 11:10 11:20 Temperature Pulse Rate 112 H 109 H 110 H Pulse Rate [ From Monitor] Pulse Rate [ Posterior Bilateral Throughout] Respiratory 24 35 H 20 Rate Respiratory Rate [Posterior Bilateral Throughout] Blood Pressure 129/77 129/77 129/77 O2 Sat by Pulse 99 100 Oximetry 08/02/17 08/02/17 08/02/17 11:30 11:40 11:55 Temperature 98.2 F Pulse Rate 111 H 111 H Pulse Rate [ From Monitor] Pulse Rate [ Posterior Bilateral Throughout] Respiratory 15 15 Rate Respiratory Rate [Posterior Bilateral Throughout] Blood Pressure 129/77 129/77 O2 Sat by Pulse 100 99 Oximetry - General physical appearance no distress - Respiratory normal respiratory effort - Abdomen soft, tender, wound (packed), other (ostomy functioning) - Neurologic normal sensation - Psychiatric oriented to time, oriented to person, oriented to place, speech is normal, memory intact - Labs 08/02/17 04:40 08/02/17 04:40 Diabetes panel 08/02/17 Range/Units 04:40 Sodium 144 (137-145) mmol/L Potassium 3.9 (3.6-5.0) mmol/L Chloride 107.8 H (98-107) mmol/L Carbon Dioxide 25 (22-30) mmol/L BUN 14 (7-17) mg/dL Creatinine 1.0 (0.7-1.2) mg/dL Glucose 84 (65-100) mg/dL Calcium 8.1 L (8.4-10.2) mg/dL Calcium panel 08/02/17 Range/Units 04:40 Calcium 8.1 L (8.4-10.2) mg/dL Phosphorus 2.30 L D (2.5-4.5) mg/dL Pituitary panel 08/02/17 Range/Units 04:40 Sodium 144 (137-145) mmol/L Potassium 3.9 (3.6-5.0) mmol/L Chloride 107.8 H (98-107) mmol/L Carbon Dioxide 25 (22-30) mmol/L BUN 14 (7-17) mg/dL Creatinine 1.0 (0.7-1.2) mg/dL Glucose 84 (65-100) mg/dL Calcium 8.1 L (8.4-10.2) mg/dL Adrenal panel 08/02/17 Range/Units 04:40 Sodium 144 (137-145) mmol/L Potassium 3.9 (3.6-5.0) mmol/L Chloride 107.8 H (98-107) mmol/L Carbon Dioxide 25 (22-30) mmol/L BUN 14 (7-17) mg/dL Creatinine 1.0 (0.7-1.2) mg/dL Glucose 84 (65-100) mg/dL Calcium 8.1 L (8.4-10.2) mg/dL
[2017-08-02] MEDS: ZOSYN/NS 4.5GM/100ML 4.5 GM/100 ML VIAL IV SCH ×2 (14:59→21:47)
[2017-08-03] MEDS: NOVOLOG SUB-Q SCH ×4 (06:16→18:38)
[2017-08-03] MEDS: ZOSYN/NS 4.5GM/100ML 4.5 GM/100 ML VIAL IV SCH ×3 (06:23→21:25)
[2017-08-03 07:08] LABS: Basophils % (Auto) 0.4 % (0.0-1.8); Eosinophils % (Auto) 1.8 % (0.0-4.3); Hematocrit 23.8 % (30.3-42.9); Hemoglobin 7.6 gm/dl (10.1-14.3); Mean Corpuscular HGB Conc 32 % (30-34); Mean Corpuscular Hemoglobin 28 pg (28-32); Mean Corpuscular Volume 87 fl (79-97); Platelet Count 102 K/mm3 (140-440); Red Blood Count 2.75 M/mm3 (3.65-5.03); Red Cell Distribution Width 18.2 % (13.2-15.2); Reticulocyte % 1.33 % (0.78-2.58); White Blood Count 10.5 K/mm3 (4.5-11.0)
[2017-08-03 07:16] LABS: INR 1.36 (0.87-1.13)
[2017-08-03 07:17] LABS: Partial Thromboplastin Time 36.7 Sec. (24.2-36.6)
[2017-08-03 07:20] LABS: Anion Gap 15 mmol/L; BUN/Creatinine Ratio 16; Blood Urea Nitrogen 11 mg/dL (7-17); Calcium 7.9 mg/dL (8.4-10.2); Carbon Dioxide 26 mmol/L (22-30); Chloride 107.4 mmol/L (98-107); Glucose 97 mg/dL (65-100); Potassium 3.8 mmol/L (3.6-5.0); Sodium 145 mmol/L (137-145)
[2017-08-03 07:22] LABS: Alanine Aminotransferase 38 units/L (7-56); Albumin 2.3 g/dL (3.9-5); Albumin/Globulin Ratio 0.9 %; Alkaline Phosphatase 55 units/L (35-129); Total Protein 4.8 g/dL (6.3-8.2)
[2017-08-03 07:26] LABS: Bilirubin,Direct < 0.2 mg/dL (0-0.2); Bilirubin,Indirect 0.1 mg/dL
[2017-08-03] MEDS: DUONEB *Not for PRN Use IH SCH ×5 (08:04→20:43)
[2017-08-03] MEDS: DILAUDID IV PRN ×4 (08:16→21:24)
[2017-08-03] MEDS: NACL 0.9% 1000 ML 1,000 ML IV SCH (08:31)
--- NOTE | 2017-08-03 09:23 | Progress Note ---
Assessment and Plan Assessment: 1) Severe Sepsis with septic shock: resolved. Etiology most likely peritonitis. CRP=3.8. Procal=52 2) Acute peritonitis: likely localized, from SB perforation/ischemia/ obstruction. OR cx so far negative 3) SB perforation/ischemia/obstruction: -S/P Exploratory laparotomy and resection of small bowel on 07/30 4) CINTIA - resolved 5) Thrombocytopenia - from sepsis - better Plan: -continue zosyn and fluconazole - day 4 of -remove mccord I will be off tomorrow, available on the phone and will be back rounding on the weekend Thank you Dr Costello for your consultation, will follow up with you. Priyanka Arriaga MD Infectious Diseases Specialist [facility] [phone] O [phone] Subjective Date of service: 08/03/17 Principal diagnosis: Severe Sepsis; Ischemic Bowel; Acute Resp Failure on MVS Interval history: Feels better, extubated, c/o abdominal pain, no N/V. Microbiology: Blood cultures: 07/30 ngtd Respiratory cultures: 07/20 ngtd Wound surg cultures: 07/30 ngrd urine: 07/31 neg Current Antimicrobials: Zosyn 07/31 fluconazole 07/31 Previous Antimicrobials: levaquin metronidazole Objective - Exam Narrative Exam: General appearance: alert on NC O2 in NAD Eyes: anicteric sclerae, moist conjunctivae HENT: Atraumatic; oropharynx +NGT Neck: Trachea midline; supple, no thyromegaly or lymphadenopathy Lungs: CTA CV: rrr Abdomen: Soft,+surg wound covered with dressings +ileostomy Extremities: +peripheral edema Skin: Normal temperature, turgor and texture; no rash, ulcers or subcutaneous nodules Psych: alert talking. Neuro: sedated Lines: R IJ TLC, Mccord - Constitutional Vitals: Vital Signs Temp Pulse Resp BP Pulse Ox 98.6 F 107 H 21 137/85 98 08/03/17 08:00 08/03/17 09:00 08/03/17 09:00 08/03/17 09:00 08/03/17 09:00 Temperature -Last 24 Hours Temperature 98.6 F Temperature 99.3 F Temperature 99.6 F Temperature 99.0 F Temperature 98.2 F - Labs CBC & Chem 7: 08/03/17 05:30 08/03/17 05:30 Labs: Abnormal lab results 08/01/17 08/02/17 08/02/17 Range/Units 07:03 18:22 23:23 RBC (3.65-5.03) M/mm3 Hgb (10.1-14.3) gm/dl Hct (30.3-42.9) % RDW (13.2-15.2) % Plt Count (140-440) K/mm3 Lymph % (Auto) (13.4-35.0) % Lymph # (1.2-5.4) K/mm3 Seg Neutrophils % (40.0-70.0) % Seg Neutrophils # (1.8-7.7) K/mm3 PT (12.2-14.9) Sec. INR (0.87-1.13) APTT (24.2-36.6) Sec. Chloride (98-107) mmol/L POC Glucose 108 H 136 H (70-105) Calcium (8.4-10.2) mg/dL Phosphorus (2.5-4.5) mg/dL Total Protein (6.3-8.2) g/dL Albumin (3.9-5) g/dL Miscellaneous Test Flexitest 1 H 08/03/17 08/03/17 08/03/17 Range/Units 05:30 05:30 05:30 RBC 2.75 L (3.65-5.03) M/mm3 Hgb 7.6 L (10.1-14.3) gm/dl Hct 23.8 L (30.3-42.9) % RDW 18.2 H (13.2-15.2) % Plt Count 102 L (140-440) K/mm3 Lymph % (Auto) 10.4 L (13.4-35.0) % Lymph # 1.1 L (1.2-5.4) K/mm3 Seg Neutrophils % 81.9 H (40.0-70.0) % Seg Neutrophils # 8.6 H (1.8-7.7) K/mm3 PT 17.5 H (12.2-14.9) Sec. INR 1.36 H (0.87-1.13) APTT 36.7 H (24.2-36.6) Sec. Chloride (98-107) mmol/L POC Glucose (70-105) Calcium (8.4-10.2) mg/dL Phosphorus (2.5-4.5) mg/dL Total Protein 4.8 L D (6.3-8.2) g/dL Albumin 2.3 L (3.9-5) g/dL Miscellaneous Test 08/03/17 08/03/17 Range/Units 05:30 05:34 RBC (3.65-5.03) M/mm3 Hgb (10.1-14.3) gm/dl Hct (30.3-42.9) % RDW (13.2-15.2) % Plt Count (140-440) K/mm3 Lymph % (Auto) (13.4-35.0) % Lymph # (1.2-5.4) K/mm3 Seg Neutrophils % (40.0-70.0) % Seg Neutrophils # (1.8-7.7) K/mm3 PT (12.2-14.9) Sec. INR (0.87-1.13) APTT (24.2-36.6) Sec. Chloride 107.4 H (98-107) mmol/L POC Glucose 116 H (70-105) Calcium 7.9 L (8.4-10.2) mg/dL Phosphorus 2.20 L (2.5-4.5) mg/dL Total Protein (6.3-8.2) g/dL Albumin (3.9-5) g/dL Miscellaneous Test
--- NOTE | 2017-08-03 09:41 | Progress Note ---
Assessment and Plan CINTIA - Resolved with stable BUN/cr Lytes - Change IVF to Hypotonic fluid & f/u Na Vitals - Stable on meds Subjective Date of service: 08/03/17 Principal diagnosis: Severe Sepsis; Ischemic Bowel; Acute Resp Failure on MVS Interval history: No complaint Objective - Vital Signs Vital signs: Vital Signs - 12hr 08/02/17 08/02/17 08/03/17 22:00 23:00 00:00 Temperature 99.6 F Pulse Rate 111 H 108 H 110 H Pulse Rate [ From Monitor] Pulse Rate [ Posterior Bilateral Throughout] Respiratory 22 22 23 Rate Respiratory Rate [Posterior Bilateral Throughout] Blood Pressure 134/83 142/82 129/76 O2 Sat by Pulse 100 Oximetry 08/03/17 08/03/17 08/03/17 01:00 01:54 01:55 Temperature Pulse Rate 110 H 104 H Pulse Rate [ From Monitor] Pulse Rate [ 104 H Posterior Bilateral Throughout] Respiratory 24 22 Rate Respiratory 22 Rate [Posterior Bilateral Throughout] Blood Pressure 124/73 124/73 O2 Sat by Pulse 99 100 Oximetry 08/03/17 08/03/17 08/03/17 02:00 02:15 03:00 Temperature Pulse Rate 105 H 109 H Pulse Rate [ From Monitor] Pulse Rate [ 105 H Posterior Bilateral Throughout] Respiratory 23 23 Rate Respiratory 22 Rate [Posterior Bilateral Throughout] Blood Pressure 138/90 148/88 O2 Sat by Pulse 100 Oximetry 08/03/17 08/03/17 08/03/17 04:00 05:00 06:00 Temperature 99.3 F Pulse Rate 109 H 109 H 109 H Pulse Rate [ From Monitor] Pulse Rate [ Posterior Bilateral Throughout] Respiratory 21 23 24 Rate Respiratory Rate [Posterior Bilateral Throughout] Blood Pressure 145/91 141/84 146/88 O2 Sat by Pulse 98 100 Oximetry 08/03/17 08/03/17 08/03/17 07:00 08:00 08:03 Temperature 98.6 F Pulse Rate 107 H 108 H Pulse Rate [ From Monitor] Pulse Rate [ Posterior Bilateral Throughout] Respiratory 25 H 26 H Rate Respiratory Rate [Posterior Bilateral Throughout] Blood Pressure 153/94 153/94 O2 Sat by Pulse 100 Oximetry 08/03/17 08/03/17 08:20 09:00 Temperature Pulse Rate 107 H Pulse Rate [ 109 H From Monitor] Pulse Rate [ Posterior Bilateral Throughout] Respiratory 18 21 Rate Respiratory Rate [Posterior Bilateral Throughout] Blood Pressure 137/85 O2 Sat by Pulse 99 98 Oximetry - General Appearance General appearance: other (Awake & responsive) Neck: no JVD Respiratory: Present: Other (Good air entry) Cardiology: regular, S1S2 Gastrointestinal: other (Dressing in place) - Lab 08/03/17 05:30 08/03/17 05:30 Most recent lab results Calcium 7.9 mg/dL (8.4-10.2) L 08/03/17 05:30 Phosphorus 2.20 mg/dL (2.5-4.5) L 08/03/17 05:30 Magnesium 1.80 mg/dL (1.7-2.3) 08/03/17 05:30 Urine Creatinine 99.8 mg/dL (0.1-20.0) H 07/31/17 15:18 Urine Sodium 76 mmol/L 07/31/17 15:18
[2017-08-03] MEDS: DIFLUCAN 200 MG/100 ML BAG IV SCH (10:03)
[2017-08-03] MEDS: K-PHOS NEUTRAL PO SCH ×4 (10:17→22:00)
[2017-08-03] MEDS: NACL 0.45% 1000 ML 1,000 ML IV SCH (10:18)
--- NOTE | 2017-08-03 13:05 | Progress Note ---
Assessment and Plan Patient is recovering very well from the operation. Ostomy is functional but has a large ammount of output. Will continue to monitor and start anti motility agents if needed. Subjective Date of service: 08/03/17 Patient Reports: Positive: still having pain Objective Vital Signs - 12hr 08/03/17 08/03/17 08/03/17 01:54 01:55 02:00 Temperature Pulse Rate 104 H 105 H Pulse Rate [ From Monitor] Pulse Rate [ 104 H Posterior Bilateral Throughout] Respiratory 22 23 Rate Respiratory 22 Rate [Posterior Bilateral Throughout] Blood Pressure 124/73 138/90 O2 Sat by Pulse 100 100 Oximetry 08/03/17 08/03/17 08/03/17 02:15 03:00 04:00 Temperature 99.3 F Pulse Rate 109 H 109 H Pulse Rate [ From Monitor] Pulse Rate [ 105 H Posterior Bilateral Throughout] Respiratory 23 21 Rate Respiratory 22 Rate [Posterior Bilateral Throughout] Blood Pressure 148/88 145/91 O2 Sat by Pulse 98 Oximetry 08/03/17 08/03/17 08/03/17 05:00 06:00 07:00 Temperature Pulse Rate 109 H 109 H 107 H Pulse Rate [ From Monitor] Pulse Rate [ Posterior Bilateral Throughout] Respiratory 23 24 25 H Rate Respiratory Rate [Posterior Bilateral Throughout] Blood Pressure 141/84 146/88 153/94 O2 Sat by Pulse 100 Oximetry 08/03/17 08/03/17 08/03/17 08:00 08:03 08:20 Temperature 98.6 F Pulse Rate 108 H Pulse Rate [ 109 H From Monitor] Pulse Rate [ Posterior Bilateral Throughout] Respiratory 26 H 18 Rate Respiratory Rate [Posterior Bilateral Throughout] Blood Pressure 153/94 O2 Sat by Pulse 100 99 Oximetry 08/03/17 08/03/17 08/03/17 09:00 10:00 10:33 Temperature Pulse Rate 107 H 112 H 99 H Pulse Rate [ From Monitor] Pulse Rate [ Posterior Bilateral Throughout] Respiratory 21 18 Rate Respiratory Rate [Posterior Bilateral Throughout] Blood Pressure 137/85 126/100 O2 Sat by Pulse 98 100 Oximetry 08/03/17 08/03/17 08/03/17 11:00 12:00 12:20 Temperature 98.4 F Pulse Rate 101 H 100 H Pulse Rate [ 103 H From Monitor] Pulse Rate [ Posterior Bilateral Throughout] Respiratory 26 H 19 20 Rate Respiratory Rate [Posterior Bilateral Throughout] Blood Pressure 126/100 134/83 O2 Sat by Pulse 100 99 99 Oximetry - General physical appearance well developed, well nourished, moderate distress, moderate pain - Eyes PERRL, normal occular movement - Respiratory normal expansion, normal respiratory effort - Abdomen soft, tender (around incision), other (Midline wound has no sign of infection. Ostomy in RLQ with marked ammounts of output.) - Labs 08/03/17 05:30 08/03/17 05:30 Diabetes panel 08/03/17 08/03/17 Range/Units 05:30 05:30 Sodium 145 (137-145) mmol/L Potassium 3.8 (3.6-5.0) mmol/L Chloride 107.4 H (98-107) mmol/L Carbon Dioxide 26 (22-30) mmol/L BUN 11 (7-17) mg/dL Creatinine 0.7 (0.7-1.2) mg/dL Glucose 97 (65-100) mg/dL Calcium 7.9 L (8.4-10.2) mg/dL AST 25 (5-40) units/L ALT 38 (7-56) units/L Alkaline Phosphatase 55 (35-129) units/L Total Protein 4.8 L D (6.3-8.2) g/dL Albumin 2.3 L (3.9-5) g/dL Calcium panel 08/03/17 08/03/17 Range/Units 05:30 05:30 Calcium 7.9 L (8.4-10.2) mg/dL Phosphorus 2.20 L (2.5-4.5) mg/dL Albumin 2.3 L (3.9-5) g/dL Pituitary panel 08/03/17 Range/Units 05:30 Sodium 145 (137-145) mmol/L Potassium 3.8 (3.6-5.0) mmol/L Chloride 107.4 H (98-107) mmol/L Carbon Dioxide 26 (22-30) mmol/L BUN 11 (7-17) mg/dL Creatinine 0.7 (0.7-1.2) mg/dL Glucose 97 (65-100) mg/dL Calcium 7.9 L (8.4-10.2) mg/dL Adrenal panel 08/03/17 08/03/17 Range/Units 05:30 05:30 Sodium 145 (137-145) mmol/L Potassium 3.8 (3.6-5.0) mmol/L Chloride 107.4 H (98-107) mmol/L Carbon Dioxide 26 (22-30) mmol/L BUN 11 (7-17) mg/dL Creatinine 0.7 (0.7-1.2) mg/dL Glucose 97 (65-100) mg/dL Calcium 7.9 L (8.4-10.2) mg/dL Total Bilirubin 0.30 (0.1-1.2) mg/dL AST 25 (5-40) units/L ALT 38 (7-56) units/L Alkaline Phosphatase 55 (35-129) units/L Total Protein 4.8 L D (6.3-8.2) g/dL Albumin 2.3 L (3.9-5) g/dL
--- NOTE | 2017-08-03 13:19 | Progress Note ---
Assessment and Plan Assessment and plan: --Acute blood loss anemia: The patient is receiving Procrit , hematology following Jehovah witness, no blood/blood products -- Thrombocytopenia : hemat consulted. --Small bowel ischemia and perforation/s/p exploratory laparotomy and small bowel resection postop care, clear liquid diet advance as tolerated, surgery following --Hypophosphatemia; replace per protocol --Hypomagnesemia; corrected --Acute respiratory failure, s/p extubation, stable on nasal cannula oxygen --Acute renal failure; resolved -- Septic Shock: Resolved, --Hypothermia; secondary to sepsis, resolved --Lactic acidosis /metabolic acidosis improved --Ostomy care; stable --Type 2 diabetes mellitus; well controlled, Accu-Chek sliding scale coverage , low-dose 70/30 insulin as needed Check hemoglobin A1c. 12.9 --DVT prophylaxis; no pharmacologic anticoagulation in view of recent surgery, thrombocytopenia, anemia, use SCDs --full CODE STATUS --Closely monitor the patient and adjust the management as needed --Physical therapy as tolerated Critical care time31 minutes The high probability of a clinically significant, sudden or life threatening deterioration of the [GI ,CV,hemat, renal] system(s) required my full and direct attention, intervention and personal management. The aggregate critical care time was [31 ] minutes. This time is in addition to time spent performing reported procedures but includes the following: [x] Data Review and interpretation [x] Patient assessment and monitoring of vital signs [x] Documentation, counseling [x] Medication orders and management History Interval history: Patient seen and examined this morning Medical records reviewed, no new overnight events Tolerated clear liquids Complaints of generalized weakness Hospitalist Physical - Constitutional Vitals: Temp Pulse Resp BP Pulse Ox 98.4 F 103 H 20 134/83 99 08/03/17 12:00 08/03/17 12:20 08/03/17 12:20 08/03/17 12:00 08/03/17 12:20 General appearance: Present: no acute distress, well-nourished - EENT Eyes: Present: PERRL, EOM intact - Neck Neck: Present: supple, normal ROM - Respiratory Respiratory effort: normal Respiratory: bilateral: diminished, negative: rales, rhonchi, wheezing - Cardiovascular Rhythm: regular Heart Sounds: Present: S1 & S2 - Extremities Extremities: no ischemia, No edema - Abdominal General gastrointestinal: soft, non-tender, non-distended - Integumentary Integumentary: Present: clear, warm - Psychiatric Psychiatric: appropriate mood/affect, cooperative - Neurologic Neurologic: CNII-XII intact, moves all extremities Results - Labs CBC & Chem 7: 08/03/17 05:30 08/03/17 05:30 Labs: Laboratory Last Values WBC 10.5 K/mm3 (4.5-11.0) 08/03/17 05:30 RBC 2.75 M/mm3 (3.65-5.03) L 08/03/17 05:30 Hgb 7.6 gm/dl (10.1-14.3) L 08/03/17 05:30 Hct 23.8 % (30.3-42.9) L 08/03/17 05:30 MCV 87 fl (79-97) 08/03/17 05:30 MCH 28 pg (28-32) 08/03/17 05:30 MCHC 32 % (30-34) 08/03/17 05:30 RDW 18.2 % (13.2-15.2) H 08/03/17 05:30 Plt Count 102 K/mm3 (140-440) L 08/03/17 05:30 Lymph % (Auto) 10.4 % (13.4-35.0) L 08/03/17 05:30 [place] % (Auto) 5.5 % (0.0-7.3) 08/03/17 05:30 Eos % (Auto) 1.8 % (0.0-4.3) 08/03/17 05:30 Baso % (Auto) 0.4 % (0.0-1.8) 08/03/17 05:30 Lymph # 1.1 K/mm3 (1.2-5.4) L 08/03/17 05:30 [place] # 0.6 K/mm3 (0.0-0.8) 08/03/17 05:30 Eos # 0.2 K/mm3 (0.0-0.4) 08/03/17 05:30 Baso # 0.0 K/mm3 (0.0-0.1) 08/03/17 05:30 Seg Neutrophils % 81.9 % (40.0-70.0) H 08/03/17 05:30 Seg Neutrophils # 8.6 K/mm3 (1.8-7.7) H 08/03/17 05:30 Percent Retic 1.33 % (0.78-2.58) 08/03/17 05:30 PT 17.5 Sec. (12.2-14.9) H 08/03/17 05:30 INR 1.36 (0.87-1.13) H 08/03/17 05:30 APTT 36.7 Sec. (24.2-36.6) H 08/03/17 05:30 POC ABG pH 7.506 (7.35-7.45) H 07/31/17 13:26 POC ABG pCO2 31.6 (35-45) L 07/31/17 13:26 POC ABG pO2 115 (80-105) H 07/31/17 13:26 POC ABG HCO3 24.9 07/31/17 13:26 POC ABG Total CO2 26 07/31/17 13:26 POC ABG O2 Sat 99 07/31/17 13:26 POC ABG Base Excess 2 07/31/17 13:26 FiO2 28 % 07/31/17 13:26 Sodium 145 mmol/L (137-145) 08/03/17 05:30 Potassium 3.8 mmol/L (3.6-5.0) 08/03/17 05:30 Chloride 107.4 mmol/L (98-107) H 08/03/17 05:30 Carbon Dioxide 26 mmol/L (22-30) 08/03/17 05:30 Anion Gap 15 mmol/L 08/03/17 05:30 BUN 11 mg/dL (7-17) 08/03/17 05:30 Creatinine 0.7 mg/dL (0.7-1.2) 08/03/17 05:30 Estimated GFR > 60 ml/min 08/03/17 05:30 BUN/Creatinine Ratio 16 % 08/03/17 05:30 Glucose 97 mg/dL (65-100) 08/03/17 05:30 POC Glucose 175 (70-105) H 08/03/17 11:46 Lactic Acid 1.50 mmol/L (0.7-2.0) 08/01/17 04:00 Calcium 7.9 mg/dL (8.4-10.2) L 08/03/17 05:30 Phosphorus 2.20 mg/dL (2.5-4.5) L 08/03/17 05:30 Magnesium 1.80 mg/dL (1.7-2.3) 08/03/17 05:30 Total Bilirubin 0.30 mg/dL (0.1-1.2) 08/03/17 05:30 Direct Bilirubin < 0.2 mg/dL (0-0.2) 08/03/17 05:30 Indirect Bilirubin 0.1 mg/dL 08/03/17 05:30 AST 25 units/L (5-40) 08/03/17 05:30 ALT 38 units/L (7-56) 08/03/17 05:30 Alkaline Phosphatase 55 units/L (35-129) 08/03/17 05:30 C-Reactive Protein 3.80 mg/dL (0.00-1.30) H 07/30/17 16:53 Total Protein 4.8 g/dL (6.3-8.2) L D 08/03/17 05:30 Albumin 2.3 g/dL (3.9-5) L 08/03/17 05:30 Albumin/Globulin Ratio 0.9 % 08/03/17 05:30 Urine Color Yellow (Yellow) 07/31/17 15:18 Urine Turbidity Clear (Clear) 07/31/17 15:18 Urine pH 5.0 (5.0-7.0) 07/31/17 15:18 Ur Specific [place] 1.018 (1.003-1.030) 07/31/17 15:18 Urine Protein <15 mg/dl mg/dL (Negative) 07/31/17 15:18 Urine Glucose (UA) 50 mg/dL (Negative) 07/31/17 15:18 Urine Ketones Neg mg/dL (Negative) 07/31/17 15:18 Urine Blood Lg (Negative) 07/31/17 15:18 Urine Nitrite Neg (Negative) 07/31/17 15:18 Urine Bilirubin Neg (Negative) 07/31/17 15:18 Urine Urobilinogen < 2.0 mg/dL (<2.0) 07/31/17 15:18 Ur Leukocyte Esterase Sm (Negative) 07/31/17 15:18 Urine WBC (Auto) 21.0 /HPF (0.0-6.0) H 07/31/17 15:18 Urine RBC (Auto) 17.0 /HPF (0.0-6.0) 07/31/17 15:18 Urine Bacteria (Auto) 2+ /HPF (Negative) 07/31/17 15:18 Amorphous Crystals Few 07/31/17 15:18 Urine Mucus Few /HPF 07/31/17 15:18 Urine Creatinine 99.8 mg/dL (0.1-20.0) H 07/31/17 15:18 Urine Sodium 76 mmol/L 07/31/17 15:18 Miscellaneous Test Flexitest 1 H 08/01/17 07:03
--- NOTE | 2017-08-03 13:25 | Progress Note ---
Assessment and Plan Acute Hypoxemic Respiratory Failure on MVS Severe Sepsis Syndrome SBO with Ischemic Bowel s/p Ex-lap and bowel resection CINTIA Obesity BARAK Hypophosphatemia Hypomagnesemia Hypothermia Lactic acidosis /metabolic acidosis History of ileostomy/ostomy care Type 2 diabetes mellitus full CODE STATUS - continue qhs BIPAP use especially with her history of untreated BARAK - continue aspiration precautions - continue bronchodilators and pulmonary toilet in short term - continue volume resuscitation - azotemia per nephrology (Improved) - anemia noted; likely significant hemodilutional element; but also CINTIA related (normocytic) - received procrit (she is bloodless medicine patient) - received iron I.V. (she is bloodless medicine patient) - continue and complete AB's per ID recs - continue glycemic control with SSI (target BG <180 mg/dl) - continue to wean oxygen for sats >/= 94% - continue incentive spirometry - other post-op management per surgery - continue GI & VTE prophylaxis ....care plan discussed with patient and family at length .....OK to transfer to telemetry ....36' Subjective Date of service: 08/03/17 Principal diagnosis: Severe Sepsis; Ischemic Bowel; Acute Resp Failure on MVS Interval history: Patient is seen today for: Severe Sepsis; Ischemic Bowel; Acute Resp Failure on MVS Seen and examined at bedside; 24hour events reviewed; nursing and respiratory care staff consulted; no adverse overnight events reported to me; better compliance with BIPAP overnight; no emesis or overt aspiration; still with abdominal pain Objective Vital Signs - 12hr 08/03/17 08/03/17 08/03/17 01:54 01:55 02:00 Temperature Pulse Rate 104 H 105 H Pulse Rate [ From Monitor] Pulse Rate [ 104 H Posterior Bilateral Throughout] Respiratory 22 23 Rate Respiratory 22 Rate [Posterior Bilateral Throughout] Blood Pressure 124/73 138/90 O2 Sat by Pulse 100 100 Oximetry 08/03/17 08/03/17 08/03/17 02:15 03:00 04:00 Temperature 99.3 F Pulse Rate 109 H 109 H Pulse Rate [ From Monitor] Pulse Rate [ 105 H Posterior Bilateral Throughout] Respiratory 23 21 Rate Respiratory 22 Rate [Posterior Bilateral Throughout] Blood Pressure 148/88 145/91 O2 Sat by Pulse 98 Oximetry 08/03/17 08/03/17 08/03/17 05:00 06:00 07:00 Temperature Pulse Rate 109 H 109 H 107 H Pulse Rate [ From Monitor] Pulse Rate [ Posterior Bilateral Throughout] Respiratory 23 24 25 H Rate Respiratory Rate [Posterior Bilateral Throughout] Blood Pressure 141/84 146/88 153/94 O2 Sat by Pulse 100 Oximetry 08/03/17 08/03/17 08/03/17 08:00 08:03 08:20 Temperature 98.6 F Pulse Rate 108 H Pulse Rate [ 109 H From Monitor] Pulse Rate [ Posterior Bilateral Throughout] Respiratory 26 H 18 Rate Respiratory Rate [Posterior Bilateral Throughout] Blood Pressure 153/94 O2 Sat by Pulse 100 99 Oximetry 08/03/17 08/03/17 08/03/17 09:00 10:00 10:33 Temperature Pulse Rate 107 H 112 H 99 H Pulse Rate [ From Monitor] Pulse Rate [ Posterior Bilateral Throughout] Respiratory 21 18 Rate Respiratory Rate [Posterior Bilateral Throughout] Blood Pressure 137/85 126/100 O2 Sat by Pulse 98 100 Oximetry 08/03/17 08/03/17 08/03/17 11:00 12:00 12:20 Temperature 98.4 F Pulse Rate 101 H 100 H Pulse Rate [ 103 H From Monitor] Pulse Rate [ Posterior Bilateral Throughout] Respiratory 26 H 19 20 Rate Respiratory Rate [Posterior Bilateral Throughout] Blood Pressure 126/100 134/83 O2 Sat by Pulse 100 99 99 Oximetry Constitutional: appears uncomfortable, other (somnolent) Eyes: non-icteric ENT: oropharynx moist, other (mallampatti 3) Neck: supple, no lymphadenopathy, no JVD, other (No Thyromegaly; Right IJ line) Effort: mildly labored Ascultation: Bilateral: diminished breath sounds (bases), rhonchi Percussion: Bilateral: not dull Cardiovascular: regular rate and rhythm, other (no rubs/murmurs) Gastrointestinal: hypoactive bowel sounds, soft, tender (mild), other (distended ; no palpable HSM) Integumentary: normal Extremities: no cyanosis, no edema, pulses normal, no ischemia or petechiae Neurologic: normal mental status, non-focal exam, pupils equal and round, motor strength normal and Psychiatric: mood appropriate, affect normal CBC and BMP: 08/04/17 05:00 08/04/17 05:00 ABG, PT/INR, D-dimer: ABG POC ABG pH 7.506 (7.35-7.45) H 07/31/17 13:26 POC ABG pCO2 31.6 (35-45) L 07/31/17 13:26 POC ABG pO2 115 (80-105) H 07/31/17 13:26 POC ABG HCO3 24.9 07/31/17 13:26 POC ABG Total CO2 26 07/31/17 13:26 POC ABG O2 Sat 99 07/31/17 13:26 PT/INR, D-dimer PT 17.5 Sec. (12.2-14.9) H 08/03/17 05:30 INR 1.36 (0.87-1.13) H 08/03/17 05:30 Abnormal lab findings: Abnormal Labs 07/30/17 07/30/17 07/30/17 01:25 01:25 10:06 WBC 11.9 H RBC Hgb Hct RDW 17.8 H Plt Count Lymph % (Auto) 7.1 L [place] % (Auto) Lymph # 0.8 L Seg Neutrophils % 87.5 H Seg Neutrophils # 10.4 H PT INR APTT POC ABG pH POC ABG pCO2 POC ABG pO2 Sodium 136 L Potassium 3.4 L Chloride 95.2 L Carbon Dioxide 19 L BUN Creatinine Glucose 262 H POC Glucose Lactic Acid 5.40 H* Calcium Phosphorus Magnesium C-Reactive Protein Total Protein Albumin Urine WBC (Auto) Urine Creatinine Miscellaneous Test 07/30/17 07/30/17 07/30/17 12:49 16:22 16:53 WBC RBC Hgb Hct RDW Plt Count Lymph % (Auto) [place] % (Auto) Lymph # Seg Neutrophils % Seg Neutrophils # PT INR APTT POC ABG pH POC ABG pCO2 POC ABG pO2 Sodium Potassium Chloride Carbon Dioxide BUN Creatinine Glucose POC Glucose 253 H 195 H Lactic Acid 8.00 H* Calcium Phosphorus Magnesium C-Reactive Protein Total Protein Albumin Urine WBC (Auto) Urine Creatinine Miscellaneous Test 07/30/17 07/30/17 07/30/17 16:53 16:53 16:53 WBC 11.3 H RBC 5.92 H Hgb 16.6 H D Hct 52.5 H D RDW 18.2 H Plt Count Lymph % (Auto) [place] % (Auto) Lymph # Seg Neutrophils % Seg Neutrophils # PT INR APTT POC ABG pH POC ABG pCO2 POC ABG pO2 Sodium Potassium Chloride 96.5 L Carbon Dioxide 20 L BUN 19 H Creatinine 2.3 H D Glucose 215 H POC Glucose Lactic Acid Calcium Phosphorus Magnesium C-Reactive Protein 3.80 H Total Protein Albumin Urine WBC (Auto) Urine Creatinine Miscellaneous Test 07/30/17 07/30/17 07/31/17 18:37 23:08 05:19 WBC RBC Hgb Hct RDW Plt Count Lymph % (Auto) [place] % (Auto) Lymph # Seg Neutrophils % Seg Neutrophils # PT 17.5 H INR 1.36 H APTT POC ABG pH 7.210 L POC ABG pCO2 47.0 H POC ABG pO2 197 H Sodium Potassium Chloride Carbon Dioxide BUN Creatinine Glucose POC Glucose 156 H Lactic Acid Calcium Phosphorus Magnesium C-Reactive Protein Total Protein Albumin Urine WBC (Auto) Urine Creatinine Miscellaneous Test 07/31/17 07/31/17 07/31/17 05:21 06:00 06:00 WBC 4.3 L RBC Hgb Hct RDW 17.6 H Plt Count 95 L Lymph % (Auto) [place] % (Auto) 9.0 H Lymph # 1.1 L Seg Neutrophils % Seg Neutrophils # PT INR APTT POC ABG pH 7.514 H POC ABG pCO2 22.5 L POC ABG pO2 115 H Sodium Potassium Chloride Carbon Dioxide BUN 25 H Creatinine 2.5 H Glucose 153 H POC Glucose Lactic Acid Calcium 7.3 L D Phosphorus 1.40 L Magnesium 1.20 L C-Reactive Protein Total Protein Albumin Urine WBC (Auto) Urine Creatinine Miscellaneous Test 07/31/17 07/31/17 07/31/17 06:00 12:22 13:26 WBC RBC Hgb Hct RDW Plt Count Lymph % (Auto) [place] % (Auto) Lymph # Seg Neutrophils % Seg Neutrophils # PT INR APTT POC ABG pH 7.506 H POC ABG pCO2 31.6 L POC ABG pO2 115 H Sodium Potassium Chloride Carbon Dioxide BUN Creatinine Glucose POC Glucose 153 H Lactic Acid 4.50 H* Calcium Phosphorus Magnesium C-Reactive Protein Total Protein Albumin Urine WBC (Auto) Urine Creatinine Miscellaneous Test 07/31/17 07/31/17 07/31/17 15:18 15:18 17:21 WBC RBC Hgb Hct RDW Plt Count Lymph % (Auto) [place] % (Auto) Lymph # Seg Neutrophils % Seg Neutrophils # PT INR APTT POC ABG pH POC ABG pCO2 POC ABG pO2 Sodium Potassium Chloride Carbon Dioxide BUN Creatinine Glucose POC Glucose 121 H Lactic Acid Calcium Phosphorus Magnesium C-Reactive Protein Total Protein Albumin Urine WBC (Auto) 21.0 H Urine Creatinine 99.8 H Miscellaneous Test 08/01/17 08/01/17 08/01/17 00:16 04:25 07:03 WBC RBC Hgb Hct RDW Plt Count Lymph % (Auto) [place] % (Auto) Lymph # Seg Neutrophils % Seg Neutrophils # PT INR APTT POC ABG pH POC ABG pCO2 POC ABG pO2 Sodium Potassium Chloride Carbon Dioxide BUN 21 H Creatinine 1.7 H Glucose 110 H POC Glucose 118 H Lactic Acid Calcium 7.6 L Phosphorus 4.80 H D Magnesium C-Reactive Protein Total Protein Albumin Urine WBC (Auto) Urine Creatinine Miscellaneous Test Flexitest 1 H 08/01/17 08/01/17 08/02/17 12:02 13:54 04:40 WBC RBC 3.40 L 2.83 L Hgb 9.5 L 7.9 L Hct 29.4 L D 24.6 L RDW 18.4 H 18.1 H Plt Count 86 L 91 L Lymph % (Auto) [place] % (Auto) Lymph # Seg Neutrophils % Seg Neutrophils # PT INR APTT POC ABG pH POC ABG pCO2 POC ABG pO2 Sodium Potassium Chloride Carbon Dioxide BUN Creatinine Glucose POC Glucose 124 H Lactic Acid Calcium Phosphorus Magnesium C-Reactive Protein Total Protein Albumin Urine WBC (Auto) Urine Creatinine Miscellaneous Test 08/02/17 08/02/17 08/02/17 04:40 18:22 23:23 WBC RBC Hgb Hct RDW Plt Count Lymph % (Auto) [place] % (Auto) Lymph # Seg Neutrophils % Seg Neutrophils # PT INR APTT POC ABG pH POC ABG pCO2 POC ABG pO2 Sodium Potassium Chloride 107.8 H Carbon Dioxide BUN Creatinine Glucose POC Glucose 108 H 136 H Lactic Acid Calcium 8.1 L Phosphorus 2.30 L D Magnesium C-Reactive Protein Total Protein Albumin Urine WBC (Auto) Urine Creatinine Miscellaneous Test 08/03/17 08/03/17 08/03/17 05:30 05:30 05:30 WBC RBC 2.75 L Hgb 7.6 L Hct 23.8 L RDW 18.2 H Plt Count 102 L Lymph % (Auto) 10.4 L [place] % (Auto) Lymph # 1.1 L Seg Neutrophils % 81.9 H Seg Neutrophils # 8.6 H PT 17.5 H INR 1.36 H APTT 36.7 H POC ABG pH POC ABG pCO2 POC ABG pO2 Sodium Potassium Chloride Carbon Dioxide BUN Creatinine Glucose POC Glucose Lactic Acid Calcium Phosphorus Magnesium C-Reactive Protein Total Protein 4.8 L D Albumin 2.3 L Urine WBC (Auto) Urine Creatinine Miscellaneous Test 08/03/17 08/03/17 08/03/17 05:30 05:34 11:46 WBC RBC Hgb Hct RDW Plt Count Lymph % (Auto) [place] % (Auto) Lymph # Seg Neutrophils % Seg Neutrophils # PT INR APTT POC ABG pH POC ABG pCO2 POC ABG pO2 Sodium Potassium Chloride 107.4 H Carbon Dioxide BUN Creatinine Glucose POC Glucose 116 H 175 H Lactic Acid Calcium 7.9 L Phosphorus 2.20 L Magnesium C-Reactive Protein Total Protein Albumin Urine WBC (Auto) Urine Creatinine Miscellaneous Test Chest x-ray: pending Allied health notes reviewed: RT
[2017-08-03] MEDS ORDERED: DILAUDID ONE (17:04)
[2017-08-03] MEDS: PEPCID IV SCH ×2 (21:25→22:28)
[2017-08-04] MEDS: NOVOLOG SUB-Q SCH ×4 (00:44→22:24)
[2017-08-04] MEDS: DUONEB *Not for PRN Use IH SCH ×4 (02:28→21:10)
[2017-08-04] MEDS: DILAUDID IV PRN ×5 (02:38→20:24)
[2017-08-04] MEDS: NACL 0.45% 1000 ML 1,000 ML IV SCH (02:38)
[2017-08-04] MEDS: ZOSYN/NS 4.5GM/100ML 4.5 GM/100 ML VIAL IV SCH ×3 (05:44→22:25)
[2017-08-04 06:02] LABS: Basophils % (Auto) 0.3 % (0.0-1.8); Eosinophils % (Auto) 2.6 % (0.0-4.3); Hematocrit 23.4 % (30.3-42.9); Hemoglobin 7.7 gm/dl (10.1-14.3); Mean Corpuscular HGB Conc 33 % (30-34); Mean Corpuscular Hemoglobin 28 pg (28-32); Mean Corpuscular Volume 84 fl (79-97); Platelet Count 109 K/mm3 (140-440); Red Blood Count 2.77 M/mm3 (3.65-5.03); White Blood Count 6.6 K/mm3 (4.5-11.0)
[2017-08-04 06:14] LABS: Anion Gap 12 mmol/L; BUN/Creatinine Ratio 10; Blood Urea Nitrogen 7 mg/dL (7-17); Calcium 7.8 mg/dL (8.4-10.2); Carbon Dioxide 30 mmol/L (22-30); Chloride 102.1 mmol/L (98-107); Glucose 118 mg/dL (65-100); Potassium 3.3 mmol/L (3.6-5.0); Sodium 141 mmol/L (137-145)
--- NOTE | 2017-08-04 08:41 | Progress Note ---
Assessment and Plan Patient continues to de well. Encouraged ambulation and out of bed. She is tolerating clears well. ostomy output is around 800 mL's for the last day. Continue to monitor. Will consider adding immodium pending what happens over the next 2 days or so. Will require ostomy teaching and ostomy nurse consult while inpatient. Subjective Date of service: 08/04/17 Patient Reports: Positive: no new complaints Objective Vital Signs - 12hr 08/03/17 08/03/17 08/03/17 20:40 20:49 23:58 Temperature Pulse Rate 105 H Pulse Rate [ 107 H Anterior Bilateral Throughout] Respiratory 22 Rate Respiratory 20 Rate [Anterior Bilateral Throughout] Blood Pressure O2 Sat by Pulse 94 95 Oximetry 08/04/17 08/04/17 08/04/17 00:30 05:20 08:15 Temperature 97.8 F 98.6 F Pulse Rate 106 H 103 H Pulse Rate [ Anterior Bilateral Throughout] Respiratory 22 19 20 Rate Respiratory Rate [Anterior Bilateral Throughout] Blood Pressure 148/86 137/76 O2 Sat by Pulse 100 97 Oximetry - General physical appearance well developed, well nourished, moderate distress, moderate pain, obese - Eyes PERRL, normal occular movement - Respiratory normal expansion, normal respiratory effort - Abdomen soft, not tender, not distended, not rebound, not guarding, not rigid, wound ( Midline wound healing as expected) - Labs 08/04/17 05:00 08/04/17 05:00 Diabetes panel 08/04/17 Range/Units 05:00 Sodium 141 (137-145) mmol/L Potassium 3.3 L (3.6-5.0) mmol/L Chloride 102.1 (98-107) mmol/L Carbon Dioxide 30 (22-30) mmol/L BUN 7 (7-17) mg/dL Creatinine 0.7 (0.7-1.2) mg/dL Glucose 118 H (65-100) mg/dL Calcium 7.8 L (8.4-10.2) mg/dL Calcium panel 08/04/17 Range/Units 05:00 Calcium 7.8 L (8.4-10.2) mg/dL Pituitary panel 08/04/17 Range/Units 05:00 Sodium 141 (137-145) mmol/L Potassium 3.3 L (3.6-5.0) mmol/L Chloride 102.1 (98-107) mmol/L Carbon Dioxide 30 (22-30) mmol/L BUN 7 (7-17) mg/dL Creatinine 0.7 (0.7-1.2) mg/dL Glucose 118 H (65-100) mg/dL Calcium 7.8 L (8.4-10.2) mg/dL Adrenal panel 08/04/17 Range/Units 05:00 Sodium 141 (137-145) mmol/L Potassium 3.3 L (3.6-5.0) mmol/L Chloride 102.1 (98-107) mmol/L Carbon Dioxide 30 (22-30) mmol/L BUN 7 (7-17) mg/dL Creatinine 0.7 (0.7-1.2) mg/dL Glucose 118 H (65-100) mg/dL Calcium 7.8 L (8.4-10.2) mg/dL
--- NOTE | 2017-08-04 09:58 | XRay Report ---
Portable chest: Respiratory distress. Comparison is made to recent prior examinations the latest being August 02. A minimal area of focal atelectasis is noted at the left lung base. Mild patchy changes consistent with atelectasis are noted at the right lung base. Right lung base findings appear slightly improved compared to prior study with significant improvement in the left pulmonary infiltrate. There has been interval removal of the nasogastric tube with no change in the right jugular central venous line. Impression: Improved bilateral infiltrates as described.
[2017-08-04] MEDS: DIFLUCAN 200 MG/100 ML BAG IV SCH (10:06)
[2017-08-04] MEDS: K-PHOS NEUTRAL PO SCH ×4 (10:07→22:25)
[2017-08-04] MEDS: PEPCID IV SCH ×2 (10:13→22:14)
--- NOTE | 2017-08-04 11:04 | Progress Note ---
Assessment and Plan CINTIA - Resolved with stable BUN/cr Lytes - Replenish K Vitals - Stable on meds Will sign off, thanks Subjective Date of service: 08/04/17 Principal diagnosis: Severe Sepsis; Ischemic Bowel; Acute Resp Failure on MVS Objective - Vital Signs Vital signs: Vital Signs - 12hr 08/03/17 08/04/17 08/04/17 23:58 00:30 05:20 Temperature 97.8 F 98.6 F Pulse Rate 105 H 106 H 103 H Respiratory 22 22 19 Rate Blood Pressure 148/86 137/76 O2 Sat by Pulse 95 100 97 Oximetry 08/04/17 08:15 Temperature Pulse Rate Respiratory 20 Rate Blood Pressure O2 Sat by Pulse Oximetry - General Appearance General appearance: other (Awake & alert) Neck: no JVD - Lab 08/04/17 05:00 08/04/17 05:00 Most recent lab results Calcium 7.8 mg/dL (8.4-10.2) L 08/04/17 05:00 Phosphorus 2.20 mg/dL (2.5-4.5) L 08/03/17 05:30 Magnesium 1.80 mg/dL (1.7-2.3) 08/03/17 05:30 Urine Creatinine 99.8 mg/dL (0.1-20.0) H 07/31/17 15:18 Urine Sodium 76 mmol/L 07/31/17 15:18
[2017-08-04] MEDS ORDERED: K-DUR PO ONE (13:00)
--- NOTE | 2017-08-04 13:35 | Progress Note ---
Assessment and Plan Assessment and plan: --Small bowel ischemia and perforation/s/p exploratory laparotomy and small bowel resection postop care, full liquid diet advance as tolerated, surgery following --Acute blood loss anemia: The patient is receiving Procrit , hematology following Jehovah witness, no blood/blood products --Thrombocytopenia : hemat consulted. --Severe protein calorie malnutrition; secondary to underlying disease process Supportive care, nutrition supplements when patient is able to tolerate --Hypokalemia; replace per protocol and monitor levels --Acute respiratory failure, s/p extubation, stable on nasal cannula oxygen --Acute renal failure; resolved -- Septic Shock: Resolved, --Hypothermia; secondary to sepsis, resolved --Lactic acidosis /metabolic acidosis improved --Ostomy care; stable --Type 2 diabetes mellitus; well controlled, Accu-Chek sliding scale coverage , low-dose 70/30 insulin as needed Check hemoglobin A1c. 12.9 --DVT prophylaxis; no pharmacologic anticoagulation in view of recent surgery, thrombocytopenia, anemia, use SCDs --full CODE STATUS --Physical therapy as tolerated --Incentive spirometry --Discharge planning per case management Possible home with home health when medically and surgically stable When all the consultants clear the patient for discharge Plan of care discussed with the patient, her and other family members Answered all their questions. History Interval history: Patient seen and examined, Medical records reviewed Patient's family members at the bedside including her tolerating full liquid diet, Does not like tomato soup, feels tired after mild physical therapy Vital signs reviewed Hospitalist Physical - Constitutional Vitals: Temp Pulse Resp BP Pulse Ox 98.6 F 102 H 18 137/76 97 08/04/17 05:20 08/04/17 11:29 08/04/17 11:48 08/04/17 05:20 08/04/17 05:20 General appearance: Present: no acute distress, well-nourished - EENT Eyes: Present: PERRL, EOM intact - Neck Neck: Present: supple, normal ROM - Respiratory Respiratory effort: normal Respiratory: bilateral: diminished, rhonchi, negative: rales, wheezing - Cardiovascular Rhythm: regular Heart Sounds: Present: S1 & S2 - Extremities Extremities: no ischemia, No edema - Abdominal General gastrointestinal: soft, tender (on palpation, no guarding no rigidity), normal bowel sounds, other (surgical dressing in place/ostomy functional, bile noted) - Integumentary Integumentary: Present: clear, warm - Psychiatric Psychiatric: appropriate mood/affect, cooperative - Neurologic Neurologic: CNII-XII intact, moves all extremities Results - Labs CBC & Chem 7: 08/04/17 05:00 08/04/17 05:00 Labs: Laboratory Last Values WBC 6.6 K/mm3 (4.5-11.0) 08/04/17 05:00 RBC 2.77 M/mm3 (3.65-5.03) L 08/04/17 05:00 Hgb 7.7 gm/dl (10.1-14.3) L 08/04/17 05:00 Hct 23.4 % (30.3-42.9) L 08/04/17 05:00 MCV 84 fl (79-97) 08/04/17 05:00 MCH 28 pg (28-32) 08/04/17 05:00 MCHC 33 % (30-34) 08/04/17 05:00 RDW 18.0 % (13.2-15.2) H 08/04/17 05:00 Plt Count 109 K/mm3 (140-440) L 08/04/17 05:00 Lymph % (Auto) 18.3 % (13.4-35.0) 08/04/17 05:00 [place] % (Auto) 11.9 % (0.0-7.3) H 08/04/17 05:00 Eos % (Auto) 2.6 % (0.0-4.3) 08/04/17 05:00 Baso % (Auto) 0.3 % (0.0-1.8) 08/04/17 05:00 Lymph # 1.2 K/mm3 (1.2-5.4) 08/04/17 05:00 [place] # 0.8 K/mm3 (0.0-0.8) 08/04/17 05:00 Eos # 0.2 K/mm3 (0.0-0.4) 08/04/17 05:00 Baso # 0.0 K/mm3 (0.0-0.1) 08/04/17 05:00 Seg Neutrophils % 66.9 % (40.0-70.0) 08/04/17 05:00 Seg Neutrophils # 4.4 K/mm3 (1.8-7.7) 08/04/17 05:00 Percent Retic 1.33 % (0.78-2.58) 08/03/17 05:30 PT 17.5 Sec. (12.2-14.9) H 08/03/17 05:30 INR 1.36 (0.87-1.13) H 08/03/17 05:30 APTT 36.7 Sec. (24.2-36.6) H 08/03/17 05:30 POC ABG pH 7.506 (7.35-7.45) H 07/31/17 13:26 POC ABG pCO2 31.6 (35-45) L 07/31/17 13:26 POC ABG pO2 115 (80-105) H 07/31/17 13:26 POC ABG HCO3 24.9 07/31/17 13:26 POC ABG Total CO2 26 07/31/17 13:26 POC ABG O2 Sat 99 07/31/17 13:26 POC ABG Base Excess 2 07/31/17 13:26 FiO2 28 % 07/31/17 13:26 Sodium 141 mmol/L (137-145) 08/04/17 05:00 Potassium 3.3 mmol/L (3.6-5.0) L 08/04/17 05:00 Chloride 102.1 mmol/L (98-107) 08/04/17 05:00 Carbon Dioxide 30 mmol/L (22-30) 08/04/17 05:00 Anion Gap 12 mmol/L 08/04/17 05:00 BUN 7 mg/dL (7-17) 08/04/17 05:00 Creatinine 0.7 mg/dL (0.7-1.2) 08/04/17 05:00 Estimated GFR > 60 ml/min 08/04/17 05:00 BUN/Creatinine Ratio 10 % 08/04/17 05:00 Glucose 118 mg/dL (65-100) H 08/04/17 05:00 POC Glucose 110 (70-105) H 08/04/17 08:53 Lactic Acid 1.50 mmol/L (0.7-2.0) 08/01/17 04:00 Calcium 7.8 mg/dL (8.4-10.2) L 08/04/17 05:00 Phosphorus 2.20 mg/dL (2.5-4.5) L 08/03/17 05:30 Magnesium 1.80 mg/dL (1.7-2.3) 08/03/17 05:30 Total Bilirubin 0.30 mg/dL (0.1-1.2) 08/03/17 05:30 Direct Bilirubin < 0.2 mg/dL (0-0.2) 08/03/17 05:30 Indirect Bilirubin 0.1 mg/dL 08/03/17 05:30 AST 25 units/L (5-40) 08/03/17 05:30 ALT 38 units/L (7-56) 08/03/17 05:30 Alkaline Phosphatase 55 units/L (35-129) 08/03/17 05:30 C-Reactive Protein 3.80 mg/dL (0.00-1.30) H 07/30/17 16:53 Total Protein 4.8 g/dL (6.3-8.2) L D 08/03/17 05:30 Albumin 2.3 g/dL (3.9-5) L 08/03/17 05:30 Albumin/Globulin Ratio 0.9 % 08/03/17 05:30 Urine Color Yellow (Yellow) 07/31/17 15:18 Urine Turbidity Clear (Clear) 07/31/17 15:18 Urine pH 5.0 (5.0-7.0) 07/31/17 15:18 Ur Specific [place] 1.018 (1.003-1.030) 07/31/17 15:18 Urine Protein <15 mg/dl mg/dL (Negative) 07/31/17 15:18 Urine Glucose (UA) 50 mg/dL (Negative) 07/31/17 15:18 Urine Ketones Neg mg/dL (Negative) 07/31/17 15:18 Urine Blood Lg (Negative) 07/31/17 15:18 Urine Nitrite Neg (Negative) 07/31/17 15:18 Urine Bilirubin Neg (Negative) 07/31/17 15:18 Urine Urobilinogen < 2.0 mg/dL (<2.0) 07/31/17 15:18 Ur Leukocyte Esterase Sm (Negative) 07/31/17 15:18 Urine WBC (Auto) 21.0 /HPF (0.0-6.0) H 07/31/17 15:18 Urine RBC (Auto) 17.0 /HPF (0.0-6.0) 07/31/17 15:18 Urine Bacteria (Auto) 2+ /HPF (Negative) 07/31/17 15:18 Amorphous Crystals Few 07/31/17 15:18 Urine Mucus Few /HPF 07/31/17 15:18 Urine Creatinine 99.8 mg/dL (0.1-20.0) H 07/31/17 15:18 Urine Sodium 76 mmol/L 07/31/17 15:18 Miscellaneous Test Flexitest 1 H 08/01/17 07:03
[2017-08-04] MEDS ORDERED: KCL 20MEQ/100ML 20 MEQ/100 ML BAG IV SCH (15:00)
--- NOTE | 2017-08-04 15:05 | Progress Note ---
Assessment and Plan Acute Hypoxemic Respiratory Failure on MVS Severe Sepsis Syndrome SBO with Ischemic Bowel s/p Ex-lap and bowel resection CINTIA Obesity BARAK Hypophosphatemia Hypomagnesemia Hypothermia Lactic acidosis /metabolic acidosis History of ileostomy/ostomy care Type 2 diabetes mellitus full CODE STATUS - continue qhs BIPAP use especially with her history of untreated BARAK - continue aspiration precautions - continue bronchodilators and pulmonary toilet in short term - continue volume resuscitation - azotemia per nephrology (Improved) - anemia noted; likely significant hemodilutional element; but also CINTIA related (normocytic) - received procrit (she is bloodless medicine patient) - received iron I.V. (she is bloodless medicine patient) - continue and complete AB's per ID recs - continue glycemic control with SSI (target BG <180 mg/dl) - continue to wean oxygen for sats >/= 94% - continue incentive spirometry - other post-op management per surgery - continue GI & VTE prophylaxis ....continue other care per attending / other consultants Subjective Date of service: 08/04/17 Principal diagnosis: Severe Sepsis; Ischemic Bowel; Acute Resp Failure on MVS Interval history: Patient is seen today for: Severe Sepsis; Ischemic Bowel; Acute Resp Failure on MVS Seen and examined at bedside; 24hour events reviewed; nursing and respiratory care staff consulted; no adverse overnight events reported to me; doing much better; denies acute chest pains or increased SOB; No N/V/F/C; no gross bleeding Objective Vital Signs - 12hr 08/04/17 08/04/17 08/04/17 05:20 08:15 10:00 Temperature 98.6 F Pulse Rate 103 H Pulse Rate [ 102 H From Monitor] Respiratory 19 20 18 Rate Respiratory 18 Rate [Abdomen] Blood Pressure 137/76 O2 Sat by Pulse 97 Oximetry 08/04/17 08/04/17 11:29 11:48 Temperature Pulse Rate 102 H Pulse Rate [ From Monitor] Respiratory 18 Rate Respiratory Rate [Abdomen] Blood Pressure O2 Sat by Pulse Oximetry Constitutional: appears uncomfortable, other (somnolent) Eyes: non-icteric ENT: oropharynx moist, other (mallampatti 3) Neck: supple, no lymphadenopathy, no JVD, other (No Thyromegaly; Right IJ line) Effort: mildly labored Ascultation: Bilateral: clear, diminished breath sounds (bases), rhonchi Percussion: Bilateral: not dull Cardiovascular: regular rate and rhythm, other (no rubs/murmurs) Gastrointestinal: hypoactive bowel sounds, soft, tender (mild), other (distended ; no palpable HSM) Integumentary: normal Extremities: no cyanosis, no edema, pulses normal, no ischemia or petechiae Neurologic: normal mental status, non-focal exam, pupils equal and round, motor strength normal and Psychiatric: mood appropriate, affect normal CBC and BMP: 08/09/17 06:42 08/08/17 06:37 ABG, PT/INR, D-dimer: ABG POC ABG pH 7.506 (7.35-7.45) H 07/31/17 13:26 POC ABG pCO2 31.6 (35-45) L 07/31/17 13:26 POC ABG pO2 115 (80-105) H 07/31/17 13:26 POC ABG HCO3 24.9 07/31/17 13:26 POC ABG Total CO2 26 07/31/17 13:26 POC ABG O2 Sat 99 07/31/17 13:26 PT/INR, D-dimer PT 17.5 Sec. (12.2-14.9) H 08/03/17 05:30 INR 1.36 (0.87-1.13) H 08/03/17 05:30 Abnormal lab findings: Abnormal Labs 07/30/17 07/30/17 07/30/17 01:25 01:25 10:06 WBC 11.9 H RBC Hgb Hct RDW 17.8 H Plt Count Lymph % (Auto) 7.1 L [place] % (Auto) Lymph # 0.8 L Seg Neutrophils % 87.5 H Seg Neutrophils # 10.4 H PT INR APTT POC ABG pH POC ABG pCO2 POC ABG pO2 Sodium 136 L Potassium 3.4 L Chloride 95.2 L Carbon Dioxide 19 L BUN Creatinine Glucose 262 H POC Glucose Lactic Acid 5.40 H* Calcium Phosphorus Magnesium C-Reactive Protein Total Protein Albumin Urine WBC (Auto) Urine Creatinine Miscellaneous Test 07/30/17 07/30/17 07/30/17 12:49 16:22 16:53 WBC RBC Hgb Hct RDW Plt Count Lymph % (Auto) [place] % (Auto) Lymph # Seg Neutrophils % Seg Neutrophils # PT INR APTT POC ABG pH POC ABG pCO2 POC ABG pO2 Sodium Potassium Chloride Carbon Dioxide BUN Creatinine Glucose POC Glucose 253 H 195 H Lactic Acid 8.00 H* Calcium Phosphorus Magnesium C-Reactive Protein Total Protein Albumin Urine WBC (Auto) Urine Creatinine Miscellaneous Test 07/30/17 07/30/17 07/30/17 16:53 16:53 16:53 WBC 11.3 H RBC 5.92 H Hgb 16.6 H D Hct 52.5 H D RDW 18.2 H Plt Count Lymph % (Auto) [place] % (Auto) Lymph # Seg Neutrophils % Seg Neutrophils # PT INR APTT POC ABG pH POC ABG pCO2 POC ABG pO2 Sodium Potassium Chloride 96.5 L Carbon Dioxide 20 L BUN 19 H Creatinine 2.3 H D Glucose 215 H POC Glucose Lactic Acid Calcium Phosphorus Magnesium C-Reactive Protein 3.80 H Total Protein Albumin Urine WBC (Auto) Urine Creatinine Miscellaneous Test 07/30/17 07/30/17 07/31/17 18:37 23:08 05:19 WBC RBC Hgb Hct RDW Plt Count Lymph % (Auto) [place] % (Auto) Lymph # Seg Neutrophils % Seg Neutrophils # PT 17.5 H INR 1.36 H APTT POC ABG pH 7.210 L POC ABG pCO2 47.0 H POC ABG pO2 197 H Sodium Potassium Chloride Carbon Dioxide BUN Creatinine Glucose POC Glucose 156 H Lactic Acid Calcium Phosphorus Magnesium C-Reactive Protein Total Protein Albumin Urine WBC (Auto) Urine Creatinine Miscellaneous Test 07/31/17 07/31/17 07/31/17 05:21 06:00 06:00 WBC 4.3 L RBC Hgb Hct RDW 17.6 H Plt Count 95 L Lymph % (Auto) [place] % (Auto) 9.0 H Lymph # 1.1 L Seg Neutrophils % Seg Neutrophils # PT INR APTT POC ABG pH 7.514 H POC ABG pCO2 22.5 L POC ABG pO2 115 H Sodium Potassium Chloride Carbon Dioxide BUN 25 H Creatinine 2.5 H Glucose 153 H POC Glucose Lactic Acid Calcium 7.3 L D Phosphorus 1.40 L Magnesium 1.20 L C-Reactive Protein Total Protein Albumin Urine WBC (Auto) Urine Creatinine Miscellaneous Test 07/31/17 07/31/17 07/31/17 06:00 12:22 13:26 WBC RBC Hgb Hct RDW Plt Count Lymph % (Auto) [place] % (Auto) Lymph # Seg Neutrophils % Seg Neutrophils # PT INR APTT POC ABG pH 7.506 H POC ABG pCO2 31.6 L POC ABG pO2 115 H Sodium Potassium Chloride Carbon Dioxide BUN Creatinine Glucose POC Glucose 153 H Lactic Acid 4.50 H* Calcium Phosphorus Magnesium C-Reactive Protein Total Protein Albumin Urine WBC (Auto) Urine Creatinine Miscellaneous Test 07/31/17 07/31/17 07/31/17 15:18 15:18 17:21 WBC RBC Hgb Hct RDW Plt Count Lymph % (Auto) [place] % (Auto) Lymph # Seg Neutrophils % Seg Neutrophils # PT INR APTT POC ABG pH POC ABG pCO2 POC ABG pO2 Sodium Potassium Chloride Carbon Dioxide BUN Creatinine Glucose POC Glucose 121 H Lactic Acid Calcium Phosphorus Magnesium C-Reactive Protein Total Protein Albumin Urine WBC (Auto) 21.0 H Urine Creatinine 99.8 H Miscellaneous Test 08/01/17 08/01/17 08/01/17 00:16 04:25 07:03 WBC RBC Hgb Hct RDW Plt Count Lymph % (Auto) [place] % (Auto) Lymph # Seg Neutrophils % Seg Neutrophils # PT INR APTT POC ABG pH POC ABG pCO2 POC ABG pO2 Sodium Potassium Chloride Carbon Dioxide BUN 21 H Creatinine 1.7 H Glucose 110 H POC Glucose 118 H Lactic Acid Calcium 7.6 L Phosphorus 4.80 H D Magnesium C-Reactive Protein Total Protein Albumin Urine WBC (Auto) Urine Creatinine Miscellaneous Test Flexitest 1 H 08/01/17 08/01/17 08/02/17 12:02 13:54 04:40 WBC RBC 3.40 L 2.83 L Hgb 9.5 L 7.9 L Hct 29.4 L D 24.6 L RDW 18.4 H 18.1 H Plt Count 86 L 91 L Lymph % (Auto) [place] % (Auto) Lymph # Seg Neutrophils % Seg Neutrophils # PT INR APTT POC ABG pH POC ABG pCO2 POC ABG pO2 Sodium Potassium Chloride Carbon Dioxide BUN Creatinine Glucose POC Glucose 124 H Lactic Acid Calcium Phosphorus Magnesium C-Reactive Protein Total Protein Albumin Urine WBC (Auto) Urine Creatinine Miscellaneous Test 08/02/17 08/02/17 08/02/17 04:40 18:22 23:23 WBC RBC Hgb Hct RDW Plt Count Lymph % (Auto) [place] % (Auto) Lymph # Seg Neutrophils % Seg Neutrophils # PT INR APTT POC ABG pH POC ABG pCO2 POC ABG pO2 Sodium Potassium Chloride 107.8 H Carbon Dioxide BUN Creatinine Glucose POC Glucose 108 H 136 H Lactic Acid Calcium 8.1 L Phosphorus 2.30 L D Magnesium C-Reactive Protein Total Protein Albumin Urine WBC (Auto) Urine Creatinine Miscellaneous Test 08/03/17 08/03/17 08/03/17 05:30 05:30 05:30 WBC RBC 2.75 L Hgb 7.6 L Hct 23.8 L RDW 18.2 H Plt Count 102 L Lymph % (Auto) 10.4 L [place] % (Auto) Lymph # 1.1 L Seg Neutrophils % 81.9 H Seg Neutrophils # 8.6 H PT 17.5 H INR 1.36 H APTT 36.7 H POC ABG pH POC ABG pCO2 POC ABG pO2 Sodium Potassium Chloride Carbon Dioxide BUN Creatinine Glucose POC Glucose Lactic Acid Calcium Phosphorus Magnesium C-Reactive Protein Total Protein 4.8 L D Albumin 2.3 L Urine WBC (Auto) Urine Creatinine Miscellaneous Test 08/03/17 08/03/17 08/03/17 05:30 05:34 11:46 WBC RBC Hgb Hct RDW Plt Count Lymph % (Auto) [place] % (Auto) Lymph # Seg Neutrophils % Seg Neutrophils # PT INR APTT POC ABG pH POC ABG pCO2 POC ABG pO2 Sodium Potassium Chloride 107.4 H Carbon Dioxide BUN Creatinine Glucose POC Glucose 116 H 175 H Lactic Acid Calcium 7.9 L Phosphorus 2.20 L Magnesium C-Reactive Protein Total Protein Albumin Urine WBC (Auto) Urine Creatinine Miscellaneous Test 08/03/17 08/03/17 08/04/17 17:44 21:22 05:00 WBC RBC 2.77 L Hgb 7.7 L Hct 23.4 L RDW 18.0 H Plt Count 109 L Lymph % (Auto) [place] % (Auto) 11.9 H Lymph # Seg Neutrophils % Seg Neutrophils # PT INR APTT POC ABG pH POC ABG pCO2 POC ABG pO2 Sodium Potassium Chloride Carbon Dioxide BUN Creatinine Glucose POC Glucose 117 H 134 H Lactic Acid Calcium Phosphorus Magnesium C-Reactive Protein Total Protein Albumin Urine WBC (Auto) Urine Creatinine Miscellaneous Test 08/04/17 08/04/17 05:00 08:53 WBC RBC Hgb Hct RDW Plt Count Lymph % (Auto) [place] % (Auto) Lymph # Seg Neutrophils % Seg Neutrophils # PT INR APTT POC ABG pH POC ABG pCO2 POC ABG pO2 Sodium Potassium 3.3 L Chloride Carbon Dioxide BUN Creatinine Glucose 118 H POC Glucose 110 H Lactic Acid Calcium 7.8 L Phosphorus Magnesium C-Reactive Protein Total Protein Albumin Urine WBC (Auto) Urine Creatinine Miscellaneous Test Allied health notes reviewed: RT
[2017-08-04] MEDS ORDERED: KCL 40 MEQ in NACL 0.9% 500 ML 500 ML IV ONE (16:00)
--- NOTE | 2017-08-04 16:30 | Hem/Onc Progress Note ---
Assessment and Plan 1.anemia- due to blood loss. Cont EPO, re-dose with IV iron and parenteral VB12 today Subjective Date of service: 08/04/17 Interval history: still with abdominal discomfort Objective - Constitutional Vitals: Last Vital Signs Temp 98.6 F 08/04/17 05:20 Pulse 102 H 08/04/17 11:29 Resp 18 08/04/17 11:48 BP 137/76 08/04/17 05:20 Pulse Ox 97 08/04/17 05:20 General appearance: no acute distress - Neck Neck: supple - Respiratory Respiratory effort: Positive: normal - Cardiovascular Rhythm: regular Extremities: No edema - Neurologic Neurologic: moves all extremities - Labs Lab Results: Laboratory Results - last 24 hr 08/03/17 08/03/17 08/04/17 17:44 21:22 05:00 WBC 6.6 RBC 2.77 L Hgb 7.7 L Hct 23.4 L MCV 84 MCH 28 MCHC 33 RDW 18.0 H Plt Count 109 L Lymph % (Auto) 18.3 [place] % (Auto) 11.9 H Eos % (Auto) 2.6 Baso % (Auto) 0.3 Lymph # 1.2 [place] # 0.8 Eos # 0.2 Baso # 0.0 Seg Neutrophils % 66.9 Seg Neutrophils # 4.4 Sodium Potassium Chloride Carbon Dioxide Anion Gap BUN Creatinine Estimated GFR BUN/Creatinine Ratio Glucose POC Glucose 117 H 134 H Calcium 08/04/17 08/04/17 05:00 08:53 WBC RBC Hgb Hct MCV MCH MCHC RDW Plt Count Lymph % (Auto) [place] % (Auto) Eos % (Auto) Baso % (Auto) Lymph # [place] # Eos # Baso # Seg Neutrophils % Seg Neutrophils # Sodium 141 Potassium 3.3 L Chloride 102.1 Carbon Dioxide 30 Anion Gap 12 BUN 7 Creatinine 0.7 Estimated GFR > 60 BUN/Creatinine Ratio 10 Glucose 118 H POC Glucose 110 H Calcium 7.8 L
[2017-08-04] MEDS ORDERED: FERRLECIT 125 MG in NACL 0.9% 100 ML IV ONE ×2 (17:00→21:00)
[2017-08-04] MEDS ORDERED: VITAMIN B-12 IM ONE (18:00)
[2017-08-05] MEDS: NOVOLOG SUB-Q SCH ×3 (01:51→12:45)
[2017-08-05] MEDS: DUONEB *Not for PRN Use IH SCH ×4 (03:05→21:25)
[2017-08-05] MEDS: DILAUDID IV PRN ×5 (03:23→22:05)
[2017-08-05] MEDS: ZOSYN/NS 4.5GM/100ML 4.5 GM/100 ML VIAL IV SCH ×3 (06:07→22:05)
[2017-08-05 06:31] LABS: Basophils % (Auto) 0.3 % (0.0-1.8); Eosinophils % (Auto) 2.2 % (0.0-4.3); Mean Corpuscular HGB Conc 33 % (30-34); Mean Corpuscular Hemoglobin 28 pg (28-32); Mean Corpuscular Volume 85 fl (79-97); Platelet Count 132 K/mm3 (140-440); Red Blood Count 2.84 M/mm3 (3.65-5.03); White Blood Count 5.9 K/mm3 (4.5-11.0)
[2017-08-05 06:43] LABS: Alanine Aminotransferase 24 units/L (7-56); Albumin 2.2 g/dL (3.9-5); Albumin/Globulin Ratio 0.6 %; Alkaline Phosphatase 79 units/L (35-129); Anion Gap 12 mmol/L; BUN/Creatinine Ratio 10; Blood Urea Nitrogen 6 mg/dL (7-17); Calcium 8.2 mg/dL (8.4-10.2); Carbon Dioxide 30 mmol/L (22-30); Chloride 102.8 mmol/L (98-107); Glucose 136 mg/dL (65-100); Potassium 3.6 mmol/L (3.6-5.0); Sodium 141 mmol/L (137-145); Total Protein 6.2 g/dL (6.3-8.2)
[2017-08-05] MEDS: ZOFRAN IV PRN (08:53)
[2017-08-05] MEDS: PEPCID IV SCH ×2 (09:20→22:05)
--- NOTE | 2017-08-05 10:48 | Progress Note ---
Assessment and Plan Assessment: 1) Severe Sepsis with septic shock: resolved. Etiology most likely peritonitis. CRP=3.8. Procal=52 2) Acute peritonitis: likely localized, from SB perforation/ischemia/ obstruction. OR cx so far negative 3) SB perforation/ischemia/obstruction: -S/P Exploratory laparotomy and resection of small bowel on 07/30 4) CINTIA - resolved 5) Thrombocytopenia - from sepsis - better Plan: -continue zosyn and fluconazole - day I will be rounding on the weekend Thank you Dr Costello for your consultation, will follow up with you. Priyanka Arriaga MD Infectious Diseases Specialist [facility] ([facility]) M [phone] O [phone] Subjective Date of service: 08/05/17 Principal diagnosis: Severe Sepsis; Ischemic Bowel; Acute Resp Failure on MVS Interval history: Feels better, no N/V. Microbiology: Blood cultures: 07/30 ngtd Respiratory cultures: 07/20 ngtd Wound surg cultures: 07/30 ngrd urine: 07/31 neg Current Antimicrobials: Zosyn 07/31 fluconazole 07/31 Previous Antimicrobials: levaquin metronidazole Objective - Exam Narrative Exam: General appearance: alert on NC O2 in NAD Eyes: anicteric sclerae, moist conjunctivae HENT: Atraumatic; oropharynx +NGT Neck: Trachea midline; supple, no thyromegaly or lymphadenopathy Lungs: CTA CV: rrr Abdomen: Soft,+surg wound covered with dressings +ileostomy Extremities: +peripheral edema Skin: Normal temperature, turgor and texture; no rash, ulcers or subcutaneous nodules Psych: alert talking. Neuro: sedated Lines: R IJ TLC, [place] - Constitutional Vitals: Vital Signs Temp Pulse Resp BP Pulse Ox 98.4 F 86 20 129/79 100 08/05/17 04:45 08/05/17 08:44 08/05/17 08:45 08/05/17 04:45 08/05/17 04:45 Temperature -Last 24 Hours Temperature 98.4 F Temperature 98.3 F Temperature 98.2 F Temperature 98.7 F - Labs CBC & Chem 7: 08/05/17 Unknown 08/05/17 Unknown Labs: Abnormal lab results 08/04/17 08/04/17 08/04/17 Range/Units 08:53 13:17 17:38 RBC (3.65-5.03) M/mm3 Hgb (10.1-14.3) gm/dl Hct (30.3-42.9) % RDW (13.2-15.2) % Plt Count (140-440) K/mm3 [place] % (Auto) (0.0-7.3) % BUN (7-17) mg/dL Creatinine (0.7-1.2) mg/dL Glucose (65-100) mg/dL POC Glucose 110 H 122 H 119 H (70-105) Calcium (8.4-10.2) mg/dL Total Protein (6.3-8.2) g/dL Albumin (3.9-5) g/dL 08/04/17 08/05/17 08/05/17 Range/Units 22:17 08:43 Unknown RBC 2.84 L (3.65-5.03) M/mm3 Hgb 8.0 L (10.1-14.3) gm/dl Hct 24.0 L (30.3-42.9) % RDW 18.0 H (13.2-15.2) % Plt Count 132 L (140-440) K/mm3 [place] % (Auto) 13.5 H (0.0-7.3) % BUN (7-17) mg/dL Creatinine (0.7-1.2) mg/dL Glucose (65-100) mg/dL POC Glucose 111 H 129 H (70-105) Calcium (8.4-10.2) mg/dL Total Protein (6.3-8.2) g/dL Albumin (3.9-5) g/dL 08/05/17 Range/Units Unknown RBC (3.65-5.03) M/mm3 Hgb (10.1-14.3) gm/dl Hct (30.3-42.9) % RDW (13.2-15.2) % Plt Count (140-440) K/mm3 [place] % (Auto) (0.0-7.3) % BUN 6 L (7-17) mg/dL Creatinine 0.6 L (0.7-1.2) mg/dL Glucose 136 H (65-100) mg/dL POC Glucose (70-105) Calcium 8.2 L (8.4-10.2) mg/dL Total Protein 6.2 L D (6.3-8.2) g/dL Albumin 2.2 L (3.9-5) g/dL
--- NOTE | 2017-08-05 10:52 | Progress Note ---
Assessment and Plan continue full until gi function improves. encourage ambulation. continue local wound care for midline wound. Subjective Date of service: 08/05/17 Patient Reports: Positive: tolerating liquids well, nausea (with pain meds), afebrile, other (c/o bloating). Negative: vomiting Objective Vital Signs - 12hr 08/04/17 08/05/17 08/05/17 23:00 01:04 04:45 Temperature 98.3 F 98.4 F Pulse Rate 102 H 103 H 96 H Pulse Rate [ Anterior Bilateral Throughout] Respiratory 20 20 Rate Respiratory Rate [Anterior Bilateral Throughout] Blood Pressure 149/82 129/79 O2 Sat by Pulse 99 100 Oximetry 08/05/17 08/05/17 08/05/17 08:31 08:44 08:45 Temperature Pulse Rate Pulse Rate [ 91 H 86 Anterior Bilateral Throughout] Respiratory 20 Rate Respiratory 18 18 Rate [Anterior Bilateral Throughout] Blood Pressure O2 Sat by Pulse Oximetry - General physical appearance no distress - Respiratory normal respiratory effort - Abdomen soft, tender (mild), not distended, wound (packed with iodoform), other (ostomy functioning) - Labs 08/05/17 Unknown 08/05/17 Unknown Diabetes panel 08/05/17 Range/Units Unknown Sodium 141 (137-145) mmol/L Potassium 3.6 (3.6-5.0) mmol/L Chloride 102.8 (98-107) mmol/L Carbon Dioxide 30 (22-30) mmol/L BUN 6 L (7-17) mg/dL Creatinine 0.6 L (0.7-1.2) mg/dL Glucose 136 H (65-100) mg/dL Calcium 8.2 L (8.4-10.2) mg/dL AST 19 (5-40) units/L ALT 24 (7-56) units/L Alkaline Phosphatase 79 (35-129) units/L Total Protein 6.2 L D (6.3-8.2) g/dL Albumin 2.2 L (3.9-5) g/dL Calcium panel 08/05/17 Range/Units Unknown Calcium 8.2 L (8.4-10.2) mg/dL Albumin 2.2 L (3.9-5) g/dL Pituitary panel 08/05/17 Range/Units Unknown Sodium 141 (137-145) mmol/L Potassium 3.6 (3.6-5.0) mmol/L Chloride 102.8 (98-107) mmol/L Carbon Dioxide 30 (22-30) mmol/L BUN 6 L (7-17) mg/dL Creatinine 0.6 L (0.7-1.2) mg/dL Glucose 136 H (65-100) mg/dL Calcium 8.2 L (8.4-10.2) mg/dL Adrenal panel 08/05/17 Range/Units Unknown Sodium 141 (137-145) mmol/L Potassium 3.6 (3.6-5.0) mmol/L Chloride 102.8 (98-107) mmol/L Carbon Dioxide 30 (22-30) mmol/L BUN 6 L (7-17) mg/dL Creatinine 0.6 L (0.7-1.2) mg/dL Glucose 136 H (65-100) mg/dL Calcium 8.2 L (8.4-10.2) mg/dL Total Bilirubin 0.40 (0.1-1.2) mg/dL AST 19 (5-40) units/L ALT 24 (7-56) units/L Alkaline Phosphatase 79 (35-129) units/L Total Protein 6.2 L D (6.3-8.2) g/dL Albumin 2.2 L (3.9-5) g/dL
[2017-08-05] MEDS: DIFLUCAN 200 MG/100 ML BAG IV SCH (12:48)
--- NOTE | 2017-08-05 16:40 | Progress Note ---
Assessment and Plan Patient complaining non specific chest pain. No complaint of shortness of breath and cough.Still complaining abdominal pain radiating into the chest. Patients O2 saturation 99% on 2 litres O2. - Patient Problems (1) CVA (cerebral vascular accident) Current Visit: No Status: Acute Plan to address problem: Management as per primary care and neurology. (2) Diabetes 1.5, managed as type 2 Current Visit: No Status: Acute Plan to address problem: Management as per primary care. (3) GI bleed Current Visit: No Status: Acute Plan to address problem: No acute bleeding at this time. (4) Hypertension Current Visit: No Status: Acute Plan to address problem: Management as per primary care. (5) Chest pain Current Visit: Yes Status: Acute Plan to address problem: Complaining non specific chest pain. Also complaining abdominal pain says radiating into the chest. Patient is on pain medications. (6) Bowel obstruction Current Visit: Yes Status: Acute Plan to address problem: S/P laparotomy and resection of gangrenous bowel. Subjective Date of service: 08/05/17 Principal diagnosis: Severe Sepsis; Ischemic Bowel; Acute Resp Failure on MVS Interval history: Patient complaining non specific chest pain. No complaint of shortness of breath and cough.Still complaining abdominal pain radiating into the chest. Patients O2 saturation 99% on 2 litres O2. Objective Vital Signs - 12hr 08/05/17 08/05/17 08/05/17 04:45 08:31 08:44 Temperature 98.4 F Pulse Rate 96 H Pulse Rate [ 91 H 86 Anterior Bilateral Throughout] Pulse Rate [ From Monitor] Respiratory 20 Rate Respiratory 18 18 Rate [Anterior Bilateral Throughout] Blood Pressure 129/79 O2 Sat by Pulse 100 Oximetry 08/05/17 08/05/17 08/05/17 08:45 09:15 10:00 Temperature Pulse Rate Pulse Rate [ Anterior Bilateral Throughout] Pulse Rate [ 90 From Monitor] Respiratory 20 20 18 Rate Respiratory Rate [Anterior Bilateral Throughout] Blood Pressure O2 Sat by Pulse Oximetry 08/05/17 08/05/17 08/05/17 11:00 12:49 14:17 Temperature Pulse Rate 90 Pulse Rate [ 96 H Anterior Bilateral Throughout] Pulse Rate [ From Monitor] Respiratory 18 Rate Respiratory 16 Rate [Anterior Bilateral Throughout] Blood Pressure O2 Sat by Pulse Oximetry 08/05/17 08/05/17 14:21 14:33 Temperature Pulse Rate Pulse Rate [ 98 H Anterior Bilateral Throughout] Pulse Rate [ From Monitor] Respiratory Rate Respiratory 16 Rate [Anterior Bilateral Throughout] Blood Pressure O2 Sat by Pulse 95 Oximetry Constitutional: appears uncomfortable, other (somnolent) Eyes: non-icteric ENT: oropharynx moist, other (mallampatti 3) Neck: supple, no lymphadenopathy, no JVD, other (No Thyromegaly; Right IJ line) Effort: mildly labored Ascultation: Bilateral: diminished breath sounds (bases), rhonchi Percussion: Bilateral: not dull Cardiovascular: regular rate and rhythm, other (no rubs/murmurs) Gastrointestinal: hypoactive bowel sounds, soft, tender (mild), other (distended ; no palpable HSM) Integumentary: normal Extremities: no cyanosis, no edema, pulses normal, no ischemia or petechiae Neurologic: normal mental status, non-focal exam, pupils equal and round, motor strength normal and Psychiatric: mood appropriate, affect normal CBC and BMP: 08/06/17 06:04 08/06/17 06:04 ABG, PT/INR, D-dimer: ABG POC ABG pH 7.506 (7.35-7.45) H 07/31/17 13:26 POC ABG pCO2 31.6 (35-45) L 07/31/17 13:26 POC ABG pO2 115 (80-105) H 07/31/17 13:26 POC ABG HCO3 24.9 07/31/17 13:26 POC ABG Total CO2 26 07/31/17 13:26 POC ABG O2 Sat 99 07/31/17 13:26 PT/INR, D-dimer PT 17.5 Sec. (12.2-14.9) H 08/03/17 05:30 INR 1.36 (0.87-1.13) H 08/03/17 05:30 Abnormal lab findings: Abnormal Labs 07/30/17 07/30/17 07/30/17 01:25 01:25 10:06 WBC 11.9 H RBC Hgb Hct RDW 17.8 H Plt Count Lymph % (Auto) 7.1 L [place] % (Auto) Lymph # 0.8 L Seg Neutrophils % 87.5 H Seg Neutrophils # 10.4 H PT INR APTT POC ABG pH POC ABG pCO2 POC ABG pO2 Sodium 136 L Potassium 3.4 L Chloride 95.2 L Carbon Dioxide 19 L BUN Creatinine Glucose 262 H POC Glucose Lactic Acid 5.40 H* Calcium Phosphorus Magnesium C-Reactive Protein Total Protein Albumin Urine WBC (Auto) Urine Creatinine Miscellaneous Test 07/30/17 07/30/17 07/30/17 12:49 16:22 16:53 WBC RBC Hgb Hct RDW Plt Count Lymph % (Auto) [place] % (Auto) Lymph # Seg Neutrophils % Seg Neutrophils # PT INR APTT POC ABG pH POC ABG pCO2 POC ABG pO2 Sodium Potassium Chloride Carbon Dioxide BUN Creatinine Glucose POC Glucose 253 H 195 H Lactic Acid 8.00 H* Calcium Phosphorus Magnesium C-Reactive Protein Total Protein Albumin Urine WBC (Auto) Urine Creatinine Miscellaneous Test 07/30/17 07/30/17 07/30/17 16:53 16:53 16:53 WBC 11.3 H RBC 5.92 H Hgb 16.6 H D Hct 52.5 H D RDW 18.2 H Plt Count Lymph % (Auto) [place] % (Auto) Lymph # Seg Neutrophils % Seg Neutrophils # PT INR APTT POC ABG pH POC ABG pCO2 POC ABG pO2 Sodium Potassium Chloride 96.5 L Carbon Dioxide 20 L BUN 19 H Creatinine 2.3 H D Glucose 215 H POC Glucose Lactic Acid Calcium Phosphorus Magnesium C-Reactive Protein 3.80 H Total Protein Albumin Urine WBC (Auto) Urine Creatinine Miscellaneous Test 07/30/17 07/30/17 07/31/17 18:37 23:08 05:19 WBC RBC Hgb Hct RDW Plt Count Lymph % (Auto) [place] % (Auto) Lymph # Seg Neutrophils % Seg Neutrophils # PT 17.5 H INR 1.36 H APTT POC ABG pH 7.210 L POC ABG pCO2 47.0 H POC ABG pO2 197 H Sodium Potassium Chloride Carbon Dioxide BUN Creatinine Glucose POC Glucose 156 H Lactic Acid Calcium Phosphorus Magnesium C-Reactive Protein Total Protein Albumin Urine WBC (Auto) Urine Creatinine Miscellaneous Test 07/31/17 07/31/17 07/31/17 05:21 06:00 06:00 WBC 4.3 L RBC Hgb Hct RDW 17.6 H Plt Count 95 L Lymph % (Auto) [place] % (Auto) 9.0 H Lymph # 1.1 L Seg Neutrophils % Seg Neutrophils # PT INR APTT POC ABG pH 7.514 H POC ABG pCO2 22.5 L POC ABG pO2 115 H Sodium Potassium Chloride Carbon Dioxide BUN 25 H Creatinine 2.5 H Glucose 153 H POC Glucose Lactic Acid Calcium 7.3 L D Phosphorus 1.40 L Magnesium 1.20 L C-Reactive Protein Total Protein Albumin Urine WBC (Auto) Urine Creatinine Miscellaneous Test 07/31/17 07/31/17 07/31/17 06:00 12:22 13:26 WBC RBC Hgb Hct RDW Plt Count Lymph % (Auto) [place] % (Auto) Lymph # Seg Neutrophils % Seg Neutrophils # PT INR APTT POC ABG pH 7.506 H POC ABG pCO2 31.6 L POC ABG pO2 115 H Sodium Potassium Chloride Carbon Dioxide BUN Creatinine Glucose POC Glucose 153 H Lactic Acid 4.50 H* Calcium Phosphorus Magnesium C-Reactive Protein Total Protein Albumin Urine WBC (Auto) Urine Creatinine Miscellaneous Test 07/31/17 07/31/17 07/31/17 15:18 15:18 17:21 WBC RBC Hgb Hct RDW Plt Count Lymph % (Auto) [place] % (Auto) Lymph # Seg Neutrophils % Seg Neutrophils # PT INR APTT POC ABG pH POC ABG pCO2 POC ABG pO2 Sodium Potassium Chloride Carbon Dioxide BUN Creatinine Glucose POC Glucose 121 H Lactic Acid Calcium Phosphorus Magnesium C-Reactive Protein Total Protein Albumin Urine WBC (Auto) 21.0 H Urine Creatinine 99.8 H Miscellaneous Test 08/01/17 08/01/17 08/01/17 00:16 04:25 07:03 WBC RBC Hgb Hct RDW Plt Count Lymph % (Auto) [place] % (Auto) Lymph # Seg Neutrophils % Seg Neutrophils # PT INR APTT POC ABG pH POC ABG pCO2 POC ABG pO2 Sodium Potassium Chloride Carbon Dioxide BUN 21 H Creatinine 1.7 H Glucose 110 H POC Glucose 118 H Lactic Acid Calcium 7.6 L Phosphorus 4.80 H D Magnesium C-Reactive Protein Total Protein Albumin Urine WBC (Auto) Urine Creatinine Miscellaneous Test Flexitest 1 H 08/01/17 08/01/17 08/02/17 12:02 13:54 04:40 WBC RBC 3.40 L 2.83 L Hgb 9.5 L 7.9 L Hct 29.4 L D 24.6 L RDW 18.4 H 18.1 H Plt Count 86 L 91 L Lymph % (Auto) [place] % (Auto) Lymph # Seg Neutrophils % Seg Neutrophils # PT INR APTT POC ABG pH POC ABG pCO2 POC ABG pO2 Sodium Potassium Chloride Carbon Dioxide BUN Creatinine Glucose POC Glucose 124 H Lactic Acid Calcium Phosphorus Magnesium C-Reactive Protein Total Protein Albumin Urine WBC (Auto) Urine Creatinine Miscellaneous Test 08/02/17 08/02/17 08/02/17 04:40 18:22 23:23 WBC RBC Hgb Hct RDW Plt Count Lymph % (Auto) [place] % (Auto) Lymph # Seg Neutrophils % Seg Neutrophils # PT INR APTT POC ABG pH POC ABG pCO2 POC ABG pO2 Sodium Potassium Chloride 107.8 H Carbon Dioxide BUN Creatinine Glucose POC Glucose 108 H 136 H Lactic Acid Calcium 8.1 L Phosphorus 2.30 L D Magnesium C-Reactive Protein Total Protein Albumin Urine WBC (Auto) Urine Creatinine Miscellaneous Test 08/03/17 08/03/17 08/03/17 05:30 05:30 05:30 WBC RBC 2.75 L Hgb 7.6 L Hct 23.8 L RDW 18.2 H Plt Count 102 L Lymph % (Auto) 10.4 L [place] % (Auto) Lymph # 1.1 L Seg Neutrophils % 81.9 H Seg Neutrophils # 8.6 H PT 17.5 H INR 1.36 H APTT 36.7 H POC ABG pH POC ABG pCO2 POC ABG pO2 Sodium Potassium Chloride Carbon Dioxide BUN Creatinine Glucose POC Glucose Lactic Acid Calcium Phosphorus Magnesium C-Reactive Protein Total Protein 4.8 L D Albumin 2.3 L Urine WBC (Auto) Urine Creatinine Miscellaneous Test 08/03/17 08/03/17 08/03/17 05:30 05:34 11:46 WBC RBC Hgb Hct RDW Plt Count Lymph % (Auto) [place] % (Auto) Lymph # Seg Neutrophils % Seg Neutrophils # PT INR APTT POC ABG pH POC ABG pCO2 POC ABG pO2 Sodium Potassium Chloride 107.4 H Carbon Dioxide BUN Creatinine Glucose POC Glucose 116 H 175 H Lactic Acid Calcium 7.9 L Phosphorus 2.20 L Magnesium C-Reactive Protein Total Protein Albumin Urine WBC (Auto) Urine Creatinine Miscellaneous Test 08/03/17 08/03/17 08/04/17 17:44 21:22 05:00 WBC RBC 2.77 L Hgb 7.7 L Hct 23.4 L RDW 18.0 H Plt Count 109 L Lymph % (Auto) [place] % (Auto) 11.9 H Lymph # Seg Neutrophils % Seg Neutrophils # PT INR APTT POC ABG pH POC ABG pCO2 POC ABG pO2 Sodium Potassium Chloride Carbon Dioxide BUN Creatinine Glucose POC Glucose 117 H 134 H Lactic Acid Calcium Phosphorus Magnesium C-Reactive Protein Total Protein Albumin Urine WBC (Auto) Urine Creatinine Miscellaneous Test 08/04/17 08/04/17 08/04/17 05:00 08:53 13:17 WBC RBC Hgb Hct RDW Plt Count Lymph % (Auto) [place] % (Auto) Lymph # Seg Neutrophils % Seg Neutrophils # PT INR APTT POC ABG pH POC ABG pCO2 POC ABG pO2 Sodium Potassium 3.3 L Chloride Carbon Dioxide BUN Creatinine Glucose 118 H POC Glucose 110 H 122 H Lactic Acid Calcium 7.8 L Phosphorus Magnesium C-Reactive Protein Total Protein Albumin Urine WBC (Auto) Urine Creatinine Miscellaneous Test 08/04/17 08/04/17 08/05/17 17:38 22:17 08:43 WBC RBC Hgb Hct RDW Plt Count Lymph % (Auto) [place] % (Auto) Lymph # Seg Neutrophils % Seg Neutrophils # PT INR APTT POC ABG pH POC ABG pCO2 POC ABG pO2 Sodium Potassium Chloride Carbon Dioxide BUN Creatinine Glucose POC Glucose 119 H 111 H 129 H Lactic Acid Calcium Phosphorus Magnesium C-Reactive Protein Total Protein Albumin Urine WBC (Auto) Urine Creatinine Miscellaneous Test 08/05/17 08/05/17 Unknown Unknown WBC RBC 2.84 L Hgb 8.0 L Hct 24.0 L RDW 18.0 H Plt Count 132 L Lymph % (Auto) [place] % (Auto) 13.5 H Lymph # Seg Neutrophils % Seg Neutrophils # PT INR APTT POC ABG pH POC ABG pCO2 POC ABG pO2 Sodium Potassium Chloride Carbon Dioxide BUN 6 L Creatinine 0.6 L Glucose 136 H POC Glucose Lactic Acid Calcium 8.2 L Phosphorus Magnesium C-Reactive Protein Total Protein 6.2 L D Albumin 2.2 L Urine WBC (Auto) Urine Creatinine Miscellaneous Test Allied health notes reviewed: RT
--- NOTE | 2017-08-05 17:18 | Progress Note ---
Assessment and Plan -SBO with Ischemic Bowel with perforation s/p Ex-lap and bowel resection and ileostomy: Stoma functioning well - Acute Hypoxemic Respiratory Failure: on [place] oxygen. continue with B/dilator. Pulm following on MVS -Severe Sepsis Syndrome: on iv antibiotic - zosyn - CINTIA: improved -Obesity with OS: Stable on BIPAP -Type 2 diabetes mellitus: On SSI - Hypophosphatemia: supplement further. check labs - Hypomagnesemia: corrected - Hypothermia: corrected - anemia: of sever illness: on Procrit. Pt is Jehovah witness - History of ileostomy/ostomy care - discussed with famil by bed side - continue GI & VTE prophylaxis with pepcid and Lovenox respectively full CODE STATUS Subjective Date of service: 08/05/17 Principal diagnosis: Severe Sepsis; Ischemic Bowel; Acute Resp Failure on MVS Interval history: c/o abdominal pain. Nauseated but no vomiting. Reviewd lab and nurses note Objective - Constitutional Vitals: Vital Signs - 12hr 08/05/17 08/05/17 08/05/17 08:31 08:44 08:45 Pulse Rate Pulse Rate [ 91 H 86 Anterior Bilateral Throughout] Pulse Rate [ From Monitor] Respiratory 20 Rate Respiratory 18 18 Rate [Anterior Bilateral Throughout] O2 Sat by Pulse Oximetry 08/05/17 08/05/17 08/05/17 09:15 10:00 11:00 Pulse Rate 90 Pulse Rate [ Anterior Bilateral Throughout] Pulse Rate [ 90 From Monitor] Respiratory 20 18 Rate Respiratory Rate [Anterior Bilateral Throughout] O2 Sat by Pulse Oximetry 08/05/17 08/05/17 08/05/17 12:49 14:17 14:21 Pulse Rate Pulse Rate [ 96 H Anterior Bilateral Throughout] Pulse Rate [ From Monitor] Respiratory 18 Rate Respiratory 16 Rate [Anterior Bilateral Throughout] O2 Sat by Pulse 95 Oximetry 08/05/17 08/05/17 14:33 17:02 Pulse Rate Pulse Rate [ 98 H Anterior Bilateral Throughout] Pulse Rate [ From Monitor] Respiratory 20 Rate Respiratory 16 Rate [Anterior Bilateral Throughout] O2 Sat by Pulse Oximetry General appearance: Present: no acute distress, well-nourished - EENT Eyes: PERRL, EOM intact - Neck Neck: supple, normal ROM - Respiratory Respiratory effort: normal Respiratory: bilateral: diminished - Cardiovascular Rhythm: regular Heart Sounds: Present: S1 & S2. Absent: gallop, rub Extremities: pulses intact, No edema, normal color, Full ROM - Gastrointestinal General gastrointestinal: Present: tender, non-distended, normal bowel sounds, other (ileostomy functioning) - Integumentary Integumentary: clear, warm, dry - Musculoskeletal Musculoskeletal: 1, strength equal bilaterally - Neurologic Neurologic: moves all extremities - Psychiatric Psychiatric: memory intact, appropriate mood/affect, intact judgment & insight - Labs CBC & Chem 7: 08/05/17 Unknown 08/05/17 Unknown Labs: Abnormal lab results 08/04/17 08/04/17 08/05/17 Range/Units 17:38 22:17 08:43 RBC (3.65-5.03) M/mm3 Hgb (10.1-14.3) gm/dl Hct (30.3-42.9) % RDW (13.2-15.2) % Plt Count (140-440) K/mm3 [place] % (Auto) (0.0-7.3) % BUN (7-17) mg/dL Creatinine (0.7-1.2) mg/dL Glucose (65-100) mg/dL POC Glucose 119 H 111 H 129 H (70-105) Calcium (8.4-10.2) mg/dL Total Protein (6.3-8.2) g/dL Albumin (3.9-5) g/dL 08/05/17 08/05/17 Range/Units Unknown Unknown RBC 2.84 L (3.65-5.03) M/mm3 Hgb 8.0 L (10.1-14.3) gm/dl Hct 24.0 L (30.3-42.9) % RDW 18.0 H (13.2-15.2) % Plt Count 132 L (140-440) K/mm3 [place] % (Auto) 13.5 H (0.0-7.3) % BUN 6 L (7-17) mg/dL Creatinine 0.6 L (0.7-1.2) mg/dL Glucose 136 H (65-100) mg/dL POC Glucose (70-105) Calcium 8.2 L (8.4-10.2) mg/dL Total Protein 6.2 L D (6.3-8.2) g/dL Albumin 2.2 L (3.9-5) g/dL
[2017-08-05] MEDS: NACL 0.45% 1000 ML 1,000 ML IV SCH (22:06)
[2017-08-06] MEDS: NOVOLOG SUB-Q SCH
[2017-08-06] MEDS: DUONEB *Not for PRN Use IH SCH ×4 (03:16→23:44)
[2017-08-06] MEDS: DILAUDID IV PRN ×2 (03:27→09:13)
[2017-08-06] MEDS: ZOSYN/NS 4.5GM/100ML 4.5 GM/100 ML VIAL IV SCH ×3 (05:56→22:11)
[2017-08-06 06:49] LABS: Basophils % (Auto) 0.3 % (0.0-1.8); Eosinophils % (Auto) 2.3 % (0.0-4.3); Hematocrit 25.1 % (30.3-42.9); Mean Corpuscular HGB Conc 32 % (30-34); Mean Corpuscular Hemoglobin 27 pg (28-32); Mean Corpuscular Volume 85 fl (79-97); Platelet Count 173 K/mm3 (140-440); Red Blood Count 2.95 M/mm3 (3.65-5.03); Red Cell Distribution Width 18.1 % (13.2-15.2); White Blood Count 6.5 K/mm3 (4.5-11.0)
[2017-08-06 07:04] LABS: Alanine Aminotransferase 23 units/L (7-56); Albumin 2.5 g/dL (3.9-5); Albumin/Globulin Ratio 0.7 %; Alkaline Phosphatase 71 units/L (35-129); BUN/Creatinine Ratio 6; Blood Urea Nitrogen 4 mg/dL (7-17); Calcium 8.3 mg/dL (8.4-10.2); Carbon Dioxide 29 mmol/L (22-30); Glucose 145 mg/dL (65-100); Total Protein 6.2 g/dL (6.3-8.2)
[2017-08-06 07:05] LABS: Anion Gap 12 mmol/L; Chloride 98.2 mmol/L (98-107); Potassium 3.2 mmol/L (3.6-5.0); Sodium 136 mmol/L (137-145)
--- NOTE | 2017-08-06 08:51 | Progress Note ---
Assessment and Plan Assessment and plan: --Small bowel ischemia/ perforation/s/p exploratory laparotomy and small bowel resection Ostomy functioning well, tolerating clear liquids, increase ambulation as tolerated, out of bed to chair --Acute blood loss anemia: Procrit , IV dextran, B12, no blood /Jehovah witness , hematology following --Severe protein calorie malnutrition; nutrition supplements, supportive care --Hypokalemia; replace per protocol --Acute respiratory failure, s/p extubation, stable --Acute renal failure; resolved -- Septic Shock: Resolved, --Hypothermia; resolved --Lactic acidosis /metabolic acidosis improved --Ostomy care; stable --Type 2 diabetes mellitus; well controlled, SSC,Insulin,ADA diet --DVT prophylaxis; SCDs --full CODE STATUS --Physical therapy as tolerated --Incentive spirometry --Discharge planning per case management Possible home with home health when medically and surgically stable When all the consultants clear the patient for discharge Plan of care discussed with the patient, her and her nurse History Interval history: Patient seen and examined, medical records reviewed No overnight events reported Complaints of hallucinations with Dilaudid, will change to morphine Denies nausea vomiting, tolerating liquid diet Hospitalist Physical - Constitutional Vitals: Temp Pulse Resp BP Pulse Ox 98.4 F 95 H 16 134/82 96 08/06/17 04:11 08/06/17 08:15 08/06/17 08:15 08/06/17 04:11 08/06/17 08:05 General appearance: Present: no acute distress, well-nourished - EENT Eyes: Present: PERRL, EOM intact - Neck Neck: Present: supple, normal ROM - Respiratory Respiratory effort: normal Respiratory: bilateral: diminished, negative: rales, rhonchi, wheezing - Cardiovascular Rhythm: regular Heart Sounds: Present: S1 & S2 - Extremities Extremities: no ischemia, No edema - Abdominal General gastrointestinal: soft, non-tender, non-distended, normal bowel sounds, other (surgical dressing in place/ostomy functional) - Integumentary Integumentary: Present: clear, warm - Psychiatric Psychiatric: appropriate mood/affect, cooperative - Neurologic Neurologic: CNII-XII intact, moves all extremities Results - Labs CBC & Chem 7: 08/06/17 06:04 08/06/17 06:04 Labs: Laboratory Last Values WBC 6.5 K/mm3 (4.5-11.0) 08/06/17 06:04 RBC 2.95 M/mm3 (3.65-5.03) L 08/06/17 06:04 Hgb 8.0 gm/dl (10.1-14.3) L 08/06/17 06:04 Hct 25.1 % (30.3-42.9) L 08/06/17 06:04 MCV 85 fl (79-97) 08/06/17 06:04 MCH 27 pg (28-32) L 08/06/17 06:04 MCHC 32 % (30-34) 08/06/17 06:04 RDW 18.1 % (13.2-15.2) H 08/06/17 06:04 Plt Count 173 K/mm3 (140-440) 08/06/17 06:04 Lymph % (Auto) 23.0 % (13.4-35.0) 08/06/17 06:04 [place] % (Auto) 13.0 % (0.0-7.3) H 08/06/17 06:04 Eos % (Auto) 2.3 % (0.0-4.3) 08/06/17 06:04 Baso % (Auto) 0.3 % (0.0-1.8) 08/06/17 06:04 Lymph # 1.5 K/mm3 (1.2-5.4) 08/06/17 06:04 [place] # 0.9 K/mm3 (0.0-0.8) H 08/06/17 06:04 Eos # 0.1 K/mm3 (0.0-0.4) 08/06/17 06:04 Baso # 0.0 K/mm3 (0.0-0.1) 08/06/17 06:04 Seg Neutrophils % 61.4 % (40.0-70.0) 08/06/17 06:04 Seg Neutrophils # 4.0 K/mm3 (1.8-7.7) 08/06/17 06:04 Percent Retic 1.33 % (0.78-2.58) 08/03/17 05:30 PT 17.5 Sec. (12.2-14.9) H 08/03/17 05:30 INR 1.36 (0.87-1.13) H 08/03/17 05:30 APTT 36.7 Sec. (24.2-36.6) H 08/03/17 05:30 POC ABG pH 7.506 (7.35-7.45) H 07/31/17 13:26 POC ABG pCO2 31.6 (35-45) L 07/31/17 13:26 POC ABG pO2 115 (80-105) H 07/31/17 13:26 POC ABG HCO3 24.9 07/31/17 13:26 POC ABG Total CO2 26 07/31/17 13:26 POC ABG O2 Sat 99 07/31/17 13:26 POC ABG Base Excess 2 07/31/17 13:26 FiO2 28 % 07/31/17 13:26 Sodium 136 mmol/L (137-145) L 08/06/17 06:04 Potassium 3.2 mmol/L (3.6-5.0) L 08/06/17 06:04 Chloride 98.2 mmol/L (98-107) 08/06/17 06:04 Carbon Dioxide 29 mmol/L (22-30) 08/06/17 06:04 Anion Gap 12 mmol/L 08/06/17 06:04 BUN 4 mg/dL (7-17) L 08/06/17 06:04 Creatinine 0.7 mg/dL (0.7-1.2) 08/06/17 06:04 Estimated GFR > 60 ml/min 08/06/17 06:04 BUN/Creatinine Ratio 6 % 08/06/17 06:04 Glucose 145 mg/dL (65-100) H 08/06/17 06:04 POC Glucose 143 (70-105) H 08/06/17 06:39 Lactic Acid 1.50 mmol/L (0.7-2.0) 08/01/17 04:00 Calcium 8.3 mg/dL (8.4-10.2) L 08/06/17 06:04 Phosphorus 2.20 mg/dL (2.5-4.5) L 08/03/17 05:30 Magnesium 1.70 mg/dL (1.7-2.3) 08/05/17 Unknown Total Bilirubin 0.30 mg/dL (0.1-1.2) 08/06/17 06:04 Direct Bilirubin < 0.2 mg/dL (0-0.2) 08/03/17 05:30 Indirect Bilirubin 0.1 mg/dL 08/03/17 05:30 AST 26 units/L (5-40) 08/06/17 06:04 ALT 23 units/L (7-56) 08/06/17 06:04 Alkaline Phosphatase 71 units/L (35-129) 08/06/17 06:04 C-Reactive Protein 3.80 mg/dL (0.00-1.30) H 07/30/17 16:53 Total Protein 6.2 g/dL (6.3-8.2) L 08/06/17 06:04 Albumin 2.5 g/dL (3.9-5) L 08/06/17 06:04 Albumin/Globulin Ratio 0.7 % 08/06/17 06:04 Urine Color Yellow (Yellow) 07/31/17 15:18 Urine Turbidity Clear (Clear) 07/31/17 15:18 Urine pH 5.0 (5.0-7.0) 07/31/17 15:18 Ur Specific [place] 1.018 (1.003-1.030) 07/31/17 15:18 Urine Protein <15 mg/dl mg/dL (Negative) 07/31/17 15:18 Urine Glucose (UA) 50 mg/dL (Negative) 07/31/17 15:18 Urine Ketones Neg mg/dL (Negative) 07/31/17 15:18 Urine Blood Lg (Negative) 07/31/17 15:18 Urine Nitrite Neg (Negative) 07/31/17 15:18 Urine Bilirubin Neg (Negative) 07/31/17 15:18 Urine Urobilinogen < 2.0 mg/dL (<2.0) 07/31/17 15:18 Ur Leukocyte Esterase Sm (Negative) 07/31/17 15:18 Urine WBC (Auto) 21.0 /HPF (0.0-6.0) H 07/31/17 15:18 Urine RBC (Auto) 17.0 /HPF (0.0-6.0) 07/31/17 15:18 Urine Bacteria (Auto) 2+ /HPF (Negative) 07/31/17 15:18 Amorphous Crystals Few 07/31/17 15:18 Urine Mucus Few /HPF 07/31/17 15:18 Urine Creatinine 99.8 mg/dL (0.1-20.0) H 07/31/17 15:18 Urine Sodium 76 mmol/L 07/31/17 15:18 Miscellaneous Test Flexitest 1 H 08/01/17 07:03
[2017-08-06] MEDS: DIFLUCAN 200 MG/100 ML BAG IV SCH (10:58)
[2017-08-06] MEDS: PEPCID PO SCH ×2 (10:58→22:11)
[2017-08-06] MEDS: PERCOCET 5/325 PO PRN ×3 (11:10→23:14)
[2017-08-06] MEDS ORDERED: K-DUR PO ONE (11:52)
[2017-08-06] MEDS ORDERED: FERRLECIT 125 MG in NACL 0.9% 100 ML IV ONE (13:27)
[2017-08-06] MEDS ORDERED: VITAMIN B-12 IM ONE (13:27)
--- NOTE | 2017-08-06 13:29 | Hem/Onc Progress Note ---
Assessment and Plan 1. anemia- due to acute blood loss. Hgb improving. Will not accept blood products. On IV iron, Epo, vitamin B12 therapy Subjective Date of service: 08/06/17 Interval history: still with abdominal discomfort, no bleeding Objective - Constitutional Vitals: Last Vital Signs Temp 98.4 F 08/06/17 04:11 Pulse 100 H 08/06/17 09:33 Resp 16 08/06/17 08:15 BP 144/83 08/06/17 09:33 Pulse Ox 98 08/06/17 09:33 General appearance: no acute distress - Neck Neck: supple - Respiratory Respiratory effort: Positive: normal - Cardiovascular Rhythm: regular Extremities: No edema - Neurologic Neurologic: CNII-XII intact - Labs Lab Results: Laboratory Results - last 24 hr 08/05/17 08/05/17 08/05/17 12:41 16:27 21:25 WBC RBC Hgb Hct MCV MCH MCHC RDW Plt Count Lymph % (Auto) [place] % (Auto) Eos % (Auto) Baso % (Auto) Lymph # [place] # Eos # Baso # Seg Neutrophils % Seg Neutrophils # Sodium Potassium Chloride Carbon Dioxide Anion Gap BUN Creatinine Estimated GFR BUN/Creatinine Ratio Glucose POC Glucose 122 H 127 H 111 H Calcium Total Bilirubin AST ALT Alkaline Phosphatase Total Protein Albumin Albumin/Globulin Ratio 08/06/17 08/06/17 08/06/17 06:04 06:04 06:39 WBC 6.5 RBC 2.95 L Hgb 8.0 L Hct 25.1 L MCV 85 MCH 27 L MCHC 32 RDW 18.1 H Plt Count 173 Lymph % (Auto) 23.0 [place] % (Auto) 13.0 H Eos % (Auto) 2.3 Baso % (Auto) 0.3 Lymph # 1.5 [place] # 0.9 H Eos # 0.1 Baso # 0.0 Seg Neutrophils % 61.4 Seg Neutrophils # 4.0 Sodium 136 L Potassium 3.2 L Chloride 98.2 Carbon Dioxide 29 Anion Gap 12 BUN 4 L Creatinine 0.7 Estimated GFR > 60 BUN/Creatinine Ratio 6 Glucose 145 H POC Glucose 143 H Calcium 8.3 L Total Bilirubin 0.30 AST 26 ALT 23 Alkaline Phosphatase 71 Total Protein 6.2 L Albumin 2.5 L Albumin/Globulin Ratio 0.7 08/06/17 12:30 WBC RBC Hgb Hct MCV MCH MCHC RDW Plt Count Lymph % (Auto) [place] % (Auto) Eos % (Auto) Baso % (Auto) Lymph # [place] # Eos # Baso # Seg Neutrophils % Seg Neutrophils # Sodium Potassium Chloride Carbon Dioxide Anion Gap BUN Creatinine Estimated GFR BUN/Creatinine Ratio Glucose POC Glucose 139 H Calcium Total Bilirubin AST ALT Alkaline Phosphatase Total Protein Albumin Albumin/Globulin Ratio
[2017-08-06] MEDS: NACL 0.45% 1000 ML 1,000 ML IV SCH (13:48)
--- NOTE | 2017-08-06 14:56 | Progress Note ---
Assessment and Plan encourage ambulation adv diet as tolerated. continue supportive care hold dilaudid due to side effects. Subjective Date of service: 08/06/17 Patient Reports: Positive: still having pain, tolerating liquids well, afebrile , other (still some bloating, hallucinations with dilaudid) Objective Vital Signs - 12hr 08/06/17 08/06/17 08/06/17 04:11 08:00 08:05 Temperature 98.4 F Pulse Rate 94 H Pulse Rate [ 93 H Anterior Bilateral Throughout] Respiratory 20 Rate Respiratory 16 Rate [Anterior Bilateral Throughout] Blood Pressure 134/82 O2 Sat by Pulse 94 96 Oximetry 08/06/17 08/06/17 08/06/17 08:15 09:33 14:07 Temperature Pulse Rate 100 H Pulse Rate [ 95 H 92 H Anterior Bilateral Throughout] Respiratory Rate Respiratory 16 16 Rate [Anterior Bilateral Throughout] Blood Pressure 144/83 O2 Sat by Pulse 98 Oximetry 08/06/17 14:16 Temperature Pulse Rate Pulse Rate [ 93 H Anterior Bilateral Throughout] Respiratory Rate Respiratory 16 Rate [Anterior Bilateral Throughout] Blood Pressure O2 Sat by Pulse Oximetry - General physical appearance no distress - Respiratory normal respiratory effort - Abdomen soft, tender, not distended, wound (packed) - Neurologic normal coordination, normal sensation - Labs 08/06/17 06:04 08/06/17 06:04 Diabetes panel 08/06/17 Range/Units 06:04 Sodium 136 L (137-145) mmol/L Potassium 3.2 L (3.6-5.0) mmol/L Chloride 98.2 (98-107) mmol/L Carbon Dioxide 29 (22-30) mmol/L BUN 4 L (7-17) mg/dL Creatinine 0.7 (0.7-1.2) mg/dL Glucose 145 H (65-100) mg/dL Calcium 8.3 L (8.4-10.2) mg/dL AST 26 (5-40) units/L ALT 23 (7-56) units/L Alkaline Phosphatase 71 (35-129) units/L Total Protein 6.2 L (6.3-8.2) g/dL Albumin 2.5 L (3.9-5) g/dL Calcium panel 08/06/17 Range/Units 06:04 Calcium 8.3 L (8.4-10.2) mg/dL Albumin 2.5 L (3.9-5) g/dL Pituitary panel 08/06/17 Range/Units 06:04 Sodium 136 L (137-145) mmol/L Potassium 3.2 L (3.6-5.0) mmol/L Chloride 98.2 (98-107) mmol/L Carbon Dioxide 29 (22-30) mmol/L BUN 4 L (7-17) mg/dL Creatinine 0.7 (0.7-1.2) mg/dL Glucose 145 H (65-100) mg/dL Calcium 8.3 L (8.4-10.2) mg/dL Adrenal panel 08/06/17 Range/Units 06:04 Sodium 136 L (137-145) mmol/L Potassium 3.2 L (3.6-5.0) mmol/L Chloride 98.2 (98-107) mmol/L Carbon Dioxide 29 (22-30) mmol/L BUN 4 L (7-17) mg/dL Creatinine 0.7 (0.7-1.2) mg/dL Glucose 145 H (65-100) mg/dL Calcium 8.3 L (8.4-10.2) mg/dL Total Bilirubin 0.30 (0.1-1.2) mg/dL AST 26 (5-40) units/L ALT 23 (7-56) units/L Alkaline Phosphatase 71 (35-129) units/L Total Protein 6.2 L (6.3-8.2) g/dL Albumin 2.5 L (3.9-5) g/dL
--- NOTE | 2017-08-06 15:59 | Progress Note ---
Assessment and Plan Assessment: 1) Severe Sepsis with septic shock: resolved. Etiology most likely peritonitis. CRP=3.8. Procal=52 2) Acute peritonitis: likely localized, from SB perforation/ischemia/ obstruction. OR cx so far negative 3) SB perforation/ischemia/obstruction: -S/P Exploratory laparotomy and resection of small bowel on 07/30 4) CINTIA - resolved 5) Thrombocytopenia - from sepsis - better Plan: -continue zosyn and fluconazole - day 7 of 10 -monitor abdominal pain and wound drainage Thank you Dr Costello for your consultation, will follow up with you. Priyanka Arriaga MD Infectious Diseases Specialist [facility] [phone] O [phone] Subjective Date of service: 08/06/17 Principal diagnosis: Severe Sepsis; Ischemic Bowel; Acute Resp Failure on MVS Interval history: Feels sick c/o abdominal pain, no N/V. Microbiology: Blood cultures: 07/30 ngtd Respiratory cultures: 07/20 ngtd Wound surg cultures: 07/30 ngrd urine: 07/31 neg Current Antimicrobials: Zosyn 07/31 fluconazole 07/31 Previous Antimicrobials: levaquin metronidazole Objective - Exam Narrative Exam: General appearance: alert on NC O2 in NAD Eyes: anicteric sclerae, moist conjunctivae HENT: Atraumatic; oropharynx +NGT Neck: Trachea midline; supple, no thyromegaly or lymphadenopathy Lungs: CTA CV: rrr Abdomen: Soft,+surg wound with drainage serosanguinous +ileostomy Extremities: +peripheral edema Skin: Normal temperature, turgor and texture; no rash, ulcers or subcutaneous nodules Psych: alert talking. Neuro: sedated Lines: R IJ TLC, [place] - Constitutional Vitals: Vital Signs Temp Pulse Resp BP Pulse Ox 98.4 F 93 H 16 144/83 98 08/06/17 04:11 08/06/17 14:16 08/06/17 14:16 08/06/17 09:33 08/06/17 09:33 Temperature -Last 24 Hours Temperature 98.4 F Temperature 98.4 F Temperature 99.0 F - Labs CBC & Chem 7: 08/06/17 06:04 08/06/17 06:04 Labs: Abnormal lab results 08/05/17 08/05/17 08/05/17 Range/Units 12:41 16:27 21:25 RBC (3.65-5.03) M/mm3 Hgb (10.1-14.3) gm/dl Hct (30.3-42.9) % MCH (28-32) pg RDW (13.2-15.2) % [place] % (Auto) (0.0-7.3) % [place] # (0.0-0.8) K/mm3 Sodium (137-145) mmol/L Potassium (3.6-5.0) mmol/L BUN (7-17) mg/dL Glucose (65-100) mg/dL POC Glucose 122 H 127 H 111 H (70-105) Calcium (8.4-10.2) mg/dL Total Protein (6.3-8.2) g/dL Albumin (3.9-5) g/dL 08/06/17 08/06/17 08/06/17 Range/Units 06:04 06:04 06:39 RBC 2.95 L (3.65-5.03) M/mm3 Hgb 8.0 L (10.1-14.3) gm/dl Hct 25.1 L (30.3-42.9) % MCH 27 L (28-32) pg RDW 18.1 H (13.2-15.2) % [place] % (Auto) 13.0 H (0.0-7.3) % [place] # 0.9 H (0.0-0.8) K/mm3 Sodium 136 L (137-145) mmol/L Potassium 3.2 L (3.6-5.0) mmol/L BUN 4 L (7-17) mg/dL Glucose 145 H (65-100) mg/dL POC Glucose 143 H (70-105) Calcium 8.3 L (8.4-10.2) mg/dL Total Protein 6.2 L (6.3-8.2) g/dL Albumin 2.5 L (3.9-5) g/dL 08/06/17 Range/Units 12:30 RBC (3.65-5.03) M/mm3 Hgb (10.1-14.3) gm/dl Hct (30.3-42.9) % MCH (28-32) pg RDW (13.2-15.2) % [place] % (Auto) (0.0-7.3) % [place] # (0.0-0.8) K/mm3 Sodium (137-145) mmol/L Potassium (3.6-5.0) mmol/L BUN (7-17) mg/dL Glucose (65-100) mg/dL POC Glucose 139 H (70-105) Calcium (8.4-10.2) mg/dL Total Protein (6.3-8.2) g/dL Albumin (3.9-5) g/dL
[2017-08-06] MEDS: MORPHINE IV PRN (20:49)
--- NOTE | 2017-08-06 22:33 | Progress Note ---
Assessment and Plan Patient still complaining chest pain and abdominal pain. But patient says better than yesterday. Patient is on room air.O2 saturation 97%.No complaint of shortness of breath. - Patient Problems (1) CVA (cerebral vascular accident) Current Visit: No Status: Acute Plan to address problem: Management as per primary care and neurology. (2) Diabetes 1.5, managed as type 2 Current Visit: No Status: Acute Plan to address problem: Management as per primary care. (3) GI bleed Current Visit: No Status: Acute Plan to address problem: No acute bleeding at this time. (4) Hypertension Current Visit: No Status: Acute Plan to address problem: Management as per primary care. (5) Chest pain Current Visit: Yes Status: Acute Plan to address problem: Complaining non specific chest pain. Also complaining abdominal pain says radiating into the chest. Patient is on pain medications. (6) Bowel obstruction Current Visit: Yes Status: Acute Plan to address problem: S/P laparotomy and resection of gangrenous bowel. Subjective Date of service: 08/06/17 Principal diagnosis: Severe Sepsis; Ischemic Bowel; Acute Resp Failure on MVS Interval history: Patient still complaining chest pain and abdominal pain. But patient says better than yesterday. Patient is on room air.O2 saturation 97%.No complaint of shortness of breath. Objective Vital Signs - 12hr 08/06/17 08/06/17 08/06/17 14:07 14:16 17:16 Temperature Pulse Rate 97 H Pulse Rate [ 92 H 93 H Anterior Bilateral Throughout] Respiratory 18 Rate Respiratory 16 16 Rate [Anterior Bilateral Throughout] Blood Pressure 130/80 O2 Sat by Pulse 98 Oximetry 08/06/17 19:45 Temperature 98.4 F Pulse Rate 94 H Pulse Rate [ Anterior Bilateral Throughout] Respiratory 24 Rate Respiratory Rate [Anterior Bilateral Throughout] Blood Pressure 158/94 O2 Sat by Pulse 97 Oximetry Constitutional: no acute distress, alert Eyes: non-icteric ENT: oropharynx moist, other (mallampatti 3) Neck: supple, no lymphadenopathy, no JVD, other (No Thyromegaly; Right IJ line) Effort: mildly labored Ascultation: Bilateral: diminished breath sounds (bases), rhonchi Percussion: Bilateral: not dull Cardiovascular: regular rate and rhythm, other (no rubs/murmurs) Gastrointestinal: hypoactive bowel sounds, soft, tender (mild), other (distended ; no palpable HSM) Integumentary: normal Extremities: no cyanosis, no edema, pulses normal, no ischemia or petechiae Neurologic: normal mental status, non-focal exam, pupils equal and round, motor strength normal and Psychiatric: mood appropriate, affect normal CBC and BMP: 08/06/17 06:04 08/06/17 06:04 ABG, PT/INR, D-dimer: ABG POC ABG pH 7.506 (7.35-7.45) H 07/31/17 13:26 POC ABG pCO2 31.6 (35-45) L 07/31/17 13:26 POC ABG pO2 115 (80-105) H 07/31/17 13:26 POC ABG HCO3 24.9 07/31/17 13:26 POC ABG Total CO2 26 07/31/17 13:26 POC ABG O2 Sat 99 07/31/17 13:26 PT/INR, D-dimer PT 17.5 Sec. (12.2-14.9) H 08/03/17 05:30 INR 1.36 (0.87-1.13) H 08/03/17 05:30 Abnormal lab findings: Abnormal Labs 07/30/17 07/30/17 07/30/17 01:25 01:25 10:06 WBC 11.9 H RBC Hgb Hct MCH RDW 17.8 H Plt Count Lymph % (Auto) 7.1 L [place] % (Auto) Lymph # 0.8 L [place] # Seg Neutrophils % 87.5 H Seg Neutrophils # 10.4 H PT INR APTT POC ABG pH POC ABG pCO2 POC ABG pO2 Sodium 136 L Potassium 3.4 L Chloride 95.2 L Carbon Dioxide 19 L BUN Creatinine Glucose 262 H POC Glucose Lactic Acid 5.40 H* Calcium Phosphorus Magnesium C-Reactive Protein Total Protein Albumin Urine WBC (Auto) Urine Creatinine Miscellaneous Test 07/30/17 07/30/17 07/30/17 12:49 16:22 16:53 WBC RBC Hgb Hct MCH RDW Plt Count Lymph % (Auto) [place] % (Auto) Lymph # [place] # Seg Neutrophils % Seg Neutrophils # PT INR APTT POC ABG pH POC ABG pCO2 POC ABG pO2 Sodium Potassium Chloride Carbon Dioxide BUN Creatinine Glucose POC Glucose 253 H 195 H Lactic Acid 8.00 H* Calcium Phosphorus Magnesium C-Reactive Protein Total Protein Albumin Urine WBC (Auto) Urine Creatinine Miscellaneous Test 07/30/17 07/30/17 07/30/17 16:53 16:53 16:53 WBC 11.3 H RBC 5.92 H Hgb 16.6 H D Hct 52.5 H D MCH RDW 18.2 H Plt Count Lymph % (Auto) [place] % (Auto) Lymph # [place] # Seg Neutrophils % Seg Neutrophils # PT INR APTT POC ABG pH POC ABG pCO2 POC ABG pO2 Sodium Potassium Chloride 96.5 L Carbon Dioxide 20 L BUN 19 H Creatinine 2.3 H D Glucose 215 H POC Glucose Lactic Acid Calcium Phosphorus Magnesium C-Reactive Protein 3.80 H Total Protein Albumin Urine WBC (Auto) Urine Creatinine Miscellaneous Test 07/30/17 07/30/17 07/31/17 18:37 23:08 05:19 WBC RBC Hgb Hct MCH RDW Plt Count Lymph % (Auto) [place] % (Auto) Lymph # [place] # Seg Neutrophils % Seg Neutrophils # PT 17.5 H INR 1.36 H APTT POC ABG pH 7.210 L POC ABG pCO2 47.0 H POC ABG pO2 197 H Sodium Potassium Chloride Carbon Dioxide BUN Creatinine Glucose POC Glucose 156 H Lactic Acid Calcium Phosphorus Magnesium C-Reactive Protein Total Protein Albumin Urine WBC (Auto) Urine Creatinine Miscellaneous Test 07/31/17 07/31/17 07/31/17 05:21 06:00 06:00 WBC 4.3 L RBC Hgb Hct MCH RDW 17.6 H Plt Count 95 L Lymph % (Auto) [place] % (Auto) 9.0 H Lymph # 1.1 L [place] # Seg Neutrophils % Seg Neutrophils # PT INR APTT POC ABG pH 7.514 H POC ABG pCO2 22.5 L POC ABG pO2 115 H Sodium Potassium Chloride Carbon Dioxide BUN 25 H Creatinine 2.5 H Glucose 153 H POC Glucose Lactic Acid Calcium 7.3 L D Phosphorus 1.40 L Magnesium 1.20 L C-Reactive Protein Total Protein Albumin Urine WBC (Auto) Urine Creatinine Miscellaneous Test 07/31/17 07/31/17 07/31/17 06:00 12:22 13:26 WBC RBC Hgb Hct MCH RDW Plt Count Lymph % (Auto) [place] % (Auto) Lymph # [place] # Seg Neutrophils % Seg Neutrophils # PT INR APTT POC ABG pH 7.506 H POC ABG pCO2 31.6 L POC ABG pO2 115 H Sodium Potassium Chloride Carbon Dioxide BUN Creatinine Glucose POC Glucose 153 H Lactic Acid 4.50 H* Calcium Phosphorus Magnesium C-Reactive Protein Total Protein Albumin Urine WBC (Auto) Urine Creatinine Miscellaneous Test 07/31/17 07/31/17 07/31/17 15:18 15:18 17:21 WBC RBC Hgb Hct MCH RDW Plt Count Lymph % (Auto) [place] % (Auto) Lymph # [place] # Seg Neutrophils % Seg Neutrophils # PT INR APTT POC ABG pH POC ABG pCO2 POC ABG pO2 Sodium Potassium Chloride Carbon Dioxide BUN Creatinine Glucose POC Glucose 121 H Lactic Acid Calcium Phosphorus Magnesium C-Reactive Protein Total Protein Albumin Urine WBC (Auto) 21.0 H Urine Creatinine 99.8 H Miscellaneous Test 08/01/17 08/01/17 08/01/17 00:16 04:25 07:03 WBC RBC Hgb Hct MCH RDW Plt Count Lymph % (Auto) [place] % (Auto) Lymph # [place] # Seg Neutrophils % Seg Neutrophils # PT INR APTT POC ABG pH POC ABG pCO2 POC ABG pO2 Sodium Potassium Chloride Carbon Dioxide BUN 21 H Creatinine 1.7 H Glucose 110 H POC Glucose 118 H Lactic Acid Calcium 7.6 L Phosphorus 4.80 H D Magnesium C-Reactive Protein Total Protein Albumin Urine WBC (Auto) Urine Creatinine Miscellaneous Test Flexitest 1 H 08/01/17 08/01/17 08/02/17 12:02 13:54 04:40 WBC RBC 3.40 L 2.83 L Hgb 9.5 L 7.9 L Hct 29.4 L D 24.6 L MCH RDW 18.4 H 18.1 H Plt Count 86 L 91 L Lymph % (Auto) [place] % (Auto) Lymph # [place] # Seg Neutrophils % Seg Neutrophils # PT INR APTT POC ABG pH POC ABG pCO2 POC ABG pO2 Sodium Potassium Chloride Carbon Dioxide BUN Creatinine Glucose POC Glucose 124 H Lactic Acid Calcium Phosphorus Magnesium C-Reactive Protein Total Protein Albumin Urine WBC (Auto) Urine Creatinine Miscellaneous Test 08/02/17 08/02/17 08/02/17 04:40 18:22 23:23 WBC RBC Hgb Hct MCH RDW Plt Count Lymph % (Auto) [place] % (Auto) Lymph # [place] # Seg Neutrophils % Seg Neutrophils # PT INR APTT POC ABG pH POC ABG pCO2 POC ABG pO2 Sodium Potassium Chloride 107.8 H Carbon Dioxide BUN Creatinine Glucose POC Glucose 108 H 136 H Lactic Acid Calcium 8.1 L Phosphorus 2.30 L D Magnesium C-Reactive Protein Total Protein Albumin Urine WBC (Auto) Urine Creatinine Miscellaneous Test 08/03/17 08/03/17 08/03/17 05:30 05:30 05:30 WBC RBC 2.75 L Hgb 7.6 L Hct 23.8 L MCH RDW 18.2 H Plt Count 102 L Lymph % (Auto) 10.4 L [place] % (Auto) Lymph # 1.1 L [place] # Seg Neutrophils % 81.9 H Seg Neutrophils # 8.6 H PT 17.5 H INR 1.36 H APTT 36.7 H POC ABG pH POC ABG pCO2 POC ABG pO2 Sodium Potassium Chloride Carbon Dioxide BUN Creatinine Glucose POC Glucose Lactic Acid Calcium Phosphorus Magnesium C-Reactive Protein Total Protein 4.8 L D Albumin 2.3 L Urine WBC (Auto) Urine Creatinine Miscellaneous Test 08/03/17 08/03/17 08/03/17 05:30 05:34 11:46 WBC RBC Hgb Hct MCH RDW Plt Count Lymph % (Auto) [place] % (Auto) Lymph # [place] # Seg Neutrophils % Seg Neutrophils # PT INR APTT POC ABG pH POC ABG pCO2 POC ABG pO2 Sodium Potassium Chloride 107.4 H Carbon Dioxide BUN Creatinine Glucose POC Glucose 116 H 175 H Lactic Acid Calcium 7.9 L Phosphorus 2.20 L Magnesium C-Reactive Protein Total Protein Albumin Urine WBC (Auto) Urine Creatinine Miscellaneous Test 08/03/17 08/03/17 08/04/17 17:44 21:22 05:00 WBC RBC 2.77 L Hgb 7.7 L Hct 23.4 L MCH RDW 18.0 H Plt Count 109 L Lymph % (Auto) [place] % (Auto) 11.9 H Lymph # [place] # Seg Neutrophils % Seg Neutrophils # PT INR APTT POC ABG pH POC ABG pCO2 POC ABG pO2 Sodium Potassium Chloride Carbon Dioxide BUN Creatinine Glucose POC Glucose 117 H 134 H Lactic Acid Calcium Phosphorus Magnesium C-Reactive Protein Total Protein Albumin Urine WBC (Auto) Urine Creatinine Miscellaneous Test 08/04/17 08/04/17 08/04/17 05:00 08:53 13:17 WBC RBC Hgb Hct MCH RDW Plt Count Lymph % (Auto) [place] % (Auto) Lymph # [place] # Seg Neutrophils % Seg Neutrophils # PT INR APTT POC ABG pH POC ABG pCO2 POC ABG pO2 Sodium Potassium 3.3 L Chloride Carbon Dioxide BUN Creatinine Glucose 118 H POC Glucose 110 H 122 H Lactic Acid Calcium 7.8 L Phosphorus Magnesium C-Reactive Protein Total Protein Albumin Urine WBC (Auto) Urine Creatinine Miscellaneous Test 08/04/17 08/04/17 08/05/17 17:38 22:17 08:43 WBC RBC Hgb Hct MCH RDW Plt Count Lymph % (Auto) [place] % (Auto) Lymph # [place] # Seg Neutrophils % Seg Neutrophils # PT INR APTT POC ABG pH POC ABG pCO2 POC ABG pO2 Sodium Potassium Chloride Carbon Dioxide BUN Creatinine Glucose POC Glucose 119 H 111 H 129 H Lactic Acid Calcium Phosphorus Magnesium C-Reactive Protein Total Protein Albumin Urine WBC (Auto) Urine Creatinine Miscellaneous Test 08/05/17 08/05/17 08/05/17 12:41 16:27 21:25 WBC RBC Hgb Hct MCH RDW Plt Count Lymph % (Auto) [place] % (Auto) Lymph # [place] # Seg Neutrophils % Seg Neutrophils # PT INR APTT POC ABG pH POC ABG pCO2 POC ABG pO2 Sodium Potassium Chloride Carbon Dioxide BUN Creatinine Glucose POC Glucose 122 H 127 H 111 H Lactic Acid Calcium Phosphorus Magnesium C-Reactive Protein Total Protein Albumin Urine WBC (Auto) Urine Creatinine Miscellaneous Test 08/05/17 08/05/17 08/06/17 Unknown Unknown 06:04 WBC RBC 2.84 L 2.95 L Hgb 8.0 L 8.0 L Hct 24.0 L 25.1 L MCH 27 L RDW 18.0 H 18.1 H Plt Count 132 L Lymph % (Auto) [place] % (Auto) 13.5 H 13.0 H Lymph # [place] # 0.9 H Seg Neutrophils % Seg Neutrophils # PT INR APTT POC ABG pH POC ABG pCO2 POC ABG pO2 Sodium Potassium Chloride Carbon Dioxide BUN 6 L Creatinine 0.6 L Glucose 136 H POC Glucose Lactic Acid Calcium 8.2 L Phosphorus Magnesium C-Reactive Protein Total Protein 6.2 L D Albumin 2.2 L Urine WBC (Auto) Urine Creatinine Miscellaneous Test 08/06/17 08/06/17 08/06/17 06:04 06:39 12:30 WBC RBC Hgb Hct MCH RDW Plt Count Lymph % (Auto) [place] % (Auto) Lymph # [place] # Seg Neutrophils % Seg Neutrophils # PT INR APTT POC ABG pH POC ABG pCO2 POC ABG pO2 Sodium 136 L Potassium 3.2 L Chloride Carbon Dioxide BUN 4 L Creatinine Glucose 145 H POC Glucose 143 H 139 H Lactic Acid Calcium 8.3 L Phosphorus Magnesium C-Reactive Protein Total Protein 6.2 L Albumin 2.5 L Urine WBC (Auto) Urine Creatinine Miscellaneous Test 08/06/17 08/06/17 17:19 21:58 WBC RBC Hgb Hct MCH RDW Plt Count Lymph % (Auto) [place] % (Auto) Lymph # [place] # Seg Neutrophils % Seg Neutrophils # PT INR APTT POC ABG pH POC ABG pCO2 POC ABG pO2 Sodium Potassium Chloride Carbon Dioxide BUN Creatinine Glucose POC Glucose 118 H 112 H Lactic Acid Calcium Phosphorus Magnesium C-Reactive Protein Total Protein Albumin Urine WBC (Auto) Urine Creatinine Miscellaneous Test Chest x-ray: report reviewed (Improved bilateral pulmonary infiltrates.) Allied health notes reviewed: RT
[2017-08-07] MEDS: DUONEB *Not for PRN Use IH SCH ×4 (03:29→23:39)
[2017-08-07] MEDS: ZOSYN/NS 4.5GM/100ML 4.5 GM/100 ML VIAL IV SCH ×3 (06:47→22:10)
[2017-08-07] MEDS: NACL 0.45% 1000 ML 1,000 ML IV SCH (06:47)
[2017-08-07] MEDS: PERCOCET 5/325 PO PRN ×3 (06:57→20:30)
[2017-08-07 07:14] LABS: Basophils % (Auto) 0.4 % (0.0-1.8); Eosinophils % (Auto) 3.3 % (0.0-4.3); Hematocrit 26.4 % (30.3-42.9); Hemoglobin 8.8 gm/dl (10.1-14.3); Mean Corpuscular HGB Conc 33 % (30-34); Mean Corpuscular Hemoglobin 28 pg (28-32); Mean Corpuscular Volume 85 fl (79-97); Platelet Count 245 K/mm3 (140-440); Red Blood Count 3.11 M/mm3 (3.65-5.03); White Blood Count 7.1 K/mm3 (4.5-11.0)
[2017-08-07 07:36] LABS: Alanine Aminotransferase 25 units/L (7-56); Albumin 2.4 g/dL (3.9-5); Albumin/Globulin Ratio 0.6 %; Alkaline Phosphatase 81 units/L (35-129); Anion Gap 13 mmol/L; BUN/Creatinine Ratio 4; Blood Urea Nitrogen 3 mg/dL (7-17); Calcium 8.6 mg/dL (8.4-10.2); Carbon Dioxide 28 mmol/L (22-30); Chloride 101.9 mmol/L (98-107); Glucose 112 mg/dL (65-100); Sodium 139 mmol/L (137-145); Total Protein 6.5 g/dL (6.3-8.2)
--- NOTE | 2017-08-07 09:35 | Hem/Onc Progress Note ---
Assessment and Plan Hemoglobin has improved. Continue to monitor. Give Iron and B12 again tomorrow. Subjective Date of service: 08/07/17 Interval history: We will give her Procrit, iron infusion, B12 shannan am again.and monitor counts. Discussed with patient and family. Objective - Constitutional Vitals: Last Vital Signs Temp 98.7 F 08/07/17 08:44 Pulse 103 H 08/07/17 08:45 Resp 18 08/07/17 08:44 BP 142/87 08/07/17 08:44 Pulse Ox 98 08/07/17 08:45 Performance status: 2- selfcare, ambulatory - Neck Neck: supple - Respiratory Respiratory effort: Positive: normal Respiratory: bilateral: CTA - Cardiovascular Rhythm: regular Extremities: No edema - Gastrointestinal General gastrointestinal: Present: other (post op) - Labs Lab Results: Laboratory Results - last 24 hr 08/06/17 08/06/17 08/06/17 12:30 17:19 17:26 WBC RBC Hgb Hct MCV MCH MCHC RDW Plt Count Lymph % (Auto) [place] % (Auto) Eos % (Auto) Baso % (Auto) Lymph # [place] # Eos # Baso # Seg Neutrophils % Seg Neutrophils # Sodium Potassium Chloride Carbon Dioxide Anion Gap BUN Creatinine Estimated GFR BUN/Creatinine Ratio Glucose POC Glucose 139 H 118 H Calcium Magnesium 1.80 Total Bilirubin AST ALT Alkaline Phosphatase Total Protein Albumin Albumin/Globulin Ratio 08/06/17 08/07/17 08/07/17 21:58 06:30 06:30 WBC 7.1 RBC 3.11 L Hgb 8.8 L Hct 26.4 L MCV 85 MCH 28 MCHC 33 RDW 18.0 H Plt Count 245 Lymph % (Auto) 21.2 [place] % (Auto) 11.2 H Eos % (Auto) 3.3 Baso % (Auto) 0.4 Lymph # 1.5 [place] # 0.8 Eos # 0.2 Baso # 0.0 Seg Neutrophils % 63.9 Seg Neutrophils # 4.5 Sodium 139 Potassium 4.0 D Chloride 101.9 Carbon Dioxide 28 Anion Gap 13 BUN 3 L Creatinine 0.7 Estimated GFR > 60 BUN/Creatinine Ratio 4 Glucose 112 H POC Glucose 112 H Calcium 8.6 Magnesium Total Bilirubin 0.30 AST 25 ALT 25 Alkaline Phosphatase 81 Total Protein 6.5 Albumin 2.4 L Albumin/Globulin Ratio 0.6 08/07/17 08:51 WBC RBC Hgb Hct MCV MCH MCHC RDW Plt Count Lymph % (Auto) [place] % (Auto) Eos % (Auto) Baso % (Auto) Lymph # [place] # Eos # Baso # Seg Neutrophils % Seg Neutrophils # Sodium Potassium Chloride Carbon Dioxide Anion Gap BUN Creatinine Estimated GFR BUN/Creatinine Ratio Glucose POC Glucose 137 H Calcium Magnesium Total Bilirubin AST ALT Alkaline Phosphatase Total Protein Albumin Albumin/Globulin Ratio
[2017-08-07] MEDS: MORPHINE IV PRN (10:00)
[2017-08-07] MEDS: PEPCID PO SCH ×2 (10:00→22:10)
[2017-08-07] MEDS: DIFLUCAN 200 MG/100 ML BAG IV SCH (10:01)
[2017-08-07] MEDS: NOVOLOG SUB-Q SCH (13:59)
--- NOTE | 2017-08-07 14:44 | Progress Note ---
Assessment and Plan - Patient Problems (1) Bowel obstruction Current Visit: Yes Status: Acute Plan to address problem: doing better await less distention before advancing diet Subjective Date of service: 08/07/17 Patient Reports: Positive: no new complaints, feels better, other (still feels bloated) Objective Vital Signs - 12hr 08/07/17 08/07/17 08/07/17 04:18 07:41 07:58 Temperature 98.6 F Pulse Rate Pulse Rate [ 91 H 100 H Anterior Bilateral Throughout] Respiratory 20 Rate Respiratory 16 19 Rate [Anterior Bilateral Throughout] Blood Pressure 139/76 O2 Sat by Pulse 99 Oximetry 08/07/17 08/07/17 08:44 08:45 Temperature 98.7 F Pulse Rate 104 H 103 H Pulse Rate [ Anterior Bilateral Throughout] Respiratory 18 Rate Respiratory Rate [Anterior Bilateral Throughout] Blood Pressure 142/87 O2 Sat by Pulse 98 98 Oximetry - General physical appearance well developed, no distress - Abdomen soft, not distended (slight), other (incision clean and dry; ileostomy functioning) - Labs 08/07/17 06:30 08/07/17 06:30 Diabetes panel 08/07/17 Range/Units 06:30 Sodium 139 (137-145) mmol/L Potassium 4.0 D (3.6-5.0) mmol/L Chloride 101.9 (98-107) mmol/L Carbon Dioxide 28 (22-30) mmol/L BUN 3 L (7-17) mg/dL Creatinine 0.7 (0.7-1.2) mg/dL Glucose 112 H (65-100) mg/dL Calcium 8.6 (8.4-10.2) mg/dL AST 25 (5-40) units/L ALT 25 (7-56) units/L Alkaline Phosphatase 81 (35-129) units/L Total Protein 6.5 (6.3-8.2) g/dL Albumin 2.4 L (3.9-5) g/dL Calcium panel 08/07/17 Range/Units 06:30 Calcium 8.6 (8.4-10.2) mg/dL Albumin 2.4 L (3.9-5) g/dL Pituitary panel 08/07/17 Range/Units 06:30 Sodium 139 (137-145) mmol/L Potassium 4.0 D (3.6-5.0) mmol/L Chloride 101.9 (98-107) mmol/L Carbon Dioxide 28 (22-30) mmol/L BUN 3 L (7-17) mg/dL Creatinine 0.7 (0.7-1.2) mg/dL Glucose 112 H (65-100) mg/dL Calcium 8.6 (8.4-10.2) mg/dL Adrenal panel 08/07/17 Range/Units 06:30 Sodium 139 (137-145) mmol/L Potassium 4.0 D (3.6-5.0) mmol/L Chloride 101.9 (98-107) mmol/L Carbon Dioxide 28 (22-30) mmol/L BUN 3 L (7-17) mg/dL Creatinine 0.7 (0.7-1.2) mg/dL Glucose 112 H (65-100) mg/dL Calcium 8.6 (8.4-10.2) mg/dL Total Bilirubin 0.30 (0.1-1.2) mg/dL AST 25 (5-40) units/L ALT 25 (7-56) units/L Alkaline Phosphatase 81 (35-129) units/L Total Protein 6.5 (6.3-8.2) g/dL Albumin 2.4 L (3.9-5) g/dL
--- NOTE | 2017-08-07 15:49 | Progress Note ---
Assessment and Plan Assessment: 1) Severe Sepsis with septic shock: resolved. Etiology most likely peritonitis. CRP=3.8. Procal=52 2) Acute peritonitis: likely localized, from SB perforation/ischemia/ obstruction. OR cx so far negative 3) SB perforation/ischemia/obstruction: -S/P Exploratory laparotomy and resection of small bowel on 07/30 4) CINTIA - resolved 5) Thrombocytopenia - from sepsis - better Plan: -continue zosyn and fluconazole - day 8 of 10 -monitor abdominal pain and wound drainage Thank you Dr Costello for your consultation, will follow up with you. Priyanka Arriaga MD Infectious Diseases Specialist [facility] [phone] Subjective Date of service: 08/07/17 Principal diagnosis: Severe Sepsis; Ischemic Bowel; Acute Resp Failure on MVS Interval history: Still c/o abdominal pain, no N/V. Microbiology: Blood cultures: 07/30 ngtd Respiratory cultures: 07/20 ngtd Wound surg cultures: 07/30 ngrd urine: 07/31 neg Current Antimicrobials: Zosyn 07/31 fluconazole 07/31 Previous Antimicrobials: levaquin metronidazole Objective - Exam Narrative Exam: General appearance: alert on NC O2 in NAD Eyes: anicteric sclerae, moist conjunctivae HENT: Atraumatic; oropharynx +NGT Neck: Trachea midline; supple, no thyromegaly or lymphadenopathy Lungs: CTA CV: rrr Abdomen: Soft,+surg wound with drainage serosanguinous +ileostomy Extremities: +peripheral edema Skin: Normal temperature, turgor and texture; no rash, ulcers or subcutaneous nodules Psych: alert talking. Neuro: sedated Lines: R IJ TLC, [place] - Constitutional Vitals: Vital Signs Temp Pulse Resp BP Pulse Ox 98.7 F 104 H 19 142/87 98 08/07/17 08:44 08/07/17 14:28 08/07/17 14:28 08/07/17 08:44 08/07/17 08:45 Temperature -Last 24 Hours Temperature 98.7 F Temperature 98.6 F Temperature 98.5 F Temperature 98.4 F - Labs CBC & Chem 7: 08/07/17 06:30 08/07/17 06:30 Labs: Abnormal lab results 08/06/17 08/06/17 08/07/17 Range/Units 17:19 21:58 06:30 RBC 3.11 L (3.65-5.03) M/mm3 Hgb 8.8 L (10.1-14.3) gm/dl Hct 26.4 L (30.3-42.9) % RDW 18.0 H (13.2-15.2) % [place] % (Auto) 11.2 H (0.0-7.3) % BUN (7-17) mg/dL Glucose (65-100) mg/dL POC Glucose 118 H 112 H (70-105) Albumin (3.9-5) g/dL 08/07/17 08/07/17 08/07/17 Range/Units 06:30 08:51 11:41 RBC (3.65-5.03) M/mm3 Hgb (10.1-14.3) gm/dl Hct (30.3-42.9) % RDW (13.2-15.2) % [place] % (Auto) (0.0-7.3) % BUN 3 L (7-17) mg/dL Glucose 112 H (65-100) mg/dL POC Glucose 137 H 129 H (70-105) Albumin 2.4 L (3.9-5) g/dL
--- NOTE | 2017-08-07 17:47 | Progress Note ---
Assessment and Plan Assessment and plan: -Small bowel ischemia/ perforation/s/p exploratory laparotomy and small bowel resection Ostomy functioning well, tolerating clear liquids, increase ambulation as tolerated, out of bed to chair --Acute blood loss anemia: Procrit , IV dextran, B12, no blood /[place] witness , hematology following --Severe protein calorie malnutrition; nutrition supplements, supportive care --Hypokalemia; replace per protocol --Acute respiratory failure, s/p extubation, stable --Acute renal failure; resolved -- Septic Shock: Resolved, --Hypothermia; resolved --Lactic acidosis /metabolic acidosis improved --Ostomy care; stable --Type 2 diabetes mellitus; well controlled, SSC,Insulin,ADA diet --DVT prophylaxis; SCDs --full CODE STATUS --Physical therapy as tolerated --Incentive spirometry --Discharge planning per case management Possible home with home health when medically and surgically stable When all the consultants clear the patient for discharge Plan of care discussed with the patient, her and her nurse History Interval history: Patient seen and examined, medical records reviewed Feels slightly better, tolerating liquid diet, complaints of bloating No nausea vomiting Vital signs reviewed, ostomy functional Patient is receiving physical therapy Hospitalist Physical - Constitutional Vitals: Temp Pulse Resp BP Pulse Ox 98.7 F 104 H 19 142/87 98 08/07/17 08:44 08/07/17 14:28 08/07/17 14:28 08/07/17 08:44 08/07/17 08:45 General appearance: Present: no acute distress, well-nourished - EENT Eyes: Present: PERRL, EOM intact - Neck Neck: Present: supple, normal ROM - Respiratory Respiratory effort: normal Respiratory: bilateral: diminished, negative: rales, rhonchi, wheezing - Cardiovascular Rhythm: regular Heart Sounds: Present: S1 & S2 - Extremities Extremities: no ischemia, No edema - Abdominal General gastrointestinal: soft, non-tender, non-distended, normal bowel sounds - Integumentary Integumentary: Present: clear, warm - Psychiatric Psychiatric: appropriate mood/affect, cooperative - Neurologic Neurologic: CNII-XII intact, moves all extremities Results - Labs CBC & Chem 7: 08/07/17 06:30 08/07/17 06:30 Labs: Laboratory Last Values WBC 7.1 K/mm3 (4.5-11.0) 08/07/17 06:30 RBC 3.11 M/mm3 (3.65-5.03) L 08/07/17 06:30 Hgb 8.8 gm/dl (10.1-14.3) L 08/07/17 06:30 Hct 26.4 % (30.3-42.9) L 08/07/17 06:30 MCV 85 fl (79-97) 08/07/17 06:30 MCH 28 pg (28-32) 08/07/17 06:30 MCHC 33 % (30-34) 08/07/17 06:30 RDW 18.0 % (13.2-15.2) H 08/07/17 06:30 Plt Count 245 K/mm3 (140-440) 08/07/17 06:30 Lymph % (Auto) 21.2 % (13.4-35.0) 08/07/17 06:30 [place] % (Auto) 11.2 % (0.0-7.3) H 08/07/17 06:30 Eos % (Auto) 3.3 % (0.0-4.3) 08/07/17 06:30 Baso % (Auto) 0.4 % (0.0-1.8) 08/07/17 06:30 Lymph # 1.5 K/mm3 (1.2-5.4) 08/07/17 06:30 [place] # 0.8 K/mm3 (0.0-0.8) 08/07/17 06:30 Eos # 0.2 K/mm3 (0.0-0.4) 08/07/17 06:30 Baso # 0.0 K/mm3 (0.0-0.1) 08/07/17 06:30 Seg Neutrophils % 63.9 % (40.0-70.0) 08/07/17 06:30 Seg Neutrophils # 4.5 K/mm3 (1.8-7.7) 08/07/17 06:30 Percent Retic 1.33 % (0.78-2.58) 08/03/17 05:30 PT 17.5 Sec. (12.2-14.9) H 08/03/17 05:30 INR 1.36 (0.87-1.13) H 08/03/17 05:30 APTT 36.7 Sec. (24.2-36.6) H 08/03/17 05:30 POC ABG pH 7.506 (7.35-7.45) H 07/31/17 13:26 POC ABG pCO2 31.6 (35-45) L 07/31/17 13:26 POC ABG pO2 115 (80-105) H 07/31/17 13:26 POC ABG HCO3 24.9 07/31/17 13:26 POC ABG Total CO2 26 07/31/17 13:26 POC ABG O2 Sat 99 07/31/17 13:26 POC ABG Base Excess 2 07/31/17 13:26 FiO2 28 % 07/31/17 13:26 Sodium 139 mmol/L (137-145) 08/07/17 06:30 Potassium 4.0 mmol/L (3.6-5.0) D 08/07/17 06:30 Chloride 101.9 mmol/L (98-107) 08/07/17 06:30 Carbon Dioxide 28 mmol/L (22-30) 08/07/17 06:30 Anion Gap 13 mmol/L 08/07/17 06:30 BUN 3 mg/dL (7-17) L 08/07/17 06:30 Creatinine 0.7 mg/dL (0.7-1.2) 08/07/17 06:30 Estimated GFR > 60 ml/min 08/07/17 06:30 BUN/Creatinine Ratio 4 % 08/07/17 06:30 Glucose 112 mg/dL (65-100) H 08/07/17 06:30 POC Glucose 140 (70-105) H 08/07/17 16:32 Lactic Acid 1.50 mmol/L (0.7-2.0) 08/01/17 04:00 Calcium 8.6 mg/dL (8.4-10.2) 08/07/17 06:30 Phosphorus 2.20 mg/dL (2.5-4.5) L 08/03/17 05:30 Magnesium 1.80 mg/dL (1.7-2.3) 08/06/17 17:26 Total Bilirubin 0.30 mg/dL (0.1-1.2) 08/07/17 06:30 Direct Bilirubin < 0.2 mg/dL (0-0.2) 08/03/17 05:30 Indirect Bilirubin 0.1 mg/dL 08/03/17 05:30 AST 25 units/L (5-40) 08/07/17 06:30 ALT 25 units/L (7-56) 08/07/17 06:30 Alkaline Phosphatase 81 units/L (35-129) 08/07/17 06:30 C-Reactive Protein 3.80 mg/dL (0.00-1.30) H 07/30/17 16:53 Total Protein 6.5 g/dL (6.3-8.2) 08/07/17 06:30 Albumin 2.4 g/dL (3.9-5) L 08/07/17 06:30 Albumin/Globulin Ratio 0.6 % 08/07/17 06:30 Urine Color Yellow (Yellow) 07/31/17 15:18 Urine Turbidity Clear (Clear) 07/31/17 15:18 Urine pH 5.0 (5.0-7.0) 07/31/17 15:18 Ur Specific [place] 1.018 (1.003-1.030) 07/31/17 15:18 Urine Protein <15 mg/dl mg/dL (Negative) 07/31/17 15:18 Urine Glucose (UA) 50 mg/dL (Negative) 07/31/17 15:18 Urine Ketones Neg mg/dL (Negative) 07/31/17 15:18 Urine Blood Lg (Negative) 07/31/17 15:18 Urine Nitrite Neg (Negative) 07/31/17 15:18 Urine Bilirubin Neg (Negative) 07/31/17 15:18 Urine Urobilinogen < 2.0 mg/dL (<2.0) 07/31/17 15:18 Ur Leukocyte Esterase Sm (Negative) 07/31/17 15:18 Urine WBC (Auto) 21.0 /HPF (0.0-6.0) H 07/31/17 15:18 Urine RBC (Auto) 17.0 /HPF (0.0-6.0) 07/31/17 15:18 Urine Bacteria (Auto) 2+ /HPF (Negative) 07/31/17 15:18 Amorphous Crystals Few 07/31/17 15:18 Urine Mucus Few /HPF 07/31/17 15:18 Urine Creatinine 99.8 mg/dL (0.1-20.0) H 07/31/17 15:18 Urine Sodium 76 mmol/L 07/31/17 15:18 Miscellaneous Test Flexitest 1 H 08/01/17 07:03
--- NOTE | 2017-08-07 18:36 | Progress Note ---
Assessment and Plan Patient says chest pain and abdominal pain is getting better.Patient resting on room air.Patients O2 saturation 98%. - Patient Problems (1) CVA (cerebral vascular accident) Current Visit: No Status: Acute Plan to address problem: Management as per primary care and neurology. (2) Diabetes 1.5, managed as type 2 Current Visit: No Status: Acute Plan to address problem: Management as per primary care. (3) GI bleed Current Visit: No Status: Acute Plan to address problem: No acute bleeding at this time. (4) Hypertension Current Visit: No Status: Acute Plan to address problem: Management as per primary care. (5) Chest pain Current Visit: Yes Status: Acute Plan to address problem: Chest pain is getting better. Nocomplaint of shortness of breath. (6) Bowel obstruction Current Visit: Yes Status: Acute Plan to address problem: S/P laparotomy and resection of gangrenous bowel. Subjective Date of service: 08/07/17 Principal diagnosis: Severe Sepsis; Ischemic Bowel; Acute Resp Failure on MVS Interval history: Patient says chest pain and abdominal pain is getting better.Patient resting on room air.Patients O2 saturation 98%. Objective Vital Signs - 12hr 08/07/17 08/07/17 08/07/17 07:41 07:58 08:44 Temperature 98.7 F Pulse Rate 104 H Pulse Rate [ 91 H 100 H Anterior Bilateral Throughout] Respiratory 18 Rate Respiratory 16 19 Rate [Anterior Bilateral Throughout] Blood Pressure 142/87 O2 Sat by Pulse 99 98 Oximetry 08/07/17 08/07/17 08/07/17 08:45 14:13 14:28 Temperature Pulse Rate 103 H Pulse Rate [ 95 H 104 H Anterior Bilateral Throughout] Respiratory Rate Respiratory 19 19 Rate [Anterior Bilateral Throughout] Blood Pressure O2 Sat by Pulse 98 Oximetry Constitutional: no acute distress, alert Eyes: non-icteric ENT: oropharynx moist, other (mallampatti 3) Neck: supple, no lymphadenopathy, no JVD, other (No Thyromegaly; Right IJ line) Effort: mildly labored Ascultation: Bilateral: diminished breath sounds (bases), rhonchi Percussion: Bilateral: not dull Cardiovascular: regular rate and rhythm, other (no rubs/murmurs) Gastrointestinal: hypoactive bowel sounds, soft, tender (mild), other (distended ; no palpable HSM) Integumentary: normal Extremities: no cyanosis, no edema, pulses normal, no ischemia or petechiae Neurologic: normal mental status, non-focal exam, pupils equal and round, motor strength normal and Psychiatric: mood appropriate, affect normal CBC and BMP: 08/07/17 06:30 08/07/17 06:30 ABG, PT/INR, D-dimer: ABG POC ABG pH 7.506 (7.35-7.45) H 07/31/17 13:26 POC ABG pCO2 31.6 (35-45) L 07/31/17 13:26 POC ABG pO2 115 (80-105) H 07/31/17 13:26 POC ABG HCO3 24.9 07/31/17 13:26 POC ABG Total CO2 26 07/31/17 13:26 POC ABG O2 Sat 99 07/31/17 13:26 PT/INR, D-dimer PT 17.5 Sec. (12.2-14.9) H 08/03/17 05:30 INR 1.36 (0.87-1.13) H 08/03/17 05:30 Abnormal lab findings: Abnormal Labs 07/30/17 07/30/17 07/30/17 01:25 01:25 10:06 WBC 11.9 H RBC Hgb Hct MCH RDW 17.8 H Plt Count Lymph % (Auto) 7.1 L [place] % (Auto) Lymph # 0.8 L [place] # Seg Neutrophils % 87.5 H Seg Neutrophils # 10.4 H PT INR APTT POC ABG pH POC ABG pCO2 POC ABG pO2 Sodium 136 L Potassium 3.4 L Chloride 95.2 L Carbon Dioxide 19 L BUN Creatinine Glucose 262 H POC Glucose Lactic Acid 5.40 H* Calcium Phosphorus Magnesium C-Reactive Protein Total Protein Albumin Urine WBC (Auto) Urine Creatinine Miscellaneous Test 07/30/17 07/30/17 07/30/17 12:49 16:22 16:53 WBC RBC Hgb Hct MCH RDW Plt Count Lymph % (Auto) [place] % (Auto) Lymph # [place] # Seg Neutrophils % Seg Neutrophils # PT INR APTT POC ABG pH POC ABG pCO2 POC ABG pO2 Sodium Potassium Chloride Carbon Dioxide BUN Creatinine Glucose POC Glucose 253 H 195 H Lactic Acid 8.00 H* Calcium Phosphorus Magnesium C-Reactive Protein Total Protein Albumin Urine WBC (Auto) Urine Creatinine Miscellaneous Test 07/30/17 07/30/17 07/30/17 16:53 16:53 16:53 WBC 11.3 H RBC 5.92 H Hgb 16.6 H D Hct 52.5 H D MCH RDW 18.2 H Plt Count Lymph % (Auto) [place] % (Auto) Lymph # [place] # Seg Neutrophils % Seg Neutrophils # PT INR APTT POC ABG pH POC ABG pCO2 POC ABG pO2 Sodium Potassium Chloride 96.5 L Carbon Dioxide 20 L BUN 19 H Creatinine 2.3 H D Glucose 215 H POC Glucose Lactic Acid Calcium Phosphorus Magnesium C-Reactive Protein 3.80 H Total Protein Albumin Urine WBC (Auto) Urine Creatinine Miscellaneous Test 07/30/17 07/30/17 07/31/17 18:37 23:08 05:19 WBC RBC Hgb Hct MCH RDW Plt Count Lymph % (Auto) [place] % (Auto) Lymph # [place] # Seg Neutrophils % Seg Neutrophils # PT 17.5 H INR 1.36 H APTT POC ABG pH 7.210 L POC ABG pCO2 47.0 H POC ABG pO2 197 H Sodium Potassium Chloride Carbon Dioxide BUN Creatinine Glucose POC Glucose 156 H Lactic Acid Calcium Phosphorus Magnesium C-Reactive Protein Total Protein Albumin Urine WBC (Auto) Urine Creatinine Miscellaneous Test 07/31/17 07/31/17 07/31/17 05:21 06:00 06:00 WBC 4.3 L RBC Hgb Hct MCH RDW 17.6 H Plt Count 95 L Lymph % (Auto) [place] % (Auto) 9.0 H Lymph # 1.1 L [place] # Seg Neutrophils % Seg Neutrophils # PT INR APTT POC ABG pH 7.514 H POC ABG pCO2 22.5 L POC ABG pO2 115 H Sodium Potassium Chloride Carbon Dioxide BUN 25 H Creatinine 2.5 H Glucose 153 H POC Glucose Lactic Acid Calcium 7.3 L D Phosphorus 1.40 L Magnesium 1.20 L C-Reactive Protein Total Protein Albumin Urine WBC (Auto) Urine Creatinine Miscellaneous Test 07/31/17 07/31/17 07/31/17 06:00 12:22 13:26 WBC RBC Hgb Hct MCH RDW Plt Count Lymph % (Auto) [place] % (Auto) Lymph # [place] # Seg Neutrophils % Seg Neutrophils # PT INR APTT POC ABG pH 7.506 H POC ABG pCO2 31.6 L POC ABG pO2 115 H Sodium Potassium Chloride Carbon Dioxide BUN Creatinine Glucose POC Glucose 153 H Lactic Acid 4.50 H* Calcium Phosphorus Magnesium C-Reactive Protein Total Protein Albumin Urine WBC (Auto) Urine Creatinine Miscellaneous Test 07/31/17 07/31/17 07/31/17 15:18 15:18 17:21 WBC RBC Hgb Hct MCH RDW Plt Count Lymph % (Auto) [place] % (Auto) Lymph # [place] # Seg Neutrophils % Seg Neutrophils # PT INR APTT POC ABG pH POC ABG pCO2 POC ABG pO2 Sodium Potassium Chloride Carbon Dioxide BUN Creatinine Glucose POC Glucose 121 H Lactic Acid Calcium Phosphorus Magnesium C-Reactive Protein Total Protein Albumin Urine WBC (Auto) 21.0 H Urine Creatinine 99.8 H Miscellaneous Test 08/01/17 08/01/17 08/01/17 00:16 04:25 07:03 WBC RBC Hgb Hct MCH RDW Plt Count Lymph % (Auto) [place] % (Auto) Lymph # [place] # Seg Neutrophils % Seg Neutrophils # PT INR APTT POC ABG pH POC ABG pCO2 POC ABG pO2 Sodium Potassium Chloride Carbon Dioxide BUN 21 H Creatinine 1.7 H Glucose 110 H POC Glucose 118 H Lactic Acid Calcium 7.6 L Phosphorus 4.80 H D Magnesium C-Reactive Protein Total Protein Albumin Urine WBC (Auto) Urine Creatinine Miscellaneous Test Flexitest 1 H 08/01/17 08/01/17 08/02/17 12:02 13:54 04:40 WBC RBC 3.40 L 2.83 L Hgb 9.5 L 7.9 L Hct 29.4 L D 24.6 L MCH RDW 18.4 H 18.1 H Plt Count 86 L 91 L Lymph % (Auto) [place] % (Auto) Lymph # [place] # Seg Neutrophils % Seg Neutrophils # PT INR APTT POC ABG pH POC ABG pCO2 POC ABG pO2 Sodium Potassium Chloride Carbon Dioxide BUN Creatinine Glucose POC Glucose 124 H Lactic Acid Calcium Phosphorus Magnesium C-Reactive Protein Total Protein Albumin Urine WBC (Auto) Urine Creatinine Miscellaneous Test 08/02/17 08/02/17 08/02/17 04:40 18:22 23:23 WBC RBC Hgb Hct MCH RDW Plt Count Lymph % (Auto) [place] % (Auto) Lymph # [place] # Seg Neutrophils % Seg Neutrophils # PT INR APTT POC ABG pH POC ABG pCO2 POC ABG pO2 Sodium Potassium Chloride 107.8 H Carbon Dioxide BUN Creatinine Glucose POC Glucose 108 H 136 H Lactic Acid Calcium 8.1 L Phosphorus 2.30 L D Magnesium C-Reactive Protein Total Protein Albumin Urine WBC (Auto) Urine Creatinine Miscellaneous Test 08/03/17 08/03/17 08/03/17 05:30 05:30 05:30 WBC RBC 2.75 L Hgb 7.6 L Hct 23.8 L MCH RDW 18.2 H Plt Count 102 L Lymph % (Auto) 10.4 L [place] % (Auto) Lymph # 1.1 L [place] # Seg Neutrophils % 81.9 H Seg Neutrophils # 8.6 H PT 17.5 H INR 1.36 H APTT 36.7 H POC ABG pH POC ABG pCO2 POC ABG pO2 Sodium Potassium Chloride Carbon Dioxide BUN Creatinine Glucose POC Glucose Lactic Acid Calcium Phosphorus Magnesium C-Reactive Protein Total Protein 4.8 L D Albumin 2.3 L Urine WBC (Auto) Urine Creatinine Miscellaneous Test 08/03/17 08/03/17 08/03/17 05:30 05:34 11:46 WBC RBC Hgb Hct MCH RDW Plt Count Lymph % (Auto) [place] % (Auto) Lymph # [place] # Seg Neutrophils % Seg Neutrophils # PT INR APTT POC ABG pH POC ABG pCO2 POC ABG pO2 Sodium Potassium Chloride 107.4 H Carbon Dioxide BUN Creatinine Glucose POC Glucose 116 H 175 H Lactic Acid Calcium 7.9 L Phosphorus 2.20 L Magnesium C-Reactive Protein Total Protein Albumin Urine WBC (Auto) Urine Creatinine Miscellaneous Test 08/03/17 08/03/17 08/04/17 17:44 21:22 05:00 WBC RBC 2.77 L Hgb 7.7 L Hct 23.4 L MCH RDW 18.0 H Plt Count 109 L Lymph % (Auto) [place] % (Auto) 11.9 H Lymph # [place] # Seg Neutrophils % Seg Neutrophils # PT INR APTT POC ABG pH POC ABG pCO2 POC ABG pO2 Sodium Potassium Chloride Carbon Dioxide BUN Creatinine Glucose POC Glucose 117 H 134 H Lactic Acid Calcium Phosphorus Magnesium C-Reactive Protein Total Protein Albumin Urine WBC (Auto) Urine Creatinine Miscellaneous Test 08/04/17 08/04/17 08/04/17 05:00 08:53 13:17 WBC RBC Hgb Hct MCH RDW Plt Count Lymph % (Auto) [place] % (Auto) Lymph # [place] # Seg Neutrophils % Seg Neutrophils # PT INR APTT POC ABG pH POC ABG pCO2 POC ABG pO2 Sodium Potassium 3.3 L Chloride Carbon Dioxide BUN Creatinine Glucose 118 H POC Glucose 110 H 122 H Lactic Acid Calcium 7.8 L Phosphorus Magnesium C-Reactive Protein Total Protein Albumin Urine WBC (Auto) Urine Creatinine Miscellaneous Test 08/04/17 08/04/17 08/05/17 17:38 22:17 08:43 WBC RBC Hgb Hct MCH RDW Plt Count Lymph % (Auto) [place] % (Auto) Lymph # [place] # Seg Neutrophils % Seg Neutrophils # PT INR APTT POC ABG pH POC ABG pCO2 POC ABG pO2 Sodium Potassium Chloride Carbon Dioxide BUN Creatinine Glucose POC Glucose 119 H 111 H 129 H Lactic Acid Calcium Phosphorus Magnesium C-Reactive Protein Total Protein Albumin Urine WBC (Auto) Urine Creatinine Miscellaneous Test 08/05/17 08/05/17 08/05/17 12:41 16:27 21:25 WBC RBC Hgb Hct MCH RDW Plt Count Lymph % (Auto) [place] % (Auto) Lymph # [place] # Seg Neutrophils % Seg Neutrophils # PT INR APTT POC ABG pH POC ABG pCO2 POC ABG pO2 Sodium Potassium Chloride Carbon Dioxide BUN Creatinine Glucose POC Glucose 122 H 127 H 111 H Lactic Acid Calcium Phosphorus Magnesium C-Reactive Protein Total Protein Albumin Urine WBC (Auto) Urine Creatinine Miscellaneous Test 08/05/17 08/05/17 08/06/17 Unknown Unknown 06:04 WBC RBC 2.84 L 2.95 L Hgb 8.0 L 8.0 L Hct 24.0 L 25.1 L MCH 27 L RDW 18.0 H 18.1 H Plt Count 132 L Lymph % (Auto) [place] % (Auto) 13.5 H 13.0 H Lymph # [place] # 0.9 H Seg Neutrophils % Seg Neutrophils # PT INR APTT POC ABG pH POC ABG pCO2 POC ABG pO2 Sodium Potassium Chloride Carbon Dioxide BUN 6 L Creatinine 0.6 L Glucose 136 H POC Glucose Lactic Acid Calcium 8.2 L Phosphorus Magnesium C-Reactive Protein Total Protein 6.2 L D Albumin 2.2 L Urine WBC (Auto) Urine Creatinine Miscellaneous Test 08/06/17 08/06/17 08/06/17 06:04 06:39 12:30 WBC RBC Hgb Hct MCH RDW Plt Count Lymph % (Auto) [place] % (Auto) Lymph # [place] # Seg Neutrophils % Seg Neutrophils # PT INR APTT POC ABG pH POC ABG pCO2 POC ABG pO2 Sodium 136 L Potassium 3.2 L Chloride Carbon Dioxide BUN 4 L Creatinine Glucose 145 H POC Glucose 143 H 139 H Lactic Acid Calcium 8.3 L Phosphorus Magnesium C-Reactive Protein Total Protein 6.2 L Albumin 2.5 L Urine WBC (Auto) Urine Creatinine Miscellaneous Test 08/06/17 08/06/17 08/07/17 17:19 21:58 06:30 WBC RBC 3.11 L Hgb 8.8 L Hct 26.4 L MCH RDW 18.0 H Plt Count Lymph % (Auto) [place] % (Auto) 11.2 H Lymph # [place] # Seg Neutrophils % Seg Neutrophils # PT INR APTT POC ABG pH POC ABG pCO2 POC ABG pO2 Sodium Potassium Chloride Carbon Dioxide BUN Creatinine Glucose POC Glucose 118 H 112 H Lactic Acid Calcium Phosphorus Magnesium C-Reactive Protein Total Protein Albumin Urine WBC (Auto) Urine Creatinine Miscellaneous Test 08/07/17 08/07/17 08/07/17 06:30 08:51 11:41 WBC RBC Hgb Hct MCH RDW Plt Count Lymph % (Auto) [place] % (Auto) Lymph # [place] # Seg Neutrophils % Seg Neutrophils # PT INR APTT POC ABG pH POC ABG pCO2 POC ABG pO2 Sodium Potassium Chloride Carbon Dioxide BUN 3 L Creatinine Glucose 112 H POC Glucose 137 H 129 H Lactic Acid Calcium Phosphorus Magnesium C-Reactive Protein Total Protein Albumin 2.4 L Urine WBC (Auto) Urine Creatinine Miscellaneous Test 08/07/17 16:32 WBC RBC Hgb Hct MCH RDW Plt Count Lymph % (Auto) [place] % (Auto) Lymph # [place] # Seg Neutrophils % Seg Neutrophils # PT INR APTT POC ABG pH POC ABG pCO2 POC ABG pO2 Sodium Potassium Chloride Carbon Dioxide BUN Creatinine Glucose POC Glucose 140 H Lactic Acid Calcium Phosphorus Magnesium C-Reactive Protein Total Protein Albumin Urine WBC (Auto) Urine Creatinine Miscellaneous Test Allied health notes reviewed: RT
[2017-08-08] MEDS: DUONEB *Not for PRN Use IH SCH ×4 (02:07→19:14)
[2017-08-08] MEDS: MORPHINE IV PRN ×2 (03:04→20:42)
[2017-08-08] MEDS: NACL 0.45% 1000 ML 1,000 ML IV SCH ×2 (03:05→17:30)
[2017-08-08] MEDS: ZOSYN/NS 4.5GM/100ML 4.5 GM/100 ML VIAL IV SCH (06:01)
[2017-08-08] MEDS ORDERED: VITAMIN B-12 SUB-Q ONE (06:53)
[2017-08-08 07:32] LABS: Basophils % (Auto) 0.5 % (0.0-1.8); Eosinophils % (Auto) 2.9 % (0.0-4.3); Hematocrit 26.6 % (30.3-42.9); Hemoglobin 8.8 gm/dl (10.1-14.3); Mean Corpuscular HGB Conc 33 % (30-34); Mean Corpuscular Hemoglobin 28 pg (28-32); Mean Corpuscular Volume 85 fl (79-97); Platelet Count 306 K/mm3 (140-440); Red Blood Count 3.13 M/mm3 (3.65-5.03); Red Cell Distribution Width 18.7 % (13.2-15.2)
[2017-08-08 07:48] LABS: Alanine Aminotransferase 23 units/L (7-56); Albumin 2.4 g/dL (3.9-5); Albumin/Globulin Ratio 0.6 %; Alkaline Phosphatase 81 units/L (35-129); Anion Gap 16 mmol/L; BUN/Creatinine Ratio 6; Blood Urea Nitrogen 4 mg/dL (7-17); Calcium 8.6 mg/dL (8.4-10.2); Carbon Dioxide 26 mmol/L (22-30); Glucose 107 mg/dL (65-100); Potassium 3.6 mmol/L (3.6-5.0); Sodium 140 mmol/L (137-145); Total Protein 6.6 g/dL (6.3-8.2)
[2017-08-08] MEDS: NOVOLOG SUB-Q SCH ×7 (09:03→23:40)
--- NOTE | 2017-08-08 09:21 | Hem/Onc Progress Note ---
Assessment and Plan Hemoglobin 8.8. B12 shot was given today. Hold off iron. Continue Procrit. We will also add Magic mouthwash Subjective Date of service: 08/08/17 Interval history: Patient complains of some abdominal pain. Also complains of soreness in the mouth especially on the gums. Tolerating full liquid diet. Objective - Constitutional Vitals: Last Vital Signs Temp 98.1 F 08/08/17 08:12 Pulse 92 H 08/08/17 08:12 Resp 18 08/08/17 08:12 BP 140/87 08/08/17 08:12 Pulse Ox 98 08/08/17 08:12 - Neck Neck: supple - Respiratory Respiratory effort: Positive: normal Respiratory: bilateral: CTA - Cardiovascular Rhythm: regular Extremities: No edema - Gastrointestinal General gastrointestinal: Present: soft (the ileostomy site looks clean.), tender (mildly tender) - Labs Lab Results: Laboratory Results - last 24 hr 08/07/17 08/07/17 08/08/17 11:41 16:32 06:37 WBC 8.0 RBC 3.13 L Hgb 8.8 L Hct 26.6 L MCV 85 MCH 28 MCHC 33 RDW 18.7 H Plt Count 306 Lymph % (Auto) 20.9 [place] % (Auto) 9.4 H Eos % (Auto) 2.9 Baso % (Auto) 0.5 Lymph # 1.7 [place] # 0.8 Eos # 0.2 Baso # 0.0 Seg Neutrophils % 66.3 Seg Neutrophils # 5.3 Sodium Potassium Chloride Carbon Dioxide Anion Gap BUN Creatinine Estimated GFR BUN/Creatinine Ratio Glucose POC Glucose 129 H 140 H Calcium Total Bilirubin AST ALT Alkaline Phosphatase Total Protein Albumin Albumin/Globulin Ratio 08/08/17 06:37 WBC RBC Hgb Hct MCV MCH MCHC RDW Plt Count Lymph % (Auto) [place] % (Auto) Eos % (Auto) Baso % (Auto) Lymph # [place] # Eos # Baso # Seg Neutrophils % Seg Neutrophils # Sodium 140 Potassium 3.6 Chloride 102.0 Carbon Dioxide 26 Anion Gap 16 BUN 4 L Creatinine 0.7 Estimated GFR > 60 BUN/Creatinine Ratio 6 Glucose 107 H POC Glucose Calcium 8.6 Total Bilirubin 0.30 AST 22 ALT 23 Alkaline Phosphatase 81 Total Protein 6.6 Albumin 2.4 L Albumin/Globulin Ratio 0.6
[2017-08-08] MEDS: DIFLUCAN 200 MG/100 ML BAG IV SCH (10:00)
[2017-08-08] MEDS: PEPCID PO SCH ×2 (10:00→23:45)
[2017-08-08] MEDS: PERCOCET 5/325 PO PRN ×2 (10:07→17:30)
[2017-08-08] MEDS: MAGIC MOUTHWASH PO SCH ×3 (10:26→20:53)
--- NOTE | 2017-08-08 11:09 | Progress Note ---
Assessment and Plan Patient continues to improve slightly. Wound healing well. Continue daily dressing changes and packing. Encouraged ambulation. Continues to be distended, will hold-off on advancing diet for now. Subjective Date of service: 08/08/17 Patient Reports: Positive: still having pain Objective Vital Signs - 12hr 08/08/17 08/08/17 08/08/17 00:39 04:45 08:12 Temperature 98.4 F 98.7 F 98.1 F Pulse Rate 92 H 93 H 92 H Respiratory 18 20 18 Rate Blood Pressure 151/88 145/83 140/87 O2 Sat by Pulse 97 100 98 Oximetry 08/08/17 10:07 Temperature Pulse Rate Respiratory 20 Rate Blood Pressure O2 Sat by Pulse Oximetry - General physical appearance well developed, well nourished, moderate distress - Respiratory normal expansion, normal respiratory effort, clear to auscultation - Abdomen soft, tender, bowel sounds normal, distended, not rebound, not guarding, not rigid - Labs 08/08/17 06:37 08/08/17 06:37 Diabetes panel 08/08/17 Range/Units 06:37 Sodium 140 (137-145) mmol/L Potassium 3.6 (3.6-5.0) mmol/L Chloride 102.0 (98-107) mmol/L Carbon Dioxide 26 (22-30) mmol/L BUN 4 L (7-17) mg/dL Creatinine 0.7 (0.7-1.2) mg/dL Glucose 107 H (65-100) mg/dL Calcium 8.6 (8.4-10.2) mg/dL AST 22 (5-40) units/L ALT 23 (7-56) units/L Alkaline Phosphatase 81 (35-129) units/L Total Protein 6.6 (6.3-8.2) g/dL Albumin 2.4 L (3.9-5) g/dL Calcium panel 08/08/17 Range/Units 06:37 Calcium 8.6 (8.4-10.2) mg/dL Albumin 2.4 L (3.9-5) g/dL Pituitary panel 08/08/17 Range/Units 06:37 Sodium 140 (137-145) mmol/L Potassium 3.6 (3.6-5.0) mmol/L Chloride 102.0 (98-107) mmol/L Carbon Dioxide 26 (22-30) mmol/L BUN 4 L (7-17) mg/dL Creatinine 0.7 (0.7-1.2) mg/dL Glucose 107 H (65-100) mg/dL Calcium 8.6 (8.4-10.2) mg/dL Adrenal panel 08/08/17 Range/Units 06:37 Sodium 140 (137-145) mmol/L Potassium 3.6 (3.6-5.0) mmol/L Chloride 102.0 (98-107) mmol/L Carbon Dioxide 26 (22-30) mmol/L BUN 4 L (7-17) mg/dL Creatinine 0.7 (0.7-1.2) mg/dL Glucose 107 H (65-100) mg/dL Calcium 8.6 (8.4-10.2) mg/dL Total Bilirubin 0.30 (0.1-1.2) mg/dL AST 22 (5-40) units/L ALT 23 (7-56) units/L Alkaline Phosphatase 81 (35-129) units/L Total Protein 6.6 (6.3-8.2) g/dL Albumin 2.4 L (3.9-5) g/dL
--- NOTE | 2017-08-08 11:55 | Progress Note ---
Assessment and Plan Assessment and plan: --Small bowel ischemia/ perforation/s/p exploratory laparotomy and small bowel resection Ostomy functioning well, diet advanced to full liquids, increase ambulation as tolerated, out of bed to chair --Acute blood loss anemia: Procrit , IV dextran, B12, no blood /[place] witness , hematology following --Severe protein calorie malnutrition; nutrition supplements, supportive care --Hypokalemia; corrected --Acute respiratory failure, s/p extubation, stable --Acute renal failure; resolved -- Septic Shock: Resolved, --Hypothermia; resolved --Lactic acidosis /metabolic acidosis improved --Ostomy care; stable --Type 2 diabetes mellitus; well controlled, SSC,Insulin,ADA diet --DVT prophylaxis; SCDs --full CODE STATUS Patient can be transferred out of telemetry to medical floor Plan of care discussed with the patient and her daughter at the bedside History Interval history: Patient seen and examined medical records reviewed Feeling better sitting in chair, tolerating full liquids No new complaints Hospitalist Physical - Constitutional Vitals: Temp Pulse Resp BP Pulse Ox 98.1 F 92 H 20 140/87 98 08/08/17 08:12 08/08/17 08:12 08/08/17 10:07 08/08/17 08:12 08/08/17 08:12 General appearance: Present: no acute distress, well-nourished - EENT Eyes: Present: PERRL, EOM intact - Neck Neck: Present: supple, normal ROM - Respiratory Respiratory effort: normal Respiratory: bilateral: diminished, negative: rales, rhonchi, wheezing - Cardiovascular Rhythm: regular Heart Sounds: Present: S1 & S2 - Extremities Extremities: no ischemia, No edema - Abdominal General gastrointestinal: soft, non-tender, non-distended, normal bowel sounds - Integumentary Integumentary: Present: clear, warm - Psychiatric Psychiatric: appropriate mood/affect, cooperative - Neurologic Neurologic: CNII-XII intact, moves all extremities Results - Labs CBC & Chem 7: 08/08/17 06:37 08/08/17 06:37 Labs: Laboratory Last Values WBC 8.0 K/mm3 (4.5-11.0) 08/08/17 06:37 RBC 3.13 M/mm3 (3.65-5.03) L 08/08/17 06:37 Hgb 8.8 gm/dl (10.1-14.3) L 08/08/17 06:37 Hct 26.6 % (30.3-42.9) L 08/08/17 06:37 MCV 85 fl (79-97) 08/08/17 06:37 MCH 28 pg (28-32) 08/08/17 06:37 MCHC 33 % (30-34) 08/08/17 06:37 RDW 18.7 % (13.2-15.2) H 08/08/17 06:37 Plt Count 306 K/mm3 (140-440) 08/08/17 06:37 Lymph % (Auto) 20.9 % (13.4-35.0) 08/08/17 06:37 [place] % (Auto) 9.4 % (0.0-7.3) H 08/08/17 06:37 Eos % (Auto) 2.9 % (0.0-4.3) 08/08/17 06:37 Baso % (Auto) 0.5 % (0.0-1.8) 08/08/17 06:37 Lymph # 1.7 K/mm3 (1.2-5.4) 08/08/17 06:37 [place] # 0.8 K/mm3 (0.0-0.8) 08/08/17 06:37 Eos # 0.2 K/mm3 (0.0-0.4) 08/08/17 06:37 Baso # 0.0 K/mm3 (0.0-0.1) 08/08/17 06:37 Seg Neutrophils % 66.3 % (40.0-70.0) 08/08/17 06:37 Seg Neutrophils # 5.3 K/mm3 (1.8-7.7) 08/08/17 06:37 Percent Retic 1.33 % (0.78-2.58) 08/03/17 05:30 PT 17.5 Sec. (12.2-14.9) H 08/03/17 05:30 INR 1.36 (0.87-1.13) H 08/03/17 05:30 APTT 36.7 Sec. (24.2-36.6) H 08/03/17 05:30 POC ABG pH 7.506 (7.35-7.45) H 07/31/17 13:26 POC ABG pCO2 31.6 (35-45) L 07/31/17 13:26 POC ABG pO2 115 (80-105) H 07/31/17 13:26 POC ABG HCO3 24.9 07/31/17 13:26 POC ABG Total CO2 26 07/31/17 13:26 POC ABG O2 Sat 99 07/31/17 13:26 POC ABG Base Excess 2 07/31/17 13:26 FiO2 28 % 07/31/17 13:26 Sodium 140 mmol/L (137-145) 08/08/17 06:37 Potassium 3.6 mmol/L (3.6-5.0) 08/08/17 06:37 Chloride 102.0 mmol/L (98-107) 08/08/17 06:37 Carbon Dioxide 26 mmol/L (22-30) 08/08/17 06:37 Anion Gap 16 mmol/L 08/08/17 06:37 BUN 4 mg/dL (7-17) L 08/08/17 06:37 Creatinine 0.7 mg/dL (0.7-1.2) 08/08/17 06:37 Estimated GFR > 60 ml/min 08/08/17 06:37 BUN/Creatinine Ratio 6 % 08/08/17 06:37 Glucose 107 mg/dL (65-100) H 08/08/17 06:37 POC Glucose 140 (70-105) H 08/07/17 16:32 Lactic Acid 1.50 mmol/L (0.7-2.0) 08/01/17 04:00 Calcium 8.6 mg/dL (8.4-10.2) 08/08/17 06:37 Phosphorus 2.20 mg/dL (2.5-4.5) L 08/03/17 05:30 Magnesium 1.80 mg/dL (1.7-2.3) 08/06/17 17:26 Total Bilirubin 0.30 mg/dL (0.1-1.2) 08/08/17 06:37 Direct Bilirubin < 0.2 mg/dL (0-0.2) 08/03/17 05:30 Indirect Bilirubin 0.1 mg/dL 08/03/17 05:30 AST 22 units/L (5-40) 08/08/17 06:37 ALT 23 units/L (7-56) 08/08/17 06:37 Alkaline Phosphatase 81 units/L (35-129) 08/08/17 06:37 C-Reactive Protein 3.80 mg/dL (0.00-1.30) H 07/30/17 16:53 Total Protein 6.6 g/dL (6.3-8.2) 08/08/17 06:37 Albumin 2.4 g/dL (3.9-5) L 08/08/17 06:37 Albumin/Globulin Ratio 0.6 % 08/08/17 06:37 Urine Color Yellow (Yellow) 07/31/17 15:18 Urine Turbidity Clear (Clear) 07/31/17 15:18 Urine pH 5.0 (5.0-7.0) 07/31/17 15:18 Ur Specific [place] 1.018 (1.003-1.030) 07/31/17 15:18 Urine Protein <15 mg/dl mg/dL (Negative) 07/31/17 15:18 Urine Glucose (UA) 50 mg/dL (Negative) 07/31/17 15:18 Urine Ketones Neg mg/dL (Negative) 07/31/17 15:18 Urine Blood Lg (Negative) 07/31/17 15:18 Urine Nitrite Neg (Negative) 07/31/17 15:18 Urine Bilirubin Neg (Negative) 07/31/17 15:18 Urine Urobilinogen < 2.0 mg/dL (<2.0) 07/31/17 15:18 Ur Leukocyte Esterase Sm (Negative) 07/31/17 15:18 Urine WBC (Auto) 21.0 /HPF (0.0-6.0) H 07/31/17 15:18 Urine RBC (Auto) 17.0 /HPF (0.0-6.0) 07/31/17 15:18 Urine Bacteria (Auto) 2+ /HPF (Negative) 07/31/17 15:18 Amorphous Crystals Few 07/31/17 15:18 Urine Mucus Few /HPF 07/31/17 15:18 Urine Creatinine 99.8 mg/dL (0.1-20.0) H 07/31/17 15:18 Urine Sodium 76 mmol/L 07/31/17 15:18 Miscellaneous Test Flexitest 1 H 08/01/17 07:03
--- NOTE | 2017-08-08 11:58 | Progress Note ---
Assessment and Plan Assessment: 1) Severe Sepsis with septic shock: resolved. Etiology most likely peritonitis. CRP=3.8. Procal=52 2) Acute peritonitis: likely localized, from SB perforation/ischemia/ obstruction. OR cx so far negative 3) SB perforation/ischemia/obstruction: -S/P Exploratory laparotomy and resection of small bowel on 07/30 4) CINTIA - resolved 5) Thrombocytopenia - from sepsis - better Plan: -costop zosyn and fluconazole -s/p 10 days -monitor abdominal pain and wound drainage Thank you Dr Costello for your consultation, will follow up with you. Priyanka Arriaga MD Infectious Diseases Specialist [facility] ([facility]) M [phone] O [phone] Subjective Date of service: 08/08/17 Principal diagnosis: Severe Sepsis; Ischemic Bowel; Acute Resp Failure on MVS Interval history: Still c/o abdominal pain, no N/V. No fever Microbiology: Blood cultures: 07/30 ngtd Respiratory cultures: 07/20 ngtd Wound surg cultures: 07/30 ngrd urine: 07/31 neg Current Antimicrobials: Zosyn 07/31 fluconazole 07/31 Previous Antimicrobials: levaquin metronidazole Objective - Exam Narrative Exam: General appearance: alert on NC O2 in NAD Eyes: anicteric sclerae, moist conjunctivae HENT: Atraumatic; oropharynx +NGT Neck: Trachea midline; supple, no thyromegaly or lymphadenopathy Lungs: CTA CV: rrr Abdomen: Soft,+surg wound with drainage serosanguinous +ileostomy Extremities: +peripheral edema Skin: Normal temperature, turgor and texture; no rash, ulcers or subcutaneous nodules Psych: alert talking. Neuro: sedated Lines: R IJ TLC, [place] - Constitutional Vitals: Vital Signs Temp Pulse Resp BP Pulse Ox 98.1 F 92 H 20 140/87 98 08/08/17 08:12 08/08/17 08:12 08/08/17 10:07 08/08/17 08:12 08/08/17 08:12 Temperature -Last 24 Hours Temperature 98.1 F Temperature 98.7 F Temperature 98.4 F Temperature 98.8 F Temperature 98.9 F - Labs CBC & Chem 7: 08/08/17 06:37 08/08/17 06:37 Labs: Abnormal lab results 08/07/17 08/07/1708/08/17 Range/Units 11:41 16:32 06:37 RBC 3.13 L (3.65-5.03) M/mm3 Hgb 8.8 L (10.1-14.3) gm/dl Hct 26.6 L (30.3-42.9) % RDW 18.7 H (13.2-15.2) % [place] % (Auto) 9.4 H (0.0-7.3) % BUN (7-17) mg/dL Glucose (65-100) mg/dL POC Glucose 129 H 140 H (70-105) Albumin (3.9-5) g/dL 08/08/17 Range/Units 06:37 RBC (3.65-5.03) M/mm3 Hgb (10.1-14.3) gm/dl Hct (30.3-42.9) % RDW (13.2-15.2) % [place] % (Auto) (0.0-7.3) % BUN 4 L (7-17) mg/dL Glucose 107 H (65-100) mg/dL POC Glucose (70-105) Albumin 2.4 L (3.9-5) g/dL
--- NOTE | 2017-08-08 20:33 | Progress Note ---
Assessment and Plan Patient awake. Resting on room air. No complaint of chest pain today. Still complaining slight abdominal pain.No complaint of shortness of breath.O2 saturation 97%. - Patient Problems (1) CVA (cerebral vascular accident) Current Visit: No Status: Acute Plan to address problem: Management as per primary care and neurology. (2) Diabetes 1.5, managed as type 2 Current Visit: No Status: Acute Plan to address problem: Management as per primary care. (3) GI bleed Current Visit: No Status: Acute Plan to address problem: No acute bleeding at this time. (4) Hypertension Current Visit: No Status: Acute Plan to address problem: Management as per primary care. (5) Chest pain Current Visit: Yes Status: Acute Plan to address problem: Chest pain is getting better. Nocomplaint of shortness of breath. (6) Bowel obstruction Current Visit: Yes Status: Acute Plan to address problem: S/P laparotomy and resection of gangrenous bowel. Subjective Date of service: 08/08/17 Principal diagnosis: Severe Sepsis; Ischemic Bowel; Acute Resp Failure on MVS Interval history: Patient awake. Resting on room air. No complaint of chest pain today. Still complaining slight abdominal pain.No complaint of shortness of breath.O2 saturation 97%. Objective Vital Signs - 12hr 08/08/17 08/08/17 08/08/17 10:07 11:00 11:52 Temperature 98.2 F Pulse Rate 91 H 89 Pulse Rate [ Anterior Bilateral Throughout] Respiratory 20 18 Rate Respiratory Rate [Anterior Bilateral Throughout] Blood Pressure 142/81 O2 Sat by Pulse 99 Oximetry 08/08/17 08/08/17 08/08/17 14:57 15:04 19:14 Temperature Pulse Rate Pulse Rate [ 83 89 94 H Anterior Bilateral Throughout] Respiratory Rate Respiratory 20 16 16 Rate [Anterior Bilateral Throughout] Blood Pressure O2 Sat by Pulse Oximetry 08/08/17 19:24 Temperature Pulse Rate Pulse Rate [ 92 H Anterior Bilateral Throughout] Respiratory Rate Respiratory 16 Rate [Anterior Bilateral Throughout] Blood Pressure O2 Sat by Pulse Oximetry Constitutional: no acute distress, alert Eyes: non-icteric ENT: oropharynx moist, other (mallampatti 3) Neck: supple, no lymphadenopathy, no JVD, other (No Thyromegaly; Right IJ line) Effort: mildly labored Ascultation: Bilateral: diminished breath sounds (bases), rhonchi Percussion: Bilateral: not dull Cardiovascular: regular rate and rhythm, other (no rubs/murmurs) Gastrointestinal: hypoactive bowel sounds, soft, tender (mild), other (distended ; no palpable HSM) Integumentary: normal Extremities: no cyanosis, no edema, pulses normal, no ischemia or petechiae Neurologic: normal mental status, non-focal exam, pupils equal and round, motor strength normal and Psychiatric: mood appropriate, affect normal CBC and BMP: 08/08/17 06:37 08/08/17 06:37 ABG, PT/INR, D-dimer: ABG POC ABG pH 7.506 (7.35-7.45) H 07/31/17 13:26 POC ABG pCO2 31.6 (35-45) L 07/31/17 13:26 POC ABG pO2 115 (80-105) H 07/31/17 13:26 POC ABG HCO3 24.9 07/31/17 13:26 POC ABG Total CO2 26 07/31/17 13:26 POC ABG O2 Sat 99 07/31/17 13:26 PT/INR, D-dimer PT 17.5 Sec. (12.2-14.9) H 08/03/17 05:30 INR 1.36 (0.87-1.13) H 08/03/17 05:30 Abnormal lab findings: Abnormal Labs 07/30/17 07/30/17 07/30/17 01:25 01:25 10:06 WBC 11.9 H RBC Hgb Hct MCH RDW 17.8 H Plt Count Lymph % (Auto) 7.1 L Real % (Auto) Lymph # 0.8 L Real # Seg Neutrophils % 87.5 H Seg Neutrophils # 10.4 H PT INR APTT POC ABG pH POC ABG pCO2 POC ABG pO2 Sodium 136 L Potassium 3.4 L Chloride 95.2 L Carbon Dioxide 19 L BUN Creatinine Glucose 262 H POC Glucose Lactic Acid 5.40 H* Calcium Phosphorus Magnesium C-Reactive Protein Total Protein Albumin Urine WBC (Auto) Urine Creatinine Miscellaneous Test 07/30/17 07/30/17 07/30/17 12:49 16:22 16:53 WBC RBC Hgb Hct MCH RDW Plt Count Lymph % (Auto) Real % (Auto) Lymph # Real # Seg Neutrophils % Seg Neutrophils # PT INR APTT POC ABG pH POC ABG pCO2 POC ABG pO2 Sodium Potassium Chloride Carbon Dioxide BUN Creatinine Glucose POC Glucose 253 H 195 H Lactic Acid 8.00 H* Calcium Phosphorus Magnesium C-Reactive Protein Total Protein Albumin Urine WBC (Auto) Urine Creatinine Miscellaneous Test 07/30/17 07/30/17 07/30/17 16:53 16:53 16:53 WBC 11.3 H RBC 5.92 H Hgb 16.6 H D Hct 52.5 H D MCH RDW 18.2 H Plt Count Lymph % (Auto) Real % (Auto) Lymph # Real # Seg Neutrophils % Seg Neutrophils # PT INR APTT POC ABG pH POC ABG pCO2 POC ABG pO2 Sodium Potassium Chloride 96.5 L Carbon Dioxide 20 L BUN 19 H Creatinine 2.3 H D Glucose 215 H POC Glucose Lactic Acid Calcium Phosphorus Magnesium C-Reactive Protein 3.80 H Total Protein Albumin Urine WBC (Auto) Urine Creatinine Miscellaneous Test 07/30/17 07/30/17 07/31/17 18:37 23:08 05:19 WBC RBC Hgb Hct MCH RDW Plt Count Lymph % (Auto) Real % (Auto) Lymph # Real # Seg Neutrophils % Seg Neutrophils # PT 17.5 H INR 1.36 H APTT POC ABG pH 7.210 L POC ABG pCO2 47.0 H POC ABG pO2 197 H Sodium Potassium Chloride Carbon Dioxide BUN Creatinine Glucose POC Glucose 156 H Lactic Acid Calcium Phosphorus Magnesium C-Reactive Protein Total Protein Albumin Urine WBC (Auto) Urine Creatinine Miscellaneous Test 07/31/17 07/31/17 07/31/17 05:21 06:00 06:00 WBC 4.3 L RBC Hgb Hct MCH RDW 17.6 H Plt Count 95 L Lymph % (Auto) Real % (Auto) 9.0 H Lymph # 1.1 L Real # Seg Neutrophils % Seg Neutrophils # PT INR APTT POC ABG pH 7.514 H POC ABG pCO2 22.5 L POC ABG pO2 115 H Sodium Potassium Chloride Carbon Dioxide BUN 25 H Creatinine 2.5 H Glucose 153 H POC Glucose Lactic Acid Calcium 7.3 L D Phosphorus 1.40 L Magnesium 1.20 L C-Reactive Protein Total Protein Albumin Urine WBC (Auto) Urine Creatinine Miscellaneous Test 07/31/17 07/31/17 07/31/17 06:00 12:22 13:26 WBC RBC Hgb Hct MCH RDW Plt Count Lymph % (Auto) Real % (Auto) Lymph # Real # Seg Neutrophils % Seg Neutrophils # PT INR APTT POC ABG pH 7.506 H POC ABG pCO2 31.6 L POC ABG pO2 115 H Sodium Potassium Chloride Carbon Dioxide BUN Creatinine Glucose POC Glucose 153 H Lactic Acid 4.50 H* Calcium Phosphorus Magnesium C-Reactive Protein Total Protein Albumin Urine WBC (Auto) Urine Creatinine Miscellaneous Test 07/31/17 07/31/17 07/31/17 15:18 15:18 17:21 WBC RBC Hgb Hct MCH RDW Plt Count Lymph % (Auto) Real % (Auto) Lymph # Real # Seg Neutrophils % Seg Neutrophils # PT INR APTT POC ABG pH POC ABG pCO2 POC ABG pO2 Sodium Potassium Chloride Carbon Dioxide BUN Creatinine Glucose POC Glucose 121 H Lactic Acid Calcium Phosphorus Magnesium C-Reactive Protein Total Protein Albumin Urine WBC (Auto) 21.0 H Urine Creatinine 99.8 H Miscellaneous Test 08/01/17 08/01/17 08/01/17 00:16 04:25 07:03 WBC RBC Hgb Hct MCH RDW Plt Count Lymph % (Auto) Real % (Auto) Lymph # Real # Seg Neutrophils % Seg Neutrophils # PT INR APTT POC ABG pH POC ABG pCO2 POC ABG pO2 Sodium Potassium Chloride Carbon Dioxide BUN 21 H Creatinine 1.7 H Glucose 110 H POC Glucose 118 H Lactic Acid Calcium 7.6 L Phosphorus 4.80 H D Magnesium C-Reactive Protein Total Protein Albumin Urine WBC (Auto) Urine Creatinine Miscellaneous Test Flexitest 1 H 08/01/17 08/01/17 08/02/17 12:02 13:54 04:40 WBC RBC 3.40 L 2.83 L Hgb 9.5 L 7.9 L Hct 29.4 L D 24.6 L MCH RDW 18.4 H 18.1 H Plt Count 86 L 91 L Lymph % (Auto) Real % (Auto) Lymph # Real # Seg Neutrophils % Seg Neutrophils # PT INR APTT POC ABG pH POC ABG pCO2 POC ABG pO2 Sodium Potassium Chloride Carbon Dioxide BUN Creatinine Glucose POC Glucose 124 H Lactic Acid Calcium Phosphorus Magnesium C-Reactive Protein Total Protein Albumin Urine WBC (Auto) Urine Creatinine Miscellaneous Test 08/02/17 08/02/17 08/02/17 04:40 18:22 23:23 WBC RBC Hgb Hct MCH RDW Plt Count Lymph % (Auto) Real % (Auto) Lymph # Real # Seg Neutrophils % Seg Neutrophils # PT INR APTT POC ABG pH POC ABG pCO2 POC ABG pO2 Sodium Potassium Chloride 107.8 H Carbon Dioxide BUN Creatinine Glucose POC Glucose 108 H 136 H Lactic Acid Calcium 8.1 L Phosphorus 2.30 L D Magnesium C-Reactive Protein Total Protein Albumin Urine WBC (Auto) Urine Creatinine Miscellaneous Test 08/03/17 08/03/17 08/03/17 05:30 05:30 05:30 WBC RBC 2.75 L Hgb 7.6 L Hct 23.8 L MCH RDW 18.2 H Plt Count 102 L Lymph % (Auto) 10.4 L Real % (Auto) Lymph # 1.1 L Real # Seg Neutrophils % 81.9 H Seg Neutrophils # 8.6 H PT 17.5 H INR 1.36 H APTT 36.7 H POC ABG pH POC ABG pCO2 POC ABG pO2 Sodium Potassium Chloride Carbon Dioxide BUN Creatinine Glucose POC Glucose Lactic Acid Calcium Phosphorus Magnesium C-Reactive Protein Total Protein 4.8 L D Albumin 2.3 L Urine WBC (Auto) Urine Creatinine Miscellaneous Test 08/03/17 08/03/17 08/03/17 05:30 05:34 11:46 WBC RBC Hgb Hct MCH RDW Plt Count Lymph % (Auto) Real % (Auto) Lymph # Real # Seg Neutrophils % Seg Neutrophils # PT INR APTT POC ABG pH POC ABG pCO2 POC ABG pO2 Sodium Potassium Chloride 107.4 H Carbon Dioxide BUN Creatinine Glucose POC Glucose 116 H 175 H Lactic Acid Calcium 7.9 L Phosphorus 2.20 L Magnesium C-Reactive Protein Total Protein Albumin Urine WBC (Auto) Urine Creatinine Miscellaneous Test 08/03/17 08/03/17 08/04/17 17:44 21:22 05:00 WBC RBC 2.77 L Hgb 7.7 L Hct 23.4 L MCH RDW 18.0 H Plt Count 109 L Lymph % (Auto) Real % (Auto) 11.9 H Lymph # Real # Seg Neutrophils % Seg Neutrophils # PT INR APTT POC ABG pH POC ABG pCO2 POC ABG pO2 Sodium Potassium Chloride Carbon Dioxide BUN Creatinine Glucose POC Glucose 117 H 134 H Lactic Acid Calcium Phosphorus Magnesium C-Reactive Protein Total Protein Albumin Urine WBC (Auto) Urine Creatinine Miscellaneous Test 08/04/17 08/04/17 08/04/17 05:00 08:53 13:17 WBC RBC Hgb Hct MCH RDW Plt Count Lymph % (Auto) Real % (Auto) Lymph # Real # Seg Neutrophils % Seg Neutrophils # PT INR APTT POC ABG pH POC ABG pCO2 POC ABG pO2 Sodium Potassium 3.3 L Chloride Carbon Dioxide BUN Creatinine Glucose 118 H POC Glucose 110 H 122 H Lactic Acid Calcium 7.8 L Phosphorus Magnesium C-Reactive Protein Total Protein Albumin Urine WBC (Auto) Urine Creatinine Miscellaneous Test 08/04/17 08/04/17 08/05/17 17:38 22:17 08:43 WBC RBC Hgb Hct MCH RDW Plt Count Lymph % (Auto) Real % (Auto) Lymph # Real # Seg Neutrophils % Seg Neutrophils # PT INR APTT POC ABG pH POC ABG pCO2 POC ABG pO2 Sodium Potassium Chloride Carbon Dioxide BUN Creatinine Glucose POC Glucose 119 H 111 H 129 H Lactic Acid Calcium Phosphorus Magnesium C-Reactive Protein Total Protein Albumin Urine WBC (Auto) Urine Creatinine Miscellaneous Test 08/05/17 08/05/17 08/05/17 12:41 16:27 21:25 WBC RBC Hgb Hct MCH RDW Plt Count Lymph % (Auto) Real % (Auto) Lymph # Real # Seg Neutrophils % Seg Neutrophils # PT INR APTT POC ABG pH POC ABG pCO2 POC ABG pO2 Sodium Potassium Chloride Carbon Dioxide BUN Creatinine Glucose POC Glucose 122 H 127 H 111 H Lactic Acid Calcium Phosphorus Magnesium C-Reactive Protein Total Protein Albumin Urine WBC (Auto) Urine Creatinine Miscellaneous Test 08/05/17 08/05/17 08/06/17 Unknown Unknown 06:04 WBC RBC 2.84 L 2.95 L Hgb 8.0 L 8.0 L Hct 24.0 L 25.1 L MCH 27 L RDW 18.0 H 18.1 H Plt Count 132 L Lymph % (Auto) Real % (Auto) 13.5 H 13.0 H Lymph # Real # 0.9 H Seg Neutrophils % Seg Neutrophils # PT INR APTT POC ABG pH POC ABG pCO2 POC ABG pO2 Sodium Potassium Chloride Carbon Dioxide BUN 6 L Creatinine 0.6 L Glucose 136 H POC Glucose Lactic Acid Calcium 8.2 L Phosphorus Magnesium C-Reactive Protein Total Protein 6.2 L D Albumin 2.2 L Urine WBC (Auto) Urine Creatinine Miscellaneous Test 08/06/17 08/06/17 08/06/17 06:04 06:39 12:30 WBC RBC Hgb Hct MCH RDW Plt Count Lymph % (Auto) Real % (Auto) Lymph # Real # Seg Neutrophils % Seg Neutrophils # PT INR APTT POC ABG pH POC ABG pCO2 POC ABG pO2 Sodium 136 L Potassium 3.2 L Chloride Carbon Dioxide BUN 4 L Creatinine Glucose 145 H POC Glucose 143 H 139 H Lactic Acid Calcium 8.3 L Phosphorus Magnesium C-Reactive Protein Total Protein 6.2 L Albumin 2.5 L Urine WBC (Auto) Urine Creatinine Miscellaneous Test 08/06/17 08/06/17 08/07/17 17:19 21:58 06:30 WBC RBC 3.11 L Hgb 8.8 L Hct 26.4 L MCH RDW 18.0 H Plt Count Lymph % (Auto) Real % (Auto) 11.2 H Lymph # Real # Seg Neutrophils % Seg Neutrophils # PT INR APTT POC ABG pH POC ABG pCO2 POC ABG pO2 Sodium Potassium Chloride Carbon Dioxide BUN Creatinine Glucose POC Glucose 118 H 112 H Lactic Acid Calcium Phosphorus Magnesium C-Reactive Protein Total Protein Albumin Urine WBC (Auto) Urine Creatinine Miscellaneous Test 08/07/17 08/07/17 08/07/17 06:30 08:51 11:41 WBC RBC Hgb Hct MCH RDW Plt Count Lymph % (Auto) Real % (Auto) Lymph # Real # Seg Neutrophils % Seg Neutrophils # PT INR APTT POC ABG pH POC ABG pCO2 POC ABG pO2 Sodium Potassium Chloride Carbon Dioxide BUN 3 L Creatinine Glucose 112 H POC Glucose 137 H 129 H Lactic Acid Calcium Phosphorus Magnesium C-Reactive Protein Total Protein Albumin 2.4 L Urine WBC (Auto) Urine Creatinine Miscellaneous Test 08/07/17 08/08/17 08/08/17 16:32 00:38 05:58 WBC RBC Hgb Hct MCH RDW Plt Count Lymph % (Auto) Real % (Auto) Lymph # Real # Seg Neutrophils % Seg Neutrophils # PT INR APTT POC ABG pH POC ABG pCO2 POC ABG pO2 Sodium Potassium Chloride Carbon Dioxide BUN Creatinine Glucose POC Glucose 140 H 112 H 120 H Lactic Acid Calcium Phosphorus Magnesium C-Reactive Protein Total Protein Albumin Urine WBC (Auto) Urine Creatinine Miscellaneous Test 1108/08/17 08/08/17 06:37 06:37 17:07 WBC RBC 3.13 L Hgb 8.8 L Hct 26.6 L MCH RDW 18.7 H Plt Count Lymph % (Auto) Real % (Auto) 9.4 H Lymph # Real # Seg Neutrophils % Seg Neutrophils # PT INR APTT POC ABG pH POC ABG pCO2 POC ABG pO2 Sodium Potassium Chloride Carbon Dioxide BUN 4 L Creatinine Glucose 107 H POC Glucose 126 H Lactic Acid Calcium Phosphorus Magnesium C-Reactive Protein Total Protein Albumin 2.4 L Urine WBC (Auto) Urine Creatinine Miscellaneous Test [employer] health notes reviewed: RT
[2017-08-09] MEDS: MORPHINE IV PRN ×4 (01:07→21:02)
[2017-08-09] MEDS: DUONEB *Not for PRN Use IH SCH ×4 (01:23→20:41)
[2017-08-09] MEDS: NOVOLOG SUB-Q SCH (06:32)
[2017-08-09] MEDS: PERCOCET 5/325 PO PRN (06:33)
[2017-08-09 06:59] LABS: Basophils % (Auto) 0.6 % (0.0-1.8); Eosinophils % (Auto) 2.1 % (0.0-4.3); Hematocrit 27.4 % (30.3-42.9); Hemoglobin 8.9 gm/dl (10.1-14.3); Mean Corpuscular HGB Conc 32 % (30-34); Mean Corpuscular Hemoglobin 28 pg (28-32); Mean Corpuscular Volume 86 fl (79-97); Platelet Count 356 K/mm3 (140-440); Red Cell Distribution Width 18.2 % (13.2-15.2); White Blood Count 8.5 K/mm3 (4.5-11.0)
--- NOTE | 2017-08-09 09:33 | Hem/Onc Progress Note ---
Assessment and Plan Hemoglobin 8.9. . Continue Procrit. Supportive care Subjective Date of service: 08/09/17 Interval history: Patient feels better. Ambulating in the hallways. Tolerating by mouth better Objective - Constitutional Vitals: Last Vital Signs Temp 98.5 F 08/09/17 08:34 Pulse 100 H 08/09/17 08:34 Resp 18 08/09/17 08:34 BP 159/89 08/09/17 08:34 Pulse Ox 96 08/09/17 08:34 General appearance: no acute distress Performance status: 2- selfcare, ambulatory - Neck Neck: supple - Respiratory Respiratory effort: Positive: normal Respiratory: bilateral: CTA - Cardiovascular Rhythm: regular Extremities: No edema - Gastrointestinal General gastrointestinal: Present: soft (ileostomy present) - Labs Lab Results: Laboratory Results - last 24 hr 08/08/17 08/08/17 08/08/17 00:38 05:58 17:07 WBC RBC Hgb Hct MCV MCH MCHC RDW Plt Count Lymph % (Auto) [place] % (Auto) Eos % (Auto) Baso % (Auto) Lymph # [place] # Eos # Baso # Seg Neutrophils % Seg Neutrophils # POC Glucose 112 H 120 H 126 H 08/08/17 08/09/17 08/09/17 21:45 06:30 06:42 WBC 8.5 RBC 3.20 L Hgb 8.9 L Hct 27.4 L MCV 86 MCH 28 MCHC 32 RDW 18.2 H Plt Count 356 Lymph % (Auto) 22.4 [place] % (Auto) 9.3 H Eos % (Auto) 2.1 Baso % (Auto) 0.6 Lymph # 1.9 [place] # 0.8 Eos # 0.2 Baso # 0.1 Seg Neutrophils % 65.6 Seg Neutrophils # 5.6 POC Glucose 121 H 113 H
[2017-08-09] MEDS: PEPCID PO SCH ×2 (10:27→21:00)
[2017-08-09] MEDS: MAGIC MOUTHWASH PO SCH ×3 (10:28→20:59)
--- NOTE | 2017-08-09 12:46 | Progress Note ---
Assessment and Plan Assessment: 1) Severe Sepsis with septic shock: resolved. Etiology most likely peritonitis. CRP=3.8. Procal=52 2) Acute peritonitis: likely localized, from SB perforation/ischemia/ obstruction. OR cx so far negative -zosyn and fluconazole -s/p 10 days 3) SB perforation/ischemia/obstruction: -S/P Exploratory laparotomy and resection of small bowel on 07/30 4) CINTIA - resolved 5) Thrombocytopenia - from sepsis - better Plan: -monitor off antibiotics I am signing off Thank you Dr Costello for your consultation, will follow up with you. Priyanka Arriaga MD Infectious Diseases Specialist [facility] ([facility]) M [phone] O [phone] Subjective Date of service: 08/09/17 Principal diagnosis: Severe Sepsis; Ischemic Bowel; Acute Resp Failure on MVS Interval history: Abdominal pain is better, no N/V. No fever Microbiology: Blood cultures: 07/30 ngtd Respiratory cultures: 07/20 ngtd Wound surg cultures: 07/30 ngrd urine: 07/31 neg Current Antimicrobials: none Previous Antimicrobials: levaquin metronidazole Zosyn 07/31 fluconazole 07/31 Objective - Exam Narrative Exam: General appearance: alert on NC O2 in NAD Eyes: anicteric sclerae, moist conjunctivae HENT: Atraumatic; oropharynx +NGT Neck: Trachea midline; supple, no thyromegaly or lymphadenopathy Lungs: CTA CV: rrr Abdomen: Soft,+surg wound +ileostomy Extremities: +peripheral edema Skin: Normal temperature, turgor and texture; no rash, ulcers or subcutaneous nodules Psych: alert talking. Neuro: sedated Lines: R IJ TLC, [place] - Constitutional Vitals: Vital Signs Temp Pulse Resp BP Pulse Ox 98.5 F 100 H 18 159/89 96 08/09/17 08:34 08/09/17 08:34 08/09/17 08:34 08/09/17 08:34 08/09/17 08:34 Temperature -Last 24 Hours Temperature 98.5 F Temperature 98.9 F - Labs CBC & Chem 7: 08/09/17 06:42 08/08/17 06:37 Labs: Abnormal lab results 08/08/17 08/08/17 08/08/17 Range/Units 00:38 05:58 17:07 RBC (3.65-5.03) M/mm3 Hgb (10.1-14.3) gm/dl Hct (30.3-42.9) % RDW (13.2-15.2) % [place] % (Auto) (0.0-7.3) % POC Glucose 112 H 120 H 126 H (70-105) 08/08/17 08/09/17 08/09/17 Range/Units 21:45 06:30 06:42 RBC 3.20 L (3.65-5.03) M/mm3 Hgb 8.9 L (10.1-14.3) gm/dl Hct 27.4 L (30.3-42.9) % RDW 18.2 H (13.2-15.2) % [place] % (Auto) 9.3 H (0.0-7.3) % POC Glucose 121 H 113 H (70-105)
--- NOTE | 2017-08-09 13:29 | Progress Note ---
Assessment and Plan - Patient Problems (1) Bowel obstruction Current Visit: Yes Status: Acute Plan to address problem: feels better advance diet encourage ambulation Subjective Date of service: 08/09/17 Patient Reports: Positive: feels better, pain is less, tolerating liquids well. Negative: nausea, vomiting Objective Vital Signs - 12hr 08/09/17 08/09/17 08/09/17 07:33 07:58 08:34 Temperature 98.5 F Pulse Rate 100 H Pulse Rate [ 88 92 H Anterior Bilateral Throughout] Respiratory 18 Rate Respiratory 16 16 Rate [Anterior Bilateral Throughout] Blood Pressure 159/89 [Right] O2 Sat by Pulse 96 Oximetry - General physical appearance no distress - Abdomen soft, other (less distended; incisional pain only; ileosotomy functioning) - Labs 08/09/17 06:42 08/08/17 06:37
--- NOTE | 2017-08-09 17:26 | Progress Note ---
Assessment and Plan Acute Hypoxemic Respiratory Failure on MVS Severe Sepsis Syndrome SBO with Ischemic Bowel s/p Ex-lap and bowel resection CINTIA Obesity BARAK Hypophosphatemia Hypomagnesemia Hypothermia Lactic acidosis /metabolic acidosis History of ileostomy/ostomy care Type 2 diabetes mellitus full CODE STATUS - continue qhs BIPAP use especially with her history of untreated BARAK - continue aspiration precautions - continue bronchodilators and pulmonary toilet in short term - continue volume resuscitation - azotemia per nephrology (Improved) - anemia noted; likely significant hemodilutional element; but also CINTIA related (normocytic) - received procrit (she is bloodless medicine patient) - received iron I.V. (she is bloodless medicine patient) - continue and complete AB's per ID recs - continue glycemic control with SSI (target BG <180 mg/dl) - continue to wean oxygen for sats >/= 94% - continue incentive spirometry - other post-op management per surgery - continue GI & VTE prophylaxis ....continue other care per attending / other consultants Subjective Date of service: 08/09/17 Principal diagnosis: Severe Sepsis; Ischemic Bowel; Acute Resp Failure on MVS Interval history: Patient is seen today for: Severe Sepsis; Ischemic Bowel; Acute Resp Failure on MVS Seen and examined at bedside; 24hour events reviewed; nursing and respiratory care staff consulted; no adverse overnight events reported to me; Objective Vital Signs - 12hr 08/09/17 08/09/17 08/09/17 07:33 07:58 08:34 Temperature 98.5 F Pulse Rate 100 H Pulse Rate [ 88 92 H Anterior Bilateral Throughout] Respiratory 18 Rate Respiratory 16 16 Rate [Anterior Bilateral Throughout] Blood Pressure 159/89 [Right] O2 Sat by Pulse 96 Oximetry 08/09/17 08/09/17 08/09/17 14:00 14:12 14:27 Temperature Pulse Rate Pulse Rate [ 82 84 88 Anterior Bilateral Throughout] Respiratory Rate Respiratory 16 16 16 Rate [Anterior Bilateral Throughout] Blood Pressure [Right] O2 Sat by Pulse Oximetry Constitutional: appears uncomfortable, other (somnolent) Eyes: non-icteric ENT: oropharynx moist, other (mallampatti 3) Neck: supple, no lymphadenopathy, no JVD, other (No Thyromegaly; Right IJ line) Effort: mildly labored Ascultation: Bilateral: clear, diminished breath sounds (bases), rhonchi Percussion: Bilateral: not dull Cardiovascular: regular rate and rhythm, other (no rubs/murmurs) Gastrointestinal: hypoactive bowel sounds, soft, tender (mild), other (distended ; no palpable HSM) Integumentary: normal Extremities: no cyanosis, no edema, pulses normal, no ischemia or petechiae Neurologic: normal mental status, non-focal exam, pupils equal and round, motor strength normal and Psychiatric: mood appropriate, affect normal CBC and BMP: 08/09/17 06:42 08/08/17 06:37 ABG, PT/INR, D-dimer: ABG POC ABG pH 7.506 (7.35-7.45) H 07/31/17 13:26 POC ABG pCO2 31.6 (35-45) L 07/31/17 13:26 POC ABG pO2 115 (80-105) H 07/31/17 13:26 POC ABG HCO3 24.9 07/31/17 13:26 POC ABG Total CO2 26 07/31/17 13:26 POC ABG O2 Sat 99 07/31/17 13:26 PT/INR, D-dimer PT 17.5 Sec. (12.2-14.9) H 08/03/17 05:30 INR 1.36 (0.87-1.13) H 08/03/17 05:30 Abnormal lab findings: Abnormal Labs 07/30/17 07/30/17 07/30/17 01:25 01:25 10:06 WBC 11.9 H RBC Hgb Hct MCH RDW 17.8 H Plt Count Lymph % (Auto) 7.[address] [place] % (Auto) Lymph # 0.[address] [place] # Seg Neutrophils % 87.5 H Seg Neutrophils # 10.4 H PT INR APTT POC ABG pH POC ABG pCO2 POC ABG pO2 Sodium 136 L Potassium 3.4 L Chloride 95.2 L Carbon Dioxide 19 L BUN Creatinine Glucose 262 H POC Glucose Lactic Acid 5.40 H* Calcium Phosphorus Magnesium C-Reactive Protein Total Protein Albumin Urine WBC (Auto) Urine Creatinine Miscellaneous Test 07/30/17 07/30/17 07/30/17 12:49 16:22 16:53 WBC RBC Hgb Hct MCH RDW Plt Count Lymph % (Auto) [place] % (Auto) Lymph # [place] # Seg Neutrophils % Seg Neutrophils # PT INR APTT POC ABG pH POC ABG pCO2 POC ABG pO2 Sodium Potassium Chloride Carbon Dioxide BUN Creatinine Glucose POC Glucose 253 H 195 H Lactic Acid 8.00 H* Calcium Phosphorus Magnesium C-Reactive Protein Total Protein Albumin Urine WBC (Auto) Urine Creatinine Miscellaneous Test 07/30/17 07/30/17 07/30/17 16:53 16:53 16:53 WBC 11.3 H RBC 5.92 H Hgb 16.6 H D Hct 52.5 H D MCH RDW 18.2 H Plt Count Lymph % (Auto) [place] % (Auto) Lymph # [place] # Seg Neutrophils % Seg Neutrophils # PT INR APTT POC ABG pH POC ABG pCO2 POC ABG pO2 Sodium Potassium Chloride 96.5 L Carbon Dioxide 20 L BUN 19 H Creatinine 2.3 H D Glucose 215 H POC Glucose Lactic Acid Calcium Phosphorus Magnesium C-Reactive Protein 3.80 H Total Protein Albumin Urine WBC (Auto) Urine Creatinine Miscellaneous Test 07/30/17 07/30/17 07/31/17 18:37 23:08 05:19 WBC RBC Hgb Hct MCH RDW Plt Count Lymph % (Auto) [place] % (Auto) Lymph # [place] # Seg Neutrophils % Seg Neutrophils # PT 17.5 H INR 1.36 H APTT POC ABG pH 7.210 L POC ABG pCO2 47.0 H POC ABG pO2 197 H Sodium Potassium Chloride Carbon Dioxide BUN Creatinine Glucose POC Glucose 156 H Lactic Acid Calcium Phosphorus Magnesium C-Reactive Protein Total Protein Albumin Urine WBC (Auto) Urine Creatinine Miscellaneous Test 07/31/17 07/31/17 07/31/17 05:21 06:00 06:00 WBC 4.3 L RBC Hgb Hct MCH RDW 17.6 H Plt Count 95 L Lymph % (Auto) [place] % (Auto) 9.0 H Lymph # 1.[address] [place] # Seg Neutrophils % Seg Neutrophils # PT INR APTT POC ABG pH 7.514 H POC ABG pCO2 22.5 L POC ABG pO2 115 H Sodium Potassium Chloride Carbon Dioxide BUN 25 H Creatinine 2.5 H Glucose 153 H POC Glucose Lactic Acid Calcium 7.3 L D Phosphorus 1.40 L Magnesium 1.20 L C-Reactive Protein Total Protein Albumin Urine WBC (Auto) Urine Creatinine Miscellaneous Test 07/31/17 07/31/17 07/31/17 06:00 12:22 13:26 WBC RBC Hgb Hct MCH RDW Plt Count Lymph % (Auto) [place] % (Auto) Lymph # [place] # Seg Neutrophils % Seg Neutrophils # PT INR APTT POC ABG pH 7.506 H POC ABG pCO2 31.6 L POC ABG pO2 115 H Sodium Potassium Chloride Carbon Dioxide BUN Creatinine Glucose POC Glucose 153 H Lactic Acid 4.50 H* Calcium Phosphorus Magnesium C-Reactive Protein Total Protein Albumin Urine WBC (Auto) Urine Creatinine Miscellaneous Test 07/31/17 07/31/17 07/31/17 15:18 15:18 17:21 WBC RBC Hgb Hct MCH RDW Plt Count Lymph % (Auto) [place] % (Auto) Lymph # [place] # Seg Neutrophils % Seg Neutrophils # PT INR APTT POC ABG pH POC ABG pCO2 POC ABG pO2 Sodium Potassium Chloride Carbon Dioxide BUN Creatinine Glucose POC Glucose 121 H Lactic Acid Calcium Phosphorus Magnesium C-Reactive Protein Total Protein Albumin Urine WBC (Auto) 21.0 H Urine Creatinine 99.8 H Miscellaneous Test 08/01/17 08/01/17 08/01/17 00:16 04:25 07:03 WBC RBC Hgb Hct MCH RDW Plt Count Lymph % (Auto) [place] % (Auto) Lymph # [place] # Seg Neutrophils % Seg Neutrophils # PT INR APTT POC ABG pH POC ABG pCO2 POC ABG pO2 Sodium Potassium Chloride Carbon Dioxide BUN 21 H Creatinine 1.7 H Glucose 110 H POC Glucose 118 H Lactic Acid Calcium 7.6 L Phosphorus 4.80 H D Magnesium C-Reactive Protein Total Protein Albumin Urine WBC (Auto) Urine Creatinine Miscellaneous Test Flexitest 1 H 08/01/17 08/01/17 08/02/17 12:02 13:54 04:40 WBC RBC 3.40 L 2.83 L Hgb 9.5 L 7.9 L Hct 29.4 L D 24.6 L MCH RDW 18.4 H 18.1 H Plt Count 86 L 91 L Lymph % (Auto) [place] % (Auto) Lymph # [place] # Seg Neutrophils % Seg Neutrophils # PT INR APTT POC ABG pH POC ABG pCO2 POC ABG pO2 Sodium Potassium Chloride Carbon Dioxide BUN Creatinine Glucose POC Glucose 124 H Lactic Acid Calcium Phosphorus Magnesium C-Reactive Protein Total Protein Albumin Urine WBC (Auto) Urine Creatinine Miscellaneous Test 08/02/17 08/02/17 08/02/17 04:40 18:22 23:23 WBC RBC Hgb Hct MCH RDW Plt Count Lymph % (Auto) [place] % (Auto) Lymph # [place] # Seg Neutrophils % Seg Neutrophils # PT INR APTT POC ABG pH POC ABG pCO2 POC ABG pO2 Sodium Potassium Chloride 107.8 H Carbon Dioxide BUN Creatinine Glucose POC Glucose 108 H 136 H Lactic Acid Calcium 8.1 L Phosphorus 2.30 L D Magnesium C-Reactive Protein Total Protein Albumin Urine WBC (Auto) Urine Creatinine Miscellaneous Test 08/03/17 08/03/17 08/03/17 05:30 05:30 05:30 WBC RBC 2.75 L Hgb 7.6 L Hct 23.8 L MCH RDW 18.2 H Plt Count 102 L Lymph % (Auto) 10.[address] [place] % (Auto) Lymph # 1.[address] [place] # Seg Neutrophils % 81.9 H Seg Neutrophils # 8.6 H PT 17.5 H INR 1.36 H APTT 36.7 H POC ABG pH POC ABG pCO2 POC ABG pO2 Sodium Potassium Chloride Carbon Dioxide BUN Creatinine Glucose POC Glucose Lactic Acid Calcium Phosphorus Magnesium C-Reactive Protein Total Protein 4.8 L D Albumin 2.3 L Urine WBC (Auto) Urine Creatinine Miscellaneous Test 08/03/17 08/03/17 08/03/17 05:30 05:34 11:46 WBC RBC Hgb Hct MCH RDW Plt Count Lymph % (Auto) [place] % (Auto) Lymph # [place] # Seg Neutrophils % Seg Neutrophils # PT INR APTT POC ABG pH POC ABG pCO2 POC ABG pO2 Sodium Potassium Chloride 107.4 H Carbon Dioxide BUN Creatinine Glucose POC Glucose 116 H 175 H Lactic Acid Calcium 7.9 L Phosphorus 2.20 L Magnesium C-Reactive Protein Total Protein Albumin Urine WBC (Auto) Urine Creatinine Miscellaneous Test 08/03/17 08/03/17 08/04/17 17:44 21:22 05:00 WBC RBC 2.77 L Hgb 7.7 L Hct 23.4 L MCH RDW 18.0 H Plt Count 109 L Lymph % (Auto) [place] % (Auto) 11.9 H Lymph # [place] # Seg Neutrophils % Seg Neutrophils # PT INR APTT POC ABG pH POC ABG pCO2 POC ABG pO2 Sodium Potassium Chloride Carbon Dioxide BUN Creatinine Glucose POC Glucose 117 H 134 H Lactic Acid Calcium Phosphorus Magnesium C-Reactive Protein Total Protein Albumin Urine WBC (Auto) Urine Creatinine Miscellaneous Test 08/04/17 08/04/17 08/04/17 05:00 08:53 13:17 WBC RBC Hgb Hct MCH RDW Plt Count Lymph % (Auto) [place] % (Auto) Lymph # [place] # Seg Neutrophils % Seg Neutrophils # PT INR APTT POC ABG pH POC ABG pCO2 POC ABG pO2 Sodium Potassium 3.3 L Chloride Carbon Dioxide BUN Creatinine Glucose 118 H POC Glucose 110 H 122 H Lactic Acid Calcium 7.8 L Phosphorus Magnesium C-Reactive Protein Total Protein Albumin Urine WBC (Auto) Urine Creatinine Miscellaneous Test 08/04/17 08/04/17 08/05/17 17:38 22:17 08:43 WBC RBC Hgb Hct MCH RDW Plt Count Lymph % (Auto) [place] % (Auto) Lymph # [place] # Seg Neutrophils % Seg Neutrophils # PT INR APTT POC ABG pH POC ABG pCO2 POC ABG pO2 Sodium Potassium Chloride Carbon Dioxide BUN Creatinine Glucose POC Glucose 119 H 111 H 129 H Lactic Acid Calcium Phosphorus Magnesium C-Reactive Protein Total Protein Albumin Urine WBC (Auto) Urine Creatinine Miscellaneous Test 08/05/17 08/05/17 08/05/17 12:41 16:27 21:25 WBC RBC Hgb Hct MCH RDW Plt Count Lymph % (Auto) [place] % (Auto) Lymph # [place] # Seg Neutrophils % Seg Neutrophils # PT INR APTT POC ABG pH POC ABG pCO2 POC ABG pO2 Sodium Potassium Chloride Carbon Dioxide BUN Creatinine Glucose POC Glucose 122 H 127 H 111 H Lactic Acid Calcium Phosphorus Magnesium C-Reactive Protein Total Protein Albumin Urine WBC (Auto) Urine Creatinine Miscellaneous Test 08/05/17 08/05/17 08/06/17 Unknown Unknown 06:04 WBC RBC 2.84 L 2.95 L Hgb 8.0 L 8.0 L Hct 24.0 L 25.1 L MCH 27 L RDW 18.0 H 18.1 H Plt Count 132 L Lymph % (Auto) [place] % (Auto) 13.5 H 13.0 H Lymph # [place] # 0.9 H Seg Neutrophils % Seg Neutrophils # PT INR APTT POC ABG pH POC ABG pCO2 POC ABG pO2 Sodium Potassium Chloride Carbon Dioxide BUN 6 L Creatinine 0.6 L Glucose 136 H POC Glucose Lactic Acid Calcium 8.2 L Phosphorus Magnesium C-Reactive Protein Total Protein 6.2 L D Albumin 2.2 L Urine WBC (Auto) Urine Creatinine Miscellaneous Test 08/06/17 08/06/17 08/06/17 06:04 06:39 12:30 WBC RBC Hgb Hct MCH RDW Plt Count Lymph % (Auto) [place] % (Auto) Lymph # [place] # Seg Neutrophils % Seg Neutrophils # PT INR APTT POC ABG pH POC ABG pCO2 POC ABG pO2 Sodium 136 L Potassium 3.2 L Chloride Carbon Dioxide BUN 4 L Creatinine Glucose 145 H POC Glucose 143 H 139 H Lactic Acid Calcium 8.3 L Phosphorus Magnesium C-Reactive Protein Total Protein 6.2 L Albumin 2.5 L Urine WBC (Auto) Urine Creatinine Miscellaneous Test 08/06/17 08/06/17 08/07/17 17:19 21:58 06:30 WBC RBC 3.11 L Hgb 8.8 L Hct 26.4 L MCH RDW 18.0 H Plt Count Lymph % (Auto) [place] % (Auto) 11.2 H Lymph # [place] # Seg Neutrophils % Seg Neutrophils # PT INR APTT POC ABG pH POC ABG pCO2 POC ABG pO2 Sodium Potassium Chloride Carbon Dioxide BUN Creatinine Glucose POC Glucose 118 H 112 H Lactic Acid Calcium Phosphorus Magnesium C-Reactive Protein Total Protein Albumin Urine WBC (Auto) Urine Creatinine Miscellaneous Test 08/07/17 08/07/17 08/07/17 06:30 08:51 11:41 WBC RBC Hgb Hct MCH RDW Plt Count Lymph % (Auto) [place] % (Auto) Lymph # [place] # Seg Neutrophils % Seg Neutrophils # PT INR APTT POC ABG pH POC ABG pCO2 POC ABG pO2 Sodium Potassium Chloride Carbon Dioxide BUN 3 L Creatinine Glucose 112 H POC Glucose 137 H 129 H Lactic Acid Calcium Phosphorus Magnesium C-Reactive Protein Total Protein Albumin 2.4 L Urine WBC (Auto) Urine Creatinine Miscellaneous Test 08/07/17 08/08/17 08/08/17 16:32 00:38 05:58 WBC RBC Hgb Hct MCH RDW Plt Count Lymph % (Auto) [place] % (Auto) Lymph # [place] # Seg Neutrophils % Seg Neutrophils # PT INR APTT POC ABG pH POC ABG pCO2 POC ABG pO2 Sodium Potassium Chloride Carbon Dioxide BUN Creatinine Glucose POC Glucose 140 H 112 H 120 H Lactic Acid Calcium Phosphorus Magnesium C-Reactive Protein Total Protein Albumin Urine WBC (Auto) Urine Creatinine Miscellaneous Test 1108/08/17 08/08/17 06:37 06:37 17:07 WBC RBC 3.13 L Hgb 8.8 L Hct 26.6 L MCH RDW 18.7 H Plt Count Lymph % (Auto) [place] % (Auto) 9.4 H Lymph # [place] # Seg Neutrophils % Seg Neutrophils # PT INR APTT POC ABG pH POC ABG pCO2 POC ABG pO2 Sodium Potassium Chloride Carbon Dioxide BUN 4 L Creatinine Glucose 107 H POC Glucose 126 H Lactic Acid Calcium Phosphorus Magnesium C-Reactive Protein Total Protein Albumin 2.4 L Urine WBC (Auto) Urine Creatinine Miscellaneous Test 08/08/17 08/09/17 08/09/17 21:45 06:30 06:42 WBC RBC 3.20 L Hgb 8.9 L Hct 27.4 L MCH RDW 18.2 H Plt Count Lymph % (Auto) [place] % (Auto) 9.3 H Lymph # [place] # Seg Neutrophils % Seg Neutrophils # PT INR APTT POC ABG pH POC ABG pCO2 POC ABG pO2 Sodium Potassium Chloride Carbon Dioxide BUN Creatinine Glucose POC Glucose 121 H 113 H Lactic Acid Calcium Phosphorus Magnesium C-Reactive Protein Total Protein Albumin Urine WBC (Auto) Urine Creatinine Miscellaneous Test 08/09/17 17:15 WBC RBC Hgb Hct MCH RDW Plt Count Lymph % (Auto) [place] % (Auto) Lymph # [place] # Seg Neutrophils % Seg Neutrophils # PT INR APTT POC ABG pH POC ABG pCO2 POC ABG pO2 Sodium Potassium Chloride Carbon Dioxide BUN Creatinine Glucose POC Glucose 129 H Lactic Acid Calcium Phosphorus Magnesium C-Reactive Protein Total Protein Albumin Urine WBC (Auto) Urine Creatinine Miscellaneous Test Allied health notes reviewed: RT
[2017-08-09] MEDS: NACL 0.45% 1000 ML 1,000 ML IV SCH (18:42)
--- NOTE | 2017-08-09 19:18 | Progress Note ---
Assessment and Plan Assessment and plan: --Acute blood loss anemia: Procrit , IV dextran, B12, no blood /Jehovah witness , hematology following Hemoglobin today is 8.9, no evidence of bleeding --Small bowel ischemia/ perforation/s/p exploratory laparotomy and small bowel resection Ostomy functioning well, advance diet as tolerated, increase ambulation and physical therapy --Severe protein calorie malnutrition; nutrition supplements, supportive care --Hypokalemia; resolved --Acute respiratory failure, s/p extubation, stable --Acute renal failure; resolved -- Septic Shock: Resolved, --Hypothermia; resolved --Lactic acidosis /metabolic acidosis improved --Type 2 diabetes mellitus; well controlled, SSC,Insulin,ADA diet --DVT prophylaxis; SCDs --full CODE STATUS Possible discharge in 1-2 days when stable Advance the diet as tolerated Consults and recommendations noted Plan of care discussed with the patient and the family member at the bedside History Interval history: Since seen and examined medical records reviewed Patient feels better, tolerating full liquid diet No new complaints, wants to go home Vital Signs reviewed Hospitalist Physical - Constitutional Vitals: Temp Pulse Resp BP Pulse Ox 98.5 F 88 16 159/89 96 08/09/17 08:34 08/09/17 14:27 08/09/17 14:27 08/09/17 08:34 08/09/17 08:34 General appearance: Present: no acute distress, well-nourished - EENT Eyes: Present: PERRL, EOM intact - Neck Neck: Present: supple, normal ROM - Respiratory Respiratory effort: normal Respiratory: bilateral: diminished, negative: rales, rhonchi, wheezing - Cardiovascular Rhythm: regular Heart Sounds: Present: S1 & S2 - Extremities Extremities: no ischemia, No edema - Abdominal General gastrointestinal: soft, non-tender, non-distended, normal bowel sounds, other (ostomy functioning) - Integumentary Integumentary: Present: clear, warm - Psychiatric Psychiatric: appropriate mood/affect, cooperative - Neurologic Neurologic: CNII-XII intact, moves all extremities Results - Labs CBC & Chem 7: 08/09/17 06:42 08/08/17 06:37 Labs: Laboratory Last Values WBC 8.5 K/mm3 (4.5-11.0) 08/09/17 06:42 RBC 3.20 M/mm3 (3.65-5.03) L 08/09/17 06:42 Hgb 8.9 gm/dl (10.1-14.3) L 08/09/17 06:42 Hct 27.4 % (30.3-42.9) L 08/09/17 06:42 MCV 86 fl (79-97) 08/09/17 06:42 MCH 28 pg (28-32) 08/09/17 06:42 MCHC 32 % (30-34) 08/09/17 06:42 RDW 18.2 % (13.2-15.2) H 08/09/17 06:42 Plt Count 356 K/mm3 (140-440) 08/09/17 06:42 Lymph % (Auto) 22.4 % (13.4-35.0) 08/09/17 06:42 [place] % (Auto) 9.3 % (0.0-7.3) H 08/09/17 06:42 Eos % (Auto) 2.1 % (0.0-4.3) 08/09/17 06:42 Baso % (Auto) 0.6 % (0.0-1.8) 08/09/17 06:42 Lymph # 1.9 K/mm3 (1.2-5.4) 08/09/17 06:42 [place] # 0.8 K/mm3 (0.0-0.8) 08/09/17 06:42 Eos # 0.2 K/mm3 (0.0-0.4) 08/09/17 06:42 Baso # 0.1 K/mm3 (0.0-0.1) 08/09/17 06:42 Seg Neutrophils % 65.6 % (40.0-70.0) 08/09/17 06:42 Seg Neutrophils # 5.6 K/mm3 (1.8-7.7) 08/09/17 06:42 Percent Retic 1.33 % (0.78-2.58) 08/03/17 05:30 PT 17.5 Sec. (12.2-14.9) H 08/03/17 05:30 INR 1.36 (0.87-1.13) H 08/03/17 05:30 APTT 36.7 Sec. (24.2-36.6) H 08/03/17 05:30 POC ABG pH 7.506 (7.35-7.45) H 07/31/17 13:26 POC ABG pCO2 31.6 (35-45) L 07/31/17 13:26 POC ABG pO2 115 (80-105) H 07/31/17 13:26 POC ABG HCO3 24.9 07/31/17 13:26 POC ABG Total CO2 26 07/31/17 13:26 POC ABG O2 Sat 99 07/31/17 13:26 POC ABG Base Excess 2 07/31/17 13:26 FiO2 28 % 07/31/17 13:26 Sodium 140 mmol/L (137-145) 08/08/17 06:37 Potassium 3.6 mmol/L (3.6-5.0) 08/08/17 06:37 Chloride 102.0 mmol/L (98-107) 08/08/17 06:37 Carbon Dioxide 26 mmol/L (22-30) 08/08/17 06:37 Anion Gap 16 mmol/L 08/08/17 06:37 BUN 4 mg/dL (7-17) L 08/08/17 06:37 Creatinine 0.7 mg/dL (0.7-1.2) 08/08/17 06:37 Estimated GFR > 60 ml/min 08/08/17 06:37 BUN/Creatinine Ratio 6 % 08/08/17 06:37 Glucose 107 mg/dL (65-100) H 08/08/17 06:37 POC Glucose 129 (70-105) H 08/09/17 17:15 Lactic Acid 1.50 mmol/L (0.7-2.0) 08/01/17 04:00 Calcium 8.6 mg/dL (8.4-10.2) 08/08/17 06:37 Phosphorus 2.20 mg/dL (2.5-4.5) L 08/03/17 05:30 Magnesium 1.80 mg/dL (1.7-2.3) 08/06/17 17:26 Total Bilirubin 0.30 mg/dL (0.1-1.2) 08/08/17 06:37 Direct Bilirubin < 0.2 mg/dL (0-0.2) 08/03/17 05:30 Indirect Bilirubin 0.1 mg/dL 08/03/17 05:30 AST 22 units/L (5-40) 08/08/17 06:37 ALT 23 units/L (7-56) 08/08/17 06:37 Alkaline Phosphatase 81 units/L (35-129) 08/08/17 06:37 C-Reactive Protein 3.80 mg/dL (0.00-1.30) H 07/30/17 16:53 Total Protein 6.6 g/dL (6.3-8.2) 08/08/17 06:37 Albumin 2.4 g/dL (3.9-5) L 08/08/17 06:37 Albumin/Globulin Ratio 0.6 % 08/08/17 06:37 Urine Color Yellow (Yellow) 07/31/17 15:18 Urine Turbidity Clear (Clear) 07/31/17 15:18 Urine pH 5.0 (5.0-7.0) 07/31/17 15:18 Ur Specific [place] 1.018 (1.003-1.030) 07/31/17 15:18 Urine Protein <15 mg/dl mg/dL (Negative) 07/31/17 15:18 Urine Glucose (UA) 50 mg/dL (Negative) 07/31/17 15:18 Urine Ketones Neg mg/dL (Negative) 07/31/17 15:18 Urine Blood Lg (Negative) 07/31/17 15:18 Urine Nitrite Neg (Negative) 07/31/17 15:18 Urine Bilirubin Neg (Negative) 07/31/17 15:18 Urine Urobilinogen < 2.0 mg/dL (<2.0) 07/31/17 15:18 Ur Leukocyte Esterase Sm (Negative) 07/31/17 15:18 Urine WBC (Auto) 21.0 /HPF (0.0-6.0) H 07/31/17 15:18 Urine RBC (Auto) 17.0 /HPF (0.0-6.0) 07/31/17 15:18 Urine Bacteria (Auto) 2+ /HPF (Negative) 07/31/17 15:18 Amorphous Crystals Few 07/31/17 15:18 Urine Mucus Few /HPF 07/31/17 15:18 Urine Creatinine 99.8 mg/dL (0.1-20.0) H 07/31/17 15:18 Urine Sodium 76 mmol/L 07/31/17 15:18 Miscellaneous Test Flexitest 1 H 08/01/17 07:03
[2017-08-10] MEDS: PERCOCET 5/325 PO PRN ×3 (00:19→18:24)
[2017-08-10] MEDS: DUONEB *Not for PRN Use IH SCH ×4 (02:13→21:04)
[2017-08-10] MEDS: MORPHINE IV PRN ×2 (05:38→14:38)
[2017-08-10] MEDS: NOVOLOG SUB-Q SCH ×4 (05:38→17:00)
[2017-08-10] MEDS: NACL 0.45% 1000 ML 1,000 ML IV SCH ×2 (07:24→21:41)
--- NOTE | 2017-08-10 08:09 | Progress Note ---
Assessment and Plan Assessment and plan: --Small bowel ischemia/ perforation/s/p exploratory laparotomy and small bowel resection Ostomy functioning well, increase ambulation and physical therapy Advance to regular diet --Acute blood loss anemia: Procrit , IV dextran, B12, no blood /Jehovah witness , hematology following Hemoglobin today is 8.9, no evidence of bleeding --Severe protein calorie malnutrition; nutrition supplements, supportive care --Hypokalemia; resolved --Acute respiratory failure, s/p extubation, stable --Acute renal failure; resolved -- Septic Shock: Resolved, --Hypothermia; resolved --Lactic acidosis /metabolic acidosis improved --Type 2 diabetes mellitus; well controlled, SSC,Insulin,ADA diet --DVT prophylaxis; SCDs --full CODE STATUS Possible discharge in 1-2 days when stable Advance the diet as tolerated Consults and recommendations noted May discharge home with HHS if cleared by surgery History Interval history: Patient Seen and evaluated Medical records reviewed Feels better tolerating diet No new complaints Hospitalist Physical - Constitutional Vitals: Temp Pulse Resp BP Pulse Ox 99.0 F 100 H 18 151/78 97 08/09/17 22:01 08/09/17 22:01 08/10/17 05:38 08/09/17 22:01 08/09/17 22:01 General appearance: Present: no acute distress, well-nourished - EENT Eyes: Present: PERRL, EOM intact - Neck Neck: Present: supple, normal ROM - Respiratory Respiratory effort: normal Respiratory: bilateral: diminished, negative: rales, rhonchi, wheezing - Cardiovascular Rhythm: regular Heart Sounds: Present: S1 & S2 - Extremities Extremities: no ischemia, No edema - Abdominal General gastrointestinal: soft, non-tender, non-distended, normal bowel sounds, other ( ostomy intact) - Integumentary Integumentary: Present: clear, warm - Psychiatric Psychiatric: appropriate mood/affect, cooperative - Neurologic Neurologic: CNII-XII intact, moves all extremities Results - Labs CBC & Chem 7: 08/09/17 06:42 08/08/17 06:37 Labs: Laboratory Last Values WBC 8.5 K/mm3 (4.5-11.0) 08/09/17 06:42 RBC 3.20 M/mm3 (3.65-5.03) L 08/09/17 06:42 Hgb 8.9 gm/dl (10.1-14.3) L 08/09/17 06:42 Hct 27.4 % (30.3-42.9) L 08/09/17 06:42 MCV 86 fl (79-97) 08/09/17 06:42 MCH 28 pg (28-32) 08/09/17 06:42 MCHC 32 % (30-34) 08/09/17 06:42 RDW 18.2 % (13.2-15.2) H 08/09/17 06:42 Plt Count 356 K/mm3 (140-440) 08/09/17 06:42 Lymph % (Auto) 22.4 % (13.4-35.0) 08/09/17 06:42 [place] % (Auto) 9.3 % (0.0-7.3) H 08/09/17 06:42 Eos % (Auto) 2.1 % (0.0-4.3) 08/09/17 06:42 Baso % (Auto) 0.6 % (0.0-1.8) 08/09/17 06:42 Lymph # 1.9 K/mm3 (1.2-5.4) 08/09/17 06:42 [place] # 0.8 K/mm3 (0.0-0.8) 08/09/17 06:42 Eos # 0.2 K/mm3 (0.0-0.4) 08/09/17 06:42 Baso # 0.1 K/mm3 (0.0-0.1) 08/09/17 06:42 Seg Neutrophils % 65.6 % (40.0-70.0) 08/09/17 06:42 Seg Neutrophils # 5.6 K/mm3 (1.8-7.7) 08/09/17 06:42 Percent Retic 1.33 % (0.78-2.58) 08/03/17 05:30 PT 17.5 Sec. (12.2-14.9) H 08/03/17 05:30 INR 1.36 (0.87-1.13) H 08/03/17 05:30 APTT 36.7 Sec. (24.2-36.6) H 08/03/17 05:30 POC ABG pH 7.506 (7.35-7.45) H 07/31/17 13:26 POC ABG pCO2 31.6 (35-45) L 07/31/17 13:26 POC ABG pO2 115 (80-105) H 07/31/17 13:26 POC ABG HCO3 24.9 07/31/17 13:26 POC ABG Total CO2 26 07/31/17 13:26 POC ABG O2 Sat 99 07/31/17 13:26 POC ABG Base Excess 2 07/31/17 13:26 FiO2 28 % 07/31/17 13:26 Sodium 140 mmol/L (137-145) 08/08/17 06:37 Potassium 3.6 mmol/L (3.6-5.0) 08/08/17 06:37 Chloride 102.0 mmol/L (98-107) 08/08/17 06:37 Carbon Dioxide 26 mmol/L (22-30) 08/08/17 06:37 Anion Gap 16 mmol/L 08/08/17 06:37 BUN 4 mg/dL (7-17) L 08/08/17 06:37 Creatinine 0.7 mg/dL (0.7-1.2) 08/08/17 06:37 Estimated GFR > 60 ml/min 08/08/17 06:37 BUN/Creatinine Ratio 6 % 08/08/17 06:37 Glucose 107 mg/dL (65-100) H 08/08/17 06:37 POC Glucose 127 (70-105) H 08/10/17 07:14 Lactic Acid 1.50 mmol/L (0.7-2.0) 08/01/17 04:00 Calcium 8.6 mg/dL (8.4-10.2) 08/08/17 06:37 Phosphorus 2.20 mg/dL (2.5-4.5) L 08/03/17 05:30 Magnesium 1.80 mg/dL (1.7-2.3) 08/06/17 17:26 Total Bilirubin 0.30 mg/dL (0.1-1.2) 08/08/17 06:37 Direct Bilirubin < 0.2 mg/dL (0-0.2) 08/03/17 05:30 Indirect Bilirubin 0.1 mg/dL 08/03/17 05:30 AST 22 units/L (5-40) 08/08/17 06:37 ALT 23 units/L (7-56) 08/08/17 06:37 Alkaline Phosphatase 81 units/L (35-129) 08/08/17 06:37 C-Reactive Protein 3.80 mg/dL (0.00-1.30) H 07/30/17 16:53 Total Protein 6.6 g/dL (6.3-8.2) 08/08/17 06:37 Albumin 2.4 g/dL (3.9-5) L 08/08/17 06:37 Albumin/Globulin Ratio 0.6 % 08/08/17 06:37 Urine Color Yellow (Yellow) 07/31/17 15:18 Urine Turbidity Clear (Clear) 07/31/17 15:18 Urine pH 5.0 (5.0-7.0) 07/31/17 15:18 Ur Specific [place] 1.018 (1.003-1.030) 07/31/17 15:18 Urine Protein <15 mg/dl mg/dL (Negative) 07/31/17 15:18 Urine Glucose (UA) 50 mg/dL (Negative) 07/31/17 15:18 Urine Ketones Neg mg/dL (Negative) 07/31/17 15:18 Urine Blood Lg (Negative) 07/31/17 15:18 Urine Nitrite Neg (Negative) 07/31/17 15:18 Urine Bilirubin Neg (Negative) 07/31/17 15:18 Urine Urobilinogen < 2.0 mg/dL (<2.0) 07/31/17 15:18 Ur Leukocyte Esterase Sm (Negative) 07/31/17 15:18 Urine WBC (Auto) 21.0 /HPF (0.0-6.0) H 07/31/17 15:18 Urine RBC (Auto) 17.0 /HPF (0.0-6.0) 07/31/17 15:18 Urine Bacteria (Auto) 2+ /HPF (Negative) 07/31/17 15:18 Amorphous Crystals Few 07/31/17 15:18 Urine Mucus Few /HPF 07/31/17 15:18 Urine Creatinine 99.8 mg/dL (0.1-20.0) H 07/31/17 15:18 Urine Sodium 76 mmol/L 07/31/17 15:18 Miscellaneous Test Flexitest 1 H 08/01/17 07:03
[2017-08-10] MEDS: PEPCID PO SCH ×2 (10:02→21:20)
[2017-08-10] MEDS: MAGIC MOUTHWASH PO SCH ×3 (10:07→21:22)
--- NOTE | 2017-08-10 11:48 | Hem/Onc Progress Note ---
Assessment and Plan Continue supportive care. Labs in the morning. If discharged, she will have to follow-up with hematology for possible B12 and iron as outpatient time and again specially since she's had extensive abdominal surgery which tends to cause iron and B12 deficiency over time Subjective Date of service: 08/10/17 Interval history: Patient feels better. Ambulating in the hallways. Tolerating by mouth better. Still having some abdominal pain Objective - Constitutional Vitals: Last Vital Signs Temp 97.7 F 08/10/17 07:03 Pulse 82 08/10/17 07:03 Resp 19 08/10/17 07:03 BP 146/90 08/10/17 07:03 Pulse Ox 98 08/10/17 07:03 Performance status: 2- selfcare, ambulatory - Neck Neck: supple - Respiratory Respiratory effort: Positive: normal - Cardiovascular Rhythm: regular - Gastrointestinal General gastrointestinal: Present: soft (ileostomy) - Labs Lab Results: Laboratory Results - last 24 hr 08/09/17 08/09/17 08/09/17 11:43 17:15 22:05 POC Glucose 99 129 H 130 H 08/10/17 07:14 POC Glucose 127 H
--- NOTE | 2017-08-10 15:14 | Progress Note ---
Assessment and Plan Ok to d/c home. pt doing well. f/u in 1 wk as outpt. continue local wound care. will sign off Subjective Date of service: 08/10/17 Patient Reports: Positive: bowel movement, afebrile. Negative: nausea, vomiting Objective Vital Signs - 12hr 08/10/17 08/10/17 05:38 07:03 Temperature 97.7 F Pulse Rate 82 Respiratory 18 19 Rate Blood Pressure 146/90 O2 Sat by Pulse 98 Oximetry - General physical appearance no distress - Respiratory normal respiratory effort - Abdomen soft, not tender, not distended, wound (healing and packed.), other (ostomy) - Psychiatric oriented to time, oriented to person, oriented to place, speech is normal, memory intact - Labs 08/09/17 06:42 08/08/17 06:37
[2017-08-11] MEDS: PERCOCET 5/325 PO PRN ×2 (00:27→14:21)
[2017-08-11] MEDS: DUONEB *Not for PRN Use IH SCH ×3 (02:09→15:56)
[2017-08-11] MEDS: NOVOLOG SUB-Q SCH ×3 (02:46→12:36)
[2017-08-11 05:33] LABS: Basophils % (Auto) 0.6 % (0.0-1.8); Eosinophils % (Auto) 2.4 % (0.0-4.3); Hematocrit 28.3 % (30.3-42.9); Mean Corpuscular HGB Conc 32 % (30-34); Mean Corpuscular Hemoglobin 28 pg (28-32); Mean Corpuscular Volume 86 fl (79-97); Platelet Count 456 K/mm3 (140-440); Red Blood Count 3.29 M/mm3 (3.65-5.03); Red Cell Distribution Width 18.7 % (13.2-15.2); White Blood Count 8.1 K/mm3 (4.5-11.0)
--- NOTE | 2017-08-11 08:24 | Discharge Summary ---
Providers - Providers Date of Admission: 07/30/17 01:07 Date of discharge: 08/11/17 Attending physician: SHANNA DIALLO 07/30/17 01:07 Consult to Physician [CONS] Routine Consulting Provider: MOHINDER SNYDER Reason For Exam: Intestinal obstruction Place consult to:: general surgeon Notified:: y Was contact made?: Yes 07/30/17 17:38 Consult to Physician [CONS] Urgent Consulting Provider: MAYRA DYKES Reason For Exam: change in condition, tachycardia Place consult to:: Dr Dykes Notified:: dr Dykes Was contact made?: Yes 07/30/17 23:11 Consult to Dietitian/Nutrition [CONS] Routine Physician Instructions: Reason For Exam: Reason for Consult: Evaluate nutritional intake Consult to Physician [CONS] Routine Consulting Provider: GOMEZ MCCANN Reason For Exam: sepsis Place consult to:: Dr. Gutierres Notified:: Yes Phone number called:: [phone] Was contact made?: Yes If yes, spoke with:: Yes Time called:: 08:20 07/31/17 12:48 Consult to Physician [CONS] Routine Consulting Provider: KARIE SCHULZ Reason For Exam: CINTIA Place consult to:: Dr. Schulz Notified:: Yes Was contact made?: Yes If yes, spoke with:: Yes 08/01/17 14:31 Physical Therapy Evaluation and Treat [CONS] Routine Comment: Reason For Exam: OOB and ambulate 08/02/17 08:33 Consult to Physician [CONS] Routine Consulting Provider: KARTIK LOYA Reason For Exam: Anemia/Jehova witness pt/thrombocytopenia Place consult to:: Dr. Loya Notified:: yes Comment:: Dr. Diallo placed call 08/04/17 08:44 Consult to Wound/ET Nurse [CONS] Routine Reason For Exam: wound eval- Ostomy teaching Primary care physician: LABOR RELATIONS ANALYST Hospitalization Reason for admission: abdominal pain/small bowel obstruction Condition: Stable Procedures: Laparotomy small bowel resection and ileostomy Hospital course: 62-year-old -[place]ian female patient with significant history of diverticulosis status post colectomy hypertension diabetes mellitus sleep apnea was transferred from [facility] with the diagnosis of intestinal obstruction, Patient was admitted to the hospital symptomatically managed evaluated by surgeon. Patient was placed on nothing by mouth supportive care with IV fluids and antibiotics Patient suddenly became hypotensive, hypothermic and was transferred to ICU, surgeon has evaluated the patient, patient underwent stat laparotomy small bowel resection and ileostomy .. Patient is Bahai, unable to take the transfusion, patient was evaluated by superintendent communications, received Procrit IV dextran B B12 Patient was stabilized in ICU later transferred to medical throat Diet was started with clear liquids and advanced as tolerated, received physical therapy outpatient therapy The day of discharge patient was comfortable in no new complaints Vital signs stable, physical examination temperature discharge was unremarkable Home health was set up by case management Patient was stable at the time of discharge Discharge diagnosis and management; --Small bowel ischemia/ perforation/s/p exploratory laparotomy and small bowel resection Ostomy functioning well, tolerating regular diet, --Acute blood loss anemia: Received Procrit , IV dextran, B12, no blood / Jehovah witness, follow hematology on discharge Hemoglobin today is 9.0, --Severe protein calorie malnutrition; nutrition supplements, supportive care --Hypokalemia; resolved --Acute respiratory failure, s/p extubation, stable --Acute renal failure; resolved -- Septic Shock: Resolved, received Zosyn, Diflucan for 10 days per ID --Hypothermia; resolved --Lactic acidosis /metabolic acidosis improved --Type 2 diabetes mellitus; well controlled, SSC,Insulin,ADA diet Disposition: [id number] HOME UNDER [facility] Time spent for discharge: 33 min Core Measure Documentation - Palliative Care Palliative Care/ Comfort Measures: Not Applicable - Core Measures Any of the following diagnoses?: none Exam - Constitutional Vitals: Temp Pulse Resp BP Pulse Ox 98.4 F 83 18 155/86 97 08/11/17 02:06 08/11/17 02:06 08/11/17 02:06 08/11/17 02:06 08/11/17 02:06 General appearance: Present: no acute distress, well-nourished - EENT Eyes: Present: PERRL, EOM intact - Neck Neck: Present: supple, normal ROM - Respiratory Respiratory effort: normal Respiratory: bilateral: diminished, negative: rales, rhonchi, wheezing - Cardiovascular Rhythm: regular Heart Sounds: Present: S1 & S2 - Extremities Extremities: no ischemia, No edema - Abdominal General gastrointestinal: Present: soft, non-tender, non-distended, normal bowel sounds, other (ostomy functioning well) - Integumentary Integumentary: Present: clear, warm - Musculoskeletal Musculoskeletal: strength equal bilaterally - Psychiatric Psychiatric: appropriate mood/affect, cooperative - Neurologic Neurologic: CNII-XII intact, moves all extremities Plan Activity: advance as tolerated Diet: diabetic Special Instructions: physical therapy Additional Instructions: If you have severe nausea and vomiting abdominal pain, or GI bleeding. Contact M.D. or go to emergency room immediately Follow up with: PRIMARY CARE, [Primary Care Provider] - 3-5 Days KARTIK LOYA MD [Staff Physician] - 7 Days CODIE LR DO [Staff Physician] - 7 Days MOHINDER SNYDER MD [Staff Physician] - 7 Days Prescriptions: Famotidine [Pepcid] 20 mg PO BID #20 tablet Ferrous Sulfate [Feosol 325 MG tab] 325 mg PO TID #90 tablet oxyCODONE /ACETAMINOPHEN [Percocet 5/325 mg] 1 tab PO BID PRN #10 tablet PRN Reason: Pain, Moderate (4-6) Other Discharge Orders: Bedside Commode Amb) Location: Determined By Patient
[2017-08-11] MEDS: MORPHINE IV PRN (08:40)
[2017-08-11] MEDS: MAGIC MOUTHWASH PO SCH (08:41)
--- NOTE | 2017-08-11 09:07 | Hem/Onc Progress Note ---
Assessment and Plan Continue supportive care. cbc stable- hgb 9.0. If discharged, she will have to follow-up with hematology for possible B12 and iron as outpatient time and again specially since she's had extensive abdominal surgery which tends to cause iron and B12 deficiency over time Subjective Date of service: 08/11/17 Interval history: Patient feels better. . Tolerating by mouth better. Objective - Constitutional Vitals: Last Vital Signs Temp 98.4 F 08/11/17 07:52 Pulse 102 H 08/11/17 07:52 Resp 18 08/11/17 07:52 BP 111/75 08/11/17 07:52 Pulse Ox 99 08/11/17 07:52 General appearance: no acute distress - Neck Neck: supple - Respiratory Respiratory: bilateral: CTA - Cardiovascular Rhythm: regular Extremities: No edema - Gastrointestinal General gastrointestinal: Present: soft - Labs Lab Results: Laboratory Results - last 24 hr 08/10/17 08/10/17 08/10/17 11:24 16:04 23:29 WBC RBC Hgb Hct MCV MCH MCHC RDW Plt Count Lymph % (Auto) [place] % (Auto) Eos % (Auto) Baso % (Auto) Lymph # [place] # Eos # Baso # Seg Neutrophils % Seg Neutrophils # POC Glucose 120 H 130 H 114 H 08/11/17 08/11/17 05:00 06:25 WBC 8.1 RBC 3.29 L Hgb 9.0 L Hct 28.3 L MCV 86 MCH 28 MCHC 32 RDW 18.7 H Plt Count 456 H Lymph % (Auto) 29.4 [place] % (Auto) 12.2 H Eos % (Auto) 2.4 Baso % (Auto) 0.6 Lymph # 2.4 [place] # 1.0 H Eos # 0.2 Baso # 0.0 Seg Neutrophils % 55.4 Seg Neutrophils # 4.5 POC Glucose 103
[2017-08-11] MEDS: PEPCID PO SCH (10:29)
[2017-08-11 16:45] VITALS: BP 146/91
== END 2017-08-11 17:45 | disposition home health service (06) | DRG 853 ==
LOC: ED 22:38 → 3A 07-30 01:07 → CC1 07-30 17:57 → 4A 08-03 16:27 → 3A 08-08 12:46 → 4A 08-08 13:18 → 3A 08-08 16:24
PROVIDERS: ADMIT Internal Medicine; ATTEND Internal Medicine
PROC: 0DB80ZZ Excision of Small Intestine, Open Approach (ICD-10-PCS; principal; 2017-07-30)
PROC: 0DH67UZ Insertion of Feeding Device into Stomach, Via Natural or Artificial Opening (ICD-10-PCS; 2017-07-30)
PROC: 5A09357 Assistance with Respiratory Ventilation, Less than 24 Consecutive Hours, Continuous Positive Airway Pressure (ICD-10-PCS; 2017-07-30)
PROC: 4A033R1 Measurement of Arterial Saturation, Peripheral, Percutaneous Approach (ICD-10-PCS; 2017-07-31)
PROC: 5A1935Z Respiratory Ventilation, Less than 24 Consecutive Hours (ICD-10-PCS; 2017-07-31)
DX: A41.9 Sepsis, unspecified organism (principal); K65.9 Peritonitis, unspecified; N17.0 Acute kidney failure with tubular necrosis; R65.21 Severe sepsis with septic shock; E43 Unspecified severe protein-calorie malnutrition; J96.01 Acute respiratory failure with hypoxia; K56.609 Unspecified intestinal obstruction, unspecified as to partial versus complete obstruction; D62 Acute posthemorrhagic anemia; K92.2 Gastrointestinal hemorrhage, unspecified; E11.9 Type 2 diabetes mellitus without complications; I10 Essential (primary) hypertension; T68.XXXA Hypothermia, initial encounter; Z68.29 Body mass index [BMI] 29.0-29.9, adult; Z90.49 Acquired absence of other specified parts of digestive tract; E83.39 Other disorders of phosphorus metabolism; E66.9 Obesity, unspecified; E83.42 Hypomagnesemia; D69.6 Thrombocytopenia, unspecified; E87.6 Hypokalemia; Z86.73 Personal history of transient ischemic attack (TIA), and cerebral infarction without residual deficits
CPT/HCPCS: 36415; 36600; 71010; 74000; 74177; 76770; 80048; 80053; 80074; 81001; 82140; 82570; 82803; 82962; 83735; 84100; 84300; 85025; 85027; 85045; 85610; 85730; 86140; 87040; 87070; 87075; 87086; 87116; 87205; 88307; 93005; 93010; 94002; 94003; 94640; 94660; 94760; 96374; 96375; J0330; J0360; J0690; J0885; J1170; J1450; J1815; J2060; J2250; J2270; J2370; J2405; J2543; J2765; J2916; J3010; J3420; J3475; J3480; J7030; J7040; J7070; J7120; Q9967